=== PATIENT | female | born 1985 | race Caucasian/White ===

== ENCOUNTER 2019-10-15 15:45 | Emergency (ER) | payer OTHER, SELFPAY ==
[2019-10-15 15:47] VITALS: BP 141/97; PULSE 107; RESP 18; TEMP 36.8; O2SAT 94; BMI 29.7
--- NOTE | 2019-10-15 16:34 | ED.VIS.GEN ---
History of Present Illness Chief Complaint: Lower Extremity Injury Detail of Chief Complaint: Anterior left thigh pain, numbness dorsum left foot and anterior left arm Informant: Patient Onset: Yesterday - Thigh pain started at 2100. Arm pain started at 2200 last evening Context: Sudden Onset Timing: Continuous - The thigh discomfort has been continuous, Waxes and wanes Quality: Pain and numbness Location: Pain anterior left thigh and anterior volar left arm numbness dorsum left f Current Severity: Mild Maximum Severity: Severe Worsened by: Nothing specific Relieved by: Nothing Associated Symptoms: None Narrative: Patient 34-year-old called squad last evening because of anterior left thigh pain. She was concerned she had a blood clot. She has no prior history of blood clot. She denies swelling or discoloration of her left lower extremity. She declined transport because she became emotional i.e. UT for tearful with chest pain and shortness of breath. Her symptoms improved and she declined transport. She denies fever, chills night sweats. She denies ocular, visual auditory symptoms. She denies neck pain or neck stiffness. She had mild chest discomfort. She presently has no chest discomfort. She states her left thigh presently feels better. The left arm pain is not in a radicular dermatome. There is no other symptoms. During the history portion of the examination patient became tearful emotional and began to hyperventilate. Patient states her biggest concern is that she has a blood clot. Prior similar symptoms: No Recent Illness/Hospitalization: No - Past Medical History (1) History of depression and anxiety Status: Acute Past Medical History - Allergies and Home Meds Allergies/Adverse Reactions: Allergies No Known Allergies Allergy (Verified 10/15/19 15:47) Primary Care Physician: Sam Gomze [Primary Care Provider] - Prior records reviewed: Yes Surgical History: no surgical history Lives: Alone Smoking Status: Never smoker Alcohol: Rare Drugs: None Review of Systems General: Denies: Chills, Fever, Malaise, Subjective, Sweats, Weight loss Eyes: Denies: Visual changes - bilaterally, Blurred Vision - bilaterally ENT: Denies: Bilateral ear pain, Rhinorrhea, Sore throat Cardiovascular: Denies: Chest pain, Palpitations Respiratory: Denies: Dyspnea, Cough, Sputum, Dyspnea on exertion Gastrointestinal: Denies: Abdominal pain, Nausea, Vomiting Musculoskeletal: Reports: Extremity Pain. Denies: Myalgias, Arthralgias, Neck pain, Back pain, Swelling Skin: Denies: Rash, Wounds Neurological: Reports: Numbness. Denies: Headache, Weakness Psych: Reports: Depression, Anxiety Endocrine: Denies: Polyuria, Polydipsia Hematologic: Denies: Easy bruising, Easy bleeding Physical Exam Vital Signs/Narrative: Vital Signs Temp Pulse Resp BP Pulse Ox 10/15/19 15:47 98.2 F 107 H 18 141/97 H 94 Inital Vital Signs reviewed: Yes General: Well nourished, Well developed, No Acute Distress Head: Normocephalic, Atraumatic Eyes: Perrl, EOMI. Negative for: Pale conjunctiva, Scleral icterus ENT: Moist mucous membranes, No rhinorrhea Neck: Supple, Nontender, No lymphadenopathy, No JVD Cardiovascular: Regular rate, Regular rhythm, No murmurs, Normal S1, Normal S2 Respiratory: No distress, CTA bilaterally, Chest nontender Abdomen: Soft, Nontender, Nondistended, Normal bowel sounds, No masses Back: Nontender, Normal Inspection. Negative for: CVA tenderness, Spinal tenderness Extremities: Nontender, No edema, - - There is no asymmetry, swelling, discoloration, leg vein distention, palpable cords or tenderness along the distribution of the deep venous system. DP and PT pulse are 2+ and symmetric. Skin: Normal color, No rash, No Trauma. Negative for: Cyanosis, Diaphoresis, Jaundice Neurological: Alert, Oriented x3, Cranial nerves II-XII grossly intact, Normal Strength, Normal Sensation, Normal DTR, Normal Gait Psychological: Tearful Diagnostic/Tx/Re-eval Laboratory Results 10/15/19 10/15/19 16:20 16:20 WBC 10.3 RBC 4.24 Hgb 12.9 Hct 37.9 MCV 89.4 MCH 30.4 MCHC 34.0 RDW Std Deviation 36.8 RDW Coeff of Isabell 11.5 L Plt Count 358 MPV 11.5 Immature Gran % (Auto) 0.200 Neut % (Auto) 69.3 Lymph % (Auto) 22.3 [place] % (Auto) 5.6 Eos % (Auto) 2.3 Baso % (Auto) 0.3 Absolute Neuts (auto) 7.1 Absolute Lymphs (auto) 2.30 Nucleated RBC % 0 Sodium 138 Potassium 3.7 Chloride 105 Carbon Dioxide 27.0 Anion Gap 6 BUN 13 Creatinine 0.79 Estim Creat Clear Calc 97.58 Est GFR (MDRD) Af Amer 106 Est GFR (MDRD) Non-Af 88 BUN/Creatinine Ratio 16.4 Glucose 100 Calcium 9.1 Laboratory studies are all normal. Patient was informed of her results. She was informed the cause of her pain is unknown. - Medical Decision Making Dental diagnosis includes pain of unknown etiology, anxiety, possible electrolyte abnormality. ED Disposition - Plan for ED Patient: Disposition: Home or Assisted Living Diagnosis: Acute pain of left thigh, Left arm pain, Numbness of left foot Instructions: ED Acute Pain [facility] Referrals: Sam Gomez [Primary Care Provider] - 3-5 Days if not improving
[2019-10-15 16:57] LABS: Absolute Neutrophil Count 7.1 X10^3/uL (2.0-7.7); Basophil# 0.03 X10^3/uL; Basophil% 0.3 % (0-1); Eosinophil# 0.24 X10^3/uL; Eosinophils% 2.3 % (0-5); Hematocrit 37.9 % (37-47); Hemoglobin 12.9 g/dL (12.0-15.0); Lymphocyte % 22.3 % (19-41); Mean Corpuscular Hgb 30.4 pg (27.0-32.0); Mean Corpuscular Volume 89.4 fL (81-99); Mean Platelet Vol. 11.5 fl (6.2-12.0); Monocyte# 0.58 X10^3/uL; Monocyte% 5.6 % (0-10); NRBC Flagged by Analyzer 0 % (0-5); Neutrophil # 7.13 X10^3/uL (2.7-7.7); Neutrophil % 69.3 % (47-70); Platelet Count 358 K/mm3 (150-450); RBC Distribution Width CV 11.5 % (11.6-14.6); RBC Distribution Width SD 36.8 fl (35.1-43.9); Red Blood Count 4.24 M/mm3 (4.2-5.4); White Blood Count 10.3 K/mm3 (4.4-11.0)
[2019-10-15 17:08] LABS: Anion Gap 6 (5-15); BUN 13 mg/dL (7-18); BUN/Creat Ratio 16.4 RATIO (10-20); Calcium,Total 9.1 mg/dL (8.5-10.1); Chloride 105 mmol/L (98-107); Creatinine, Serum 0.79 mg/dL (0.55-1.02); EST Glomerular Filtration Rate 88 mL/min (>60); Est Glom Filt Rate - Afr Amer 106 mL/min (>60); Estimated Creatinine Clearance 97.58 ml/min; Glucose 100 mg/dL (74-106); Potassium 3.7 mmol/L (3.5-5.1); Sodium Level 138 mmol/L (136-145)
[2019-10-15 17:40] VITALS: BP 113/85; PULSE 80; RESP 18; O2SAT 98
== END 2019-10-15 17:41 | disposition home or self-care (01) ==
PROVIDERS: Emergency Provider Emergency Medicine; PCP Student in an Organized Health Care Education/Training Program
DX: M79.652 Pain in left thigh (principal); M79.602 Pain in left arm; R20.0 Anesthesia of skin; F32.9 Major depressive disorder, single episode, unspecified; F41.9 Anxiety disorder, unspecified
CPT/HCPCS: 80048; 85025; 99283

== ENCOUNTER 2020-08-26 12:43 | Observation (INO) | payer OTHER, SELFPAY ==
[2020-08-26 12:44] VITALS: BP 126/94; PULSE 100; RESP 20; TEMP 37.6; O2SAT 98; BMI 29.7
--- NOTE | 2020-08-26 13:36 | US_ITS ---
STUDY: ABDOMINAL ULTRASOUND - RIGHT UPPER QUADRANT REASON FOR VISIT: Female, 35 years old fever, transaminitis TECHNIQUE: Ultrasound evaluation of the right upper quadrant was performed with real-time and static castillo-scale imaging. TECHNICAL QUALITY: Adequate. COMPARISON: None. FINDINGS: Liver: The liver measures 15.3 cm. There is normal echogenicity of the liver. The bile ducts are within normal limits. There is hepatic color flow. The direction of portal flow is hepatopetal. There is no demonstrated mass lesion. Gallbladder: Normal distended gallbladder. The gallbladder wall measures 3 mm. There is a negative sonographic Goldstein''s sign. There is no pericholecystic fluid. There are no gallstones. Common Bile Duct (C.B.D.): The common bile duct measures 5 mm. Pancreas: Normal size of the head, body and tail of the pancreas. There is normal echogenicity of the pancreas. There is no demonstrated pancreatic mass or cyst. Right Kidney: Normal size of the right kidney. The right kidney measures 13.5 cm. Normal renal cortex. The right cortex measures cm. There is no demonstrated renal mass or cyst. There is no right hydronephrosis. US/Gallbladder IMPRESSION: Normal right upper quadrant ultrasound examination. Electronically Signed: Jeronimo Seay MD at 16:08 EDT Tel , Service support ,
--- NOTE | 2020-08-26 13:36 | EKG12_ITS ---
Test Reason : FEVER Blood Pressure : / mmHG Vent. Rate : 087 BPM Atrial Rate : 087 BPM P-R Int : 172 ms QRS Dur : 084 ms QT Int : 350 ms P-R-T Axes : 026 015 039 degrees QTc Int : 421 ms Sinus rhythm with Premature supraventricular complexes Otherwise normal ECG Confirmed by NEEMA ALVA, SATISH ([id number]), editor greeting card HERBERT AMOR ([id number]) on 08/29/2020 11:33:50 A M Referred By: ASHLEY Confirmed By:CODY BETHEA MD
[2020-08-26] MEDS: 0.9% Normal Saline 1,000 ML 1000 ML IV (14:00)
[2020-08-26] MEDS: Ondansetron 4 MG/2 ML Vial IV (14:00)
--- NOTE | 2020-08-26 14:20 | RAD_ITS ---
STUDY: X-RAY CHEST REASON FOR EXAM: Female, 35 years old. Weakness, fever TECHNIQUE: Single AP portable view of the chest. COMPARISON: None. FINDINGS: The lungs are clear and expanded. There is no demonstrated pleural abnormality. Normal size heart. Normal mediastinum and kade. Normal visualized pulmonary arteries. Normal visualized aortic arch and descending thoracic aorta. Normal visualized thoracic spine. Normal visualized ribs, clavicles, and shoulders. There is no demonstrated abnormality of the visualized soft tissue structures of the upper abdomen. RAD/Chest 1 View (Portable) IMPRESSION: Normal x-ray examination of the chest. Electronically Signed: Matthew Anderson MD at 14:40 EDT , Service support ,
[2020-08-26 14:22] LABS: Absolute Lymphocyte Count 1.14 X10^3/uL (0.83-4.51); Absolute Neutrophil Count 2.5 X10^3/uL (2.0-7.7); Basophil# 0.03 X10^3/uL; Basophil% 0.8 % (0-1); Eosinophil# 0.01 X10^3/uL; Eosinophils% 0.3 % (0-5); Hematocrit 34.8 % (37-47); Hemoglobin 12.3 g/dL (12.0-15.0); Lymphocyte # 1.14 X10^3/ul (0.83-4.51); Lymphocyte % 29.3 % (19-41); Mean Corp Hgb Conc 35.3 g/dL (32-36); Mean Corpuscular Hgb 29.9 pg (27.0-32.0); Mean Corpuscular Volume 84.5 fL (81-99); Mean Platelet Vol. 11.5 fl (6.2-12.0); Monocyte# 0.19 X10^3/uL; Monocyte% 4.9 % (0-10); NRBC Flagged by Analyzer 0 % (0-5); Neutrophil % 64.2 % (47-70); Platelet Count 231 K/mm3 (150-450); RBC Distribution Width CV 11.4 % (11.6-14.6); RBC Distribution Width SD 34.8 fl (35.1-43.9); Red Blood Count 4.12 M/mm3 (4.2-5.4); White Blood Count 3.9 K/mm3 (4.4-11.0)
[2020-08-26 14:45] LABS: AST(SGOT) 996 U/L (15-37); Alanine Aminotransfer ALT/SGPT 732 U/L (13-56); Albumin, Serum 3.6 g/dL (3.2-5.0); Alkaline Phosphatase 188 U/L (45-117); Anion Gap 7 (5-15); BUN 8 mg/dL (7-18); Bilirubin, Direct 0.84 mg/dL (0.00-0.30); Chloride 96 mmol/L (98-107); EST Glomerular Filtration Rate 87 mL/min (>60); Est Glom Filt Rate - Afr Amer 105 mL/min (>60); Estimated Creatinine Clearance 95.45 ml/min; Globulin 3.9 g/dL (2.2-4.2); Glucose 97 mg/dL (74-106); Lipase 219 U/L (73-393); Protein, Total 7.5 g/dL (6.4-8.2); Sodium Level 133 mmol/L (136-145)
[2020-08-26 14:56] LABS: Lactic Acid 1.3 mmol/L (0.4-1.9)
[2020-08-26 15:43] LABS: Red Blood Cells-Urine 0 SEEN /hpf (0-5)
[2020-08-26 16:05] LABS: Internal QC Validated? YES +Cl - CLEAR BKGD; Pregnancy, Urine Negative Negative
[2020-08-26 16:09] VITALS: RESP 18
[2020-08-26 16:15] VITALS: BP 118/82; PULSE 86; RESP 16; TEMP 37.5; O2SAT 99
[2020-08-26 16:21] LABS: Internal QC Validated? YES +Cl - CLEAR BKGD; Monotest Negative (Negative)
--- NOTE | 2020-08-26 16:41 | EX.ED.DYSGE1 ---
HPI History of Present Illness Chief Complaint: General Illness Informant: patient Narrative Narrative: Patient is a 35-year-old female 8 days of fevers with a T-max of 102.7. She states she has had flulike symptoms. She has had cough and body aches. She said decreased appetite. She went to [facility] yesterday where she had blood work a chest x-ray and UA. She was found to have abnormalities with her liver and was scheduled to have repeat blood work today as well as a liver ultrasound. Patient states she became very nervous when they told her she had to be n.p.o. for 6 hours before her ultrasound and she has been having a hard time keeping herself hydrated. She decided to come to the emergency room to be evaluated further. She notes she has had a mild headache but denies any neck stiffness. She denies any diarrhea or change in her bowel habits. She has only had mild nausea. She denies any IV drug use. She denies any abdominal pain. She denies any sick contacts. No other complaints at this time [facility] Medical History Depression Home Medications bupropion HCl 300 mg PO DAILY 10/15/19 [History Last Taken Unknown] ondansetron HCl [Zofran] 4 mg PO Q8H PRN #14 tab 08/26/20 [Rx Last Taken Unknown] Allergy/AdvReac Type Severity Reaction Status Date / Time No Known Allergies Allergy Verified 08/26/20 12:47 Social History Smoking Status: Never smoker [facility] ED Constitutional Constitutional ED: Reports chills, fever(s) and other Details: anorexia ; Denies malaise Eyes Eyes: Denies blurry vision or loss of vision ENT ENT ED: Denies rhinorrhea or sore throat Cardiovascular Cardiovascular: Denies chest pain or dizziness Respiratory/Chest Respiratory/Chest: Denies cough or dyspnea Gastrointestinal Gastrointestinal: Reports nausea; Denies abdominal pain or vomiting Genitourinary Genitourinary ED: Denies dysuria or hematuria Musculoskeletal Musculoskeletal: Denies arthralgias or myalgias Integumentary Denies rash or wounds Neurologic Neurologic: Denies focal weakness, headache(s) or weakness Psychiatric Psychiatric: Denies anxiety or behavioral changes EXAM Physical Exam Const Vital Signs: 08/26/20 12:44 08/26/20 16:09 08/26/20 16:15 Temperature 99.7 F H 99.5 F H Temperature Source Temporal Oral Pulse Rate 100 86 Respiratory Rate 20 H 18 16 Blood Pressure 126/94 H 118/82 H Blood Pressure Mean 104 94 Pulse Ox 98 99 Oxygen Delivery Method Room Air Room Air Positive well nourished, well developed and no apparent distress General Appearance ED: well developed HEENT Reports normocephalic, TM's clear and moist mucous membranes atraumatic Nose: no nasal discharge General Ear: hearing grossly impaired External Ear: external ears normal Tympanic Membrane ED: Yes TM's clear Mouth ED: Yes moist mucous membranes abnormal Mouth: moist mucous membranes abnormal Eyes PERRL and EOMs intact bilaterally Neck full ROM, no lymphadenopathy, supple and no meningeal signs Chest Wall inspection of chest normal Resp normal respiratory effort, normal air movement and clear to auscultation bilaterally Cardio regular rate and regular rhythm GI normal to inspection, nondistended, normoactive bowel sounds and no masses Inspection: Negative for abdominal distention Back/Spine no CVA tenderness Extremity normal to inspection and full ROM Neuro oriented x3 and no focal motor deficits Sensorium / Orientation: alert Psych mental status grossly normal and thought process normal Mood & Affect: anxious Skin no rashes or lesions noted and no wounds MDM MDM MDM Narrative Medical decision making narrative: Patient evaluated for 8 days of fever. She had abnormal lab work outpatient but was supposed to have further testing today but did not feel well enough to get it. Vital signs are significant for a low-grade temp of 99.7 ?F. She is hemodynamically stable emergency room. She is given IV fluids and Zofran. On reevaluation she is feeling better. Work-up is remarkable for transaminitis and a mildly elevated bilirubin. She has a normal lipase and a relatively normal CBC. She does have a very mild leukopenia with a white blood cell count of 3.9. Her BMP is mostly normal. She is normal kidney function. [place] test is negative. Right upper quadrant ultrasound obtained does not show any acute process. Work-up is discussed with her PCP, Dr. Gomez who is comfortable with outpatient evaluation. I believe patient is hemodynamically stable. Patient is agreeable to this plan of care. Did discuss with patient observation admission for continued monitoring and IV fluids but patient states she discomfortable going home. I feel like this is reasonable. Blood cultures are pending however I do suspect this is viral in nature. Patient has an outpatient hepatic panel ordered and is instructed to have repeat blood work in 2 days which is ordered by her PCP. Lab Data Attestation: I reviewed the patient's lab results. Labs: Laboratory Results - last 24 hr 08/26/20 08/26/20 08/26/20 13:55 13:55 13:55 WBC 3.9 L RBC 4.12 L Hgb 12.3 Hct 34.8 L MCV 84.5 MCH 29.9 MCHC 35.3 RDW Std Deviation 34.8 L RDW Coeff of Isabell 11.4 L Plt Count 231 MPV 11.5 Immature Gran % (Auto) 0.500 Neut % (Auto) 64.2 Lymph % (Auto) 29.3 [place] % (Auto) 4.9 Eos % (Auto) 0.3 Baso % (Auto) 0.8 Absolute Neuts (auto) 2.5 Absolute Lymphs (auto) 1.14 Nucleated RBC % 0 Sodium 133 L Potassium 3.0 L Chloride 96 L Carbon Dioxide 30.0 Anion Gap 7 BUN 8 Creatinine 0.80 Estim Creat Clear Calc 95.45 Est GFR (MDRD) Af Amer 105 Est GFR (MDRD) Non-Af 87 BUN/Creatinine Ratio 10.0 Glucose 97 Lactic Acid 1.3 Calcium 9.0 Total Bilirubin 1.70 H Direct Bilirubin 0.84 H AST 996 H ALT 732 H Alkaline Phosphatase 188 H Troponin I < 0.015 Total Protein 7.5 Albumin 3.6 Globulin 3.9 Lipase 219 Urine Color Urine Clarity Urine pH Ur Specific [place] Urine Protein Urine Glucose (UA) Urine Ketones Urine Occult Blood Urine Nitrite Urine Bilirubin Urine Urobilinogen Ur Leukocyte Esterase Urine RBC Urine WBC Ur Squamous Epith Cells Urine Bacteria Hyaline Casts Urine Mucus Urine Test Monoscreen 08/26/20 08/26/20 08/26/20 15:37 15:37 15:37 WBC RBC Hgb Hct MCV MCH MCHC RDW Std Deviation RDW Coeff of Isabell Plt Count MPV Immature Gran % (Auto) Neut % (Auto) Lymph % (Auto) [place] % (Auto) Eos % (Auto) Baso % (Auto) Absolute Neuts (auto) Absolute Lymphs (auto) Nucleated RBC % Sodium Potassium Chloride Carbon Dioxide Anion Gap BUN Creatinine Estim Creat Clear Calc Est GFR (MDRD) Af Amer Est GFR (MDRD) Non-Af BUN/Creatinine Ratio Glucose Lactic Acid Calcium Total Bilirubin Direct Bilirubin AST ALT Alkaline Phosphatase Troponin I Total Protein Albumin Globulin Lipase Urine Color [place] Urine Clarity Clear Urine pH 6.0 Ur Specific [place] 1.015 Urine Protein 30 H Urine Glucose (UA) Normal Urine Ketones 150 A* Urine Occult Blood 10 H Urine Nitrite Negative Urine Bilirubin 1 H Urine Urobilinogen 4 H Ur Leukocyte Esterase 25 H Urine RBC 0 SEEN Urine WBC 0-5 SEEN Ur Squamous Epith Cells 0-5 SEEN Urine Bacteria 1+ Hyaline Casts 5-10 SEEN Urine Mucus 3+ Urine Test Negative Monoscreen Negative Radiography Chest X-Ray - ED: 1 View, Read by ED Physician, Read by Radiologist and Normal Diagnostic Testing: Radiology Impression Gallbladder Ultrasound 08/26/20 13:36 IMPRESSION: Normal right upper quadrant ultrasound examination. Electronically Signed: Jeronimo Seay MD at 16:08 EDT Tel , Service support , Chest X-Ray 08/26/20 14:20 IMPRESSION: Normal x-ray examination of the chest. Electronically Signed: Matthew Anderson MD at 14:40 EDT , Service support , Rhythm Strip Rhythm Strip: Sinus Rhythm Rate: 87 Ectopy: None EKG Initial EKG: Attestation: I personally reviewed and interpreted this EKG as follows: Interpretation: Sinus Rhythm Comments: Normal sinus rhythm at a rate of 87 Normal axis Normal intervals Normal ST segments Treatment and Re-Evaluation Comments:: IV fluids and Zofran Improvement of symptoms on reevaluation Discharge Plan Triage Chief Complaint: General Illness ED Provider: Dinaa Andrews Dx/Rx/DC Orders Clinical Impression: Hepatitis, Fever Instructions: ED Hepatitis Cause Unknown Test ... Prescriptions: New ondansetron HCl [Zofran] 4 mg tablet 4 mg PO Q8H PRN (Reason: nausea and vomiting) Qty: 14 RF: 0 No Action bupropion HCl 150 MG tablet extended release 24 hr 300 mg PO DAILY RF: 0 Primary Care Provider: Sam Gomez Referrals: Sam Gomez [Primary Care Provider] - Activity Restrictions/Additional Instructions: Please go to the lab in 2 days for repeat blood work/have the blood work that was already ordered drawn. Follow-up with your doctor on Tuesday or early next week. Try to drink plenty fluids. Return the emergency room if you have worsening symptoms or concern for further dehydration. Disposition Disposition: Home, self care
[2020-08-26 16:55] LABS: Color, Urine Amber (Yellow); Glucose, Dipstick Normal (Normal); Leukocyte Esterase-Dipstick 25 /ul (Negative); Nitrite-Dipstick Negative (Negative); Occult Blood-Urine 10 /ul (Negative); Protein-Dipstick 30 mg/dl (Negative); Specific Gravity, Urine 1.015 (1.002-1.030); Urine Bilirubin Dipstick 1 mg/dL (Negative); Urine Clarity Clear (Clear); Urine Urobilinogen 4 mg/dl (Normal)
[2020-08-26 16:58] LABS: Ketone-Dipstick 150 mg/dl (Negative)
[2020-08-26 17:06] LABS: Bacteria 1+ /hpf (None Seen); Mucous, Urine 3+ /hpf (<or=2+); Squamous Epithelial Cells - UA 0-5 SEEN /hpf (5-10); White Blood Cells 0-5 SEEN /hpf (0-5)
[2020-08-26 17:07] LABS: Hyaline Cast 5-10 SEEN /lpf (0-5)
--- NOTE | 2020-08-26 17:40 | HP.PCM.HOS_ITS ---
HPI - General General Date of Admission: 08/26/20 HPI Narrative TRACI DISLA, is a 35 F who presents with a complaint of fever for 8 days with associated cough and body aches and decreased appetite. His nose have not been improving so she was seen by her PCP yesterday and she had blood work. She was told of all the blood work today also that she had elevated liver enzymes. A liver ultrasound was also ordered but she said she had to keep n.p.o. overnight and this worsened her nausea so she decided to come into the ED. She denies any chills and denies any abdominal pain. She denies ever having any liver pathology and denies IV drug use or alcohol use. She is celibate. She is unsure if she is had a hepatitis B vaccination. Patient also has taken the Covid vaccination shots. In the ED, vitals showed blood pressure of 124/84 with pulse rate of 84, respiratory rate of 16 and temp of 99.5 Fahrenheit. CBC showed WBC of 3.9 with hemoglobin of 12.3 and platelets of 231. Chemistry shows sodium of 133 with potassium of 3, and creatinine of 0.8. Total bilirubin was 1.7 with AST of 996 and ALT of 732 as well as ALP of 188. UA showed urine ketones of 150 and leukocyte esterase of 25 and 1+ bacteria. Gallbladder ultrasound done showed normal distended gallbladder with gallbladder wall of 3 mm and a negative sonographic Goldstein sign with normal pancreas and normal liver. She has been admitted to be managed for acute hepatitis, probably viral. Of note, patient tells me that she has been taking Tylenol more than usual ever since her symptoms started necessitating she took about 1000 mg of Tylenol every day with the last dose being at 5 PM yesterday. [facility] Medical History (Updated 08/26/20 @ 18:03 by Radha Orona) Depression Hepatitis Home Medications bupropion HCl 300 mg PO DAILY 10/15/19 [History Last Taken 08/25/20] loratadine [Claritin] 10 mg PO DAILY PRN 08/26/20 [History Last Taken Unknown] ondansetron HCl [Zofran] 4 mg PO Q8H PRN #14 tab 08/26/20 [Rx Last Taken Unknown] Allergy/AdvReac Type Severity Reaction Status Date / Time No Known Allergies Allergy Verified 08/26/20 12:47 Surgical History (Updated 08/26/20 @ 18:02 by Radha Orona) [place] teeth extracted Social History Smoking Status: Never smoker ROS Constitutional Constitutional: Reports anorexia, fatigue, fever(s) and malaise; Denies change in weight or chills Eyes Eyes: Denies change in vision ENT HEENT: Denies abnormal hearing, dysphagia or headache(s) Cardiovascular Cardiovascular: Denies chest pain, dyspnea on exertion, edema, lightheadedness, orthopnea, palpitations, paroxysmal nocturnal dyspnea or rapid heart rate Respiratory/Chest Respiratory/Chest: Denies cough, dyspnea, shortness of breath at rest or shortness of breath with exertion Gastrointestinal Gastrointestinal: Denies abdominal pain, coffee ground emesis, constipation or diarrhea Genitourinary Genitourinary: Denies burning urination Musculoskeletal Musculoskeletal: Denies arthralgias Neurologic Neurologic: Denies abnormal gait, confusion, disequilibrium, dizziness or focal weakness Psychiatric Psychiatric: Denies anxiety or depression Endocrine Endocrinology: Denies change in body appearance Hematologic/Lymphatic Hematologic/Lymphatic: Denies anemia Vital Signs Vital Signs Vital Signs: 08/26/20 12:44 08/26/20 16:09 08/26/20 16:15 Temperature 99.7 F H 99.5 F H Temperature Source Temporal Oral Pulse Rate 100 86 Respiratory Rate 20 H 18 16 Blood Pressure 126/94 H 118/82 H Blood Pressure Mean 104 94 Pulse Ox 98 99 Oxygen Delivery Method Room Air Room Air Physical Exam Const alert, oriented x3 and no apparent distress General Appearance: cooperative HEENT normocephalic, head/scalp atraumatic, hearing grossly normal bilaterally and moist oral mucous membranes Eyes PERRL, EOMs intact bilaterally and conjunctivae normal Neck no lymphadenopathy, supple and no JVD Resp normal respiratory effort, no use of accessory muscles and clear to auscultation bilaterally Cardio regular rate, regular rhythm, S1 normal heart sound, S2 normal heart sound and no murmurs GI normal to inspection, nondistended, normoactive bowel sounds, soft to palpation, non-tender and non-distended GI Narrative: negative Goldstein's sign. Extremity normal to inspection, full ROM and no clubbing, cyanosis or edema Peripheral Pulses: Yes pulses 2+ throughout Skin no rashes or lesions noted, no wounds, skin turgor normal and no jaundice Neuro oriented x3 Sensorium / Orientation: awake and alert Psych Mood & Affect: anxious Lab / Micro Data Result Diagrams: 08/26/20 13:55 08/26/20 13:55 Labs: Laboratory Results - last 24 hr 08/26/20 08/26/20 08/26/20 13:55 13:55 13:55 WBC 3.9 L RBC 4.12 L Hgb 12.3 Hct 34.8 L MCV 84.5 MCH 29.9 MCHC 35.3 RDW Std Deviation 34.8 L RDW Coeff of Isabell 11.4 L Plt Count 231 MPV 11.5 Immature Gran % (Auto) 0.500 Neut % (Auto) 64.2 Lymph % (Auto) 29.3 [place] % (Auto) 4.9 Eos % (Auto) 0.3 Baso % (Auto) 0.8 Absolute Neuts (auto) 2.5 Absolute Lymphs (auto) 1.14 Nucleated RBC % 0 Sodium 133 L Potassium 3.0 L Chloride 96 L Carbon Dioxide 30.0 Anion Gap 7 BUN 8 Creatinine 0.80 Estim Creat Clear Calc 95.45 Est GFR (MDRD) Af Amer 105 Est GFR (MDRD) Non-Af 87 BUN/Creatinine Ratio 10.0 Glucose 97 Lactic Acid 1.3 Calcium 9.0 Total Bilirubin 1.70 H Direct Bilirubin 0.84 H AST 996 H ALT 732 H Alkaline Phosphatase 188 H Troponin I < 0.015 Total Protein 7.5 Albumin 3.6 Globulin 3.9 Lipase 219 Urine Color Urine Clarity Urine pH Ur Specific [place] Urine Protein Urine Glucose (UA) Urine Ketones Urine Occult Blood Urine Nitrite Urine Bilirubin Urine Urobilinogen Ur Leukocyte Esterase Urine RBC Urine WBC Ur Squamous Epith Cells Urine Bacteria Hyaline Casts Urine Mucus Urine Test Monoscreen 08/26/20 08/26/20 08/26/20 15:37 15:37 15:37 WBC RBC Hgb Hct MCV MCH MCHC RDW Std Deviation RDW Coeff of Isabell Plt Count MPV Immature Gran % (Auto) Neut % (Auto) Lymph % (Auto) [place] % (Auto) Eos % (Auto) Baso % (Auto) Absolute Neuts (auto) Absolute Lymphs (auto) Nucleated RBC % Sodium Potassium Chloride Carbon Dioxide Anion Gap BUN Creatinine Estim Creat Clear Calc Est GFR (MDRD) Af Amer Est GFR (MDRD) Non-Af BUN/Creatinine Ratio Glucose Lactic Acid Calcium Total Bilirubin Direct Bilirubin AST ALT Alkaline Phosphatase Troponin I Total Protein Albumin Globulin Lipase Urine Color Cristin Urine Clarity Clear Urine pH 6.0 Ur Specific [place] 1.015 Urine Protein 30 H Urine Glucose (UA) Normal Urine Ketones 150 A* Urine Occult Blood 10 H Urine Nitrite Negative Urine Bilirubin 1 H Urine Urobilinogen 4 H Ur Leukocyte Esterase 25 H Urine RBC 0 SEEN Urine WBC 0-5 SEEN Ur Squamous Epith Cells 0-5 SEEN Urine Bacteria 1+ Hyaline Casts 5-10 SEEN Urine Mucus 3+ Urine Test Negative Monoscreen Negative Micro: Microbiology 08/26/20 Unknown SARS-CoV-2 Antigen (Rapid) - Final Interface Orders Rhythm Strip Rhythm Strip: Sinus Rhythm Rate: 87 Ectopy: None Radiology Impression Gallbladder Ultrasound 08/26/20 13:36 IMPRESSION: Normal right upper quadrant ultrasound examination. Electronically Signed: Jeronimo Seay MD at 16:08 EDT Tel , Service support , Chest X-Ray 08/26/20 14:20 IMPRESSION: Normal x-ray examination of the chest. Electronically Signed: Matthew Anderson MD at 14:40 EDT , Service support , Assessment & Plan Assessment/Plan (1) Hepatitis: PLAN: #Acute hepatitis and acute liver injury * Cause is unclear. It appears to be viral as she did have what seems like a viral prodromal illness prior to symptom onset with fever, cough and generalized malaise. However she has also been taking Tylenol but says she took only about 1 g daily. * Total bilirubin is 1.7 with AST of 996 and ALT of 732 with ALP of 188. Direct bilirubin is also elevated at 0.84. There are no previous records to compare with in the EMR. * Admit to MedSurg * Hydrate with IV fluids. * Order hepatitis panel * Hold off on treatment for Tylenol toxicity now as patient is asymptomatic, and there is no clear evidence of tylenol injury * trend liver enzymes * Of note, infectious mononucleosis screen was negative. * Check INR * #Hypokalemia: K is 3. Will replace and monitor #Hyponatremia: Sodium is 133. This is likely due to dehydration. Will hydrate and trend. #Asymptomatic bacteriuria * Urine shows 1+ bacteria with 25 leukocyte esterase. She has no urinary symptoms though. Will check urine culture and monitor further. * DVT prophylaxis: SCDs Visit Charges Inpatient E&M: 56011 Init Hosp L3
[2020-08-26 17:59] VITALS: BP 124/84; PULSE 84; RESP 16; TEMP 37.5; O2SAT 99
[2020-08-26 19:39] VITALS: BMI 29.9
[2020-08-26 19:41] VITALS: BP 123/79; PULSE 87; RESP 16; TEMP 37.5; O2SAT 99
[2020-08-26] MEDS: Potassium Chloride Oral Tablet 20 MEQ 60 MEQ PO (20:47)
[2020-08-26] MEDS: 0.9% Normal Saline 1,000 ML 150 ML IV (20:47)
[2020-08-26] MEDS: 0.9% Saline Lock 10 ML Syringe IV (20:47)
[2020-08-26 21:22] LABS: International Normalized Ratio 1.1; Prothrombin Time (Protime)PT. 13.6 SECONDS (11.7-14.9)
[2020-08-26 21:32] LABS: Acetaminophen (Tylenol) Level < 2.0 ug/mL (10.0-30.0)
[2020-08-27 02:05] VITALS: BP 117/78; PULSE 73; RESP 18; TEMP 36.6; O2SAT 100
[2020-08-27] MEDS: Ibuprofen 400 MG Tablet PO (05:18)
[2020-08-27] MEDS: 0.9% Normal Saline 1,000 ML 150 ML IV (05:20)
[2020-08-27 05:23] LABS: Absolute Lymphocyte Count 1.25 X10^3/uL (0.83-4.51); Absolute Neutrophil Count 1.7 X10^3/uL (2.0-7.7); Basophil# 0.01 X10^3/uL; Basophil% 0.3 % (0-1); Eosinophil# 0.04 X10^3/uL; Eosinophils% 1.2 % (0-5); Hematocrit 25.8 % (37-47); Hemoglobin 9.2 g/dL (12.0-15.0); Lymphocyte # 1.25 X10^3/ul (0.83-4.51); Lymphocyte % 38.5 % (19-41); Mean Corp Hgb Conc 35.7 g/dL (32-36); Mean Corpuscular Hgb 30.6 pg (27.0-32.0); Mean Corpuscular Volume 85.7 fL (81-99); Mean Platelet Vol. 10.9 fl (6.2-12.0); Monocyte# 0.29 X10^3/uL; Monocyte% 8.9 % (0-10); NRBC Flagged by Analyzer 0 % (0-5); Neutrophil # 1.65 X10^3/uL (2.7-7.7); Neutrophil % 50.8 % (47-70); Platelet Count 204 K/mm3 (150-450); RBC Distribution Width CV 11.7 % (11.6-14.6); RBC Distribution Width SD 36.6 fl (35.1-43.9); Red Blood Count 3.01 M/mm3 (4.2-5.4); White Blood Count 3.3 K/mm3 (4.4-11.0)
[2020-08-27 05:55] LABS: AST(SGOT) 1151 U/L (15-37); Alanine Aminotransfer ALT/SGPT 842 U/L (13-56); Albumin, Serum 2.7 g/dL (3.2-5.0); Alkaline Phosphatase 145 U/L (45-117); Anion Gap 2 (5-15); BUN 6 mg/dL (7-18); BUN/Creat Ratio 10.8 RATIO (10-20); Calcium,Total 7.8 mg/dL (8.5-10.1); Chloride 103 mmol/L (98-107); Creatinine, Serum 0.56 mg/dL (0.55-1.02); EST Glomerular Filtration Rate 131 mL/min (>60); Est Glom Filt Rate - Afr Amer 159 mL/min (>60); Estimated Creatinine Clearance 136.35 ml/min; Globulin 2.8 g/dL (2.2-4.2); Glucose 94 mg/dL (74-106); Potassium 3.5 mmol/L (3.5-5.1); Protein, Total 5.5 g/dL (6.4-8.2); Sodium Level 137 mmol/L (136-145)
[2020-08-27 08:05] VITALS: BP 112/75; PULSE 77; RESP 16; TEMP 36.9; O2SAT 96
[2020-08-27] MEDS: buPROPion (XL) 300 MG TABLET.XL PO (08:08)
--- NOTE | 2020-08-27 08:52 | PCM.DC ---
Discharge Instructions Follow Up Care Test Results: Test results from this visit will be discussed in further detail at your follow-up appointment, if applicable. Discharge Plan Admission Admit Date/Time: 08/26/20 19:38 Primary Reason for Your Visit: hepatitis Attending Provider: Mega Palma Primary Care Provider: Sam Gomez Instructions Patient Instructions: ED Hepatitis Cause Unknown Test ... Additional Instructions / Restrictions: Please go to the lab in 2 days for repeat blood work/have the blood work that was already ordered drawn. Follow-up with your doctor on Tuesday or early next week. Try to drink plenty fluids. Return the emergency room if you have worsening symptoms or concern for further dehydration. Discharge Orders/Prescriptions Prescriptions: New ondansetron HCl [Zofran] 4 mg tablet 4 mg PO Q8H PRN (Reason: nausea and vomiting) Qty: 14 RF: 0 Continued bupropion HCl 150 MG tablet extended release 24 hr 300 mg PO DAILY RF: 0 loratadine [Claritin] 10 mg Tablet 10 mg PO DAILY PRN (Reason: allergies) RF: 0 Referrals / Follow Up: Sam Gomez [Primary Care Provider] - Disposition Disposition (needs filled in before D/C Order can be placed): Home, self care
--- NOTE | 2020-08-27 08:55 | CASEMGMT ---
LAINEY DE SOUZA Assessment: Face to Face with pt for initial transition planning/care coordination assessment. LAINEY DE SOUZA introduced self and role at [facility], pt voices understanding and consents to assessment. Pt is A/O x4 and answers all questions appropriately at this time. Pt sitting up in bed in no distress. Care providers, pharmacy, and demographics verified/updated. Admitting Dx: acute hepatitis PCP: Jason Specialists: Pt denies having any specialists. Preferred Pharmacy: [facility] Insurance: [facility] Prescription Benefit: yes LW/HPOA: Pt denies having a LW/DPOA. LNOK: Deyvi Card, father Living Arrangements: Pt lives alone in a two story house with 2 steps to enter. Pt reports she is I in ADL's and denies concerns at home. Transportation: Pt drives self and denies concerns with transportation. DME/HHC/SNF: Pt denies any DME at home, prior HHC or SNF stays. Pt states no concerns with going home at time of dc. Pt states no further concerns/needs. CM to follow. Advised pt to ask CM if any further question/concerns/needs arise, voices understanding. Pt Goal: Home Plan: Home
--- NOTE | 2020-08-27 09:21 | PHA.DC.MR ---
Pharmacy Service has performed discharge medication reconciliation for this patient. The patient's discharge medication list was reviewed for discrepancies and discrepancies were resolved. Home Medications bupropion HCl 300 mg PO DAILY 10/15/19 loratadine [Claritin] 10 mg PO DAILY PRN 08/26/20 ondansetron HCl [Zofran] 4 mg PO Q8H PRN #14 tab 08/26/20
--- NOTE | 2020-08-27 10:00 | PCM.NTREPORT ---
Nutrition Therapy Report - History Nutrition Services has been consulted to:: Manage nutrient details of diet order Current diet / nutrition support order:: Seen in conjuction w/ Jadon Portillo, electrical engineering intern. Pt states that she hasn't eaten anything in the past week. Reports that she had a poor appetite because she felt sick. Reports that she was able to drink water and PowerAid while she was sick. States that she vomited some saliva during the week of being sick and felt nausea from not having any food on her stomach. UBW is 195# and CBW is 191# representing 2% weight loss in one week-not significant for malnutrition. Reports that she has significant increase in appetite today. Reports that she ate >50% at breakfast today. - Anthropometric Measurements Height:: 5 ft 7 in Weight:: 86.6 kg Body Mass Index (BMI):: 29.9 - Relevant Labs Relevant Labs:: WBC 3.3 K/mm3 (4.4-11.0) L 08/27/20 04:54 RBC 3.01 M/mm3 (4.2-5.4) L 08/27/20 04:54 Hgb 9.2 g/dL (12.0-15.0) L 08/27/20 04:54 Hct 25.8 % (37-47) L 08/27/20 04:54 RDW Std Deviation 34.8 fl (35.1-43.9) L 08/26/20 13:55 RDW Coeff of Isabell 11.4 % (11.6-14.6) L 08/26/20 13:55 Absolute Neuts (auto) 1.7 X10^3/uL (2.0-7.7) L 08/27/20 04:54 Sodium 133 mmol/L (136-145) L 08/26/20 13:55 Potassium 3.0 mmol/L (3.5-5.1) L 08/26/20 13:55 Chloride 96 mmol/L (98-107) L 08/26/20 13:55 Anion Gap 2 (5-15) L 08/27/20 04:54 BUN 6 mg/dL (7-18) L 08/27/20 04:54 Calcium 7.8 mg/dL (8.5-10.1) L 08/27/20 04:54 Total Bilirubin 1.70 mg/dL (0.20-1.00) H 08/26/20 13:55 Direct Bilirubin 0.84 mg/dL (0.00-0.30) H 08/26/20 13:55 AST 1151 U/L (15-37) H 08/27/20 04:54 ALT 842 U/L (13-56) H 08/27/20 04:54 Alkaline Phosphatase 145 U/L (45-117) H 08/27/20 04:54 Total Protein 5.5 g/dL (6.4-8.2) L 08/27/20 04:54 Albumin 2.7 g/dL (3.2-5.0) L 08/27/20 04:54 - Assessment Food / Nutrition-Related History:: Pt states that she hasn't eaten anything in the past week. Reports that she had a poor appetite because she felt sick. Reports that she was able to drink water and PowerAid while she was sick. States that she vomited some saliva during the week of being sick and felt nausea from not having any food on her stomach. UBW is 195# and CBW is 191# representing 2% weight loss in one week-not significant for malnutrition. Reports that she has significant increase in appetite today. Reports that she ate >50% at breakfast today. - Nutrition Diagnosis Problem / Etiology / Signs & Symptoms (PES):: moderate, acute malnutrition r/t inadequate energy intake during acute illness as evidenced by pt report of not consuming any food for one week and 2% weight loss in one week. Evidence of Malnutrition Exists:: Yes Moderate Protein Calorie Malnutrition:: Acute Illness - Nutrition Intervention Nutrition Prescription:: 1,900-2,000kcal/day (RMR x 1.3). Protein 85-105g/day (1.0-1.25g/kg). Fluid 2,100-2,200mL/day (25mL/kg) - Food / Nutrient Delivery Interventions Summary of nutrition intervention:: Talked to the pt about how the ONS can help replenish vitamin/minerals and protein for strength. Agreeable to ONS as ordered. Nutrition support ordered as / adjusted to:: continue regular diet, ensure enlive w/ medpass Nutrition education provided?: Yes - MNT Monitoring Further MNT monitoring and evaluation required?: Yes MNT Follow-up in:: 3-5 days
[2020-08-27 10:24] LABS: Hepatitis B Surface Antigen Non-Reactive (Nonreactive)
[2020-08-27 10:47] LABS: Hepatitis B Surface Antibody Non-Reactive; Hepatitis C Antibody Non-Reactive (Nonreactive)
[2020-08-27 15:07] VITALS: BMI 29.9
--- NOTE | 2020-08-27 16:10 | PCM.DC.SUM ---
Providers Date of Admission: 08/26/20 Date of Discharge: 08/27/20 Primary Care Physician: Sam Gomez Reason For Visit: ACUTE HEPATITIS Diagnosis Discharge Diagnosis (1) Hepatitis: Status: Acute Code(s): K75.9 - Inflammatory liver disease, unspecified Plan: 1. Acute hepatitis-type unknown #2 chronic depression Medications at Discharge Home Medications bupropion HCl 300 mg PO DAILY 10/15/19 loratadine [Claritin] 10 mg PO DAILY PRN 08/26/20 ondansetron HCl [Zofran] 4 mg PO Q8H PRN #14 tab 08/26/20 Hospital Course Operations None Procedures None Summary of Care Provided Minutes Spent on Discharge: 30 Hospital Course: This 35-year-old white female was seen in the emergency room with complaints of fevers x8 days and flulike symptoms. She also complained of decreased appetite, she had outpatient lab work done which showed abnormal liver chemistry values, she was scheduled to have repeat blood work done and a liver ultrasound but she came to the ER for further evaluation because she was nervous. Labs obtained in the emergency room included a CBC which showed a slightly low white count at 3.9, CMP was abnormal for a bilirubin of 1.7, AST of 996, ALT of 732, alkaline phosphatase of 188. An ultrasound of the gallbladder was performed which was normal. Patient was uncomfortable with going home and requested overnight admission for IV hydration. On 08/27/2020, patient was seen and examined: On examination she appeared in good health and spirits, she does not appear to be in any distress. Vital signs as documented. Skin warm and dry and without overt rashes. Neck without JVD, thyroid appears normal, trachea is midline, neck is supple. Lungs clear, normal air movement was noted. Heart exam notable for regular rhythm, normal sounds and absence of murmurs, rubs or gallops. Abdomen unremarkable and without evidence of organomegaly, masses, or abdominal aortic enlargement, bowel sounds are present in all 4 quadrants, no abdominal tenderness was noted. Extremities nonedematous, no cyanosis was noted, no clubbing was noted. Neuro: Cranial nerves II through XII are grossly intact, no focal motor deficits were noted, sensation to light touch and pinprick is intact, motor exam 5/5 throughout. Psych: Patient is alert and oriented x3, she does not appear anxious or depressed, she does not appear agitated. Patient appears stable for discharge home on 08/27/2020. ABG / Lab / Microbiology Data Result Diagrams: 08/27/20 04:54 08/27/20 04:54 Laboratory: Laboratory Results - last 24 hr 08/26/20 08/26/20 08/26/20 15:37 15:37 21:00 WBC RBC Hgb Hct MCV MCH MCHC RDW Std Deviation RDW Coeff of Isabell Plt Count MPV Immature Gran % (Auto) Neut % (Auto) Lymph % (Auto) [place] % (Auto) Eos % (Auto) Baso % (Auto) Absolute Neuts (auto) Absolute Lymphs (auto) Nucleated RBC % PT 13.6 INR 1.1 Sodium Potassium Chloride Carbon Dioxide Anion Gap BUN Creatinine Estim Creat Clear Calc Est GFR (MDRD) Af Amer Est GFR (MDRD) Non-Af BUN/Creatinine Ratio Glucose Calcium Total Bilirubin AST ALT Alkaline Phosphatase Total Protein Albumin Globulin Albumin/Globulin Ratio Urine Color Cristin Urine Clarity Clear Urine pH 6.0 Ur Specific [place] 1.015 Urine Protein 30 H Urine Glucose (UA) Normal Urine Ketones 150 A* Urine Occult Blood 10 H Urine Nitrite Negative Urine Bilirubin 1 H Urine Urobilinogen 4 H Ur Leukocyte Esterase 25 H Urine RBC 0 SEEN Urine WBC 0-5 SEEN Ur Squamous Epith Cells 0-5 SEEN Urine Bacteria 1+ Hyaline Casts 5-10 SEEN Urine Mucus 3+ Acetaminophen Hep Bs Antigen Hep Bs Antibody Hepatitis C Antibody Monoscreen Negative 08/26/20 08/26/20 08/26/20 21:00 21:00 21:00 WBC RBC Hgb Hct MCV MCH MCHC RDW Std Deviation RDW Coeff of Isabell Plt Count MPV Immature Gran % (Auto) Neut % (Auto) Lymph % (Auto) [place] % (Auto) Eos % (Auto) Baso % (Auto) Absolute Neuts (auto) Absolute Lymphs (auto) Nucleated RBC % PT INR Sodium Potassium Chloride Carbon Dioxide Anion Gap BUN Creatinine Estim Creat Clear Calc Est GFR (MDRD) Af Amer Est GFR (MDRD) Non-Af BUN/Creatinine Ratio Glucose Calcium Total Bilirubin AST ALT Alkaline Phosphatase Total Protein Albumin Globulin Albumin/Globulin Ratio Urine Color Urine Clarity Urine pH Ur Specific [place] Urine Protein Urine Glucose (UA) Urine Ketones Urine Occult Blood Urine Nitrite Urine Bilirubin Urine Urobilinogen Ur Leukocyte Esterase Urine RBC Urine WBC Ur Squamous Epith Cells Urine Bacteria Hyaline Casts Urine Mucus Acetaminophen < 2.0 L Hep Bs Antigen Non-Reactive Hep Bs Antibody Non-Reactive Hepatitis C Antibody Non-Reactive Monoscreen 08/27/20 08/27/20 04:54 04:54 WBC 3.3 L RBC 3.01 L Hgb 9.2 L Hct 25.8 L MCV 85.7 MCH 30.6 MCHC 35.7 RDW Std Deviation 36.6 RDW Coeff of Isabell 11.7 Plt Count 204 MPV 10.9 Immature Gran % (Auto) 0.300 Neut % (Auto) 50.8 Lymph % (Auto) 38.5 [place] % (Auto) 8.9 Eos % (Auto) 1.2 Baso % (Auto) 0.3 Absolute Neuts (auto) 1.7 L Absolute Lymphs (auto) 1.25 Nucleated RBC % 0 PT INR Sodium 137 Potassium 3.5 Chloride 103 Carbon Dioxide 32.0 Anion Gap 2 L BUN 6 L Creatinine 0.56 Estim Creat Clear Calc 136.35 Est GFR (MDRD) Af Amer 159 Est GFR (MDRD) Non-Af 131 BUN/Creatinine Ratio 10.8 Glucose 94 Calcium 7.8 L Total Bilirubin 1.00 AST 1151 H ALT 842 H Alkaline Phosphatase 145 H Total Protein 5.5 L Albumin 2.7 L Globulin 2.8 Albumin/Globulin Ratio 1.0 Urine Color Urine Clarity Urine pH Ur Specific [place] Urine Protein Urine Glucose (UA) Urine Ketones Urine Occult Blood Urine Nitrite Urine Bilirubin Urine Urobilinogen Ur Leukocyte Esterase Urine RBC Urine WBC Ur Squamous Epith Cells Urine Bacteria Hyaline Casts Urine Mucus Acetaminophen Hep Bs Antigen Hep Bs Antibody Hepatitis C Antibody Monoscreen Microbiology: Microbiology 08/26/20 Unknown SARS-CoV-2 Antigen (Rapid) - Final Interface Orders Microbiology 08/26/20 Unknown Interface Orders SARS-CoV-2 Antigen (Rapid) - Final Meaningful Use Info Meaningful Use Diagnoses (Choose all that apply): None applicable Discharge Plan Admission Admit Date/Time: 08/26/20 19:38 Primary Reason for Your Visit: hepatitis Attending Provider: Mega Palma Primary Care Provider: Sam Gomez Instructions Patient Instructions: ED Hepatitis Cause Unknown Test ... Additional Instructions / Restrictions: Please go to the lab in 2 days for repeat blood work/have the blood work that was already ordered drawn. Follow-up with your doctor on Tuesday or early next week. Try to drink plenty fluids. Return the emergency room if you have worsening symptoms or concern for further dehydration. Discharge Orders/Prescriptions Prescriptions: New ondansetron HCl [Zofran] 4 mg tablet 4 mg PO Q8H PRN (Reason: nausea and vomiting) Qty: 14 RF: 0 Continued bupropion HCl 150 MG tablet extended release 24 hr 300 mg PO DAILY RF: 0 loratadine [Claritin] 10 mg Tablet 10 mg PO DAILY PRN (Reason: allergies) RF: 0 Referrals / Follow Up: Sam Gomez [Primary Care Provider] - Disposition Disposition (needs filled in before D/C Order can be placed): Home, self care Visit Charges OBSV E&M: 04917 Observation care discharge
[2020-08-28 08:08] LABS: Hepatitis A IgM Antibody Negative (Negative)
[2020-08-28 11:13] LABS: Hepatitis A AB, Total Negative (Negative)
== END 2020-08-27 11:10 | disposition home or self-care (01) ==
LOC: ED 17:35 → PCU 19:56
PROVIDERS: Admitting Provider Student in an Organized Health Care Education/Training Program; Emergency Provider Emergency Medicine; PCP Student in an Organized Health Care Education/Training Program; Visit Provider Internal Medicine
DX: B17.9 Acute viral hepatitis, unspecified (principal); F32.9 Major depressive disorder, single episode, unspecified; E87.1 Hypo-osmolality and hyponatremia; E87.6 Hypokalemia; R82.71 Bacteriuria; Z79.899 Other long term (current) drug therapy
CPT/HCPCS: 36415; 71045; 76705; 80048; 80053; 80076; 80329; 81001; 81025; 83605; 83690; 84484; 85025; 85610; 86308; 86706; 86708; 86709; 86803; 87040; 87340; 87426; 93005; 96361; 96374; 97802; 99218; 99285; J7030; A4216; G0378; G0480; J2405

== ENCOUNTER → 2021-02-18 08:35 | Outpatient (CLI) | payer OTHER, SELFPAY | PROVIDERS: PCP Student in an Organized Health Care Education/Training Program; Visit Provider Family Medicine | DX: Z23 Encounter for immunization (principal) | CPT/HCPCS: 0004A; 91300 ==

== ENCOUNTER 2024-12-10 18:21 | Emergency (ER) | payer OTHER, SELFPAY ==
[2024-12-10 18:22] VITALS: BP 128/94; PULSE 89; RESP 18; TEMP 36.1; O2SAT 96; BMI 33.2
--- NOTE | 2024-12-10 18:30 | EX.ED.UPPERE ---
HPI History of Present Illness HPI Narrative: 39-year-old female was walking down her steps tripped and when she slid down a couple steps she injured her left hand pinky primarily. Did not hit her head no LOC has occurred within the last hour. She has never broken her hand or had any surgery to it. She denies any other complaints. Patient's symptoms are Chief Complaint: Upper Extremity Injury Informant: patient Occured/Mechanism Mechanism/Context: Yes injury and Yes blunt trauma Onset/Context/Timing Onset: Today and Hours Context: Sudden Onset Timing: Continuous Current Severity: Moderate Maximum Severity: Moderate Narrative Narrative: 39-year-old female slipped and fell down several steps injuring her left hand primarily left pinky. No other significant complaints. Did not hit her head no LOC. Prior similar symptoms: No Recent Illness/Hospitalization: No PFSH PFSH Medical History Hepatitis Depression History of depression and anxiety Home Medications ?Medication ?Instructions ?Recorded ?Last Taken ?Type bupropion HCl 150 mg 24 hr tablet, 300 mg PO DAILY mental health 10/15/19 08/25/20 History extended release loratadine 10 mg tablet (Claritin) 10 mg PO DAILY PRN allergies 08/26/20 Unknown History ondansetron HCl 4 mg tablet 4 mg PO Q8H PRN nausea and 08/26/20 Unknown Rx (Zofran) vomiting #14 tabs Allergy/AdvReac Type Severity Reaction Status Date / Time No Known Allergies Allergy Verified 12/10/24 18:22 Surgical History [facility] teeth extracted Social History Smoking Status: Never smoker ROS ROS ED ROS Narrative Denies recent illness. Constitutional Constitutional ED: Denies chills or fever(s) Eyes Eyes: Denies blurry vision ENT ENT ED: Denies ear pain Cardiovascular Cardiovascular: Denies chest pain Respiratory/Chest Respiratory/Chest: Denies cough Gastrointestinal Gastrointestinal: Denies abdominal pain Genitourinary Genitourinary ED: Denies dysuria or hematuria Musculoskeletal Musculoskeletal: Denies back pain Integumentary Denies abscess Neurologic Neurologic: Denies headache(s) Psychiatric Psychiatric: Denies anxiety or depression Endocrine Endocrinology: Denies cold intolerance Hematologic/Lymphatic Hematologic/Lymphatic: Denies easy bleeding, easy bruising or lymphadenopathy Allergic/Immunologic Allergic/Immunologic ED: Denies mouth swelling, tongue swelling or urticaria EXAM Physical Exam Narrative Exam Narrative: 39 female sitting upright in chair no acute distress vital signs stable afebrile. H EENT exam pupils round reactive light no signs of trauma to her face or scalp nontender no hematoma. C-spine neck nontender. Back and spine nontender no bruising. Lungs clear to auscultation. Heart regular rhythm rate about 90. Chest wall and ribs nontender. Abdomen soft nontender. Pelvic girdle intact. Moving all 4 extremities. Specifically left shoulder left elbow and left wrist are nontender she has a mild contusion at the elbow but has full flexion extension of the elbow supination pronation intact. Her left hand the pinky or small finger at the MCP and proximal phalanx is tender with mild swelling. She has full flexion extension all digits the left hand. Skins intact. Normal touch sensation. Wrist is nontender. Normal radial pulse. Otherwise exam is unremarkable. She is awake alert. Answering questions following commands. Const Vital Signs: 12/10/24 18:22 Temperature 96.9 F L Temperature Source Temporal Pulse Rate 89 Respiratory Rate 18 Blood Pressure 128/94 H Blood Pressure Mean 105 Pulse Ox 96 Oxygen Delivery Method Room Air Positive well nourished and well developed; Negative for cachectic, contractures or unkempt General Appearance ED: well developed and NAD; Negative for unkempt, cachectic, contractures, cyanotic or diaphoretic Nutritional Appearance: Negative for cachectic HEENT Reports moist mucous membranes normocephalic and atraumatic Eyes PERRL and EOMs intact bilaterally Neck full ROM and supple Chest Wall inspection of chest normal and palpation of chest normal Resp normal respiratory effort and clear to auscultation bilaterally Cardio regular rate, regular rhythm, S1 normal heart sound, S2 normal heart sound and no murmurs GI non-tender, non-distended and no masses Palpation: soft; Negative for tender, guarding or rebound tenderness present Back/Spine no CVA tenderness General Back: Negative for CVA tenderness Cervical Spine: Negative for cervical spine tenderness Thoracic Spine / Upper Back: Negative for thoracic spinal tenderness Lumbar Spine / Lower Back: Negative for lumbar spinal tenderness Extremity normal to inspection and full ROM Extremity Narrative: Except left hand pinky or fifth digit facial or small finger MCP and proximal phalanx she has mild tenderness swelling. Full flexion extension. Wrist nontender. Small contusion at the elbow but full flexion extension no bony tenderness. Full supination and pronation. Neuro oriented x3, CN's II-XII intact bilaterally, moves all extremities, no focal motor deficits and no sensory deficits noted Sensorium / Orientation: alert, oriented to person, oriented to place and oriented to time Motor Exam: strength 5/5 throughout Psych mental status grossly normal Appearance: Negative for unkempt Skin Lesions: no lesions Rashes: no rashes MDM MDM MDM Narrative Medical decision making narrative: 39-year-old fell injuring her left hand primarily the fifth digit her pinky or small finger. X-ray being obtained of the hand. She was offered did not want thing for pain at this time. Repeat exam unchanged at 7:40 PM. I went over the x-ray with her. Nurses will place her in aluminum finger splint. She was instructed follow-up with either Dr. Harp of orthopedics or Dr. Holley for plastic surgery. History & Record Review Discussion w/independent historian: Patient Additional record(s) reviewed:: Prior inpatient record, Prior outpatient record, Prior ED visit and Prior labs Radiography Diagnostic Testing: Left hand 3 views, interpreted by myself and the radiologist shows a fracture of the proximal end of the proximal phalanx of the left small finger. I did go over the x-rays with the patient. Discharge Plan Triage Chief Complaint: Upper Extremity Injury ED Provider: Noé Albarado Dx/Rx/DC Orders Clinical Impression: Finger fracture, left Instructions: ED Fracture, Finger, Closed Prescriptions: No Action bupropion HCl 150 MG tablet extended release 24 hr 300 mg PO DAILY ondansetron HCl [Zofran] 4 mg tablet 4 mg PO Q8H PRN (Reason: nausea and vomiting) Qty: 14 0RF loratadine [Claritin] 10 mg Tablet 10 mg PO DAILY PRN (Reason: allergies) Primary Care Provider: Sam Gomez Referrals: Thomas Harp DO [Med Staff - Active Staff] - As soon as possible Varun Holley MD [Med Staff - Active Staff] - As soon as possible Sam Gomez O[facility] [[facility]] - Activity Restrictions/Additional Instructions: Leave the splint on. You can take it off to dry it or while you are in the shower but then reapply it. Keep the area dry and clean. Motrin and Tylenol for pain and swelling. Call and follow-up with either the orthopedic surgeon Dr. Harp or the plastic surgeon Dr. Holley for further evaluation and treatment to make sure this does not need surgery. Print Language: [place] Disposition Disposition: Home, Self Care
--- NOTE | 2024-12-10 18:37 | RAD_ITS ---
PROCEDURE: LEFT HAND MIN 3 VIEWS 12/10/2024 REASON FOR EXAM: FALL AND ATTENTION L-PINKY TECHNIQUE: Procedure Code: [id number] Modality: DX Procedure: HAND MIN 3 VIEWS Laterality: Left COMPARISON: None. FINDINGS: Acute minimally displaced fracture at the base of the 5th proximal phalanx at the radial aspect, with intra-articular extension. No additional acute fracture or dislocation. Preserved joint spaces. Anatomic alignment. Normal bone mineralization. Grossly unremarkable soft tissues. RAD/Hand Min 3 Views IMPRESSION: Acute minimally displaced intra-articular fracture radial aspect of 5th proxima l phalanx base. Reading Location: [id number]
--- OUTSIDE RECORDS SUMMARY | 2024-12-10 19:03 | XMS RPT_ITS | CCD ---
Author Organization [facility] Inform ion Partnership [facility] Care Team Providers Care Medical Psychotherapist Name Role Phone Sam Gomez DO Primary Care Provider Sam Gomez DO Primary Care Provider Luo JACQUARD TWINE POLISHER OPERATOR.Ban SIMON Unavailable Roseline JACQUARD TWINE POLISHER OPERATOR.Kacey SIMON Unavailable Bry JACQUARD TWINE POLISHER OPERATOR.Lanette SIMON Unavailable MALIHA WHELAN Attending Unavailable SAM GOMEZ Primary Care Unavailable ANNIKA LAROSE Referring Unavailable SAM GOMEZ Primary Care Unavailable SAM GOMEZ Primary Care Unavailable ANNIKA LAROSE Attending Unavailable SAM GOMEZ Primary Care Unavailable ANNIKA LAROSE Referring Unavailable ANNIKA LAROSE Attending Unavailable SAM GOMEZ Primary Care Unavailable MALIHA WHELAN Attending Unavailable MAGO CHOPRA Attending Unavailable SAM GOMEZ Primary Care Unavailable ANNIKA LAROSE Attending Unavailable SAM GOMEZ Primary Care Unavailable Allergies Allergy Classification Reported Allergen(s) Allergy Type Date of Onset Reaction(s) Facility (1 source) Seasonal allergy; Translations: [SEASONAL ALLERGIES] Propensity to adverse reactions (disorder) [facility] Medications Current Medications Medication Drug Class(es) Dates Sig (Normalized) Sig (Original) 24 hr buPROPion hydrochloride 300 mg extended release oral tablet (20 sources) Aminoketone Start: 04-26-2023 End: 10-23-2024 take 1 tablet by mouth once daily buPROPion XL (WELLBUTRIN XL) 300 mg 24 hr tablet Take 1 tablet by mouth once daily. 90 tablet 1 10/23/2024 Active Start: 08-18-2020 End: 08-18-2022 take 1 tablet by mouth once daily buPROPion XL (WELLBUTRIN XL) 300 mg 24 hr tablet Take 1 tablet by mouth once daily. 90 tablet 1 08/18/2022 Active Comment on above: Take 1 tablet by phillip once daily. cholecalciferol 0.125 mg oral capsule (20 sources) Vitamin D Start: End: take 1 capsule by mouth once daily Cholecalciferol, Vitamin D3, 125 mcg (5,000 unit) cap Indications: Vitamin D deficiency Take 1 capsule by mouth once daily. 90 capsule 3 02/07/2024 Active Start: 04-08-2022 End: 10-11-2023 take 1 capsule by mouth once daily Cholecalciferol, Vitamin D3, 50 mcg (2,000 unit) cap Indications: Vitamin D deficiency Take 1 capsule by mouth once daily. 90 capsule 3 04/08/2022 10/11/2023 Discontinued Comment on above: Take 1 capsule by mo [facility] once daily. Ethinyl Estradiol / norgestimate (3 sources) Progestin, Estrogen Start: norgestimate-ethiny l estradiol (SPRINTEC) 0.25-0.035 mg tablet Take 1 tablet by mouth once daily. 84 tablet 2 10/22/2024 Active FLUoxetine 40 mg oral capsule (20 sources) Serotonin Reuptake Inhibitor Start: End: take 2 capsules by mouth once daily FLUoxetine (PROZAC) 40 mg capsule Indications: BHUPINDER (generalized anxiety disorder) Take 2 capsules by mouth once daily. 180 capsule 1 10/23/2024 Active Start: 05-19-2022 End: 11-16-2022 take 2 capsules by mouth once daily FLUoxetine (PROZAC) 40 mg capsule Indications: BHUPINDER (generalized anxiety disorder) Take 2 capsules by mouth once daily. 180 capsule 1 08/18/2022 Active Start: 03-15-2022 End: 06-29-2022 take 3 capsules by mouth once daily FLUoxetine (PROZAC) 20 mg capsule TAKE 3 CAPSULES BY MOUTH EVERY DAY 270 capsule 0 05/13/2022 05/19/2022 Discontinued Start: 01-27-2022 End: 02-26-2022 take 3 capsules by mouth once daily FLUoxetine (PROZAC) 20 mg capsule Take 3 capsules by mouth once daily. 90 capsule 1 01/27/2022 02/26/2022 Active Start: 11-25-2021 End: 01-27-2022 take 1 capsule by mouth once daily FLUoxetine (PROZAC) 40 mg capsule Take 1 capsule by mouth once daily. 30 capsule 1 12/23/2021 01/27/2022 Discontinued Start: 11-09-2021 End: 12-16-2021 take 1 capsule by mouth once daily, then take 2 capsules by mouth once daily FLUoxetine (PROZAC) 10 mg capsule Take 1 capsule by mouth once daily for 7 days, THEN 2 capsules once daily. 67 capsule 0 11/09/2021 12/16/2021 Active Comment on above: Take 1 capsule by mo uth once daily for 7 days, THEN 2 capsules once daily. Take 1 capsule by mo uth once daily. Take 3 capsules by m outh once daily. Take 2 capsules by m outh once daily. TAKE 3 CAPSULES BY M OUTH EVERY DAY fluticasone propionate 0.05 mg/actuat metered dose nasal spray (20 sources) Corticosteroid Start: take 2 spray(s) by mouth once daily fluticasone (FLONASE) 50 mcg/actuation nasal spray Use 2 Sprays in each nostril once daily. Rinse mouth after use. 16 mL 1 05/24/2022 Active Start: 09-02-2021 End: 02-10-2022 take 2 spray(s) by mouth once daily fluticasone (FLONASE) 50 mcg/actuation nasal spray USE 2 SPRAYS IN EACH NOSTRIL ONCE DAILY. RINSE MOUTH AFTER USE. 16 mL 1 02/10/2022 Active Comment on above: Use 2 Sprays in each nostril once daily. Rinse mouth after use. loratadine 10 mg oral tablet (20 sources) Start: 12-07-19 End: 04-11-19 24 take 1 tablet by mouth once daily loratadine (CLARITIN) 10 mg tablet Indications: Environmental and seasonal allergies Take 1 tablet by mouth once daily. 30 tablet 11 04/12/2023 Active Comment on above: Take 1 tablet by [facility] once daily. melatonin 3 mg oral capsule (20 sources) Start: 05-12-19 melatonin 3 mg capsules as needed. 05/12/2021 Active Comment on above: as needed. methylphenidate hydrochloride 10 mg oral tablet (20 sources) Central Nervous System Stimulant Start: 11-28-19 End: 02-26-20 take 1 tablet by mouth three times daily methylphenidate (RITALIN) 10 mg tablet Indications: Attention deficit hyperactivity disorder (ADHD), combined type Take 1 tablet by mouth three times a day for 30 days. Patient should start on January 26, 2025. 90 tablet 01/26/2025 02/25/2025 Active Start: 09-19-2023 End: 11-22-2024 take 1 tablet by mouth three times daily methylphenidate (RITALIN) 10 mg tablet Indications: Attention deficit hyperactivity disorder (ADHD), combined type Take 1 tablet by mouth three times a day for 30 days. 90 tablet 10/23/2024 11/22/2024 Active Start: 04-26-2023 End: 09-14-2023 take 1 tablet by mouth three times daily methylphenidate (RITALIN) 10 mg tablet Indications: Attention deficit hyperactivity disorder (ADHD), combined type Take 1 tablet by mouth three times a day for 30 days. 90 tablet 0 08/15/2023 09/14/2023 Active Start: 03-02-2023 End: 04-01-2023 take 1 tablet by mouth three times daily methylphenidate (RITALIN) 10 mg tablet Indications: Attention deficit hyperactivity disorder (ADHD), combined type Take 1 tablet by mouth three times a day for 30 days. 90 tablet 0 03/02/2023 04/01/2023 Active Start: 02-08-2023 End: 03-10-2023 take 1 tablet by mouth twice daily methylphenidate (RITALIN) 10 mg tablet Indications: Attention deficit hyperactivity disorder (ADHD), combined type Take 1 tablet by mouth two times a day for 30 days. 60 tablet 0 02/08/2023 03/02/2023 Discontinued Start: 05-24-2022 End: 06-23-2022 take 2 tablets by mouth once daily methylphenidate ER 36 mg tablet Indications: Attention deficit hyperactivity disorder (ADHD), combined type Take 2 tablets by mouth once daily for 30 days. 60 tablet 0 05/24/2022 06/16/2022 Discontinued (Side Effects) Start: 03-15-2022 End: 04-30-2022 take 2 tablets by mouth once daily methylphenidate ER 36 mg tablet Indications: Attention deficit hyperactivity disorder (ADHD), combined type Take 2 tablets by mouth once daily for 30 days. 60 tablet 0 03/31/2022 Active Start: 02-04-2022 End: 03-06-2022 take 2 tablets by mouth once daily methylphenidate ER 36 mg tablet Indications: Attention deficit hyperactivity disorder (ADHD), combined type Take 2 tablets by mouth once daily for 30 days. 60 tablet 0 02/04/2022 03/06/2022 Active Start: 01-27-2022 End: 02-26-2022 take 1 tablet by mouth once daily in the morning methylphenidate ER 72 mg tr24 Indications: Attention deficit hyperactivity disorder (ADHD), combined type Take 72 mg by mouth every morning for 30 days. 30 tablet 0 01/27/2022 02/04/2022 Discontinued Start: 12-23-2021 End: 01-27-2022 take 1 tablet by mouth once daily in the morning methylphenidate ER 54 mg tablet Indications: Attention deficit hyperactivity disorder (ADHD), combined type Take 1 tablet by mouth every morning for 30 days. 30 tablet 0 12/23/2021 01/27/2022 Discontinued Start: 11-25-2021 End: 12-23-2021 take 1 tablet by mouth once daily methylphenidate ER 36 mg tablet Indications: Attention deficit hyperactivity disorder (ADHD), combined type Take 1 tablet by mouth once daily for 30 days. 30 tablet 0 11/25/2021 12/23/2021 Discontinued Start: 09-24-2021 End: 11-21-2021 take 1 tablet by mouth once daily methylphenidate ER 27 mg tablet Indications: Attention deficit hyperactivity disorder (ADHD), combined type Take 1 tablet by mouth once daily for 30 days. 30 tablet 0 10/22/2021 11/21/2021 Active Comment on above: Take 1 tablet by phillip th once daily for 30 days. Take 1 tablet by phillip th every morning for 30 days. Take 72 mg by mouth every morning for 30 days. Take 2 tablets by mo ut once daily for 30 days. Take 1 tablet by phillip th two times a day for 30 days. Take 1 tablet by phillip th three times a day for 30 days. naproxen 500 mg oral tablet (3 sources) Nonsteroidal Anti-inflammatory Drug Start: 03-31-20 End: 04-14-19 take 1 tablet by mouth twice daily at mealtime as needed for pain naproxen (NAPROSYN) 500 mg tablet Indications: Acute pain of left shoulder , Cervical radiculopathy Take 1 tablet by mouth twice daily as needed (for pain/inflammation) for up to 14 days. Take with food. 28 tablet 0 03/31/2022 04/14/2022 Active Comment on above: Take 1 tablet by phillip th twice daily as needed (for pain/inflammation) for up to 14 days. Take with food. sertraline 100 mg oral tablet (12 sources) Serotonin Reuptake Inhibitor Start: 08-14-19 End: 10-25-19 take 1 tablet by mouth once daily sertraline (ZOLOFT) 100 mg tablet Take 1 tablet by mouth once daily. 30 tablet 0 09/24/2021 10/24/2021 Active Start: 07-15-2021 End: 08-21-2021 take 0.5 tablet by mouth once daily, then take 1 tablet by mouth once daily sertraline (ZOLOFT) 50 mg tablet Take 0.5 tablets by mouth once daily for 7 days, THEN 1 tablet once daily. 34 tablet 0 07/15/2021 08/13/2021 Discontinued (Course of therapy completed) Comment on above: Take 0.5 tablets by mouth once daily for 7 days, THEN 1 tablet once daily. Take 1 tablet by phillip th once daily. Completed/Discontinued Medications Medication Drug Class(es) Dates Sig (Normalized) Sig (Original) Desogestrel / Ethinyl Estradiol (7 sources) Progestin, Estrogen Start: 09-07-2024 End: 10-22-2024 take 1 tablet by mouth once daily, then take 0.15 tablet by mouth once Desogestrel-Ethinyl Estradiol (APRI) 0.15-0.03 mg per tablet Indications: Encounter for surveillance of contraceptive pills Take 1 tablet by mouth once daily. 28 tablet 2 09/07/2024 10/22/2024 Discontinued Start: 09-07-2024 End: 08-09-2025 take 1 tablet by mouth once daily, then take 0.15 tablet by mouth once Desogestrel-Ethinyl Estradiol (APRI) 0.15-0.03 mg per tablet Indications: Encounter for surveillance of contraceptive pills Take 1 tablet by mouth once daily. 28 tablet 2 09/07/2024 08/09/2025 Active Start: 06-15-2024 End: 09-07-2024 take 1 tablet by mouth once daily, then take 0.15 tablet by mouth once Desogestrel-Ethinyl Estradiol (APRI) 0.15-0.03 mg per tablet Take 1 tablet by mouth once daily. 28 tablet 3 06/15/2024 09/07/2024 Discontinued Start: 06-15-2024 take 1 tablet by phillip once daily, then take 0.15 tablet by mouth once Desogestrel-Ethinyl Estradiol (APRI) 0.15-0.03 mg per tablet Take 1 tablet by mouth once daily. 28 tablet 3 06/15/2024 Active lisdexamfetamine dimesylate 60 mg oral capsule (7 sources) Central Nervous System Stimulant Start: 08-10-2021 End: 09-24-2021 take 1 capsule by mouth once daily lisdexamfetamine (VYVANSE) 60 mg capsule Indications: Attention deficit disorder (ADD) in adult Take 1 capsule by mouth once daily for 30 days. 30 capsule 0 08/10/2021 09/24/2021 Discontinued (Lack of Efficacy) Start: 07-01-2021 End: 07-31-2021 take 1 capsule by mouth once daily lisdexamfetamine (VYVANSE) 60 mg capsule Indications: Attention deficit disorder (ADD) in adult Take 1 capsule by mouth once daily for 30 days. 30 capsule 0 07/01/2021 07/31/2021 Active Comment on above: Take 1 capsule by mo [facility] once daily for 30 days. Problems Active Problems Problem Classification Problem Date Documented Date Episodic/Chronic Anxiety disorders (20 sources) Generalized anxiety disorder; Translations: [Generalized anxiety disorder] Onset: 04-01-2022 Chronic Attention-deficit, conduct, and disruptive behavior disorders (20 sources) Attention deficit hyperactivity disorder, combined type; Translations: [Attention-deficit hyperactivity disorder, combined type] Onset: 02-08-2023 Chronic Attention-deficit, conduct, and disruptive behavior disorders (20 sources) Attention deficit hyperactivity disorder, predominantly inattentive type; Translations: [Attention-deficit hyperactivity disorder, predominantly inattentive type] Onset: 04-01-2022 04-01-2022 Chronic Attention-deficit, conduct, and disruptive behavior disorders (1 source) Attention-deficit hyperactivity disorder, combined type; Translations: [Attention deficit hyperactivity disorder (ADHD), combined type] Onset: 02-08-2023 Chronic Contraceptive and procreative management (2 sources) Oral contraception; Translations: [Encounter for surveillance of contraceptive pills] Onset: 09-07-2024 09-07-2024 Episodic Disorders usually diagnosed in infancy, childhood, or adolescence (2 sources) Adult attention deficit hyperactivity disorder ; Translations: [Other specified behavioral and emotional disorders with onset usually occurring in childhood and adolescence] Chronic E Codes: Adverse effects of medical drugs (1 source) Adverse reaction to drug; Translations: [Adverse effect of unspecified drugs, medicaments and biological substances, initial encounter] 08-16-2024 Episodic Menstrual disorders (2 sources) Secondary amenorrhea; Translations: [Secondary amenorrhea] Chronic Mood disorders (20 sources) Recurrent major depressive episodes, moderate ; Translations: [Major depressive disorder, recurrent, moderate] Onset: 03-02-2013 Chronic Nutritional deficiencies (7 sources) Vitamin D deficiency; Translations: [Vitamin D deficiency, unspecified] Onset: 06-15-2024 Chronic Other aftercare (3 sources) Long-term current use of drug therapy; Translations: [Other custodial (current) drug therapy] 04-24-2024 Episodic Other lower respiratory disease (2 sources) Cough; Translations: [Cough] Episodic Other non-traumatic joint disorders (1 source) Shoulder pain; Translations: [Pain in left shoulder] Episodic Other non-traumatic joint disorders (1 source) Pain in left shoulder; Translations: [Pain in joint, shoulder region] 03-31-2022 Episodic Other screening for suspected conditions (not mental disorders or infectious disease) (6 sources) Patient encounter status; Translations: [Encounter for screening for lipoid disorders] Episodic Other skin disorders (3 sources) Hirsutism; Translations: [Hirsutism] Episodic Other upper respiratory infections (1 source) Sore throat symptom; Translations: [Acute pharyngitis, unspecified] Episodic Spondylosis; intervertebral disc disorders; other back problems (2 sources) Cervical radiculopathy; Translations: [Radiculopathy, cervical region] Episodic Past or Other Problems Problem Classification Problem Date Documented Da te Episodic/Chronic Other aftercare (1 source) Other terminal carman (current) drug therapy; Translations: [Encounter for long-term (current) use of medications] Onset: 06-15-2024 Episodic Other skin disorders (1 source) Hirsutism; Translations: [Hirsutism] Onset: 12-07-2023 Episodic Results Test Name Value Interpretation Reference Range Facil itrl Rosado 11-15-2024 CNPN Telephone (DERMBD) NADINE DISLA ([id number]) 1985 F Date Time Provider Department 11/15/24 MAGO CHOPRA During your visit today, we recorded the following information about you: WillamRenateAlanna 11/15/2024 8:32 AM Signed Attempt to call- no vm set up Per Dr. Chopra, she doesn't need to have todays appt to resubmit for insurance. She will submit the auth and the office will call when there is a decision made Allergies As of Date: 11/15/2024 Noted Allergy Reaction Environmental (SEASONAL ALLERGIES)01/12/2021 16 - Unknown Comments: Cold symptoms Date Reviewed: 10/23/2024 Reviewed by: Anneliese Quach LPN - Fully Assessed Prescriptions as of 11/15/2024 - FLUoxetine (PROZAC) 40 mg capsule Take 2 capsules by mouth once daily. - buPROPion XL (WELLBUTRIN XL) 300 mg 24 hr tablet Take 1 tablet by mouth once daily. - methylphenidate (RITALIN) 10 mg tablet Take 1 tablet by mouth three times a day for 30 days. - norgestimate-ethinyl estradiol (SPRINTEC) 0.25-0.035 mg tablet Take 1 tablet by mouth once daily. - Cholecalciferol, Vitamin D3, 125 mcg (5,000 unit) cap Take 1 capsule by mouth once daily. - loratadine (CLARITIN) 10 mg tablet Take 1 tablet by mouth once daily. - fluticasone (FLONASE) 50 mcg/actuation nasal spray Use 2 Sprays in each nostril once daily. Rinse mouth after use. - melatonin 3 mg capsules as needed. Problem List As Of Date 11/15/2024 Noted Resolved Depression [F32.A] 03/02/2013 ADHD (attention deficit hyperactivity disorder)*04/01/2022 Anxiety [F41.9] 04/01/2022 Attention deficit hyperactivity disorder (ADHD)*02/08/2023 BHUPINDER (generalized anxiety disorder) [F41.1] 02/08/2023 Major depressive disorder, recurrent episode, m*02/08/2023 Encounter Status:Closed by ALANNA CARDONA on 11/15/24 [facility] CNOVon 10-23-2024 CNOV Office Visit (PSWSTR ) NADINE DISLA ([id number]) 1985 F Date Time Provider Department 10/23/24 8:30 AM ANNIKA LAROSE PSWSTR During your visit today, we recorded the following information about you: Pulse Weight 96/minute 95.3 kg Annika Larose, JACQUARD TWINE POLISHER OPERATOR.INSURANCE BILLER 10/23/2024 9:17 AM Signed FOLLOW UP - PSYCHIATRIC PROGRESS NOTE Visit Type:In person Recording using [employer] software for draft documentation of the visit was discussed with the patient/authorized outside sales representative insurance; all questions welcomed and answered. Patient/authorized outside sales representative insurance agreed to proceed CC: Outpatient follow-up and safety monitoring of previously prescribed psychiatric medication, psychotherapy or other treatment HPI: Patient is a 39-year-old female with a history of depression, anxiety, and ADHD, presenting for follow-up. Patient reports feeling unwell over the past week, with symptoms including a sore throat and loss of taste. She suspects it may be the flu but has not tested for COVID-19. She notes that being sick has affected her appetite and hydration, stating, I just haven't been eating or consuming anything. She finds it challenging to take care of herself while living alone, particularly when feeling unwell. She is currently in a relationship and describes her partner as making her very happy. However, she acknowledges that they are at different stages in their lives, with her partner focusing on personal and career growth. She is trying to give him space to do so, stating, I have to keep reminding myself that my desires and expectations are definitely far above what he can provide right now. Despite these challenges, she reports that the relationship is going well. During the summer, she has been focusing on social growth and spending time with friends. She enjoys jiNeul puzzles as a mindful activity and uses video games as a way to literally turn off my brain and check out. She recently volunteered at a [employer] fair in [place], which she found extremely fulfilling. She has been taking Apri but reports experiencing hormonal fluctuations that have affected her mood, stating, I did start recognizing the pattern of when I was hitting the depression the most, which was pretty consistent. It was very hormonal. She has not yet started the new control medication, but plans to do so soon. She is currently taking Wellbutrin 300 mg in the morning, Prozac 80 mg (two 40 mg capsules), and Ritalin 10 mg, usually one or two in the morning. She sometimes forgets to take the Ritalin later in the day. She denies excessive sweating with Prozac and reports that her depression is well-managed with her current medications. She is also taking a vitamin recommended by her clinician. Recent lab work showed a vitamin D level of 25.5 ng/mL, which has improved from a year ago. She admits to not being consistent with taking her vitamin D supplement but has been more diligent recently. Her hemoglobin A1c was slightly elevated at 5.7%, and her lipid panel showed improvement compared to a year ago. Risks and benefits of the medication, including any black box warnings, were discussed with the patient. Interval Progress: Slightly improved PATIENT DATA: Generalized Anxiety Disorder Scale (BHUPINDER-7) 10/18/2023 04/24/2024 08/16/2024 BHUPINDER - 7 SCORES Score 4 5 8 (0-4) minimal anxiety, (5-9) mild anxiety, (10-14) moderate anxiety, (15-21) severe anxiety Patient Health Questionnaire (PHQ-9) 10/18/2023 04/24/2024 08/16/2024 PHQ-9 Score 4 7 8 (0-4) minimal depression, (5-9) mild depression, (10-14) moderate depression, (15-19) moderately severe depression, (20-27) severe depression PROMIS Global Health 10/10/2023 04/24/2024 08/16/2024 PROMIS Global Health - (T-Scores - the mean of general population = 50. Five points is a clinically meaningful difference.) Physical T-Score 47.7 47.7 44.9 Mental T-Score 45.8 45.8 48.3 PAST MEDICAL HISTORY Diagnosis Date Depression PAST SURGICAL HISTORY Procedure Laterality Date wisdom teeth extraction 2003 general, okay with anesthesia Current Outpatient Medications Medication Sig Dispense Refill norgestimate-ethinyl estradiol (SPRINTEC) 0.25-0.035 mg tablet Take 1 tablet by mouth once daily. 84 tablet 2 Cholecalciferol, Vitamin D3, 125 mcg (5,000 unit) cap Take 1 capsule by mouth once daily. 90 capsule 3 loratadine (CLARITIN) 10 mg tablet Take 1 tablet by mouth once daily. 30 tablet 11 fluticasone (FLONASE) 50 mcg/actuation nasal spray Use 2 Sprays in each nostril once daily. Rinse mouth after use. 16 mL 1 melatonin 3 mg capsules as needed. FLUoxetine (PROZAC) 40 mg capsule Take 2 capsules by mouth once daily. 180 capsule 1 buPROPion XL (WELLBUTRIN XL) 300 mg 24 hr tablet Take 1 tablet by mouth once daily. 90 tablet 1 methylphenidate (RITALIN) 10 mg (more content not included)... [facility] CNOVon 09-07-2024 CNOV Office Visit (OBGYWM ) NADINE DISLA ([id number]) 1985 F Date Time Provider Department 09/07/24 8:00 AM MALIHA WHELAN OBGYWHarshad During your visit today, we recorded the following information about you: Blood pressure Last Period 118/78 08/22/24 Maliha Whelan APRN.CNP 09/07/2024 9:02 AM Signed This 39 year old female was started on BCPs and is here for follow-up. States she is compliant. Menses are normal and regular on BCPs. Denies abdominal pain, chest pain or headache. No pain or swelling in the legs. No other neurologic or pulmonary symptoms. 1st month more depression, 2nd month better, 3rd month some depression with this month, but able to do social activity. Light flow, mild cramping, flow lasting 3-4 days Patient's last menstrual period was 05/12/2024. Menstruation / History: No intermenstrual bleeding, spotting or discharge. Interval HX: no change. Last 1 Encounter BP Readings: Date: BP: 06/15/2024 114/72 EXAMINATION: Not Done ASSESSMENT/PLAN: Doing well on current BCP ORDERS: Office Visit on 09/07/24 Desogestrel-Ethinyl Estradiol (APRI) 0.15-0.03 mg per tablet DIAGNOSIS: (Z30.41) Encounter for surveillance of contraceptive pills (primary encounter diagnosis) RTC: when due for annual exam or sooner if needed Maliha Whelan APRN.CNP Medical Decision Making: Problems: Low: Acute, uncomplicated illness or injury Risk: Moderate: Drug management Medical Decision Making Level: 3 - Low Allergies As of Date: 09/07/2024 Noted Allergy Reaction Environmental (SEASONAL ALLERGIES)01/12/2021 16 - Unknown Comments: Cold symptoms Date Reviewed: 06/15/2024 Reviewed by: Maliha Whelan APRN.CNP - Fully Assessed Reason for Visit: Contraception [26] Primary Visit Diagnosis:Encounter for surveillance of contraceptive pills [Z30.41] Order(s):Desogestrel-E thinyl Estradiol (APRI) 0.15-0.03 mg per tabletTake 1 tablet by mouth once daily.Disp: 28 tabletRfl: 2 Prescriptions as of 09/07/2024 - Desogestrel-Ethinyl Estradiol (APRI) 0.15-0.03 mg per tablet Take 1 tablet by mouth once daily. - methylphenidate (RITALIN) 10 mg tablet Take 1 tablet by mouth three times a day for 30 days. - FLUoxetine (PROZAC) 40 mg capsule Take 2 capsules by mouth once daily. - buPROPion XL (WELLBUTRIN XL) 300 mg 24 hr tablet Take 1 tablet by mouth once daily. - Cholecalciferol, Vitamin D3, 125 mcg (5,000 unit) cap Take 1 capsule by mouth once daily. - loratadine (CLARITIN) 10 mg tablet Take 1 tablet by mouth once daily. - fluticasone (FLONASE) 50 mcg/actuation nasal spray Use 2 Sprays in each nostril once daily. Rinse mouth after use. - melatonin 3 mg capsules as needed. Problem List As Of Date 09/07/2024 Noted Resolved Depression [F32.A] 03/02/2013 ADHD (attention deficit hyperactivity disorder)*04/01/2022 Anxiety [F41.9] 04/01/2022 Attention deficit hyperactivity disorder (ADHD)*02/08/2023 BHUPINDER (generalized anxiety disorder) [F41.1] 02/08/2023 Major depressive disorder, recurrent episode, m*02/08/2023 Prescriptions ordered this encounter Disp Refills Start End APRI 0.15 MG-0.03 MG TABLET 28 t* 2 09/07/2024 08/09/2025 Route: PO Sig: Take 1 tablet by mouth once daily. Medications Discontinued During This Encounter Prescriptions - Desogestrel-Ethinyl Estradiol (APRI) 0.15-0.03 mg per tablet (Discontinued) Take 1 tablet by mouth once daily. Encounter Status:Closed by MALIHA WHELAN on 09/07/24 [facility] 25(OH)D3 Nohemy-Sunshine 2024 25-hydroxyvitamin D3 [Mass/Vol] 25.5 ng/mL Low 31.0-80.0 [facility] Comment on above: Order Comment: Speci men Type: BLOOD SPECIMENOrdering Facility: [facility] Address: [address] [place] [address] Result Comment: Clas sification of 25 [place] Vitamin D status: Deficiency/Insufficiency: < or = 30 ng/ml. Sufficiency/Optimal Levels: 31-80 ng/mL Toxicity: > 100 ng/mL. Test performed by chemiluminescent immunoassay. 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 Pt has recently became sexually active and is interested in starting control Menses: cycles every 25-30 days and 4-6 days of flow. Contraception: condoms HPV vaccine: No Last Pap: 2021 normal HPV: 2021 negative History of abnormal pap: No Last mammogram: never Sexually active: Yes Patient concerns for STD exposure: No. 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 History Comments: Sexual Activity: Never; No partner data on record; never SA Contraception: No contraception data on record Menstrual Tracking History Flowsheet Row Office Visit from 06/15/2024 in OB/Gynecology Period Cycle (Days) 28 Period Duration (Days) 5 Menstrual Flow Moderate PAST MEDICAL HISTORY Diagnosis Date Depression PAST SURGICAL HISTORY Procedure Laterality Date wisdom teeth extraction 2004 general, okay with anesthesia FAMILY HISTORY Problem Relation Age of Onset Cancer Mother 58 breast/age 53?/postmenopausal/Bra in/Brain/ age 60 (2012)//brain other (brain tumor) Mother None Father Psychiatry Sister anxiety None Maternal Grandmother Heart Maternal Grandfather bypass surgeries None Paternal Grandmother 90 other (CVA) Paternal Grandfather 89 multiple other (lung disease) Paternal Grandfather SOCIAL HISTORY Social History Tobacco Use Smoking status: Never Smokeless tobacco: Never Vaping Use Vaping status: Never Used Substance Use Topics Alcohol use: Yes Comment: rare Drug use: No REVIEW OF SYSTEMS Abdomen: No abdominal pain, nausea, vomiting, diarrhea, or constipation. No bloating, early satiety, indigestion, or increased flatulence. Bladder: No dysuria, gross hematuria, urinary frequency, urinary urgency, or incontinence. Breast: No breast lumps, nipple d/c, overlying skin changes, redness or skin retraction. Allergies and current medication updated:Yes SENSITIVE EXAM: The sensitive examination was discussed with the Patient or Patient's Authorized Tiller Worker. As applicable, any other physician, advance practice provider, medical student, or other health professional student that will be observing or involved in the sensitive examination for educational or training purposes was discussed with the Patient or Authorized Tiller Worker. The Patient or Authorized Tiller Worker has agreed to proceed with the sensitive examination. (Sensitive examination includes inspection and/or palpation of the breasts, pelvis, prostate and anorectal regions). EXAM: BP 114/72 Ht 5' 7 (1.70m) Wt 224 lb (101.6kg) LMP 05/12/2024 BMI 35.08 kg/(m2). GENERAL: pleasant, female in no apparent distress HEENT: Normocephalic, atraumatic, mucus membranes moist, and no lesions DERMATOLOGY: Normal, without lesions, non-icteric, and non-hirsute BREAST: soft, non-tender, symmetric, no dominant mass, normal nipple-areolar complex, no lymphadenopathy, and no nipple discharge CHEST: Normal inspiratory effort ABDOMEN: soft, non-tender, and no masses PELVIC: external genitalia normal, normal Bartholin's glands, urethra, Nemacolin's glands, no vulvar lesions, no cervical lesions, good vaginal support, physiologic discharge present, normal appearing perineal body and perianal region BIMANUAL: uterus normal size, shape and consistency, no adnexal masses, and non-tender RECTOVAGINAL: deferred. NEURO: alert and oriented x3,exam grossly non-focal EXTREMITIES: normal ASSESSMENT/PLAN: 1) Health maintenance: Pap/HPV up to date. Mammogram starting age 40. Nutrition, exercise and routine health maintenance exams reviewed. Calcium/Vitamin D supplementation information provided. Colon cancer screening: start at age 45 2) Contraception: combined hormonal contraceptives. Contraceptive options reviewed and information provided. 3) STD screening: Declined STD check. 4) Follow up one year or sooner as needed Follow up in 3-4 months for OCP check Maliha Whelan APRN.Maliha Arias APRN.CNP 06/15/2024 7:29 AM Signed Oral Contraceptives: The Combined (Estrogen + Progestin) Pill Beginning the Combined Pill In most packs, the first 21 pills have active ingredients and the last 7 are non-medicine containing pills (placebo) or they may (more content not included)... Normal [facility] Comprehensive metabolic 2000 panelon 06-15-2024 Albumin [Mass/Vol] 4.2 g/dL Normal 3.9-4.[address] [facility] Comment on above: Order Comment: Speci men Type: BLOOD SPECIMENOrdering Facility: [facility] Address: [address] [place] [address] Performed By: #### 2 4331-1 ####[facility] GENERAL LABORATORYCLIA [id number] [address] STATES OF [facility] [id number] [place] [address] [place]#### 93407-4 ####[facility] [id number] [place] [address] [place] ALP [Catalytic activity/Vol] 95 U/L Normal 34-123 [facility] Comment on above: Order Comment: Speci men Type: BLOOD SPECIMENOrdering Facility: [facility] Address: [address] [place] [address] Performed By: #### 2 4331-1 ####[facility]STRA[facility] GENERAL LABORATORYCLIA [id number] [place] [address] [place] AMERICAHCA FLOR[place] RAULERSON HOSPITALWNCLIA [id number] [place] [address] [place]#### 14029-5 ####[facility] MILLTOWNCLIA [id number] [place] [address] [place] ALT [Catalytic activity/Vol] 18 U/L Normal 7-38 [facility] Comment on above: Order Comment: Speci men Type: BLOOD SPECIMENOrdering Facility: [facility] Address: [address] [place] [address] Performed By: #### 2 4331-1 ####[facility] LABORATORYCLIA [id number] [place], [place] [address] [place] [address] STATES OF [facility]ENTERA [id number] [place] [address] [place]#### 35439-9 ####[facility] CENTERLIA [id number] [place] [address] [place] Anion gap [Moles/Vol] 11 mmol/L Normal 8-15 [facility] Comment on above: Order Comment: Speci men Type: BLOOD SPECIMENOrdering Facility: [facility] Address: [address] [place] [address] Performed By: #### 2 4331-1 ####[facility] LABORATORYCLIA [id number] [place] [address] [place] AMERICAHCA FLOR[facility] RAULERSON HOSPITALWHILIA [id number] [place] [address] [place]#### 14465-5 ####[facility] MILLTOWNCLIA [id number] [place] [address] [place] AST [Catalytic activity/Vol] 23 U/L Normal 13-35 [facility] Comment on above: Order Comment: Speci men Type: BLOOD SPECIMENOrdering Facility: [facility] Address: [address] [place] [address] Performed By: #### 2 4331-1 ####[facility] LABORATORYCLIA [id number] [place], [place] [address] [place] [address] STATES OF [facility] ERWNCLIA [id number] [place] [address] [place]#### 65081-3 ####[facility] MILLTOWNCLIA [id number] [place] [address] [place] Bilirubin [Mass/Vol] 0.2 mg/dL Normal 0.2-1.3 [facility] Comment on above: Order Comment: Speci men Type: BLOOD SPECIMENOrdering Facility: [facility] Address: [address] [place] [address] Performed By: #### 2 4331-1 ####[facility] LABORATORYCLIA [id number] [place] [address] [place] [facility] HOSPITALTOWNCLIA [id number] [place] [address] [place]#### 08530-4 ####[facility] CENTERTOWNCLIA [id number] [place] [address] [place] Calcium [Mass/Vol] 9.3 mg/dL Normal 8.5-10.[address] [facility] Comment on above: Order Comment: Speci men Type: BLOOD SPECIMENOrdering Facility: [facility] Address: [address] [place] [address] Performed By: #### 2 4331-1 ####[facility] LABORATORYCLIA [id number] [address] STATES OF [facility] NAZIA MILLTOWNCLIA [id number] [place] [address] [place]#### 95305-5 ####[facility] MILLTOWNCLIA [id number] [place] [address] [place] Chloride [Moles/Vol] 98 mmol/L Normal 98-107 [facility] Comment on above: Order Comment: Speci men Type: BLOOD SPECIMENOrdering Facility: [facility] Address: [address] [place] [address] Performed By: #### 2 4331-1 ####[facility] LABORATORYCLIA [id number] [place] [address] [place] AMERICAHCA FL[facility] RAULERSON HOSPITALWHILIA [id number] [place] [address] [place]#### 53442-6 ####[facility] MILLWNCLIA [id number] [place] [address] [place] CO2 [Moles/Vol] 28 mmol/L Normal 22-30 [facility] Comment on above: Order Comment: Speci men Type: BLOOD SPECIMENOrdering Facility: [facility] Address: [address] [place] [address] Performed By: #### 2 4331-1 ####[facility] GENERAL LABORATORYCLIA [id number] [address] STATES OF AMERICAUC MEDICAL CENTERLIA [id number] [place] [address] [place]#### 89700-1 ####[facility] HOSPITALWNCLIA [id number] [place] [address] [place] Creatinine [Mass/Vol] 0.73 mg/dL Normal 0.58-0.96 [facility] Comment on above: Order Comment: Speci men Type: BLOOD SPECIMENOrdering Facility: [facility] Address: [address] [place], [place] [address] Performed By: #### 2 4331-1 ####[facility] LABORATORYCLIA [id number] [facility] [address] [id number] [place] [address] [place]#### 37763-0 ####[facility] [id number] [place] [address] [facility] Creatinine and Glomerular filtration rate.predicted panel (S/P/Bld) 107 mL/min/1.73m??? Normal >=60 [facility] Comment on above: Order Comment: Speci men Type: BLOOD SPECIMENOrdering Facility: [facility] Address: [address] [place] [address] Result Comment: Helen mated Glomerular Filtration Rate (eGFR) is calculated using the 2020 CKD-EPI creatinine equation. This equation utilizes serum creatinine, sex, and age as parameters. The creatinine assay has traceable calibration to isotope dilution-mass spectrometry. Refer to KDIGO guidelines for clinical interpretation. In patients with unstable renal function, e.g. those with acute kidney injury, the eGFR may not accurately reflect actual GFR. Performed By: #### 2 4331-1 ####[facility] LABORATORYCLIA [id number] [address] [id number] [address] OF [place]U#### 30645-9 ####[facility] [id number] [place] [address] [place] Glucose [Mass/Vol] 97 mg/dL Normal 74-[address] [facility] Comment on above: Order Comment: Speci men Type: BLOOD SPECIMENOrdering Facility: [facility] Address: [address] [place] [address] Result Comment: The [place] Diabetes Association (ADA) provides guidance for cutoff values for fasting glucose and random glucose. The ADA defines fasting as no caloric intake for at least 8 hours. Fasting plasma glucose results between 100 to 125 mg/dL indicate increased risk for diabetes (prediabetes). Fasting plasma glucose results greater than or equal to 126 mg/dL meet the criteria for diagnosis of diabetes. In the absence of unequivocal hyperglycemia, results should be confirmed by repeat testing. In a patient with classic symptoms of hyperglycemia or hyperglycemic crisis, random plasma glucose results greater than or equal to 200 mg/dL meet the criteria for diagnosis of diabetes. Reference: Standards of Medical Care in Diabetes 2016, [place] Diabetes Association. Diabetes Care. 2016.39(Suppl 1). Performed By: #### 2 4331-1 ####[facility] LABORATORYCLIA [id number] [address] [id number] [place] [address] [place]#### 96619-4 ####[facility] CENTERLIA [id number] [place] [address] [place] Potassium [Moles/Vol] 4.1 mmol/L Normal 3.7-5.1 [facility] Comment on above: Order Comment: Speci men Type: BLOOD SPECIMENOrdering Facility: [facility] Address: [address] [place] [address] Performed By: #### 2 4331-1 ####[facility] LABORATORYCLIA [id number] [address] [id number] [place] [address] [place]#### 99545-5 ####[facility] CENTERLIA [id number] [place] [address] [place] Protein [Mass/Vol] 7.1 g/dL Normal 6.3-8.[address] [facility] Comment on above: Order Comment: Speci men Type: BLOOD SPECIMENOrdering Facility: [facility] Address: [address] [place] [address] Performed By: #### 2 4331-1 ####[facility] LABORATORYCLIA [id number] [place] [address] [place] [facility] [id number] [place] [address] [place]#### 91675-4 ####[facility] HOSPITALWNCLIA [id number] [place] [address] [place] Sodium [Moles/Vol] 137 mmol/L Normal 136-[address] [facility] Comment on above: Order Comment: Speci men Type: BLOOD SPECIMENOrdering Facility: [facility] Address: [address] [place] [address] Performed By: #### 2 4331-1 ####[facility] LABORATORYCLIA [id number] [address] STATES OF [facility] [id number] [place] [address] [place]#### 10782-0 ####[facility] CENTERLIA [id number] [place] [address] [place] Urea nitrogen [Mass/Vol] 16 mg/dL Normal 7-21 [facility] Comment on above: Order Comment: Speci men Type: BLOOD SPECIMENOrdering Facility: [facility] Address: [facility] [place] [address] Performed By: #### 2 4331-1 ####[facility] LABORATORYCLIA [id number] [place] [address] [place] [facility] [id number] [place] [address] [place]#### 93187-0 ####[facility] CENTERA [id number] [place] [address] [place] HbA1c (Bld)on 06-15-2024 Average glucose Estimated from glycated hemoglobin (Bld) [Mass/Vol] 117 mg/dL Normal [facility] Comment on above: Order Comment: Macy lovelace Type: BLOOD SPECIMENOrdering Facility: [facility] Address: [address] [place] [address] Result Comment: eAG: (Estimated average glucose) is a calculated value from HgbA1c and is outside sales representative insurance of the average blood glucose level in the last 2-3 month period. Performed By: #### 5 5454-3 ####[facility] LABCLIA [id number] [place] [address] [place] HbA1c (Bld) [Mass fraction] 5.7 % High 4.3-5.6 [facility] Comment on above: Order Comment: Macy lovelace Type: BLOOD SPECIMENOrdering Facility: [facility] Address: [address] [place] [address] Result Comment: [place] Diabetes Association guidelines indicate that patients with HgbA1c in the range 5.7-6.4% are at increased risk for development of diabetes, and intervention by lifestyle modification may be beneficial. HgbA1c greater or equal to 6.5% is considered diagnostic of diabetes. Performed By: #### 5 5454-3 ####[facility] LABCLIA [id number] [place] [address] [place] Lipid 1996 panelon 5 Cholesterol [Mass/Vol] 196 mg/dL Normal <200 [facility] Comment on above: Order Comment: Macy lovelace Type: BLOOD SPECIMENOrdering Facility: [facility] Address: [address] [place] [address] Result Comment: <200 mg/dL, Desirable 200-239 mg/dL, Borderline high >239 mg/dL, High Performed By: #### 2 4331-1 ####[facility] LABORATORYCLIA [id number] [place] [address] [place] [facility] [id number] [address] STATES OF [place]#### 41784-7 ####[facility] [id number] [place] [address] [place] Cholesterol in HDL [Mass/Vol] 59 mg/dL Normal >39 [facility] Comment on above: Order Comment: Speci men Type: BLOOD SPECIMENOrdering Facility: [facility] Address: [address] [place] [address] Result Comment: 40-5 9 mg/dL, Acceptable >59 mg/dL, High: Negative risk factor for coronary heart disease <40 mg/dL, Low: Positive risk factor for coronary heart disease Performed By: #### 2 4331-1 ####[facility] LABORATORYCLIA [id number] [place], [place] [address] [place] [address] [id number] STATES OF [place]U#### 75046-7 ####[facility] [id number] [address] STATES [place] Cholesterol in LDL [Mass/Vol] 125 mg/dL High <100 [facility] Comment on above: Order Comment: Speci men Type: BLOOD SPECIMENOrdering Facility: [facility] Address: [address] [place] [address] Result Comment: <100 mg/dL, Optimal 100-129 mg/dL, Near optimal/above optimal 130-159 mg/dL, Borderline high 160-189 mg/dL, High >189 mg/dL, Very high Secondary prevention optimal LDL Cholesterol levels are recommended to be < 70 mg/dL Performed By: #### 2 4331-1 ####[facility] LABORATORYCLIA [id number] [place], [place] [address] [place] [address] [id number] STATES OF [place]#### 39197-0 ####[facility] CENTERLIA [id number] [place] [address] [place] Cholesterol in LDL/Cholesterol in HDL [Mass ratio] 2.12 {ratio} Normal <2.54 [facility] Comment on above: Order Comment: Speci men Type: BLOOD SPECIMENOrdering Facility: [facility] Address: [address] [place] [address] Result Comment: Siobhan laurent: 1. National Cholesterol Education Program ATP III Guideline At-A-Glance Quick Desk Reference: National Heart, Lung, and Blood [place]. National Institutes of Health. 2001: NIH Publication No. 01-3305. 2. An International Atherosclerosis Society position paper: global recommendations for the management of dyslipidemia: executive summary, Atherosclerosis. 2014: 232(2):410-413. Performed By: #### 2 4331-1 ####[facility] LABORATORYCLIA [id number] [address] NAZIAPORTER MEDICAL CENTERWMADELIA COMMUNITY HOSPITALA [id number] [place] [address] [place]#### 22279-7 ####[facility] MILLTOWNCLIA [id number] [place] [address] [place] Cholesterol in VLDL [Mass/Vol] 12 mg/dL Normal <30 [facility] Comment on above: Order Comment: Speci men Type: BLOOD SPECIMENOrdering Facility: [facility] Address: [address] [place] [address] Performed By: #### 2 4331-1 ####[facility] LABORATORYCLIA [id number] [address] NAZIA MILLTOWMADELIA COMMUNITY HOSPITALA [id number] [place] [address] [place]#### 91072-1 ####[facility] MILLTOWNCLIA [id number] [place] [address] [place] Cholesterol non HDL [Mass/Vol] 137 mg/dL High <130 [facility] Comment on above: Order Comment: Speci men Type: BLOOD SPECIMENOrdering Facility: [facility] Address: [address] [place] [address] Result Comment: <130 mg/dL, Optimal 130-159 mg/dL, Near optimal/above optimal 160-189 mg/dL, Borderline high 190-219 mg/dL, High >219 mg/dL, Very high Secondary prevention optimal non HDL Cholesterol levels are recommended to be <100 mg/dL Performed By: #### 2 4331-1 ####[facility] LABORATORYCLIA [id number] [address] [id number] [place] [address] OF XU#### 44878-8 ####[facility]ENTERA [id number] [place] [address] [place] Cholesterol.total/C holesterol in HDL [Mass ratio] 3.32 {ratio} Normal <5.10 [facility] Comment on above: Order Comment: Speci men Type: BLOOD SPECIMENOrdering Facility: [facility] Address: [address] [place] [address] Performed By: #### 2 4331-1 ####[facility] LABORATORYCLIA [id number] [address] [id number] [place] [address] OF XU#### 52018-6 ####[facility] CENTERLIA [id number] [address] FASTING TIME 11 hrs Normal [facility] Comment on above: Order Comment: Speci men Type: BLOOD SPECIMENOrdering Facility: [facility] Address: [address] [place] [address] Performed By: #### 2 4331-1 ####[facility] LABORATORYCLIA [id number] [address] [id number] [place] [address] [place]#### 85197-0 ####[facility] [id number] [place] [address] [place] Triglyceride [Mass/Vol] 59 mg/dL Normal <150 [facility] Comment on above: Order Comment: Speci men Type: BLOOD SPECIMENOrdering Facility: [facility] Address: [address] [place] [address] Result Comment: <150 mg/dL, Normal 150-199 mg/dL, Borderline high 200-499 mg/dL, High >499 mg/dL, Very high Performed By: #### 2 4331-1 ####[facility] SystemsSI[facility] LABORATORYCLIA [id number] [place] [address] [place] [facility] [id number] [place] [address] [place]#### 63353-5 ####[facility] [id number] [place] [address] [place] TOXICOLOGY SCREEN, ROUTINE U RINEon 06-15-2024 Amphetamines Confirm (U) [Mass/Vol] Negative Normal Negative [facility] Comment on above: Order Comment: Speci men Type: URINE SPECIMENOrdering Facility: [facility] Address: [address] [place] [address] Result Comment: Cuto ff threshold at 1000 ng/mL. Performed By: #### U TOX2 ####HELM Boots [facility] LABORATORYCLIA [id number] [place] [address] [place] BARBITURATES, URINE Negative Normal Negative [facility] Comment on above: Order Comment: Speci men Type: URINE SPECIMENOrdering Facility: [facility] Address: [address] [place] [address] Result Comment: Cuto ff threshold at 200 ng/mL. Performed By: #### U TOX2 ####[facility]ORATORYCLIA [id number] [place] [address] [place] BENZODIAZEPINES, UR Negative Normal Negative [facility] Comment on above: Order Comment: Speci men Type: URINE SPECIMENOrdering Facility: [facility] Address: [address] [place] [address] Result Comment: Cuto ff threshold at 200 ng/mL. Performed By: #### U TOX2 ####[facility] LABORATORYCLIA [id number] [place] [address] [place] Cannabinoids Screen Ql (U) Negative Normal Negative [facility] Comment on above: Order Comment: Speci men Type: URINE SPECIMENOrdering Facility: [facility] Address: [address] [place] [address] Result Comment: Cuto ff threshold at 50 ng/mL. Performed By: #### U TOX2 ####[facility] LABORATORYCLIA [id number] [place] [address] [place] Cocaine Ql (U) Negative Normal Negative [facility] Comment on above: Order Comment: Speci men Type: URINE SPECIMENOrdering Facility: [facility] Address: [address] [place] [address] Result Comment: Cuto ff threshold at 300 ng/mL. Performed By: #### U TOX2 ####[facility] LABORATORYCLIA [id number] [place] [address] [place] Ethanol (U) [Mass/Vol] <11 Normal <11 [facility] Comment on above: Order Comment: Speci men Type: URINE SPECIMENOrdering Facility: [facility] Address: [address] [place] [address] Performed By: #### U TOX2 ####[facility] LABORATORYCLIA [id number] [place] [address] [place] Opiates Screen Ql (U) Negative Normal Negative [facility] Comment on above: Order Comment: Speci men Type: URINE SPECIMENOrdering Facility: [facility] Address: [address] [place] [address] Result Comment: Cuto ff threshold at 300 ng/mL. Performed By: #### U TOX2 ####[facility] LABORATORYCLIA [id number] oxyCODONE cutoff Screen (U) [Mass/Vol] Negative Normal Negative [facility] Comment on above: Order Comment: Speci men Type: URINE SPECIMENOrdering Facility: [facility] Address: [address] [place] [address] Result Comment: Cuto ff threshold at 100 ng/mL. Performed By: #### U TOX2 ####[facility] LABORATORYCLIA [id number] [address] Phencyclidine Ql (U) Negative Normal Negative [facility] Comment on above: Order Comment: Speci men Type: URINE SPECIMENOrdering Facility: [facility] Address: [address] [place] [address] Result Comment: Cuto ff threshold at 25 ng/mL. Performed By: #### U TOX2 ####[facility] LABORATORYCLIA [id number] [address] CNOVon 04-24-2024 CNOV Office Visit (PSWSTR ) NADINE DISLA ([id number]) 1985 F Date Time Provider Department 04/24/24 8:00 AM ANNIKA LAROSE PSWSTR During your visit today, we recorded the following information about you: Pulse Respiration Blood pressure Weight 72/minute 16/minute 134/88 101.1 kg Annika Larose, JACQUARD TWINE POLISHER OPERATOR.INSURANCE BILLER 05/03/2024 4:12 PM Signed FOLLOW UP - PSYCHIATRIC PROGRESS NOTE PATIENT: Nadine Disla DATE: April 24, 2024 Visit Type:In person All information is from Patient report except when noted. This evaluation is NOT intended for forensic, disability or child custody purposes. CC: Presenting today for follow up regarding psychiatric medication management. HPI: Treatment Plan from Last Visit on 10/18/2023: TREATMENT PLAN: Continue Ritalin, Wellbutrin and Prozac at the same dose. Continue to engage in individual psychotherapy. Consider transfer of care back to primary care team if patient continues to exhibit remission on the current combination of her psychiatric medications. Today Nadine shares that I am doing really well. During the break, she was not taking her medications as regularly. Trying to get back on schedule with the start of the semester. Menstrual cycle have been regular and flow has been regular. The combination of the medications are helping her well currently. She shares that this past semester was the best semester that she has had in a while. Denies any side effects from her current medications. She is concerned about her weight gain and not being as active. Sometimes when I work out, I get itchy and not feel well. Committing to working out is really hard. Discussed different ways of incorporating movement and how it can be enjoyable and doesn't have to be considered exercise. She has to reach out to schedule an appointment with her therapist. Her therapist is working at a different location now but she is hoping to continue working with them. Interval Progress: Slightly improved PATIENT DATA: Generalized Anxiety Disorder Scale (BHUPINDER-7) 06/28/2023 10/18/2023 04/24/2024 BHUPINDER - 7 SCORES Score 5 4 5 (0-4) minimal anxiety, (5-9) mild anxiety, (10-14) moderate anxiety, (15-21) severe anxiety Patient Health Questionnaire (PHQ-9) 10/10/2023 10/18/2023 04/24/2024 PHQ-9 Score 6 4 7 (0-4) minimal depression, (5-9) mild depression, (10-14) moderate depression, (15-19) moderately severe depression, (20-27) severe depression PAST MEDICAL HISTORY Diagnosis Date Depression PAST SURGICAL HISTORY Procedure Laterality Date wisdom teeth extraction 2003 general, okay with anesthesia ALLERGIES Allergen Reactions Environmental [Seas* Unknown Cold symptoms Current Outpatient Medications on File Prior to Visit Medication Sig methylphenidate (RITALIN) 10 mg tablet Take 1 tablet by mouth three times a day for 30 days. Cholecalciferol, Vitamin D3, 125 mcg (5,000 unit) cap Take 1 capsule by mouth once daily. FLUoxetine (PROZAC) 40 mg capsule take 2 capsules by mouth every day buPROPion XL (WELLBUTRIN XL) 300 mg 24 hr tablet Take 1 tablet by mouth once daily. loratadine (CLARITIN) 10 mg tablet Take 1 tablet by mouth once daily. fluticasone (FLONASE) 50 mcg/actuation nasal spray Use 2 Sprays in each nostril once daily. Rinse mouth after use. melatonin 3 mg capsules as needed. No current facility-administered medications on file prior to visit. ROS: See HPI PFSH: See HPI VITAL SIGNS: 04/24/24 0805 BP: 134/88 Pulse: 72 Resp: 16 Weight: 101.1 kg (222 lb 12.8 oz) Last 3 Encounter BP Readings: Date: BP: 04/24/2024 134/88 10/18/2023 124/80 10/11/2023 122/86 MENTAL STATUS EXAMINATION: Appearance: Casually dressed, well groomed Behavior: Behaves appropriately during the encounter Social relatedness: Euthymic Speech/Language: The patient demonstrates appropriate tone, prosody, garfield, phonetics, and syntax Mood: euthymic Affect: Full and appropriate to topic Orientation: Person, Place, Time and Situation Associations: Intact and linear Hallucinations: None Delusions: None Suicidal Ideation: No suicidal ideation, intent or plan. Homicidal Ideation: No homicidal ideation, intent or plan. Insight: Appropriate Judgment: Appropriate DATA REVIEWED: Psychiatric scales, Electronic medical record, and The PDMP report was reviewed and found to be appropriate without any signs of misuse or diversion. DIAGNOSIS: Attention deficit hyperactivity disorder (adhd), combined type (primary encounter diagnosis) Encounter for long-term (current) use of medications Bhupinder (generalized anxiety disorder) Vitamin d deficiency Recurrent major depression in partial remission ([facility]) GAF: -80-71 If symptoms are present, they are transient and expectable reactions to psychosocial stressors TREATMENT PLAN: Complete monitoring (more content not included)... Normal [facility] CNOVon 12-07-2023 CNOV Office Visit (DERBMN ) NIGHATKALPESHNADINE M ([id number]) 1985 F Date Time Provider Department 12/07/23 8:00 AM MAGO CHOPRA During your visit today, we recorded the following information about you: Nadine Hardin RN 12/07/2023 8:27 AM Addendum Direct line to schedule [phone] or email [email or web address] HAIR LASER INSTRUCTION SHEET The treated area is delicate and should be treated gently. It is common to experience some redness for 1-2 days. Please read and follow these instructions. Avoid unprotected sun exposure to the sun during your laser treatment sessions. An SPF 30 or higher should be used. You will not be treated if you have a flood. One day prior to appointment please shave all areas to be treated. The hair can be removed using Del Angel if shaving is not feasible. Avoid any trauma such as scratching, picking, or rubbing the treated area. Avoid retinol/tretinoin/glyc olic acid products for 24 hours prior to treatment Do not pluck or wax the area to be treated for a minimum of 6 weeks prior to your treatment Post laser Instructions: Wash the treated area with a mild soap (Dove, Cetaphil) daily. Apply soothing cream twice a day for 2 days if redness persists If crusts, scabs, or blisters develop, which is very unlikely, call the office and keep moist by applying Vaseline or Aquaphor healing ointment. Allow them to fall off on their own Any discomfort or burning at the treatment site may be relieved by taking Tylenol, applying a calming cream, or applying ice to the area Do not pluck, wax, or tweeze the hairs. Shaving or trimming the hairs between treatments is fine. Laser appointments should be scheduled a minimum of 6-8 weeks apart Monitor redness, length of time it takes for hair to regrow, amount of growth, and texture of hair. This information will help us determine your next laser treatment settings. If you have any questions or concerns regarding your laser treatment or post-operative care please call the office Mago Chopra MD 12/07/2023 9:03 AM Signed New Patient Nadineporfirio Disla female presents seeking treatment for and further management of laser hair removal to chin/neck. Occasionally gets ingrown hairs/bumps Current treatment for hair removal: tweezing PAST DERM HISTORY: H/O skin disease: Yes, eczema H/O hyertrophic scars or keloids: No H/O cold sores: No H/O Accutane use: No PE: The patient is alert and oriented x 3; is well appearing and in NAD. [place] skin type: II Examination of the face, neck, revealed: Brown terminal hairs on chin A/P: #Hirsutism -Discussed treatment with 755 nm laser -Cost quoted per dept sheet, patient provided with copy. Quoted $275 per treatment if not covered by insurance -Pre/post written instructions given to patient -Advised not to be tanned during treatments and careful sun exposure post -Laser reviewed at length including treatment expectations, need for multiple treatments (~6-8) and risks including pain, swelling, redness, blistering, hyper/hypopigmentation , texture change, scarring. -Will submit to insurance authorization for coverage Request for insurance coverage: ICD 10 Primary Diagnosis: Inflam hair foll L73.9 and Hirsutism L68.0 ICD 10 Secondary Diagnosis: Painful skin lesion R52, Inflammation of Skin L08.9, Pruritus L29.0-9, and Changes in skin texture (desquamation, induration, scaling) R23.4 CPT code: Laser: 21809 Laser hair removal Return to clinic LHR pending insurance auth Charge code: Bill to insurance The documentation for this note was completed by Nadine Hardin RN acting as scribe for Mago Chopra MD. December 07, 2023 8:22 AM. I, Mago Chopra MD, personally performed the services described in this documentation. All medical record entries made by the scribe were at my direction and in my presence. I have reviewed the chart and discharge instructions (if applicable) and agree that the record reflects my personal performance and is accurate and complete. Electronically Signed: Mago Chopra MD December 07, 2023 9:02 AM. Mago Chopra MD December 07, 2023 Allergies As of Date: 12/07/2023 Noted Allergy Reaction Environmental (SEASONAL ALLERGIES)01/12/2021 16 - Unknown Comments: Cold symptoms Date Reviewed: 12/07/2023 Reviewed by: Nadine Hardin LAINEY - Fully Assessed Reason for Visit: Consult [173] Primary Visit Diagnosis:Hirsutism [L68.0] Prescriptions as of 12/07/2023 - buPROPion XL (WELLBUTRIN XL) 300 mg 24 hr tablet Take 1 tablet by mouth once daily. - methylphenidate (RITALIN) 10 mg tablet Take 1 tablet by mouth three times a day for 30 days. - Cholecalciferol, Vitamin D3, 125 mcg (5,000 unit) cap Take 1 capsule by mouth once daily. - FLUoxetine (PROZAC) 40 mg capsule Take 2 capsules by mouth once daily. - loratadine (CLARITIN) 10 mg tablet Take 1 (more content not included)... Normal [facility] metabolic 2000 panelon 04-01-2022 Albumin [Mass/Vol] 4.4 g/dL 3.9 - 4.9 g/dL [facility] ALP [Catalytic activity/Vol] 81 U/L 34 - 123 U/L [facility] ALT [Catalytic activity/Vol] 17 U/L 7 - 38 U/L [facility] Anion gap [Moles/Vol] 11 mmol/L 9 - 18 mmol/L [facility] AST [Catalytic activity/Vol] 26 U/L 13 - 35 U/L [facility] Bilirubin [Mass/Vol] Low 0.2 - 1.3 mg/dL [facility] Calcium [Mass/Vol] 9.5 mg/dL 8.5 - 10.2 mg/dL [facility] Chloride [Moles/Vol] 102 mmol/L 97 - 105 mmol/L [facility] CO2 [Moles/Vol] 27 mmol/L 22 - 30 mmol/L [facility] Creatinine [Mass/Vol] 0.82 mg/dL 0.58 - 0.96 mg/dL [facility] Estimated Glomerular Filtration Rate 95 mL/min/1.73m >=60 mL/min/1.73m [facility] Glucose [Mass/Vol] 99 mg/dL 74 - 99 mg/dL [facility] Potassium [Moles/Vol] 4.1 mmol/L 3.7 - 5.1 mmol/L [facility] Protein [Mass/Vol] 7.3 g/dL 6.3 - 8.0 g/dL [facility] Sodium [Moles/Vol] 140 mmol/L 136 - 144 mmol/L [facility] Urea nitrogen [Mass/Vol] 15 mg/dL 7 - 21 mg/dL [facility] DHEA-S BLDon 04-01-2022 DHEA-S [Mass/Vol] 276.8 ug/dL 60.9 - 337 .0 ug/dL [facility] LIPID PANEL, NONFASTINGon Cholesterol [Mass/Vol] 208 mg/dL High <200 mg/dL [facility] HDL Cholesterol, Nonfasting 59 mg/dL >39 mg/dL [facility] LDL Cholesterol, Nonfasting 117 mg/dL High <100 mg/dL [facility] LDL/HDL Ratio, Nonfasting 1.98 mg/dL <2.54 mg/dL [facility] Non HDL Cholesterol, Nonfasting 149 mg/dL High <130 mg/dL [facility] Total Chol/HDL Ratio, Nonfasting 3.53 mg/dL <5.10 mg/dL [facility] Triglycerides, Nonfasting 160 mg/dL High <150 mg/dL [facility] VLDL Cholesterol, Nonfasting 32 mg/dL High <30 mg/dL [facility] PROGESTERONE [facility] 2 Progesterone [Mass/Vol] 2.2 ng/mL See comment ng/mL [facility] T3 [facility] 04-01-2022 T3 [Mass/Vol] 115 ng/dL 79 - 165 ng/dL [facility] T4 FREE/FREE THYROXon 2021 Free T4 [Mass/Vol] 0.9 ng/dL 0.9 - 1.7 ng/dL C [facility] TSH [facility] 04-01-2022 TSH Qn 2.730 m[IU]/L 0.270 - 4.200 mIU/L [facility] XR Cervical spine AP and Lat eral and obliqueon 04-01-2022 IMPRESSION: Cervical spine mild degenerative changes as described above. Hotel Valet Attendant: PSCB Transcribe Date/Time: Apr 01 2022 1:50P Dictated by : TIM CAMARGO MD This examination was interpreted and the report reviewed and electronically signed by: TIM CAMARGO MD on Apr 01 2022 1:52PM [facility] DIVISION OF RADIOLOGY * * *Final Report* * * DATE OF EXAM: Mar 31 2022 3:04PM WOX [id number] - XR CERVICAL 4V AP/LAT/OBL / PROCEDURE REASON: multiple diagnoses * * * * Physician Interpretation * * * * EXAM TITLE: XR CERVICAL 4V AP/LAT/OBL EXAM DATE/TIME: 03/31/2022 3:04 PM COMPARISON: None. CLINICAL INDICATION/HISTORY: Left arm pain and tingling. TECHNIQUE: AP, lateral, and oblique views of the cervical spine are presented. FINDINGS: No acute fractures or subluxations are noted. C5-6 mild disc space narrowing is demonstrated. There is mild osteophyte formation. There appears be left-sided C5-6 mild neural foraminal narrowing. The prevertebral soft tissues are normal. DIVISION OF RADIOLOGY Provider, [facility] - 04/01/2022 * * *Final Report* * * DATE OF EXAM: Mar 31 2022 3:04PM WOX [id number] - XR CERVICAL 4V AP/LAT/OBL / PROCEDURE REASON: multiple diagnoses * * * * Physician Interpretation * * * * EXAM TITLE: XR CERVICAL 4V AP/LAT/OBL EXAM DATE/TIME: 03/31/2022 3:04 PM COMPARISON: None. CLINICAL INDICATION/HISTORY: Left arm pain and tingling. TECHNIQUE: AP, lateral, and oblique views of the cervical spine are presented. FINDINGS: No acute fractures or subluxations are noted. C5-6 mild disc space narrowing is demonstrated. There is mild osteophyte formation. There appears be left-sided C5-6 mild neural foraminal narrowing. The prevertebral soft tissues are normal. IMPRESSION IMPRESSION: Cervical spine mild degenerative changes as described above. Hotel Valet Attendant: PSCB Transcribe Date/Time: Apr 01 2022 1:50P Dictated by : TIM CAMARGO MD This examination was interpreted and the report reviewed and electronically signed by: TIM CAMARGO MD on Apr 01 2022 1:52PM [facility] XR Cervical spine AP and Lat eral and obliqueOrdered By: Ccf Provider on 04-01-2022 [facility] CBC panel Auto (Bld)on 03-31 Erythrocyte distribution width (RBC) [Ratio] 11.3 % Low 11.5 - 15.0 % [facility] Hematocrit (Bld) [Volume fraction] 38.1 % 36.0 - 46.0 % [facility] Hemoglobin (Bld) [Mass/Vol] 12.5 g/dL 11.5 - 15.5 g/dL [facility] MCH (RBC) [Entitic mass] 30.9 pg 26.0 - 34.0 pg [facility] MCHC (RBC) [Mass/Vol] 32.8 g/dL 30.5 - 36.0 g/dL [facility] MCV (RBC) [Entitic vol] 94.1 fL 80.0 - 100.0 fL [facility] Nucleated RBC (Bld) [#/Vol] <0.01 k/uL [facility] Platelet mean volume (Bld) [Entitic vol] 11.6 fL 9.0 - 12.7 fL [facility] Platelets (Bld) [#/Vol] 400 10*3/uL 150 - 400 k/uL [facility] RBC (Bld) [#/Vol] 4.05 10*6/uL 3.90 - 5.20 m/uL [facility] WBC (Bld) [#/Vol] 10.42 10*3/uL 3.70 - 11 .00 k/uL [facility] HbA1c (Bld)on 03-31-2022 Average glucose Estimated from glycated hemoglobin (Bld) [Mass/Vol] 103 mg/dL [facility] HbA1c (Bld) [Mass fraction] 5.2 % 4.3 - 5.6 % [facility] VITAMIN D 25 HYDROXYon 03-31 25-hydroxyvitamin D3 [Mass/Vol] 24.1 ng/mL Low 31.0 - 80.0 ng/mL [facility] XR CERV OTHER 4V AP/LAT/OBLo n 03-31-2022 [facility] XR Cervical spine AP and Lat eral and obliqueon 03-31-2022 Radiology Study observation (narrative) [facility] STREP A MOLECULAR (POC)on Procedural Control Valid [facility] Strep A (POCT) Negative Negative [facility] Culture, Blood (WB)on 2020 CUB ED NEVER WALDO. CHUY VAZQUEZ ON PT TO GET TO U. @1900 RSNURE No growth in 5 days. Normal [facility] Comment on above: Performed By: #### M 200.1000 #### [facility] Laboratory [facility] [place], [address] Culture, Blood (WB)on 2020 CUB No growth in 5 days. Normal [facility] Comment on above: Performed By: #### M 200.1000 #### [facility] Laboratory [address] [place], [address] Hepatitis A Profile Von 08-10 HEPATITIS A,TOT Negative Normal Negative [facility] Comment on above: Result Comment: Perf ormed at: - [facility] [address] [id number] [employer] Sales Representative: Irvin Roberts PhD, Phone: [phone] Performed By: #### M 200.1000 #### [facility] [address] [place], [address] HEPATITIS A-IgM Negative Normal Negative [facility] Comment on above: Performed By: #### M 200.1000 #### [facility] [address] [place], [address] CBC W/Diff, Automatedon 08-09 Absolute Lymph 1.25 X10 3/uL Normal 0.83-4.51 [facility] Comment on above: Performed By: #### L 100.0100, L500.4050 #### [facility] Laboratory [address] [place], [address] Absolute Neut 1.7 X10 3/uL Low 2.0-7.7 [facility] Comment on above: Performed By: #### L 100.0100, L500.4050 #### [facility] [address] [place], [address] Basophils/100 WBC (Bld) 0.3 % Normal 0-1 [facility] Comment on above: Performed By: #### L 100.0100, L500.4050 #### [facility] [address] [place], [address] Eosinophils/100 WBC (Bld) 1.2 % Normal 0-5 [facility] Comment on above: Performed By: #### L 100.0100, L500.4050 #### [facility] [address] [place], [address] Erythrocyte distribution width (RBC) [Ratio] 11.7 % Normal 11.6-14.6 [facility] Comment on above: Performed By: #### L 100.0100, L500.4050 #### [facility] [address] [place], [address] Hematocrit (Bld) [Volume fraction] 25.8 % Low 37-47 [facility] Comment on above: Performed By: #### L 100.0100, L500.4050 #### [facility] [address] [place], [address] Hemoglobin (Bld) [Mass/Vol] 9.2 g/dL Low 12.0-15.0 [facility] Comment on above: Performed By: #### L 100.0100, L500.4050 #### [facility] [address] [place], [address] IG% 0.300 Normal 0.0-0.9 [facility] Comment on above: Result Comment: IG% - Immature Granulocytes (promyelocytes, myelocytes and metamyelocytes) > 1% indicates that a LEFT SHIFT is Present. Performed By: #### L 100.0100, L500.4050 #### [facility] [address] [place], [address] Lymphocytes/100 WBC (Bld) 38.5 % Normal 19-41 [facility] Comment on above: Performed By: #### L 100.0100, [id number] #### [facility] [address] [place], [address] MCH (RBC) [Entitic mass] 30.6 pg Normal 27.0-32.0 [facility] Comment on above: Performed By: #### L 100.0100, [id number] #### [facility] [address] [place], [address] MCHC (RBC) [Mass/Vol] 35.7 g/dL Normal 32-36 [facility] Comment on above: Performed By: #### L 100.0100, L500.4050 #### [facility] [address] [place], [address] MCV (RBC) [Entitic vol] 85.7 fL Normal 81-99 [facility] Comment on above: Performed By: #### L 100.0100, L500.4050 #### [facility] [address] [place], [address] Monocytes/100 WBC (Bld) 8.9 % Normal 0-10 [facility] Comment on above: Performed By: #### L 100.0100, L500.4050 #### [facility] [address] [place], [address] Neutrophils/100 WBC (Bld) 50.8 % Normal 47-70 [facility] Comment on above: Performed By: #### L 100.0100, L500.4050 #### [facility] [address] [place], [address] Nucleated RBC (Bld) [#/Vol] 0 10*3/uL Normal 0-5 [facility] Comment on above: Performed By: #### L 100.0100, L500.4050 #### [facility] [address] [place], [address] Platelet mean volume (Bld) [Entitic vol] 10.9 fL Normal 6.2-12.0 [facility] Comment on above: Performed By: #### L 100.0100, L500.4050 #### [facility] [address] [place], [address] Platelets (Bld) [#/Vol] 204 10*3/uL Normal 150-450 [facility] Comment on above: Performed By: #### L 100.0100, L500.4050 #### [facility] [address] [place], [address] RBC (Bld) [#/Vol] 3.01 10*6/uL Low 4.2-5.4 [facility] Comment on above: Performed By: #### L 100.0100, L500.4050 #### [facility] [address] [place], [address] RDW SD 36.6 fl Normal 35.1-43.9 [facility] Comment on above: Performed By: #### L 100.0100, L500.4050 #### [facility] [address] [place], [address] WBC (Bld) [#/Vol] 3.3 10*3/uL Low 4.4-11.0 [facility] Comment on above: Performed By: #### L 100.0100, L500.4050 #### [facility] [address] [place], [address] Comprehensive Metabolic Prof [facility] 08-27-2020 Albumin [Mass/Vol] 2.7 g/dL Low 3.2-5.0 [facility] Comment on above: Performed By: #### L 100.0100, L500.4050 #### [facility] [address] [place], [address] Albumin/Globulin [Mass ratio] 1.0 {ratio} Normal 0.9-2.4 [facility] Comment on above: Performed By: #### L 100.0100, L500.4050 #### [facility] [address] [place], [address] ALK P 145 U/L High 45-117 [facility] Comment on above: Performed By: #### L 100.0100, L500.4050 #### [facility] [address] [place], [address] ALT [Catalytic activity/Vol] 842 U/L High 13-56 [facility] Comment on above: Performed By: #### L 100.0100, L500.4050 #### [facility] [address] [place], [address] AST [Catalytic activity/Vol] 1151 U/L High 15-37 [facility] Comment on above: Performed By: #### L 100.0100, L500.4050 #### [facility] [address] [place], [address] Bilirubin [Mass/Vol] 1.00 mg/dL Normal 0.20-1.00 [facility] Comment on above: Result Comment: For patients on eltrombopag therapy, use of Dimension Snyder TBIL is not recommended. Performed By: #### L 100.0100, L500.4050 #### [facility] [address] [place], [address] BUN/CRE 10.8 RATIO Normal 10-20 [facility] Comment on above: Performed By: #### L 100.0100, L500.4050 #### [facility] [address] [place], [address] CA,Total 7.8 mg/dL Low 8.5-10.1 [facility] Comment on above: Performed By: #### L 100.0100, L500.4050 #### [facility] [address] [place], [address] Chloride [Moles/Vol] 103 mmol/L Normal 98-107 [facility] Comment on above: Performed By: #### L 100.0100, L500.4050 #### [facility] [address] [place], [address] CO2 [Moles/Vol] 32.0 mmol/L Normal 21.0-32.0 [facility] Comment on above: Performed By: #### L 100.0100, L500.4050 #### [facility] [address] [place], [address] Creatinine [Mass/Vol] 0.56 mg/dL Normal 0.55-1.02 [facility] Comment on above: Result Comment: The validity of the calculated GFR GFRAA in patients over 70 years has not been determined. Clinical correlation is essential. Performed By: #### L 100.0100, L500.4050 #### [facility] [address] [place], [address] ECRCL 136.35 ml/min Normal [facility] Comment on above: Performed By: #### L 100.0100, L500.4050 #### [facility] [address] [place], [address] EST GFR - AA 159 mL/min Normal >60 [facility] Comment on above: Result Comment: Afri can [place] GFR Calc Performed By: #### L 100.0100, L500.4050 #### [facility] [address] [place], [address] GAP 2 Low 5-15 [facility] Comment on above: Performed By: #### L 100.0100, L500.4050 #### [facility] [address] [place], [address] GFR/1.73 sq M.predicted among non-blacks MDRD (S/P/Bld) [Vol rate/Area] 131 mL/min/{1.73_m2} Normal >60 [facility] Comment on above: Result Comment: Non- GFR Calc Performed By: #### L 100.0100, L500.4050 #### [facility] [address] [place], [address] Globulin (S) [Mass/Vol] 2.8 g/dL Normal 2.2-4.2 [facility] Comment on above: Performed By: #### L 100.0100, L500.4050 #### [facility] [address] [place], [address] Glucose [Mass/Vol] 94 mg/dL Normal 74-106 [facility] Comment on above: Result Comment: Sander juarez note revised GLUCOSE reference range effective 2017. Performed By: #### L 100.0100, L500.4050 #### [facility] [address] [place], [address] Potassium [Moles/Vol] 3.5 mmol/L Normal 3.5-5.1 [facility] Comment on above: Performed By: #### L 100.0100, L500.4050 #### [facility] [address] [place], [address] Sodium [Moles/Vol] 137 mmol/L Normal 136-145 [facility] Comment on above: Performed By: #### L 100.0100, L500.4050 #### [facility] [address] [place], [address] T PROT 5.5 g/dL Low 6.4-8.2 [facility] Comment on above: Performed By: #### L 100.0100, L500.4050 #### [facility] [address] [place], [address] Urea nitrogen [Mass/Vol] 6 mg/dL Low 7-18 [facility] Comment on above: Performed By: #### L 100.0100, L500.4050 #### [facility] [address] [place], [address] Discharge Instructionon 05 Discharge Instruction [facility] Medical Records Department [address] [place] [address] Instructions for Home/Discharge Instructions 08/27/20 0852 MR#: [id number] Acct: [id number] Name: NADINE DISLA Rep #: [id number] : 1985 35 From: Mega Palma DO PCP: Sam Gomez Status:DIS MARY Discharge Instructions Follow Up Care Test Results: Test results from this visit will be discussed in further detail at your follow-up appointment, if applicable. Discharge Plan Admission Admit Date/Time: 08/26/20 19:38 Primary Reason for Your Visit: hepatitis Attending Provider: Mega Palma Primary Care Provider: Sam Gomez Instructions Patient Instructions: ED Hepatitis Cause Unknown Test ... Additional Instructions / Restrictions: Please go to the lab in 2 days for repeat blood work/have the blood work that was already ordered drawn. Follow-up with your doctor on Tuesday or early next week. Try to drink plenty fluids. Return the emergency room if you have worsening symptoms or concern for further dehydration. Discharge Orders/Prescriptions Prescriptions: New ondansetron HCl [Zofran] 4 mg tablet 4 mg PO Q8H PRN (Reason: nausea and vomiting) Qty: 14 RF: 0 Continued bupropion HCl 150 MG tablet extended release 24 hr 300 mg PO DAILY RF: 0 loratadine [Claritin] 10 mg Tablet 10 mg PO DAILY PRN (Reason: allergies) RF: 0 Referrals / Follow Up: Sam Gomez [Primary Care Provider] - Disposition Disposition (needs filled in before D/C Order can be placed): Home, self care 08/27/20 0854 Mega Palma DO CC: Sam Gomez Signed ADDENDUM by Dr. Mega Palma DO on 08/27/20 at [address] Gomez as directed this week, do no share utensils or have intimate contact until you see Dr. Gomez for further instructions 08/27/20 0900 Mega Palma DO cc: Sam Gomez * Signed ADDENDUM by Dr. Mega Palma DO on 08/27/20 at 1556 Discharge date 08/27/2020 08/27/20 1556 Mega Palma DO cc: Sam Gomez * Signed Normal [facility] Hepatitis B Surface Antibody on 08-27-2020 HEP B Surf Ab Non-Reactive Normal [facility] Comment on above: Order Comment: Reaso n for Exam: Hepatitis Screen Result Comment: Non Reactive: Inconsistent with immunity less than <10 mIU/mL Reactive: Consistent with immunity greater than or equal to 10 mIU/mL Performed By: #### M 200.1000 #### [facility] [address] [facility] [id number] Hepatitis B Surface Antigeno n 08-27-2020 HEP B Surf Ag Non-Reactive Normal Nonreactive [facility] Comment on above: Performed By: #### M 200.1000 #### [facility] [address] [facility] [id number] Hepatitis C Antibodyon 08-27 Hepatitis C Ab Non-Reactive Normal Nonreactive [facility] Comment on above: Order Comment: Reaso n for Exam: Hepatitis Screen Result Comment: Non Reactive: < 0.8 Equivocal: >/= 0.8 to < 1.0 Reactive: >/= 1.0 The CDC recommends that a reactive/equivocal HCV antibody result be followed up by the HCV Nucleic Acid Amplification test (905373) Performed By: #### M 200.1000 #### [facility] [address] [facility] [id number] Medical Nutrition Therapyon 08-27-2020 Medical Nutrition Therapy [facility] Medical Records Department [facility] [place] [address] Medical Nutrition Therapy 08/27/20 1000 MR#: [id number] Acct: [id number] Name: NADINE DISLA Rep #: [id number] : 1985 35 From: Yuli Ortega PCP: Sam Gomez Status:DIS MARY Y Location: [place] [address] Nutrition Therapy Report - History Nutrition Services has been consulted to:: Manage nutrient details of diet order Current diet / nutrition support order:: Seen in conjuction w/ Jadon Portillo, validation intern. Pt states that she hasn't eaten anything in the past week. Reports that she had a poor appetite because she felt sick. Reports that she was able to drink water and PowerAid while she was sick. States that she vomited some saliva during the week of being sick and felt nausea from not having any food on her stomach. UBW is 195# and CBW is 191# representing 2% weight loss in one week-not significant for malnutrition. Reports that she has significant increase in appetite today. Reports that she ate >50% at breakfast today. - Anthropometric Measurements Height:: 5 ft 7 in Weight:: 86.6 kg Body Mass Index (BMI):: 29.9 - Relevant Labs Relevant Labs:: WBC 3.3 K/mm3 (4.4-11.0) L 08/27/20 04:54 RBC 3.01 M/mm3 (4.2-5.4) L 08/27/20 04:54 Hgb 9.2 g/dL (12.0-15.0) L 08/27/20 04:54 Hct 25.8 % (37-47) L 08/27/20 04:54 RDW Std Deviation 34.8 fl (35.1-43.9) L 08/26/20 13:55 RDW Coeff of Isabell 11.4 % (11.6-14.6) L 08/26/20 13:55 Absolute Neuts (auto) 1.7 X10 3/uL (2.0-7.7) L 08/27/20 04:54 Sodium 133 mmol/L (136-145) L 08/26/20 13:55 Potassium 3.0 mmol/L (3.5-5.1) L 08/26/20 13:55 Chloride 96 mmol/L (98-107) L 08/26/20 13:55 Anion Gap 2 (5-15) L 08/27/20 04:54 BUN 6 mg/dL (7-18) L 08/27/20 04:54 Calcium 7.8 mg/dL (8.5-10.1) L 08/27/20 04:54 Total Bilirubin 1.70 mg/dL (0.20-1.00) H 08/26/20 13:55 Direct Bilirubin 0.84 mg/dL (0.00-0.30) H 08/26/20 13:55 AST 1151 U/L (15-37) H 08/27/20 04:54 ALT 842 U/L (13-56) H 08/27/20 04:54 Alkaline Phosphatase 145 U/L (45-117) H 08/27/20 04:54 Total Protein 5.5 g/dL (6.4-8.2) L 08/27/20 04:54 Albumin 2.7 g/dL (3.2-5.0) L 08/27/20 04:54 - Assessment Food / Nutrition-Related History:: Pt states that she hasn't eaten anything in the past week. Reports that she had a poor appetite because she felt sick. Reports that she was able to drink water and PowerAid while she was sick. States that she vomited some saliva during the week of being sick and felt nausea from not having any food on her stomach. UBW is 195# and CBW is 191# representing 2% weight loss in one week-not significant for malnutrition. Reports that she has significant increase in appetite today. Reports that she ate >50% at breakfast today. - Nutrition Diagnosis Problem / Etiology / Signs Symptoms (PES):: moderate, acute malnutrition r/t inadequate energy intake during acute illness as evidenced by pt report of not consuming any food for one week and 2% weight loss in one week. Evidence of Malnutrition Exists:: Yes Moderate Protein Calorie Malnutrition:: Acute Illness - Nutrition Intervention Nutrition Prescription:: 1,900-2,000kcal/day (RMR x 1.3). Protein 85-105g/day (1.0-1.25g/kg). Fluid 2,100-2,200mL/day (25mL/kg) - Food / Nutrient Delivery Interventions Summary of nutrition intervention:: Talked to the pt about how the ONS can help replenish vitamin/minerals and protein for strength. Agreeable to ONS as ordered. Nutrition support ordered as / adjusted to:: continue regular diet, ensure enlive w/ medpass Nutrition education provided?: Yes - MNT Monitoring Further MNT monitoring and evaluation required?: Yes MNT Follow-up in:: 3-5 days 08/27/20 8718 Date Yuli Hernandez Signature (if applicable): Date CC: Signed Normal [facility] 12 Lead EKGon 08-26-2020 12 Lead EKG [facility] Cardiovascular Services [address] [place] [place] [address] 12 Lead EKG 08/26/20 1357 MR#: [id number] Acct: [id number] Name: NADINE DISLA Rep #: [id number] : 1985 35 From: Gabe Baxter MD Attending Dr: Dr. Mega Palma DO Status: D IS MARY Ordering Dr: Diana Andrews DO Date: 08/26/20 Location: [facility] Sex: F C Admitted: 08/26/20 Test Reason : FEVER Blood Pressure : / mmHG Vent. Rate : 087 BPM Atrial Rate : 087 BPM P-R Int : 172 ms QRS Dur : 084 ms QT Int : 350 ms P-R-T Axes : 026 015 039 degrees QTc Int : 421 ms Sinus rhythm with Premature supraventricular complexes Otherwise normal ECG Confirmed by NEEMA ALVA, SATISH ([id number]), content editor HERBERT AMOR ([id number]) on 08/29/2020 11:33:50 AM Referred By: ASHLEY Confirmed By:CODY BAXTER MD 08/29/20 1133 Date Gabe Baxter MD CC: Sam Gomez; Dr. Diana Andrews DO; Dr. Mega Palma DO Signed Normal [facility] Acetaminophen (Tylenol) Leve tay 08-26-2020 Acetaminophen [Mass/Vol] ug/mL Low 10.0-30.0 [facility] Comment on above: Performed By: #### M 200.1000 #### [facility] [address] [place], [address] Basic Metabolic Profile (BMP )on 08-26-2020 BUN/CRE 10.0 RATIO Normal 10-20 [facility] Comment on above: Performed By: #### L 503.6005, L500.3400, L501.4010, L500.2500, L100.0100, L501.2450 #### [facility] [address] [place], [address] CA,Total 9.0 mg/dL Normal 8.5-10.1 [facility] Comment on above: Performed By: #### L 503.6005, L500.3400, L501.4010, L500.2500, L100.0100, L501.2450 #### [facility] [address] [place], [address] Chloride [Moles/Vol] 96 mmol/L Low 98-107 [facility] Comment on above: Performed By: #### L 503.6005, L500.3400, L501.4010, L500.2500, L100.0100, L501.2450 #### [facility] [address] [place], [address] CO2 [Moles/Vol] 30.0 mmol/L Normal 21.0-32.0 [facility] Comment on above: Performed By: #### L 503.6005, L500.3400, L501.4010, L500.2500, L100.0100, L501.2450 #### [facility] [address] [place], [address] Creatinine [Mass/Vol] 0.80 mg/dL Normal 0.55-1.02 [facility] Comment on above: Result Comment: The validity of the calculated GFR GFRAA in patients over 70 years has not been determined. Clinical correlation is essential. Performed By: #### L 503.6005, L500.3400, L501.4010, L500.2500, L100.0100, L501.2450 #### [facility] [address] [place], [address] ECRCL 95.45 ml/min Normal [facility] Comment on above: Performed By: #### L 503.6005, L500.3400, L501.4010, L500.2500, L100.0100, L501.2450 #### [facility] [address] [place], [address] EST GFR - AA 105 mL/min Normal >60 [facility] Comment on above: Result Comment: Afri can [place] GFR Calc Performed By: #### L 503.6005, L500.3400, L501.4010, L500.2500, L100.0100, L501.2450 #### [facility] [address] [place], [address] GAP 7 Normal 5-15 [facility] Comment on above: Performed By: #### L 503.6005, L500.3400, L501.4010, L500.2500, L100.0100, L501.2450 #### [facility] [address] [place], [address] GFR/1.73 sq M.predicted among non-blacks MDRD (S/P/Bld) [Vol rate/Area] 87 mL/min/{1.73_m2} Normal >60 [facility] Comment on above: Result Comment: Non- GFR Calc Performed By: #### L 503.6005, L500.3400, L501.4010, L500.2500, L100.0100, L501.2450 #### [facility] [address] [place], [address] Glucose [Mass/Vol] 97 mg/dL Normal 74-106 [facility] Comment on above: Result Comment: Sander juarez note revised GLUCOSE reference range effective 2017. Performed By: #### L 503.6005, L500.3400, L501.4010, L500.2500, L100.0100, L501.2450 #### [facility] [address] [place], [address] Potassium [Moles/Vol] 3.0 mmol/L Low 3.5-5.1 [facility] Comment on above: Performed By: #### L 503.6005, L500.3400, L501.4010, L500.2500, L100.0100, L501.2450 #### [facility] [address] [place], [address] Sodium [Moles/Vol] 133 mmol/L Low 136-145 [facility] Comment on above: Performed By: #### L 503.6005, L500.3400, L501.4010, L500.2500, L100.0100, L501.2450 #### [facility] [address] [place], [address] Urea nitrogen [Mass/Vol] 8 mg/dL Normal 7-18 [facility] Comment on above: Performed By: #### L 503.6005, L500.3400, L501.4010, L500.2500, L100.0100, L501.2450 #### [facility] [address] [place], [address] CBC W/Diff, Automatedon 05- Absolute Lymph 1.14 X10 3/uL Normal 0.83-4.51 [facility] Comment on above: Performed By: #### L 503.6005, L500.3400, L501.4010, L500.2500, L100.0100, L501.2450 #### [facility] [address] [place], [address] Absolute Neut 2.5 X10 3/uL Normal 2.0-7.7 [facility] Comment on above: Performed By: #### L 503.6005, L500.3400, L501.4010, L500.2500, L100.0100, L501.2450 #### [facility] [address] [place], [address] Basophils/100 WBC (Bld) 0.8 % Normal 0-1 [facility] Comment on above: Performed By: #### L 503.6005, L500.3400, L501.4010, L500.2500, L100.0100, L501.2450 #### [facility] [address] [place], [address] Eosinophils/100 WBC (Bld) 0.3 % Normal 0-5 [facility] Comment on above: Performed By: #### L 503.6005, L500.3400, L501.4010, L500.2500, L100.0100, L501.2450 #### [facility] [address] [place], [address] Erythrocyte distribution width (RBC) [Ratio] 11.4 % Low 11.6-14.6 [facility] Comment on above: Performed By: #### L 503.6005, L500.3400, L501.4010, L500.2500, L100.0100, L501.2450 #### [facility] [address] [place], [address] Hematocrit (Bld) [Volume fraction] 34.8 % Low 37-47 [facility] Comment on above: Performed By: #### L 503.6005, L500.3400, L501.4010, L500.2500, L100.0100, L501.2450 #### [facility] [address] [place], [address] Hemoglobin (Bld) [Mass/Vol] 12.3 g/dL Normal 12.0-15.0 [facility] Comment on above: Performed By: #### L 503.6005, L500.3400, L501.4010, L500.2500, L100.0100, L501.2450 #### [facility] [address] [place], [address] IG% 0.500 Normal 0.0-0.9 [facility] Comment on above: Result Comment: IG% - Immature Granulocytes (promyelocytes, myelocytes and metamyelocytes) > 1% indicates that a LEFT SHIFT is Present. Performed By: #### L 503.6005, L500.3400, L501.4010, L500.2500, L100.0100, L501.2450 #### [facility] [address] [place], [address] Lymphocytes/100 WBC (Bld) 29.3 % Normal 19-41 [facility] Comment on above: Performed By: #### L 503.6005, L500.3400, L501.4010, L500.2500, L100.0100, L501.2450 #### [facility] [address] [place], [address] MCH (RBC) [Entitic mass] 29.9 pg Normal 27.0-32.0 [facility] Comment on above: Performed By: #### L 503.6005, L500.3400, L501.4010, L500.2500, L100.0100, L501.2450 #### [facility] [address] [place], [address] MCHC (RBC) [Mass/Vol] 35.3 g/dL Normal 32-36 [facility] Comment on above: Performed By: #### L 503.6005, L500.3400, L501.4010, L500.2500, L100.0100, L501.2450 #### [facility] [address] [place], [address] MCV (RBC) [Entitic vol] 84.5 fL Normal 81-99 [facility] Comment on above: Performed By: #### L 503.6005, L500.3400, L501.4010, L500.2500, L100.0100, L501.2450 #### [facility] [address] [place], [address] Monocytes/100 WBC (Bld) 4.9 % Normal 0-10 [facility] Comment on above: Performed By: #### L 503.6005, L500.3400, L501.4010, L500.2500, L100.0100, L501.2450 #### [facility] [address] [place], [address] Neutrophils/100 WBC (Bld) 64.2 % Normal 47-70 [facility] Comment on above: Performed By: #### L 503.6005, L500.3400, L501.4010, L500.2500, L100.0100, L501.2450 #### [facility] [address] [place], [address] Nucleated RBC (Bld) [#/Vol] 0 10*3/uL Normal 0-5 [facility] Comment on above: Performed By: #### L 503.6005, L500.3400, L501.4010, L500.2500, L100.0100, L501.2450 #### [facility] [address] [place], [address] Platelet mean volume (Bld) [Entitic vol] 11.5 fL Normal 6.2-12.0 [facility] Comment on above: Performed By: #### L 503.6005, L500.3400, L501.4010, L500.2500, L100.0100, L501.2450 #### [facility] [address] [place], [address] Platelets (Bld) [#/Vol] 231 10*3/uL Normal 150-450 [facility] Comment on above: Performed By: #### L 503.6005, L500.3400, L501.4010, L500.2500, L100.0100, L501.2450 #### [facility] [address] [place], [address] RBC (Bld) [#/Vol] 4.12 10*6/uL Low 4.2-5.4 [facility] Comment on above: Performed By: #### L 503.6005, L500.3400, L501.4010, L500.2500, L100.0100, L501.2450 #### [facility] [address] [place], [address] RDW SD 34.8 fl Low 35.1-43.9 [facility] Comment on above: Performed By: #### L 503.6005, L500.3400, L501.4010, L500.2500, L100.0100, L501.2450 #### [facility] [address] [place], [address] WBC (Bld) [#/Vol] 3.9 10*3/uL Low 4.4-11.0 [facility] Comment on above: Performed By: #### L 503.6005, L500.3400, L501.4010, L500.2500, L100.0100, L501.2450 #### [facility] [address] [place], [address] COVID 19 AG RAPID (RN COLLE T)on 08-26-2020 SARS-CoV-2 (COVID-19) RNA BAYLEE+probe Ql (Unsp spec) Comments: Order Always:Unless pt has Inhouse Cov19 Criteria+ *Negative results from patients with symptom onset beyond five days should be treated as presumptive and confirmed by a molecular assay if clinically necessary. Negative results should not be used as the sole basis for treatment or for patient management. COVID 19 AG RAPID (RN COLLECT) *Positive results do not differentiate between SARS-CoV and SARS-CoV-2. If differentation of the specific SARS virus is desired an additional sample and an additional order is required. COVID 19 AG RAPID (RN COLLECT) * This test has not been FDA cleared or approved; the test has been authorized by FDA under an Emergency Use Authorization (EAU) for use by laboratories certified under CLIA that meet the requirements to perform moderate, high, or waived complexity tests. COVID 19 AG RAPID (RN COLLECT) Normal Reference Range: Negative Testing performed on [employer] analyzer JONATAN (lateral flow immunofluorescent assay) SARS-CoV-2 (COVID 19) Negative Normal [facility] Comment on above: Performed By: #### M 200.1000 #### [facility] [address] [facility] [place], [place], [address] Chest 1 View (Portable)on Chest 1 View (Portable) [facility] Imaging Services [address] [place] [address] Chest 1 View (Portable) MR#: [id number] Acct: [id number] Name: NADINE DISLA Rep #: [id number] : 1985 F 35 From: Jayce Anderson MD PCP: Sam Gomez Status: REG ER Study: Chest 1 View (Portable) Date of Exam: 08/26/20 Exam# [id number] Ordering Dr: Diana Andrews DO STUDY: X-RAY CHEST REASON FOR EXAM: Female, 35 years old. Weakness, fever TECHNIQUE: Single AP portable view of the chest. COMPARISON: None. FINDINGS: The lungs are clear and expanded. There is no demonstrated pleural abnormality. Normal size heart. Normal mediastinum and kade. Normal visualized pulmonary arteries. Normal visualized aortic arch and descending thoracic aorta. Normal visualized thoracic spine. Normal visualized ribs, clavicles, and shoulders. There is no demonstrated abnormality of the visualized soft tissue structures of the upper abdomen. RAD/Chest 1 View (Portable) IMPRESSION: Normal x-ray examination of the chest. Electronically Signed: Matthew Anderson MD at 14:40 EDT , Service support , CC: Sam Gomez; Dr. Diana Andrews DO Hotel Valet Attendant: Signed Normal [facility] Emergency Department Summary on 08-26-2020 Emergency Department Summary [facility] Medical Records Department [address] [place] [address] Emergency Department Summary 08/26/20 MR#: [id number] Acct: [id number] Name: NADINE DISLA Rep #: [id number] : 1985 35 From: Diana Andrews DO PCP: Sam Gomez Status:REG ER Location: ED ADDENDUM by Dr. Diana Andrews DO on 08/26/20 at 1742 Patient was up to be discharged home. On time of discharge she now feels uncomfortable going home. She like to be admitted for IV hydration and further monitoring. This is not unreasonable given her ketonuria and likely acute viral hepatitis. Patient is admitted to the medicine service. 08/26/20 1742 Cosigner Signature (if applicable): cc: Sam Gomez * Signed HPI History of Present Illness Chief Complaint: General Illness Informant: patient Narrative Narrative: Patient is a 35-year-old female 8 days of fevers with a T-max of 102.7. She states she has had flulike symptoms. She has had cough and body aches. She said decreased appetite. She went to [facility] yesterday where she had blood work a chest x-ray and UA. She was found to have abnormalities with her liver and was scheduled to have repeat blood work today as well as a liver ultrasound. Patient states she became very nervous when they told her she had to be n.p.o. for 6 hours before her ultrasound and she has been having a hard time keeping herself hydrated. She decided to come to the emergency room to be evaluated further. She notes she has had a mild headache but denies any neck stiffness. She denies any diarrhea or change in her bowel habits. She has only had mild nausea. She denies any IV drug use. She denies any abdominal pain. She denies any sick contacts. No other complaints at this time [facility] Medical History Depression Home Medications bupropion HCl 300 mg PO DAILY 10/15/19 [History Last Taken Unknown] ondansetron HCl [Zofran] 4 mg PO Q8H PRN #14 tab 08/26/20 [Rx Last Taken Unknown] Allergy/AdvReac Type Severity Reaction Status Date / Time No Known Allergies Allergy Verified 08/26/20 12:47 Social History Smoking Status: Never smoker ROS ROS ED Constitutional Constitutional ED: Reports chills, fever(s) and other Details: anorexia ; Denies malaise Eyes Eyes: Denies blurry vision or loss of vision ENT ENT ED: Denies rhinorrhea or sore throat Cardiovascular Cardiovascular: Denies chest pain or dizziness Respiratory/Chest Respiratory/Chest: Denies cough or dyspnea Gastrointestinal Gastrointestinal: Reports nausea; Denies abdominal pain or vomiting Genitourinary Genitourinary ED: Denies dysuria or hematuria Musculoskeletal Musculoskeletal: Denies arthralgias or myalgias Integumentary Denies rash or wounds Neurologic Neurologic: Denies focal weakness, headache(s) or weakness Psychiatric Psychiatric: Denies anxiety or behavioral changes EXAM Physical Exam Const Vital Signs: 08/26/20 12:44 08/26/20 16:09 08/26/20 16:15 Temperature 99.7 F H 99.5 F H Temperature Source Temporal Oral Pulse Rate 100 86 Respiratory Rate 20 H 18 16 Blood Pressure 126/94 H 118/82 H Blood Pressure Mean 104 94 Pulse Ox 98 99 Oxygen Delivery Method Room Air Room Air Positive well nourished, well developed and no apparent distress General Appearance ED: well developed HEENT Reports normocephalic, TM's clear and moist mucous membranes atraumatic Nose: no nasal discharge General Ear: hearing grossly impaired External Ear: external ears normal Tympanic Membrane ED: Yes TM's clear Mouth ED: Yes moist mucous membranes abnormal Mouth: moist mucous membranes abnormal Eyes PERRL and EOMs intact bilaterally Neck full ROM, no lymphadenopathy, supple and no meningeal signs Chest Wall inspection of chest normal Resp normal respiratory effort, normal air movement and clear to auscultation bilaterally Cardio regular rate and regular rhythm GI normal to inspection, nondistended, normoactive bowel sounds and no masses Inspection: Negative for abdominal distention Back/Spine no CVA tenderness Extremity normal to inspection and full ROM Neuro oriented x3 and no focal motor deficits Sensorium / Orientation: alert Psych mental status grossly normal and thought process normal Mood Affect: anxious Skin no rashes or lesions noted and no wounds MDM MDM MDM Narrative Medical decision making narrative: Patient evaluated for 8 days of fever. She had abnormal lab work outpatient but was supposed to have further testing today but did not feel well enough to get it. Vital signs are significant for a low-grade temp of 99.7 ???F. She is hemodynamically stable emergency room. Sh (more content not included)... Normal [facility] Gallbladderon 08-26-2020 Gallbladder [facility] Imaging Services [address] [place] [address] [place] [address] Gallbladder MR#: [id number] Acct: [id number] Name: NADINE DISLA Rep #: [id number] : 1985 F 35 From: Jeronimo Seay MD PCP: Sam Gomez Status: REG ER Study: Gallbladder Date of Exam: 08/26/20 Exam# [id number] Ordering Dr: Diana Andrews DO STUDY: ABDOMINAL ULTRASOUND - RIGHT UPPER QUADRANT REASON FOR VISIT: Female, 35 years old fever, transaminitis TECHNIQUE: Ultrasound evaluation of the right upper quadrant was performed with real-time and static castillo-scale imaging. TECHNICAL QUALITY: Adequate. COMPARISON: None. FINDINGS: Liver: The liver measures 15.3 cm. There is normal echogenicity of the liver. The bile ducts are within normal limits. There is hepatic color flow. The direction of portal flow is hepatopetal. There is no demonstrated mass lesion. Gallbladder: Normal distended gallbladder. The gallbladder wall measures 3 mm. There is a negative sonographic Goldstein''s sign. There is no pericholecystic fluid. There are no gallstones. Common Bile Duct (C.B.D.): The common bile duct measures 5 mm. Pancreas: Normal size of the head, body and tail of the pancreas. There is normal echogenicity of the pancreas. There is no demonstrated pancreatic mass or cyst. Right Kidney: Normal size of the right kidney. The right kidney measures 13.5 cm. Normal renal cortex. The right cortex measures cm. There is no demonstrated renal mass or cyst. There is no right hydronephrosis. US/Gallbladder IMPRESSION: Normal right upper quadrant ultrasound examination. Electronically Signed: Jeronimo Seay MD at 16:08 EDT Tel , Service support , CC: Sam Gomez; Dr. Diana Andrews DO Hotel Valet Attendant: Signed Normal [facility] H AND P Exam - Hospitaliston 08-26-2020 H&P Exam - Hospitalist [facility] Medical Records Department [address] [place] [address] H P Exam - Hospitalist 08/26/20 1740 MR#: [id number] Acct: [id number] Name: NADINE DISLA Rep #: [id number] : 1985 35 From: Ofelia Donovan MD PCP: Sam Gomez Status:DIS MARY Location: [place] [address] HPI - General General Date of Admission: 08/26/20 HPI Narrative NADINE DISLA, is a 35 F who presents with a complaint of fever for 8 days with associated cough and body aches and decreased appetite. His nose have not been improving so she was seen by her PCP yesterday and she had blood work. She was told of all the blood work today also that she had elevated liver enzymes. A liver ultrasound was also ordered but she said she had to keep n.p.o. overnight and this worsened her nausea so she decided to come into the ED. She denies any chills and denies any abdominal pain. She denies ever having any liver pathology and denies IV drug use or alcohol use. She is celibate. She is unsure if she is had a hepatitis B vaccination. Patient also has taken the Covid vaccination shots. In the ED, vitals showed blood pressure of 124/84 with pulse rate of 84, respiratory rate of 16 and temp of 99.5 Fahrenheit. CBC showed WBC of 3.9 with hemoglobin of 12.3 and platelets of 231. Chemistry shows sodium of 133 with potassium of 3, and creatinine of 0.8. Total bilirubin was 1.7 with AST of 996 and ALT of 732 as well as ALP of 188. UA showed urine ketones of 150 and leukocyte esterase of 25 and 1+ bacteria. Gallbladder ultrasound done showed normal distended gallbladder with gallbladder wall of 3 mm and a negative sonographic Goldstein sign with normal pancreas and normal liver. She has been admitted to be managed for acute hepatitis, probably viral. Of note, patient tells me that she has been taking Tylenol more than usual ever since her symptoms started necessitating she took about 1000 mg of Tylenol every day with the last dose being at 5 PM yesterday. [facility] Medical History (Updated 08/26/20 @ 18:03 by Radha Orona) Depression Hepatitis Home Medications bupropion HCl 300 mg PO DAILY 10/15/19 [History Last Taken 08/25/20] loratadine [Claritin] 10 mg PO DAILY PRN 08/26/20 [History Last Taken Unknown] ondansetron HCl [Zofran] 4 mg PO Q8H PRN #14 tab 08/26/20 [Rx Last Taken Unknown] Allergy/AdvReac Type Severity Reaction Status Date / Time No Known Allergies Allergy Verified 08/26/20 12:47 Surgical History (Updated 08/26/20 @ 18:02 by Radha Orona) [place] teeth extracted Social History Smoking Status: Never smoker ROS Constitutional Constitutional: Reports anorexia, fatigue, fever(s) and malaise; Denies change in weight or chills Eyes Eyes: Denies change in vision ENT HEENT: Denies abnormal hearing, dysphagia or headache(s) Cardiovascular Cardiovascular: Denies chest pain, dyspnea on exertion, edema, lightheadedness, orthopnea, palpitations, paroxysmal nocturnal dyspnea or rapid heart rate Respiratory/Chest Respiratory/Chest: Denies cough, dyspnea, shortness of breath at rest or shortness of breath with exertion Gastrointestinal Gastrointestinal: Denies abdominal pain, coffee ground emesis, constipation or diarrhea Genitourinary Genitourinary: Denies burning urination Musculoskeletal Musculoskeletal: Denies arthralgias Neurologic Neurologic: Denies abnormal gait, confusion, disequilibrium, dizziness or focal weakness Psychiatric Psychiatric: Denies anxiety or depression Endocrine Endocrinology: Denies change in body appearance Hematologic/Lymphatic Hematologic/Lymphatic: Denies anemia Vital Signs Vital Signs Vital Signs: 08/26/20 12:44 08/26/20 16:09 08/26/20 16:15 Temperature 99.7 F H 99.5 F H Temperature Source Temporal Oral Pulse Rate 100 86 Respiratory Rate 20 H 18 16 Blood Pressure 126/94 H 118/82 H Blood Pressure Mean 104 94 Pulse Ox 98 99 Oxygen Delivery Method Room Air Room Air Physical Exam Const alert, oriented x3 and no apparent distress General Appearance: cooperative HEENT normocephalic, head/scalp atraumatic, hearing grossly normal bilaterally and moist oral mucous membranes Eyes PERRL, EOMs intact bilaterally and conjunctivae normal Neck no lymphadenopathy, supple and no JVD Resp normal respiratory effort, no use of accessory muscles and clear to auscultation bilaterally Cardio regular rate, regular rhythm, S1 normal heart sound, S2 normal heart sound and no murmurs GI normal to inspection, nondistended, normoactive bowel sounds, soft to palpation, non-tender and non- distended GI Narrative: negative Goldstein's sign. Extremity normal to inspection, full ROM and no clubbing, cyanosis or edema Peripheral Pulses: Yes pulses 2+ throughout Skin no (more content not included)... Normal [facility] Lactic Acidon 08-26-2020 Lactate [Moles/Vol] 1.3 mmol/L Normal 0.4-1.9 [facility] Comment on above: Order Comment: Y Performed By: #### M 200.1000 #### [facility] [address] [place], [place], [id number] Lipaseon 08-26-2020 Lipase [Catalytic activity/Vol] 219 U/L Normal 73-393 [facility] Comment on above: Performed By: #### M 200.1000 #### [facility] [address] [place], [address] Liver Profileon 08-26-2020 Albumin [Mass/Vol] 3.6 g/dL Normal 3.2-5.0 [facility] Comment on above: Performed By: #### M 200.1000 #### [facility] [address] [place], [address] ALK P 188 U/L High 45-117 [facility] Comment on above: Performed By: #### M 200.1000 #### [facility] [address] [place], [address] ALT [Catalytic activity/Vol] 732 U/L High 13-56 [facility] Comment on above: Performed By: #### M 200.1000 #### [facility] [address] [place], [address] AST [Catalytic activity/Vol] 996 U/L High 15-37 [facility] Comment on above: Performed By: #### M 200.1000 #### [facility] [address] [place], [address] Bilirubin [Mass/Vol] 1.70 mg/dL High 0.20-1.00 [facility] Comment on above: Result Comment: For patients on eltrombopag therapy, use of Dimension Snyder TBIL is not recommended. Performed By: #### M 200.1000 #### [facility] [address] [place], [address] Bilirubin.direct [Mass/Vol] 0.84 mg/dL High 0.00-0.30 [facility] Comment on above: Performed By: #### M 200.1000 #### [facility] [address] [place], [address] Globulin (S) [Mass/Vol] 3.9 g/dL Normal 2.2-4.2 [facility] Comment on above: Performed By: #### M 200.1000 #### [facility] [address] [place], [address] T PROT 7.5 g/dL Normal 6.4-8.2 [facility] Comment on above: Performed By: #### M 200.1000 #### [facility] [address] [place], [address] Monoteston 08-26-2020 Monocytes (Bld) [#/Vol] Negative Normal Negative [facility] Comment on above: Performed By: #### L 700.5500 #### [facility] [address] [place], [address] ,Urineon 08-26-2020 Beta HCG ( test) Ql (U) Negative Normal [facility] Comment on above: Result Comment: Very dilute urine specimens, as indicated by a low specific gravity, may not contain outside sales representative insurance levels of hCG. If is still suspected, a first morning urine specimen should be collected 48 hours later and tested. Performed By: #### L 400.7600 #### [facility] [address] [place], [address] Prothrombin Time w/INRon INR Coag (PPP) [Relative time] 1.1 {INR} Normal [facility] Comment on above: Performed By: #### M 200.1000 #### [facility] [address] [place], [address] PT Coag (PPP) [Time] 13.6 s Normal 11.7-14.9 [facility] Comment on above: Performed By: #### M 200.1000 #### [facility] [address] [place], [address] Troponin-Ion 08-26-2020 Troponin I.cardiac [Mass/Vol] ng/mL Normal <0.045 [facility] Comment on above: Result Comment: TROP ONIN-I EXPECTED VALUES <0.045 Negative 0.045 - 0.590 Consistent with Cardiac Damage > OR = 0.600 Critical Value Not every elevated troponin is indicative of SD. These values should be used with clinical judgement in examining the patient's clinical picture for diagnosis. To establish a diagnosis of SD versus myocardial injury, there must be a demonstrated rise and/or fall in the troponin values, in addition to ischemic symptoms, EKG changes, new regional wall motion abnormality, and/or angiographical evidence. PLEASE NOTE: REFERENCE RANGES EDITED 17 Performed By: #### M 200.1000 #### [facility] [address] [place], [address] Urinalysis, Completeon 08-26 CAST,HYALINE 5-10 SEEN Normal 0-5 [facility] Comment on above: Order Comment: COLOR OF URINE MAY AFFECT DIPSTICK RESULTS. CLEAN CATCH Performed By: #### L 400.0001 #### [facility] [address] [place], [address] BACTERIA 1+ /hpf Normal None Seen [facility] Comment on above: Order Comment: COLOR OF URINE MAY AFFECT DIPSTICK RESULTS. CLEAN CATCH Performed By: #### L 400.0001 #### [facility] [address] [place], [address] EPI,SQUAMOUS 0-5 SEEN Normal 5-10 [facility] Comment on above: Order Comment: COLOR OF URINE MAY AFFECT DIPSTICK RESULTS. CLEAN CATCH Performed By: #### L 400.0001 #### [facility] [address] [place], [address] Mucus Ql (Urine sed) 3+ /hpf Normal [facility] Comment on above: Order Comment: COLOR OF URINE MAY AFFECT DIPSTICK RESULTS. CLEAN CATCH Performed By: #### L 400.0001 #### [facility] [address] [place], [address] WBC 0-5 SEEN Normal 0-5 [facility] Comment on above: Order Comment: COLOR OF URINE MAY AFFECT DIPSTICK RESULTS. CLEAN CATCH Performed By: #### L 400.0001 #### [facility] [address] [place], [address] RBC 0 SEEN Normal 0-5 [facility] Comment on above: Order Comment: COLOR OF URINE MAY AFFECT DIPSTICK RESULTS. CLEAN CATCH Performed By: #### L 400.0001 #### [facility] [address] [place], [address] XR Chest PA and Lateralon IMPRESSION: No radiographic evidence of acute cardiopulmonary process. Hotel Valet Attendant: PSCB Transcribe Date/Time: Aug 25 2020 3:15P Dictated by : RAJ DUNAWAY MD This examination was interpreted and the report reviewed and electronically signed by: RAJ DUNAWAY MD on Aug 25 2020 3:16PM [facility] DIVISION OF RADIOLOGY * * *Final Report* * * DATE OF EXAM: Aug 25 2020 3:13PM WOX [id number] - XR CHEST 2V FRONTAL/LAT / PROCEDURE REASON: Cough * * * * Physician Interpretation * * * * EXAMINATION: CHEST RADIOGRAPH (2 VIEW FRONTAL & LATERAL) CLINICAL HISTORY: Cough MQ: XC2_6 EXAM DATE/TIME: 08/25/2020 3:13 PM COMPARISON: No relevant prior studies available. RESULT: Lines, tubes, and devices: None. Lungs and pleura: No consolidation. No lung mass. No pleural effusion. No pneumothorax. Cardiomediastinal silhouette: Normal cardiomediastinal silhouette. Bones and soft tissues: Unremarkable. DIVISION OF RADIOLOGY Provider, [facility] - 08/25/2020 * * *Final Report* * * DATE OF EXAM: Aug 25 2020 3:13PM WOX [id number] - XR CHEST 2V FRONTAL/LAT / PROCEDURE REASON: Cough * * * * Physician Interpretation * * * * EXAMINATION: CHEST RADIOGRAPH (2 VIEW FRONTAL & LATERAL) CLINICAL HISTORY: Cough MQ: XC2_6 EXAM DATE/TIME: 08/25/2020 3:13 PM COMPARISON: No relevant prior studies available. RESULT: Lines, tubes, and devices: None. Lungs and pleura: No consolidation. No lung mass. No pleural effusion. No pneumothorax. Cardiomediastinal silhouette: Normal cardiomediastinal silhouette. Bones and soft tissues: Unremarkable. IMPRESSION IMPRESSION: No radiographic evidence of acute cardiopulmonary process. Hotel Valet Attendant: PSCB Transcribe Date/Time: Aug 25 2020 3:15P Dictated by : RAJ DUNAWAY MD This examination was interpreted and the report reviewed and electronically signed by: RAJ DUNAWAY MD on Aug 25 2020 3:16PM EST [facility] Radiology Study observation (narrative) [facility] XR Chest PA and LateralOrder ed By: [facility] Provider on 08-25-2020 [facility] Vital Signs Date Time Vital Sign Value Performing Clinician Faci jason 10-23-2024 08:31-0400 Body mass index (BMI) [Ratio] 32.89 kg/m2 Annika Larose JACQUARD TWINE POLISHER OPERATOR.INSURANCE BILLER Work Phone: [facility] 10-23-2024 08:31-0400 Body weight 95.25 kg Annika Larose JACQUARD TWINE POLISHER OPERATOR.INSURANCE BILLER Work Phone: [facility] 10-23-2024 08:31-0400 Heart rate 96 /min Annika Larose JACQUARD TWINE POLISHER OPERATOR.INSURANCE BILLER Work Phone: [facility] 10-23-2024 08:31-0400 SaO2% (BldA) [Mass fraction] 97 % Annika Larose JACQUARD TWINE POLISHER OPERATOR.INSURANCE BILLER Work Phone: [facility] 09-07-2024 08:15-0400 Diastolic blood pressure 78 mm[Hg] Maliha Bucyrus JACQUARD TWINE POLISHER OPERATOR.INSURANCE BILLER Work Phone: [facility] 09-07-2024 08:15-0400 Systolic blood pressure 118 mm[Hg] Maliha Bucyrus JACQUARD TWINE POLISHER OPERATOR.INSURANCE BILLER Work Phone: [facility] 06-15-2024 07:03-0500 Body height 170.2 cm Maliha Bucyrus JACQUARD TWINE POLISHER OPERATOR.INSURANCE BILLER Work Phone: [facility] 06-15-2024 07:03-0500 Body mass index (BMI) [Ratio] 35.08 kg/m2 Maliha Bucyrus JACQUARD TWINE POLISHER OPERATOR.INSURANCE BILLER Work Phone: [facility] 06-15-2024 07:03-0500 Body weight 101.61 kg Maliha Lana JACQUARD TWINE POLISHER OPERATOR.INSURANCE BILLER Work Phone: [facility] 06-15-2024 07:03-0500 Diastolic blood pressure 72 mm[Hg] Maliha Lana JACQUARD TWINE POLISHER OPERATOR.INSURANCE BILLER Work Phone: [facility] 06-15-2024 07:03-0500 Systolic blood pressure 114 mm[Hg] Maliha Lana JACQUARD TWINE POLISHER OPERATOR.INSURANCE BILLER Work Phone: [facility] 04-24-2024 08:05-0500 Body mass index (BMI) [Ratio] 34.56 kg/m2 Annika Rajguru JACQUARD TWINE POLISHER OPERATOR.INSURANCE BILLER Work Phone: [facility] 04-24-2024 08:05-0500 Body weight 101.06 kg Annika Rajguru JACQUARD TWINE POLISHER OPERATOR.INSURANCE BILLER Work Phone: [facility] 04-24-2024 08:05-0500 Diastolic blood pressure 88 mm[Hg] Annika Rajguru JACQUARD TWINE POLISHER OPERATOR.INSURANCE BILLER Work Phone: [facility] 04-24-2024 08:05-0500 Heart rate 72 /min Annika Rajguru JACQUARD TWINE POLISHER OPERATOR.INSURANCE BILLER Work Phone: [facility] 04-24-2024 08:05-0500 Respiratory rate 16 /min Annika Rajguru JACQUARD TWINE POLISHER OPERATOR.INSURANCE BILLER Work Phone: [facility] 04-24-2024 08:05-0500 Systolic blood pressure 134 mm[Hg] Annika Rajguru JACQUARD TWINE POLISHER OPERATOR.INSURANCE BILLER Work Phone: [facility] 10-18-2023 08:10-0400 Body height 171 cm Annika Rajguru JACQUARD TWINE POLISHER OPERATOR.INSURANCE BILLER Work Phone: [facility] 10-18-2023 08:10-0400 Body mass index (BMI) [Ratio] 33.35 kg/m2 Annika Rajguru JACQUARD TWINE POLISHER OPERATOR.INSURANCE BILLER Work Phone: [facility] 10-18-2023 08:10-0400 Body weight 97.52 kg Annika Rajguru JACQUARD TWINE POLISHER OPERATOR.INSURANCE BILLER Work Phone: [facility] 10-18-2023 08:10-0400 Diastolic blood pressure 80 mm[Hg] Annika Rodriguezguru JACQUARD TWINE POLISHER OPERATOR.INSURANCE BILLER Work Phone: [facility] 10-18-2023 08:10-0400 Heart rate 74 /min Annika Michaelguru JACQUARD TWINE POLISHER OPERATOR.INSURANCE BILLER Work Phone: [facility] 10-18-2023 08:10-0400 Respiratory rate 14 /min Annika Garciaru JACQUARD TWINE POLISHER OPERATOR.INSURANCE BILLER Work Phone: [facility] 10-18-2023 08:10-0400 Systolic blood pressure 124 mm[Hg] Annika Rodriguezguru JACQUARD TWINE POLISHER OPERATOR.INSURANCE BILLER Work Phone: [facility] 10-11-2023 09:01-0400 Body height 170.8 cm Kacey Dukes JACQUARD TWINE POLISHER OPERATOR.INSURANCE BILLER Work Phone: [facility] 10-11-2023 09:01-0400 Body mass index (BMI) [Ratio] 33.55 kg/m2 Kacey Velezman JACQUARD TWINE POLISHER OPERATOR.INSURANCE BILLER Work Phone: [facility] 10-11-2023 09:01-0400 Body weight 97.89 kg Kacey Velezman JACQUARD TWINE POLISHER OPERATOR.INSURANCE BILLER Work Phone: [facility] 10-11-2023 09:01-0400 Diastolic blood pressure 86 mm[Hg] Kacey Smithutzman JACQUARD TWINE POLISHER OPERATOR.INSURANCE BILLER Work Phone: [facility] 10-11-2023 09:01-0400 Heart rate 85 /min Kacey Smithutzman JACQUARD TWINE POLISHER OPERATOR.INSURANCE BILLER Work Phone: [facility] 10-11-2023 09:01-0400 Respiratory rate 16 /min Kacey Smithutzman JACQUARD TWINE POLISHER OPERATOR.INSURANCE BILLER Work Phone: [facility] 10-11-2023 09:01-0400 SaO2% (BldA) [Mass fraction] 94 % Kacey Velezman JACQUARD TWINE POLISHER OPERATOR.INSURANCE BILLER Work Phone: [facility] 10-11-2023 09:01-0400 Systolic blood pressure 122 mm[Hg] Kacey Dukes JACQUARD TWINE POLISHER OPERATOR.INSURANCE BILLER Work Phone: [facility] 06-28-2023 08:04-0400 Body weight 97.98 kg Annika Rajguru JACQUARD TWINE POLISHER OPERATOR.INSURANCE BILLER Work Phone: [facility] 06-28-2023 08:04-0400 Diastolic blood pressure 70 mm[Hg] Annika Rajguru JACQUARD TWINE POLISHER OPERATOR.INSURANCE BILLER Work Phone: [facility] 06-28-2023 08:04-0400 Heart rate 88 /min Annika Rajguru JACQUARD TWINE POLISHER OPERATOR.INSURANCE BILLER Work Phone: [facility] 06-28-2023 08:04-0400 Systolic blood pressure 124 mm[Hg] Annika Rajguru JACQUARD TWINE POLISHER OPERATOR.INSURANCE BILLER Work Phone: [facility] 02-08-2023 13:48-0400 Body weight 100.7 kg Annika Rajguru JACQUARD TWINE POLISHER OPERATOR.INSURANCE BILLER Work Phone: [facility] 02-08-2023 13:48-0400 Diastolic blood pressure 60 mm[Hg] Annika Rajguru JACQUARD TWINE POLISHER OPERATOR.INSURANCE BILLER Work Phone: [facility] 02-08-2023 13:48-0400 Heart rate 74 /min Annika Rajguru JACQUARD TWINE POLISHER OPERATOR.INSURANCE BILLER Work Phone: [facility] 02-08-2023 13:48-0400 Systolic blood pressure 122 mm[Hg] Annika Rajguru JACQUARD TWINE POLISHER OPERATOR.INSURANCE BILLER Work Phone: [facility] 08-18-2022 08:03-0400 Body weight 93.44 kg Annika Rajguru JACQUARD TWINE POLISHER OPERATOR.INSURANCE BILLER Work Phone: [facility] 08-18-2022 08:03-0400 Diastolic blood pressure 70 mm[Hg] Annika Rajguru JACQUARD TWINE POLISHER OPERATOR.INSURANCE BILLER Work Phone: [facility] 08-18-2022 08:03-0400 Heart rate 74 /min Annika Rajguru JACQUARD TWINE POLISHER OPERATOR.INSURANCE BILLER Work Phone: [facility] 08-18-2022 08:03-0400 Systolic blood pressure 120 mm[Hg] Annika Rajguru JACQUARD TWINE POLISHER OPERATOR.INSURANCE BILLER Work Phone: [facility] 06-16-2022 09:25-0500 Body weight 90.72 kg Annika Rajguru JACQUARD TWINE POLISHER OPERATOR.INSURANCE BILLER Work Phone: [facility] 06-16-2022 09:25-0500 Diastolic blood pressure 80 mm[Hg] Annika Rajguru JACQUARD TWINE POLISHER OPERATOR.INSURANCE BILLER Work Phone: [facility] 06-16-2022 09:25-0500 Heart rate 80 /min Annika Rajguru JACQUARD TWINE POLISHER OPERATOR.INSURANCE BILLER Work Phone: [facility] 06-16-2022 09:25-0500 Systolic blood pressure 124 mm[Hg] Annika Rajguru JACQUARD TWINE POLISHER OPERATOR.INSURANCE BILLER Work Phone: [facility] 05-19-2022 08:44-0500 Body weight 85.55 kg Kacey Roseline JACQUARD TWINE POLISHER OPERATOR.INSURANCE BILLER Work Phone: [facility] 05-19-2022 08:44-0500 Diastolic blood pressure 84 mm[Hg] Kacey Roseline JACQUARD TWINE POLISHER OPERATOR.INSURANCE BILLER Work Phone: [facility] 05-19-2022 08:44-0500 Heart rate 81 /min Kacey Roseline JACQUARD TWINE POLISHER OPERATOR.INSURANCE BILLER Work Phone: [facility] 05-19-2022 08:44-0500 Respiratory rate 16 /min Kacey Roseline JACQUARD TWINE POLISHER OPERATOR.INSURANCE BILLER Work Phone: [facility] 05-19-2022 08:44-0500 SaO2% (BldA) [Mass fraction] 97 % Kacey Roseline JACQUARD TWINE POLISHER OPERATOR.INSURANCE BILLER Work Phone: [facility] 05-19-2022 08:44-0500 Systolic blood pressure 120 mm[Hg] Kacey Roseline JACQUARD TWINE POLISHER OPERATOR.INSURANCE BILLER Work Phone: [facility] 04-01-2022 10:09-0500 Body height 171.5 cm Maliha Cornellcalf JACQUARD TWINE POLISHER OPERATOR.INSURANCE BILLER Work Phone: [facility] 04-01-2022 10:09-0500 Body weight 84.82 kg Maliha Bucyrus JACQUARD TWINE POLISHER OPERATOR.INSURANCE BILLER Work Phone: [facility] 04-01-2022 10:09-0500 Diastolic blood pressure 68 mm[Hg] Maliha Bucyrus JACQUARD TWINE POLISHER OPERATOR.INSURANCE BILLER Work Phone: [facility] 04-01-2022 10:09-0500 Systolic blood pressure 104 mm[Hg] Maliha Bucyrus JACQUARD TWINE POLISHER OPERATOR.INSURANCE BILLER Work Phone: [facility] 03-31-2022 14:05-0500 Body height 171 cm Kacey Roseline JACQUARD TWINE POLISHER OPERATOR.INSURANCE BILLER Work Phone: [facility] 03-31-2022 14:05-0500 Body weight 84.91 kg Kacey Roseline JACQUARD TWINE POLISHER OPERATOR.INSURANCE BILLER Work Phone: [facility] 03-31-2022 14:05-0500 Diastolic blood pressure 78 mm[Hg] Kacey Roseline JACQUARD TWINE POLISHER OPERATOR.INSURANCE BILLER Work Phone: [facility] 03-31-2022 14:05-0500 Heart rate 102 /min Kacey Roseline JACQUARD TWINE POLISHER OPERATOR.INSURANCE BILLER Work Phone: [facility] 03-31-2022 14:05-0500 Respiratory rate 16 /min Kacey Roseline JACQUARD TWINE POLISHER OPERATOR.INSURANCE BILLER Work Phone: [facility] 03-31-2022 14:05-0500 SaO2% (BldA) [Mass fraction] 97 % Kacey Roseline JACQUARD TWINE POLISHER OPERATOR.INSURANCE BILLER Work Phone: [facility] 03-31-2022 14:05-0500 Systolic blood pressure 116 mm[Hg] Kacey Roseline JACQUARD TWINE POLISHER OPERATOR.INSURANCE BILLER Work Phone: [facility] 03-31-2022 10:03-0500 Body weight 85.28 kg Annika Joseru JACQUARD TWINE POLISHER OPERATOR.INSURANCE BILLER Work Phone: [facility] 03-31-2022 10:03-0500 Diastolic blood pressure 78 mm[Hg] Annika Rajguru JACQUARD TWINE POLISHER OPERATOR.INSURANCE BILLER Work Phone: [facility] 03-31-2022 10:03-0500 Heart rate 100 /min Annika Rajguru JACQUARD TWINE POLISHER OPERATOR.INSURANCE BILLER Work Phone: [facility] 03-31-2022 10:03-0500 Systolic blood pressure 126 mm[Hg] Annika Rajguru JACQUARD TWINE POLISHER OPERATOR.INSURANCE BILLER Work Phone: [facility] 01-27-2022 14:57-0400 Body weight 85.28 kg Annika Rajguru JACQUARD TWINE POLISHER OPERATOR.INSURANCE BILLER Work Phone: [facility] 01-27-2022 14:57-0400 Diastolic blood pressure 68 mm[Hg] Annika Rajguru JACQUARD TWINE POLISHER OPERATOR.INSURANCE BILLER Work Phone: [facility] 01-27-2022 14:57-0400 Heart rate 80 /min Annika Rajguru JACQUARD TWINE POLISHER OPERATOR.INSURANCE BILLER Work Phone: [facility] 01-27-2022 14:57-0400 Systolic blood pressure 128 mm[Hg] Annika Rajguru JACQUARD TWINE POLISHER OPERATOR.INSURANCE BILLER Work Phone: [facility] 12-23-2021 14:55-0400 Diastolic blood pressure 66 mm[Hg] Annika Rajguru JACQUARD TWINE POLISHER OPERATOR.INSURANCE BILLER Work Phone: [facility] 12-23-2021 14:55-0400 Heart rate 78 /min Annika Rajguru JACQUARD TWINE POLISHER OPERATOR.INSURANCE BILLER Work Phone: [facility] 12-23-2021 14:55-0400 Systolic blood pressure 132 mm[Hg] Annika Rajguru JACQUARD TWINE POLISHER OPERATOR.INSURANCE BILLER Work Phone: [facility] 09-24-2021 11:00-0400 Body weight 83.46 kg Annika Rajguru JACQUARD TWINE POLISHER OPERATOR.INSURANCE BILLER Work Phone: [facility] 09-24-2021 11:00-0400 Diastolic blood pressure 60 mm[Hg] Annika Rajguru JACQUARD TWINE POLISHER OPERATOR.INSURANCE BILLER Work Phone: [facility] 09-24-2021 11:00-0400 Heart rate 72 /min Annika Rajguru JACQUARD TWINE POLISHER OPERATOR.INSURANCE BILLER Work Phone: [facility] 09-24-2021 11:00-0400 Systolic blood pressure 102 mm[Hg] Annika Larose JACQUARD TWINE POLISHER OPERATOR.INSURANCE BILLER Work Phone: [facility] 09-02-2021 10:52-0400 Body temperature 98.6 [degF] Tia Cr APRN.INSURANCE BILLER Work Phone: [facility] 09-02-2021 10:52-0400 Body weight 82.37 kg Tia Cr APRN.INSURANCE BILLER Work Phone: [facility] 09-02-2021 10:52-0400 Diastolic blood pressure 82 mm[Hg] Tia Cr APRN.INSURANCE BILLER Work Phone: [facility] 09-02-2021 10:52-0400 Heart rate 98 /min Tia Cr APRN.INSURANCE BILLER Work Phone: [facility] 09-02-2021 10:52-0400 Respiratory rate 16 /min Tia Cr APRN.INSURANCE BILLER Work Phone: [facility] 09-02-2021 10:52-0400 SaO2% (BldA) [Mass fraction] 98 % Tia Cr APRN.INSURANCE BILLER Work Phone: [facility] 09-02-2021 10:52-0400 Systolic blood pressure 120 mm[Hg] Tia Cr APRN.INSURANCE BILLER Work Phone: [facility] 08-13-2021 09:25-0400 Body weight 82.1 kg Annika Larose JACQUARD TWINE POLISHER OPERATOR.INSURANCE BILLER Work Phone: [facility] 08-13-2021 09:25-0400 Diastolic blood pressure 58 mm[Hg] Annika Garciaru JACQUARD TWINE POLISHER OPERATOR.INSURANCE BILLER Work Phone: [facility] 08-13-2021 09:25-0400 Heart rate 60 /min Annika Larose JACQUARD TWINE POLISHER OPERATOR.INSURANCE BILLER Work Phone: [facility] 08-13-2021 09:25-0400 Systolic blood pressure 118 mm[Hg] Annika Larose JACQUARD TWINE POLISHER OPERATOR.INSURANCE BILLER Work Phone: [facility] 07-15-2021 08:28-0400 Body weight 85.28 kg Annika Larose APRN.INSURANCE BILLER Work Phone: [facility] 07-15-2021 08:28-0400 Diastolic blood pressure 80 mm[Hg] Annika Larose APRN.INSURANCE BILLER Work Phone: [facility] 07-15-2021 08:28-0400 Heart rate 78 /min Annika Larose JACQUARD TWINE POLISHER OPERATOR.INSURANCE BILLER Work Phone: [facility] 07-15-2021 08:28-0400 Respiratory rate 14 /min Annika Larose APRN.INSURANCE BILLER Work Phone: [facility] 07-15-2021 08:28-0400 Systolic blood pressure 122 mm[Hg] Annika Larose APRN.INSURANCE BILLER Work Phone: [facility] Encounters Encounter Date Encounter Type Care Provider Facility Start: 11-26-2024 End: 11-27-2024 Refill Annika Larose APRN.INSURANCE BILLER Work Phone: Psychiatry Comment on above: Refill Request Start: 10-23-2024 End: 10-23-2024 ambulatory SAM GOMEZ Facility:[facility] Start: 10-23-2024 End: 10-23-2024 Office outpatient visit 25 minutes Annika Larose APRN.INSURANCE BILLER Work Phone: Psychiatry Comment on above: Recurrent major depr ession in partial remission (Primary Dx); BHUPINDER (generalized anxiety disorder); Attention deficit hyperactivity disorder (ADHD), combined type; Vitamin D deficiency; Encounter for long-term (current) use of medications Start: 10-10-2024 End: 10-22-2024 ambulatory Maliha Whelan JACQUARD TWINE POLISHER OPERATOR.INSURANCE BILLER Work Phone: OB/Gynecology Comment on above: Request to Switch me dication Start: 09-07-2024 End: 09-07-2024 Patient encounter procedure Maliha Whelan APRN.INSURANCE BILLER Work Phone: OB/Gynecology Comment on above: Encounter for survei llance of contraceptive pills (Primary Dx) Start: 09-07-2024 End: 09-07-2024 ambulatory SAM Justa JENNINGSGOMEZ Facility:[facility] Start: 08-16-2024 End: 08-16-2024 [facility] Annika Larose APRN.CNP Work Phone: Psychiatry Comment on above: Recurrent major depr ession in partial remission (Primary Dx); Medication side effect, initial encounter; Attention deficit hyperactivity disorder (ADHD), combined type; BHUPINDER (generalized anxiety disorder); Encounter for long-term (current) use of medications Start: 08-16-2024 End: 08-16-2024 ambulatory SAM GOMEZ Facility:[facility] Start: 07-23-2024 End: 07-27-2024 ambulatory Annika Larose APRN.INSURANCE BILLER Work Phone: Psychiatry Start: 07-23-2024 End: 07-27-2024 Patient encounter procedure Annika Larose APRN.INSURANCE BILLER Work Phone: Psychiatry Comment on above: Appointment Request Start: 07-12-2024 End: 07-12-2024 Refill Annika Larose APRN.INSURANCE BILLER Work Phone: Psychiatry Comment on above: Refill Request Start: 06-15-2024 End: 06-15-2024 ambulatory ANNIKA LAROSE Facility:[facility] Start: 06-15-2024 End: 06-15-2024 Patient encounter procedure Maliha Whelan APRN.INSURANCE BILLER Work Phone: OB/Gynecology Comment on above: Encounter for gyneco logical examination (general) (routine) without abnormal findings (Primary Dx); Encounter for initial prescription of contraceptive pills Start: 06-15-2024 End: 06-15-2024 Patient encounter status Maliha Whelan APRN.INSURANCE BILLER Work Phone: [facility] Start: 06-05-2024 End: 06-05-2024 Refill Annika Larose APRN.INSURANCE BILLER Work Phone: Psychiatry Comment on above: Refill Request Start: 04-24-2024 End: 04-24-2024 Office outpatient visit 25 minutes Annika Larose APRN.INSURANCE BILLER Work Phone: Psychiatry Comment on above: Attention deficit hy peractivity disorder (ADHD), combined type (Primary Dx); Encounter for long-term (current) use of medications; BHUPINDER (generalized anxiety disorder); Vitamin D deficiency; Recurrent major depression in partial remission (HCC) Start: 04-24-2024 End: 04-24-2024 ambulatory ANNIKA LAROSE Facility:[facility] Start: 03-21-2024 End: 03-21-2024 Refill Annika Larose APRN.INSURANCE BILLER Work Phone: Psychiatry Comment on above: Refill Request Start: 02-07-2024 End: 02-07-2024 Refill Kacey Dukes APRN.INSURANCE BILLER Work Phone: [facility] Comment on above: Refill Request Start: 01-04-2024 End: 01-04-2024 Refill Annika Larose APRN.INSURANCE BILLER Work Phone: Psychiatry Comment on above: Refill Request Start: 12-07-2023 End: 12-07-2023 ambulatory MAGO CHOPRA Facility:[facility] Start: 12-07-2023 End: 12-07-2023 Patient encounter procedure Mago Chopra MD Work Phone: Dermatology Comment on above: Hirsutism (Primary D x) Start: 10-18-2023 End: 10-18-2023 Patient encounter procedure Annika Larose APRN.INSURANCE BILLER Work Phone: Psychiatry Comment on above: BHUPINDER (generalized anx iety disorder) (Primary Dx); Attention deficit hyperactivity disorder (ADHD), combined type; Recurrent major depressive disorder, in full remission (HCC) Start: 10-11-2023 End: 10-11-2023 Patient encounter procedure Kacey Dukes APRN.INSURANCE BILLER Work Phone: [facility] Comment on above: Well adult exam ([facility] Dx); Hirsutism; Vitamin D deficiency; Encounter for immunization Start: 10-11-2023 End: 10-11-2023 Patient encounter status Kacey Dukes APRN.INSURANCE BILLER Work Phone: [facility] Work Phone: Start: 09-16-2023 Refill Annika mac JACQUARD TWINE POLISHER OPERATOR.INSURANCE BILLER Work Phone: Psychiatry Comment on above: Refill Request Start: 08-15-2023 Refill Annika mac JACQUARD TWINE POLISHER OPERATOR.INSURANCE BILLER Work Phone: Psychiatry Comment on above: Refill Request Start: 06-28-2023 End: 06-28-2023 Patient encounter procedure Annika Larose JACQUARD TWINE POLISHER OPERATOR.INSURANCE BILLER Work Phone: Psychiatry Comment on above: Attention deficit hy peractivity disorder (ADHD), combined type (Primary Dx); BHUPINDER (generalized anxiety disorder); Vitamin D deficiency; Recurrent major depressive disorder, in partial remission (HCC) Start: 03-02-2023 End: 03-02-2023 [facility] Annika Larose JACQUARD TWINE POLISHER OPERATOR.[facility] Work Phone: Psychiatry Comment on above: BHUPINDER (generalized anx iety disorder) (Primary Dx); Attention deficit hyperactivity disorder (ADHD), combined type; Recurrent major depressive disorder, in full remission (HCC) Start: 02-08-2023 End: 02-08-2023 Patient encounter procedure Annika Larose JACQUARD TWINE POLISHER OPERATOR.[facility] Work Phone: Psychiatry Comment on above: Attention deficit hy peractivity disorder (ADHD), combined type (Primary Dx); BHUPINDER (generalized anxiety disorder); Major depressive disorder, recurrent episode, moderate (HCC) Start: 08-18-2022 End: 08-18-2022 Patient encounter procedure Annika Larose JACQUARD TWINE POLISHER OPERATOR.INSURANCE BILLER Work Phone: Psychiatry Comment on above: BHUPINDER (generalized anx iety disorder) (Primary Dx); Recurrent major depressive disorder, in partial remission (HCC); Attention deficit hyperactivity disorder (ADHD), combined type; Recurrent major depression in partial remission (HCC) Start: 06-16-2022 End: 06-16-2022 Patient encounter procedure Annika Larose APRN.INSURANCE BILLER Work Phone: Psychiatry Comment on above: BHUPINDER (generalized anx iety disorder) (Primary Dx); Recurrent major depressive disorder, in partial remission (HCC); Attention deficit hyperactivity disorder (ADHD), combined type; Recurrent major depression in partial remission (HCC) Start: 05-22-2022 Refill Annika mac APRN.CNP Work Phone: Psychiatry Comment on above: Refill Request Start: 05-19-2022 End: 05-19-2022 Patient encounter procedure aKcey Dukes APRN.CNP Work Phone: [facility] [place] Comment on above: BHUPINDER (generalized anx iety disorder) (Primary Dx); Attention deficit hyperactivity disorder (ADHD), combined type Start: 04-08-2022 Telephone encounter Kacey Valenzuela APRN.CNP Work Phone: [facility] [place] Comment on above: Results Start: 04-01-2022 End: 04-01-2022 Patient encounter procedure Maliha Whelan APRN.CNP Work Phone: OB/Gynecology Comment on above: Encounter for gyneco logical examination (general) (routine) without abnormal findings (Primary Dx); Screening for cervical cancer; Encounter for screening for human papillomavirus (HPV) Start: 04-01-2022 End: 04-01-2022 Patient encounter status Maliha Whelan APRN.CNP Work Phone: OB/Gynecology Start: 03-31-2022 End: 03-31-2022 Subsequent hospital visit by physician [facility] Work Phone: Radiology Comment on above: Acute pain of left s houlder [M25.512] Start: 03-31-2022 End: 03-31-2022 Patient encounter status Kacey Dukes APRN.CNP Work Phone: [facility] [place] Start: 03-31-2022 End: 04-06-2022 Patient encounter procedure Kacey Dukes APRN.INSURANCE BILLER Work Phone: Family Medicine [place] Comment on above: Well adult exam ([facility] Dx); BHUPINDER (generalized anxiety disorder); Hirsutism; Irregular menstrual cycle; Screening for lipid disorders; Acute pain of left shoulder; Cervical radiculopathy; Screening for diabetes mellitus BHUPINDER (generalized anx iety disorder) (Primary Dx); Recurrent major depression in partial remission (HCC); Attention deficit hyperactivity disorder (ADHD), combined type Start: 03-14-2022 Refill Annika Garciar u JACQUARD TWINE POLISHER OPERATOR.[employer] Work Phone: Psychiatry Comment on above: Refill Request Start: 02-24-2022 Refill Ban [place] k JACQUARD TWINE POLISHER OPERATOR.INSURANCE BILLER Work Phone: [facility] Comment on above: Med Change Request Start: 02-09-2022 Refill Ban [place] k JACQUARD TWINE POLISHER OPERATOR.INSURANCE BILLER Work Phone: [facility] Comment on above: Refill Request Start: 02-01-2022 ambulatory Annika Rodriguezgur u JACQUARD TWINE POLISHER OPERATOR.[employer]URANCE BILLER Work Phone: Psychiatry Comment on above: Unfilled Rx Start: 01-28-2022 Refill Annika Garciar u JACQUARD TWINE POLISHER OPERATOR.[employer]URANCE BILLER Work Phone: Psychiatry Comment on above: Refill Request Start: 01-27-2022 End: 01-27-2022 Patient encounter procedure Annika Larose JACQUARD TWINE POLISHER OPERATOR.INSURANCE BILLER Work Phone: Psychiatry Comment on above: BHUPINDER (generalized anx iety disorder) (Primary Dx); Attention deficit hyperactivity disorder (ADHD), combined type; Major depressive disorder, recurrent episode, moderate (HCC) Start: 12-23-2021 End: 12-23-2021 Patient encounter procedure Annika Larose JACQUARD TWINE POLISHER OPERATOR.INSURANCE BILLER Work Phone: Psychiatry Comment on above: BHUPINDER (generalized anx iety disorder) (Primary Dx); Attention deficit hyperactivity disorder (ADHD), combined type; Recurrent major depressive disorder, in partial remission (HCC) Start: 12-23-2021 Refill Annika Rodriguezgur u JACQUARD TWINE POLISHER OPERATOR.INSURANCE BILLER Work Phone: Psychiatry Comment on above: Refill Request Start: 11-17-2021 Refill Ban Zurawic k JACQUARD TWINE POLISHER OPERATOR.INSURANCE BILLER Work Phone: [facility] Comment on above: Refill Request Start: 11-07-2021 ambulatory Annika Jayme Rodriguezgur u JACQUARD TWINE POLISHER OPERATOR.INSURANCE BILLER Work Phone: Psychiatry Comment on above: Menstrual Cycle Star jonathan Start: 10-17-2021 Refill Ban hernandez JACQUARD TWINE POLISHER OPERATOR.INSURANCE BILLER Work Phone: [facility] Comment on above: Refill Request Start: 09-24-2021 ambulatory Annika mac JACQUARD TWINE POLISHER OPERATOR.INSURANCE BILLER Work Phone: Psychiatry Comment on above: After Visit Summary Start: 09-24-2021 E-mail encounter fro m caregiver Annika Larose JACQUARD TWINE POLISHER OPERATOR.INSURANCE BILLER Work Phone: [facility] Start: 09-24-2021 Refill Tia gonzalez JACQUARD TWINE POLISHER OPERATOR.INSURANCE BILLER Work Phone: [facility] Comment on above: Refill Request Start: 09-24-2021 End: 09-24-2021 Patient encounter procedure Annika Larose JACQUARD TWINE POLISHER OPERATOR.INSURANCE BILLER Work Phone: Psychiatry Comment on above: Attention deficit hy peractivity disorder (ADHD), combined type (Primary Dx); BHUPINDER (generalized anxiety disorder); Major depressive disorder, recurrent episode, moderate (HCC) Start: 09-09-2021 Refill Annika mac JACQUARD TWINE POLISHER OPERATOR.INSURANCE BILLER Work Phone: Psychiatry Comment on above: Refill Request Start: 09-08-2021 Refill Kacey desiree thompson JACQUARD TWINE POLISHER OPERATOR.INSURANCE BILLER Work Phone: [facility] Comment on above: Refill Request Start: 09-02-2021 End: 09-02-2021 Patient encounter procedure Tia Cr JACQUARD TWINE POLISHER OPERATOR.INSURANCE BILLER Work Phone: [facility] Comment on above: Sore throat (Primary Dx); Cough Start: 08-13-2021 End: 08-13-2021 Patient encounter procedure Annika Larose JACQUARD TWINE POLISHER OPERATOR.INSURANCE BILLER Work Phone: Psychiatry Comment on above: BHUPINDER (generalized anx iety disorder) (Primary Dx); Major depressive disorder, recurrent episode, moderate (HCC); Attention deficit hyperactivity disorder (ADHD), combined type Start: 08-09-2021 Refill Ban Thompsonc mary JACQUARD TWINE POLISHER OPERATOR.INSURANCE BILLER [facility] Phone: [facility] Comment on above: Refill Request Start: 07-15-2021 End: 07-15-2021 Patient encounter procedure Annika Larose APRN.[facility] Work Phone: Psychiatry Comment on above: BHUPINDER (generalized anx iety disorder) (Primary Dx); Attention deficit disorder (ADD) in adult; Major depressive disorder, recurrent episode, moderate (HCC) Start: 08-25-2020 End: 08-25-2020 Subsequent hospital visit by physician [facility] Work Phone: Radiology Comment on above: Cough [R05] Procedures Date Procedure Procedure Detail Performing Clinician Start: 03-31-2022 Radex spine cervical 4 or 5 views Kacey Dukes APRN.[facility] Work Phone: Start: 09-02-2021 STREP A MOLECULAR (POC) Tia Cr APRN.[facility] Work Phone: Start: 08-25-2020 Radiologic exam ches t 2 views Anoop Harrison APRN.INSURANCE BILLER Work Phone: Plan of Treatment Date Care Activity Detail Author Start: 10-10-2033 Urine microalbumin profile DTaP,Tdap,Td Vaccine (9 - Td or Tdap) [facility] Start: 04-01-2027 HPV TESTING HPV TESTING [facility] Start: 04-01-2027 PAP TESTING PAP TESTING [facility] Start: 04-01-2027 Screening for malign ant neoplasm of cervix [facility] Start: 06-18-2025 End: 06-18-2025 Patient encounter procedure 06/18/2025 11:30 AM EDT Office Visit OB/Gynecology [address] [place] [id number] Maliha Whelan APRN.[facility] [address] [place] [id number] Annual OB/Gynecology Comment on above: Annual Start: 04-09-2025 End: 04-09-2025 Patient encounter procedure 04/09/2025 1:00 PM EST Office Visit Psychiatry [address] [place] [address] Annika Larose, JACQUARD TWINE POLISHER OPERATOR.INSURANCE BILLER [address] [place] [address] Psychiatry Start: 12-10-2024 Influenza vaccination [facility] Start: 10-23-2024 End: 10-23-2024 Patient encounter procedure 10/23/2024 8:30 AM EDT Office Visit Psychiatry [address] [place] [phone] Annika Larose, JACQUARD TWINE POLISHER OPERATOR.INSURANCE BILLER [address] [place] [phone] FOLLOW UP Psychiatry Comment on above: FOLLOW UP Start: 10-10-2024 Hepatitis B Vaccine (1 of 3 - 19+ 3-dose series) Hepatitis B Vaccine (1 of 3 - 19+ 3-dose series) [facility] Comment on above: Postponed from 05/20 (Declined at this time) Start: 09-07-2024 End: 09-07-2024 Patient encounter procedure 09/07/2024 8:00 AM EDT Office Visit OB/Gynecology [address] [place] [phone] Maliha Whelan APRN.INSURANCE BILLER [address] [place] [address] OCP F/up OB/Gynecology Comment on above: OCP F/up Start: 08-16-2024 End: 08-16-2024 Patient encounter procedure 08/16/2024 11:00 AM EDT [facility] Psychiatry [address] [place] [phone] Annika Larose, JACQUARD TWINE POLISHER OPERATOR.INSURANCE BILLER [address] [facility] [place] [place] [phone] Patient request sooner appointment Psychiatry Comment on above: Patient request soon er appointment Start: 06-15-2024 End: 06-15-2024 Patient encounter procedure 06/15/2024 7:00 AM EST Office Visit OB/Gynecology [address] [place] [address] Maliha Whelan APRN.INSURANCE BILLER [address] [place] [address] annual OB/Gynecology Comment on above: annual Start: 04-24-2024 End: 07-24-2024 25-hydroxyvitamin D3 [Mass/volume] in Serum or Plasma VITAMIN D 25 HYDROXY Lab Routine Vitamin D deficiency Expected: 04/24/2024, Expires: 07/24/2024 [facility] Comment on above: Expected: 04/24/2024 , Expires: 07/24/2024 Start: 04-24-2024 End: 07-24-2024 Comprehensive metabolic 2000 panel - Serum or Plasma COMPREHENSIVE METABOLIC PANEL Lab Routine Encounter for long-term (current) use of medications Expected: 04/24/2024, Expires: 07/24/2024 [facility] Comment on above: Expected: 04/24/2024 , Expires: 07/24/2024 Start: 04-24-2024 End: 07-24-2024 Hemoglobin A1c in Blood HEMOGLOBIN A1C Lab Routine Encounter for long-term (current) use of medications Expected: 04/24/2024, Expires: 07/24/2024 [facility] Comment on above: Expected: 04/24/2024 , Expires: 07/24/2024 Start: 04-24-2024 End: 07-24-2024 Lipid 1996 panel - Serum or Plasma LIPID PANEL BASIC Lab Routine Encounter for long-term (current) use of medications Expected: 04/24/2024, Expires: 07/24/2024 [facility] Comment on above: Expected: 04/24/2024 , Expires: 07/24/2024 Start: 04-24-2024 End: 07-24-2024 TOXICOLOGY SCREEN, ROUTINE URINE TOXICOLOGY SCREEN, ROUTINE URINE Lab Routine Encounter for long-term (current) use of medications Expected: 04/24/2024, Expires: 07/24/2024 [facility] Work Phone: Comment on above: Expected: 04/24/2024 , Expires: 07/24/2024 Start: 04-24-2024 End: 04-24-2024 Patient encounter procedure Psychiatry Comment on above: FOLLOW UP Start: 12-11-2023 Covid-19 Vaccine () Covid-19 Vaccine () [facility] Start: 12-11-2023 Influenza vaccination Influenza Vacc ine (#1) [facility] Start: 12-07-2023 End: 12-07-2023 Patient encounter procedure 12/07/2023 8:00 AM EDT Office Visit Dermatology [address] [address] Mago Chopra MD [address] [place], [place] [phone] Consult Dermatology Comment on above: Consult Start: 10-18-2023 End: 10-18-2023 Patient encounter procedure 10/18/2023 8:00 AM EDT Office Visit Psychiatry [address] [place] [address] Annika Larose, JACQUARD TWINE POLISHER OPERATOR.INSURANCE BILLER [address] [place] [phone] FOLLOW UP Psychiatry Comment on above: FOLLOW UP Start: 03-31-2023 HEPATITIS B (1 of 3 - 3-dose series) HEPATITIS B (1 of 3 - 3-dose series) [facility] Comment on above: Postponed from 05/20 (Declined at this time) Start: 03-31-2023 Hepatitis B Vaccine (1 of 3 - 3-dose series) Hepatitis B Vaccine (1 of 3 - 3-dose series) [facility] Comment on above: Postponed from 05/20 (Declined at this time) Start: 03-31-2023 HEPATITIS C SCREENING HEPATITIS C [facility] Comment on above: Postponed from 05/20 (Declined at this time) Start: 03-31-2023 HIV SCREENING HIV SCREENING [facility] Comment on above: Postponed from 05/20 (Declined at this time) Start: 12-10-2022 Covid-19 Vaccine () Covid-19 Vaccine () [facility] Start: 12-10-2022 Influenza vaccination Influenza Vacc ine (#1) [facility] Start: 11-28-2022 Urine microalbumin profile [facility] Start: 03-31-2022 End: 05-31-2022 ESTROGEN FRACTION BL [facility] Work Phone: Comment on above: Expected: 03/31/2022 , Expires: 05/31/2022 Start: 03-31-2022 End: 05-31-2022 TESTOSTERONE, FREE AND TOTAL [facility] Work Phone: Comment on above: Expected: 03/31/2022 , Expires: 05/31/2022 Start: 12-10-2021 Influenza vaccination INFLUENZA (#1) [facility] Start: 10-13-2021 End: 12-13-2021 Prolactin [Mass/volume] in Serum or Plasma PROLACTIN BLD Lab Routine Amenorrhea, secondary Expected: 10/13/2021, Expires: 12/13/2021 [facility] Work Phone: Comment on above: Expected: 10/13/2021 , Expires: 12/13/2021 Start: 09-02-2021 End: 09-16-2021 Influenza virus A and B RNA and SARS-CoV-2 (COVID-19) N gene panel - Respiratory specimen by BAYLEE with probe detection [facility] Work Phone: Comment on above: Expected: 09/02/2021 , Expires: 09/16/2021 Start: 04-15-2021 COVID-19 VACCINE (4 - Booster for Moderna series) COVID-19 VACCINE (4 - Booster for Moderna series) [facility] Start: 10-05-2017 PAP TESTING PAP TESTING [facility] Start: 2015 HPV TESTING HPV TESTING [facility] Start: 2012 HPV Vaccine (1 - 3-d ose SCDM series) HPV Vaccine (1 - 3-dose SCDM series) [facility] Start: 2004 Hepatitis B Vaccine (1 of 3 - 19+ 3-dose series) Hepatitis B Vaccine (1 of 3 - 19+ 3-dose series) [facility] Start: 2003 HEPATITIS C SCREENING HEPATITIS C [facility] Start: 2003 Hepatitis C screening Hepatitis C [facility] Start: 2003 HIV SCREENING HIV SCREENING [facility] Start: 2003 HIV screening HIV Screening [facility] Start: 1985 HEPATITIS B (1 of 3 - 3-dose series) HEPATITIS B (1 of 3 - 3-dose series) [facility] PAP FLUID CERVICAL SCREENING PAP FLUID CERVICAL SCREENING Lab Routine Encounter for gynecological examination (general) (routine) without abnormal findings Screening for cervical cancer Encounter for screening for human papillomavirus (HPV) 04/01/2022 10:53 AM EST [facility] Work Phone: [facility] Immunizations Immunization Date Immunization Notes Care Provider Rachel anders 10-11-2023 tetanus toxoid, redu ángel diphtheria toxoid, and acellular pertussis vaccine, adsorbed Kacey Roseline JACQUARD TWINE POLISHER OPERATOR.INSURANCE BILLER Work Phone: [facility] 04-13-2023 influenza, injectabl e, quadrivalent, preservative free Kacey Roseline JACQUARD TWINE POLISHER OPERATOR.INSURANCE BILLER Work Phone: [facility] 04-13-2023 influenza virus vaccine, unspecified formulation Kacey Roseline JACQUARD TWINE POLISHER OPERATOR.INSURANCE BILLER Work Phone: [facility] 01-18-2022 Influenza, injectabl e, Madin [place] Canine Kidney, preservative free, quadrivalent Kacey Roseline JACQUARD TWINE POLISHER OPERATOR.INSURANCE BILLER Work Phone: [facility] 01-18-2022 influenza virus vaccine, unspecified formulation Annika Rajguru JACQUARD TWINE POLISHER OPERATOR.INSURANCE BILLER Work Phone: [facility] 01-12-2021 influenza, injectabl e, quadrivalent, contains preservative Annika Rajguru JACQUARD TWINE POLISHER OPERATOR.INSURANCE BILLER Work Phone: [facility] 05-01-2020 influenza, injectabl e, quadrivalent, preservative free Kacey Roseline JACQUARD TWINE POLISHER OPERATOR.[facility] Work Phone: [facility] 11-28-2012 tetanus toxoid, redu ángel diphtheria toxoid, and acellular pertussis vaccine, adsorbed Annika Rajguru JACQUARD TWINE POLISHER OPERATOR.[facility] Work Phone: [facility] Work Phone: 11-13-2007 tuberculin skin test ; purified protein derivative solution, intradermal Mago Chopra MD Work Phone: [facility] 10-19-1999 diphtheria and tetan us toxoids, adsorbed for pediatric use Annika Rajguru JACQUARD TWINE POLISHER OPERATOR.[facility] Work Phone: [facility] Work Phone: 05-21-1997 measles, mumps and rubella virus vaccine Annika Rajguru JACQUARD TWINE POLISHER OPERATOR.[facility] Work Phone: [facility] Work Phone: 05-31-1990 diphtheria and tetan us toxoids, adsorbed for pediatric use Annika Rajguru JACQUARD TWINE POLISHER OPERATOR.[facility] Work Phone: [facility] Work Phone: 05-31-1990 trivalent poliovirus vaccine, live, oral Annika Rajguru JACQUARD TWINE POLISHER OPERATOR.[facility] Work Phone: [facility] Work Phone: 02-17-1987 diphtheria, tetanus toxoids and pertussis vaccine Annika Rajguru JACQUARD TWINE POLISHER OPERATOR.[facility] Work Phone: [facility] Work Phone: 02-17-1987 trivalent poliovirus vaccine, live, oral Annika Rajguru JACQUARD TWINE POLISHER OPERATOR.[facility] Work Phone: [facility] Work Phone: 10-15-1986 measles, mumps and rubella virus vaccine Annika Rajguru JACQUARD TWINE POLISHER OPERATOR.[facility] Work Phone: [facility] Work Phone: 02-12-1986 diphtheria, tetanus toxoids and pertussis vaccine Annika Rajguru JACQUARD TWINE POLISHER OPERATOR.[facility] Work Phone: [facility] Work Phone: 1985 diphtheria, tetanus toxoids and pertussis vaccine Annika Rajguru JACQUARD TWINE POLISHER OPERATOR.[facility] Work Phone: [facility] Work Phone: 1985 trivalent poliovirus vaccine, live, oral Annika Rajguru JACQUARD TWINE POLISHER OPERATOR.[facility] Work Phone: [facility] Work Phone: 1985 diphtheria, tetanus toxoids and pertussis vaccine Annika Rajguru JACQUARD TWINE POLISHER OPERATOR.[facility] Work Phone: [facility] Work Phone: 1985 trivalent poliovirus vaccine, live, oral Annika Rajguru JACQUARD TWINE POLISHER OPERATOR.[facility] Work Phone: [facility] Work Phone: 1985 trivalent poliovirus vaccine, live, oral Annika Rajguru JACQUARD TWINE POLISHER OPERATOR.[facility] Work Phone: [facility] Work Phone: Payers Date Payer Category Payer Private Health Insurance [facility] CHOICE PLAN GENERIC [id number] 2022 Unknown [id number] 2019 Unknown [facility] PPO CONNECT GENERIC [id number] 2019-Present [phone] [address] [facility] [place] [address] PPO [id number] 2019 Unknown [id number] Social History Date Type Detail Facility Start: 10-05-2012 Tobacco smoking stat us AZIS Never smoked tobacco [facility] Start: 07-15-2021 End: 10-23-2024 Alcohol intake Current drinker of alcohol (finding) [facility] Start: 02-27-2020 End: 03-31-2022 History SDOH Alcohol Frequency 2 [facility] Start: 02-27-2020 End: 03-31-2022 History SDOH Alcohol Std Drinks 1 [facility] Start: 11-13-2007 History SDOH Alcohol Comment rare [facility] Start: 12-05-2019 End: 03-31-2022 History SDOH Social Connections Phone 3 [facility] Start: 12-05-2019 End: 03-31-2022 History SDOH Social Connections Meetings 98 [facility] Start: 12-05-2019 End: 03-31-2022 History SDOH Social Connections Living 7 [facility] Start: 12-05-2019 End: 03-31-2022 History SDOH Physical Activity DPW 0 [facility] Start: 12-05-2019 History SDOH Financial 5 [facility] Start: 12-05-2019 Education 17 [facility] Start: 1985 Sex Assigned At Female C [facility] Start: 07-26-2020 End: 01-27-2022 Exposure to SARS-CoV-2 (event) Not sure [facility] Start: 10-05-2012 Tobacco use and exposure Smoke less tobacco non-user [facility] Start: 03-31-2022 History SDOH Financial 4 [facility] Start: 03-31-2022 End: 02-08-2023 History of Social function [facility] Start: 03-31-2022 End: 02-08-2023 Social connection and isolation panel [facility] Do you belong to any clubs or organizations such as pentecostal groups, unions, fraternal or athletic groups, or school groups? No [facility] Start: 03-12-2012 How often do you att end meetings of the clubs or organizations you belong to? Patient refused [facility] Are you now , , , , never or living with a partner? Never [facility] How often to you hav e a drink containing alcohol? Never [facility] How hard is it for y ou to pay for the very basics like food, housing, medical care, and heating Not very hard [facility] Do you feel stress - tense, restless, nervous, or anxious, or unable to sleep at night because your mind is troubled all the time - these days [OSQ] To some extent [facility] (I/We) worried wheth er (my/our) food would run out before (I/we) got money to buy more. Never true [facility] Start: 12-05-2019 Gender identity Identifies as female gender (finding) [facility] Has the [employer] or water [employer] threatened to shut off services in your home in past 12Mo Yes [facility] Do you feel stress - tense, restless, nervous, or anxious, or unable to sleep at night because your mind is troubled all the time - these days [OSQ] Only a little [facility] How often to you hav e a drink containing alcohol? Monthly or less [facility] Work Phone: How many standard dr inks containing alcohol do you have on a typical day? 1 or 2 [facility] Functional Status Date Assessment Result Facility 08-16-2014 Are you deaf, or do you have serious difficulty hearing No 08/16/2014 1:04 PM Perlita Hernandez LPN No [facility] 08-16-2014 Are you blind, or do you have serious difficulty seeing, even when wearing glasses No 08/16/2014 1:04 PM Perlita Hernandez LPN No [facility] 08-16-2014 Do you have serious difficulty walking or climbing stairs No 08/16/2014 1:04 PM Perlita Hernandez LPN No [facility] 08-16-2014 Do you have difficul ty dressing or bathing No 08/16/2014 1:04 PM Perlita Hernandez LPN No [facility] 08-16-2014 Because of a physica l, mental, or emotional condition, do you have difficulty doing errands alone such as visiting a physician's office or shopping No 08/16/2014 1:04 PM Perlita Hernandez LPN No [facility] Mental Status Date Assessment Result Facility 08-16-2014 Because of a physica l, mental, or emotional condition, do you have serious difficulty concentrating, remembering, or making decisions No 08/16/2014 1:04 PM EDT Perlita Matos LPN No [facility] Clinical Notes 08-25-2020 to 11-27-2024 Telephone Encounter - Annika Larose APRN.CNP - 11/27/2024 5:03 PM EDTTelephone Encounter - Annika Larose APRN.CNP - 11/27/2024 5:03 PM EDTPatient InstructionsPatient Instructions Note Date & Type Note Facility 11-27-2024 Telephone encounter Note The PDMP report was reviewed and found to be appropriate without any signs of misuse or diversion. 3 month supply of Ritalin sent to pharmacy. Patient has a follow up appointment scheduled in March with this provider. [facility] 11-27-2024 Miscellaneous Notes The PDMP report was reviewed and found to be appropriate without any signs of misuse or diversion. 3 month supply of Ritalin sent to pharmacy. Patient has a follow up appointment scheduled in March with this provider. Last: 10/23/24 ASSESSMENT & PLAN: 1. 1. Recurrent major depression in partial remission (F33.41) BHUPINDER (generalized anxiety disorder) (F41.1) Attention deficit hyperactivity disorder (ADHD), combined type (F90.2) Depression and anxiety are well-managed with current medication regimen. ADHD symptoms are being addressed with Ritalin. Patient reports occasional missed doses of Ritalin due to forgetfulness. - Continue Wellbutrin 300 mg daily in the morning. - Continue Prozac 80 mg daily (two 40 mg capsules). - Continue Ritalin 10 mg, 1-2 tablets in the morning; advised to set an alarm and keep additional tablets in accessible locations to ensure midday dosing. - Educated on the importance of hydration and electrolyte supplementation due to potential sun sensitivity and dehydration risks from medications. - Scheduled follow-up in six months on April 09 at 1300. 2. Vitamin D deficiency (E55.9) Previous lab work showed vitamin D level at 25.5 ng/mL four months ago, indicating improvement but still below optimal levels. - Restart Vitamin D 5000 units daily for three months. - Recheck vitamin D levels before winter. 3. Encounter for long-term (current) use of medications (Z79.899) Patient is on long-term medications including Wellbutrin, Prozac, and Ritalin. Recently switched from Apri to Sprintec for control due to hormonal fluctuations affecting mood. - Transmitted 90-day prescriptions for Prozac and Wellbutrin to [facility] pharmacy. - Transmitted 90 tablets of Ritalin 10 mg to [facility] pharmacy; patient to notify when refills are needed. - Monitor for any side effects or changes in mood with new control. Next: 04/09/25 documented in this encounter [facility] 11-27-2024 Telephone encounter Note Last: 10/23/24 ASSESSMENT & PLAN: 1. 1. Recurrent major depression in partial remission (F33.41) BHUPINDER (generalized anxiety disorder) (F41.1) Attention deficit hyperactivity disorder (ADHD), combined type (F90.2) Depression and anxiety are well-managed with current medication regimen. ADHD symptoms are being addressed with Ritalin. Patient reports occasional missed doses of Ritalin due to forgetfulness. - Continue Wellbutrin 300 mg daily in the morning. - Continue Prozac 80 mg daily (two 40 mg capsules). - Continue Ritalin 10 mg, 1-2 tablets in the morning; advised to set an alarm and keep additional tablets in accessible locations to ensure midday dosing. - Educated on the importance of hydration and electrolyte supplementation due to potential sun sensitivity and dehydration risks from medications. - Scheduled follow-up in six months on April 09 at 1300. 2. Vitamin D deficiency (E55.9) Previous lab work showed vitamin D level at 25.5 ng/mL four months ago, indicating improvement but still below optimal levels. - Restart Vitamin D 5000 units daily for three months. - Recheck vitamin D levels before winter. 3. Encounter for long-term (current) use of medications (Z79.899) Patient is on long-term medications including Wellbutrin, Prozac, and Ritalin. Recently switched from Apri to Sprintec for control due to hormonal fluctuations affecting mood. - Transmitted 90-day prescriptions for Prozac and Wellbutrin to [facility] pharmacy. - Transmitted 90 tablets of Ritalin 10 mg to [facility] pharmacy; patient to notify when refills are needed. - Monitor for any side effects or changes in mood with new control. Next: 04/09/25 [facility] 10-23-2024 Instructions Annika Larose APRN.INSURANCE BILLER - 10/23/2024 9:17 AM EDT We discussed your mental health and medications: - Continue taking Wellbutrin 300 mg once daily in the morning and Prozac 80 mg (two 40 mg capsules) once daily. Refills for both have been sent to your preferred [facility] pharmacy. - Continue taking Ritalin as needed for ADHD symptoms. You may take 1-2 tablets in the morning and an additional dose later in the day if needed. Consider setting an alarm or keeping a bottle of 10 mg tablets in a convenient location to help you remember the afternoon dose. - Be mindful of sun sensitivity caused by Prozac, Wellbutrin, and Ritalin. Stay hydrated, use sunscreen, and wear protective clothing when outdoors. Incorporate electrolytes into your water (e.g., electrolyte drops without sugar) to improve hydration. We discussed your vitamin D deficiency: - Restart taking vitamin D 5,000 IU daily. Continue this for 3 months, then message me to recheck your levels before winter. Your previous level was 25.5. - You may continue taking your multivitamin, as the additional vitamin D in it is not a concern. We discussed your lab results: - Your hemoglobin A1c was slightly elevated at 5.7, which is in the prediabetic range. This is not a significant concern at this time, but be mindful of your diet and sugar intake. - Your cholesterol levels have improved compared to last year. No further action is needed at this time. We discussed your overall well-being: - Continue engaging in mindful activities, such as jigsaw puzzles, to help you relax and recharge. Balance these with occasional mindless activities, like video games, when needed. - Stay socially active and maintain connections with friends and groups, as this has been a positive aspect of your summer. Follow-up plan: - Your next in-person appointment is scheduled for April 09 at 1:00 PM. If this date becomes inconvenient due to holiday plans, please contact the office to reschedule. - Message me after 3 months of consistent vitamin D supplementation to recheck your levels. - Let me know when you need a refill of Ritalin. All prescriptions have been sent to your preferred [facility] pharmacy. Please reach out if you have any questions or concerns before your next visit. For those experiencing a suicidal crisis: --call the National Suicide Prevention Lifeline at 980 (394-647-6410) --text the Crisis Text Line (text HOME to 309578) --call 911 and let them know you are having a mental health crisis or go to your nearest Emergency Room for stabilization. --You can also call Mobile Crisis at [phone]. -- You may call the department appointment line at [phone] to schedule your appointment. -- Please call my nurse at [phone] or send me a message in [employer] inTouch with any questions or concerns between appointments. documented in this encounter [facility] 10-23-2024 Note HNO ID: [id number] Author: ANNIKA LAROSE APRN.[facility] Service: ? Author Type: Nurse Practitioner Type: Progress Notes Filed: 10/23/2024 09:17 Note Text: FOLLOW UP - PSYCHIATRIC PROGRESS NOTE Visit Type:In person Recording using [employer] software for draft documentation of the visit was discussed with the patient/authorized outside sales representative insurance; all questions welcomed and answered. Patient/authorized outside sales representative insurance agreed to proceed CC: Outpatient follow-up and safety monitoring of previously prescribed psychiatric medication, psychotherapy or other treatment HPI: Patient is a 39-year-old female with a history of depression, anxiety, and ADHD, presenting for follow-up. Patient reports feeling unwell over the past week, with symptoms including a sore throat and loss of taste. She suspects it may be the flu but has not tested for COVID-19. She notes that being sick has affected her appetite and hydration, stating, I just haven't been eating or consuming anything. She finds it challenging to take care of herself while living alone, particularly when feeling unwell. She is currently in a relationship and describes her partner as making her very happy. However, she acknowledges that they are at different stages in their lives, with her partner focusing on personal and career growth. She is trying to give him space to do so, stating, I have to keep reminding myself that my desires and expectations are definitely far above what he can provide right now. Despite these challenges, she reports that the relationship is going well. During the summer, she has been focusing on social growth and spending time with friends. She enjoys jiNeul puzzles as a mindful activity and uses video games as a way to literally turn off my brain and check out. She recently volunteered at a [employer] fair in [place], which she found extremely fulfilling. She has been taking Apri but reports experiencing hormonal fluctuations that have affected her mood, stating, I did start recognizing the pattern of when I was hitting the depression the most, which was pretty consistent. It was very hormonal. She has not yet started the new control medication, but plans to do so soon. She is currently taking Wellbutrin 300 mg in the morning, Prozac 80 mg (two 40 mg capsules), and Ritalin 10 mg, usually one or two in the morning. She sometimes forgets to take the Ritalin later in the day. She denies excessive sweating with Prozac and reports that her depression is well-managed with her current medications. She is also taking a vitamin recommended by her clinician. Recent lab work showed a vitamin D level of 25.5 ng/mL, which has improved from a year ago. She admits to not being consistent with taking her vitamin D supplement but has been more diligent recently. Her hemoglobin A1c was slightly elevated at 5.7%, and her lipid panel showed improvement compared to a year ago. Risks and benefits of the medication, including any black box warnings, were discussed with the patient. Interval Progress: Slightly improved PATIENT DATA: Generalized Anxiety Disorder Scale (BHUPINDER-7) 10/18/2023 04/24/2024 08/16/2024 BHUPINDER - 7 SCORES Score 4 5 8 (0-4) minimal anxiety, (5-9) mild anxiety, (10-14) moderate anxiety, (15-21) severe anxiety Patient Health Questionnaire (PHQ-9) 10/18/2023 04/24/2024 08/16/2024 PHQ-9 Score 4 7 8 (0-4) minimal depression, (5-9) mild depression, (10-14) moderate depression, (15-19) moderately severe depression, (20-27) severe depression PROMIS Global Health 10/10/2023 04/24/2024 08/16/2024 PROMIS Global Health - (T-Scores - the mean of general population = 50. Five points is a clinically meaningful difference.) Physical T-Score 47.7 47.7 44.9 Mental T-Score 45.8 45.8 48.3 PAST MEDICAL HISTORY Diagnosis Date Depression PAST SURGICAL HISTORY Procedure Laterality Date wisdom teeth extraction 2003 general, okay with anesthesia Current Outpatient Medications Medication Sig Dispense Refill norgestimate-ethinyl estradiol (SPRINTEC) 0.25-0.035 mg tablet Take 1 tablet by mouth once daily. 84 tablet 2 Cholecalciferol, Vitamin D3, 125 mcg (5,000 unit) cap Take 1 capsule by mouth once daily. 90 capsule 3 loratadine (CLARITIN) 10 mg tablet Take 1 tablet by mouth once daily. 30 tablet 11 fluticasone (FLONASE) 50 mcg/actuation nasal spray Use 2 Sprays in each nostril once daily. Rinse mouth after use. 16 mL 1 melatonin 3 mg capsules as needed. FLUoxetine (PROZAC) 40 mg capsule Take 2 capsules by mouth once daily. 180 capsule 1 buPROPion XL (WELLBUTRIN XL) 300 mg 24 hr tablet Take 1 tablet by mouth once daily. 90 tablet 1 methylphenidate (RITALIN) 10 mg tablet Take 1 tablet by mouth three times a day for 30 days. 90 tablet 0 No current facility-administered medications for this visit. ROS: See HPI PFSH: See HPI VITAL SIGNS: 10/23/24 0831 Pulse: 96 SpO2: 97% (more content not included)... [facility] 10-23-2024 History of Presen t illness Narrative Images from the original note were not included. FOLLOW UP - PSYCHIATRIC PROGRESS NOTE Visit Type:In person Recording using ambient [employer] software for draft documentation of the visit was discussed with the patient/authorized outside sales representative insurance; all questions welcomed and answered. Patient/authorized outside sales representative insurance agreed to proceed CC: Outpatient follow-up and safety monitoring of previously prescribed psychiatric medication, psychotherapy or other treatment HPI: Patient is a 39-year-old female with a history of depression, anxiety, and ADHD, presenting for follow-up. Patient reports feeling unwell over the past week, with symptoms including a sore throat and loss of taste. She suspects it may be the flu but has not tested for COVID-19. She notes that being sick has affected her appetite and hydration, stating, I just haven't been eating or consuming anything. She finds it challenging to take care of herself while living alone, particularly when feeling unwell. She is currently in a relationship and describes her partner as making her very happy. However, she acknowledges that they are at different stages in their lives, with her partner focusing on personal and career growth. She is trying to give him space to do so, stating, I have to keep reminding myself that my desires and expectations are definitely far above what he can provide right now. Despite these challenges, she reports that the relationship is going well. During the summer, she has been focusing on social growth and spending time with friends. She enjoys jigsaw puzzles as a mindful activity and uses video games as a way to literally turn off my brain and check out. 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 She has been taking Apri but reports experiencing hormonal fluctuations that have affected her mood, stating, I did start recognizing the pattern of when I was hitting the depression the most, which was pretty consistent. It was very hormonal. She has not yet started the new control medication, but plans to do so soon. She is currently taking Wellbutrin 300 mg in the morning, Prozac 80 mg (two 40 mg capsules), and Ritalin 10 mg, usually one or two in the morning. She sometimes forgets to take the Ritalin later in the day. She denies excessive sweating with Prozac and reports that her depression is well-managed with her current medications. She is also taking a vitamin recommended by her clinician. Recent lab work showed a vitamin D level of 25.5 ng/mL, which has improved from a year ago. She admits to not being consistent with taking her vitamin D supplement but has been more diligent recently. Her hemoglobin A1c was slightly elevated at 5.7%, and her lipid panel showed improvement compared to a year ago. Risks and benefits of the medication, including any black box warnings, were discussed with the patient. Interval Progress: Slightly improved PATIENT DATA: Generalized Anxiety Disorder Scale (BHUPINDER-7) 10/18/2023 04/24/2024 08/16/2024 BHUPINDER - 7 SCORES Score 4 5 8 (0-4) minimal anxiety, (5-9) mild anxiety, (10-14) moderate anxiety, (15-21) severe anxiety Patient Health Questionnaire (PHQ-9) 10/18/2023 04/24/2024 08/16/2024 PHQ-9 Score 4 7 8 (0-4) minimal depression, (5-9) mild depression, (10-14) moderate depression, (15-19) moderately severe depression, (20-27) severe depression PROMIS Global Health 10/10/2023 04/24/2024 08/16/2024 PROMIS Global Health - (T-Scores - the mean of general population = 50. Five points is a clinically meaningful difference.) Physical T-Score 47.7 47.7 44.9 Mental T-Score 45.8 45.8 48.3 PAST MEDICAL HISTORY Diagnosis Date Depression PAST SURGICAL HISTORY Procedure Laterality Date wisdom teeth extraction 2003 general, okay with anesthesia Current Outpatient Medications Medication Sig Dispense Refill norgestimate-ethinyl estradiol (SPRINTEC) 0.25-0.035 mg tablet Take 1 tablet by mouth once daily. 84 tablet 2 Cholecalciferol, Vitamin D3, 125 mcg (5,000 unit) cap Take 1 capsule by mouth once daily. 90 capsule 3 loratadine (CLARITIN) 10 mg tablet Take 1 tablet by mouth once daily. 30 tablet 11 fluticasone (FLONASE) 50 mcg/actuation nasal spray Use 2 Sprays in each nostril once daily. Rinse mouth after use. 16 mL 1 melatonin 3 mg capsules as needed. FLUoxetine (PROZAC) 40 mg capsule Take 2 capsules by mouth once daily. 180 capsule 1 buPROPion XL (WELLBUTRIN XL) 300 mg 24 hr tablet Take 1 tablet by mouth once daily. 90 tablet 1 methylphenidate (RITALIN) 10 mg tablet Take 1 tablet by mouth three times a day for 30 days. 90 tablet 0 No current facility-administered medications for this visit. ROS: See HPI PFSH: See HPI VITAL SIGNS: 10/23/24 0831 Pulse: 96 SpO2: 97% Weight: 95.3 kg (210 lb) MENTAL STATUS EXAM: Mental Status Exam General/Sensorium: Alert Orientation: AAOx3 Appearance: Casually dressed and appears stated age Eye contact: Appropriate Demeanor: Appropriately interactive Motor activity: Normal Speech: Articulate with appropriate rhythm and volume Mood: Euthymic Affect: Congruent with mood Thought process: Linear, logical, and goal-directed Associations: Normal Thought content: Focused on history, symptoms, and management and future goals or plans Suicidal ideation: none Homicidal ideation: none Abnormal/psychotic thoughts: Absent Perceptions: She does not appear internally stimulated. Attention: Intact- improved with Ritalin Memory: Short-term: Intact Long-term: Intact Language: Intact Fund of knowledge: Appropriate Insight: Good Judgment: Good DATA REVIEWED: Labs: - Vitamin D: 25.5 (deficient) - Hemoglobin A1c: 5.7 (slightly elevated) - Lipid panel: Improved from prior testing PDMP website checked and validated. All prescriptions have been APPROPRIATELY filled. No suspicious activity was identified. 10/23/2024 by Annika Larose APRN.INSURANCE BILLER Psychiatric scales, Labs, and Electronic medical record ASSESSMENT & PLAN: 1. 1. Recurrent major depression in partial remission (F33.41) BHUPINDER (generalized anxiety disorder) (F41.1) Attention deficit hyperactivity disorder (ADHD), combined type (F90.2) Depression and anxiety are well-managed with current medication regimen. ADHD symptoms are being addressed with Ritalin. Patient reports occasional missed doses of Ritalin due to forgetfulness. - Continue Wellbutrin 300 mg daily in the morning. - Continue Prozac 80 mg daily (two 40 mg capsules). - Continue Ritalin 10 mg, 1-2 tablets in the morning; advised to set an alarm and keep additional tablets in accessible locations to ensure midday dosing. - Educated on the importance of hydration and electrolyte supplementation due to potential sun sensitivity and dehydration risks from medications. - Scheduled follow-up in six months on April 09 at 1300. 2. Vitamin D deficiency (E55.9) Previous lab work showed vitamin D level at 25.5 ng/mL four months ago, indicating improvement but still below optimal levels. - Restart Vitamin D 5000 units daily for three months. - Recheck vitamin D levels before winter. 3. Encounter for long-term (current) use of medications (Z79.899) Patient is on long-term medications including Wellbutrin, Prozac, and Ritalin. Recently switched from Apri to Sprintec for control due to hormonal fluctuations affecting mood. - Transmitted 90-day prescriptions for Prozac and Wellbutrin to [facility] pharmacy. - Transmitted 90 tablets of Ritalin 10 mg to [facility] pharmacy; patient to notify when refills are needed. - Monitor for any side effects or changes in mood with new control. Current medication regimen unchanged. Prescriptions given Patient denies any history of experiencing seizures. Aware that Wellbutrin can lower seizure threshold and is contraindicated in someone who has a seizure disorder. Medical Decision Making: Problems: Moderate: 2+ stable chronic illnesses Data: Unique test result(s) reviewed: 3+ Risk: Moderate: Moderate risk from testing/treatment and Drug management Medical Decision Making Level: 4 - Moderate ADD ON PSYCHOTHERAPY CODE : No SIGNATURE: Annika Larose APRN.CNP PATIENT NAME: Nadine Disla DATE: October 23, 2024 TIME: 8:44 AM documented in this encounter [facility] 09-07-2024 Note HNO ID: [id number] Author: MALIHA WHELAN APRN.CNP Service: ? Author Type: Nurse Practitioner Type: Progress Notes Filed: 09/07/2024 09:02 Note Text: This 39 year old female was started on BCPs and is here for follow-up. States she is compliant. Menses are normal and regular on BCPs. Denies abdominal pain, chest pain or headache. No pain or swelling in the legs. No other neurologic or pulmonary symptoms. 1st month more depression, 2nd month better, 3rd month some depression with this month, but able to do social activity. Light flow, mild cramping, flow lasting 3-4 days Patient's last menstrual period was 05/12/2024. Menstruation / History: No intermenstrual bleeding, spotting or discharge. Interval HX: no change. Last 1 Encounter BP Readings: Date: BP: 06/15/2024 114/72 EXAMINATION: Not Done ASSESSMENT/PLAN: Doing well on current BCP ORDERS: Office Visit on 09/07/24 Desogestrel-Ethinyl Estradiol (APRI) 0.15-0.03 mg per tablet DIAGNOSIS: (Z30.41) Encounter for surveillance of contraceptive pills (primary encounter diagnosis) RTC: when due for annual exam or sooner if needed Maliha Whelan APRN.CNP Medical Decision Making: Problems: Low: Acute, uncomplicated illness or injury Risk: Moderate: Drug management Medical Decision Making Level: 3 - Low [facility] 09-07-2024 History of Presen t illness Narrative This 39 year old female was started on BCPs and is here for follow-up. States she is compliant. Menses are normal and regular on BCPs. Denies abdominal pain, chest pain or headache. No pain or swelling in the legs. No other neurologic or pulmonary symptoms. 1st month more depression, 2nd month better, 3rd month some depression with this month, but able to do social activity. Light flow, mild cramping, flow lasting 3-4 days Patient's last menstrual period was 05/12/2024. Menstruation / History: No intermenstrual bleeding, spotting or discharge. Interval HX: no change. Last 1 Encounter BP Readings: Date: BP: 06/15/2024 114/72 EXAMINATION: Not Done ASSESSMENT/PLAN: Doing well on current BCP ORDERS: Office Visit on 09/07/24 Desogestrel-Ethinyl Estradiol (APRI) 0.15-0.03 mg per tablet DIAGNOSIS: (Z30.41) Encounter for surveillance of contraceptive pills (primary encounter diagnosis) RTC: when due for annual exam or sooner if needed Maliha Whelan APRN.CNP Medical Decision Making: Problems: Low: Acute, uncomplicated illness or injury Risk: Moderate: Drug management Medical Decision Making Level: 3 - Low documented in this encounter [facility] 08-16-2024 Instructions Annika Larose, JACQUARD TWINE POLISHER OPERATOR.INSURANCE BILLER - 08/16/2024 2:10 PM EDT We discussed your concerns about mood changes and side effects after starting Apri ( control): - You reported increased depressive symptoms, including intrusive thoughts, during the first few weeks of starting Apri. These symptoms have improved significantly, with a decrease from approximately 50% to 10% of the initial severity. - Continue taking Apri as prescribed. If depressive symptoms or intrusive thoughts return or worsen, stop the medication and contact your supervisor speech immediately. You may also reach out to me for additional support. - Consider switching the timing of Apri to bedtime if fatigue persists. For now, continue taking it in the morning, and we will reassess in October. - Acne symptoms may initially worsen but should improve as your body adjusts to the medication. This adjustment period typically takes about three months. We discussed your current medications and adjustments to improve energy and motivation: - Start taking Wellbutrin in the morning instead of later in the day to help improve energy and sleep quality. - Continue taking Prozac in the evening or at a time that works best for you, as you are tolerating it well. - Be consistent with taking Ritalin. If you feel fatigued or unmotivated during the day, use this as a cue to take your next dose. You may continue taking Ritalin 10 mg up to three times daily as needed. If you prefer, we can adjust the dosing to 15 mg twice daily; let me know if you d like to make this change. We discussed your upcoming gynecology appointment: - Inform your supervisor speech about the mood changes you experienced with Apri and the improvement you ve noticed. Let them know that we discussed the potential for hormonal contraceptives to contribute to depressive symptoms and that you are monitoring for any recurrence of these symptoms. - Your supervisor speech mentioned that Prozac may reduce the effectiveness of Apri. Be mindful of this interaction and discuss any concerns with your supervisor speech. We discussed follow-up and next steps: - Your Ritalin prescription has been sent to your preferred [facility] pharmacy. Please let us know if you experience any issues obtaining it. - Your next appointment with me is scheduled for October. If you experience worsening depressive symptoms, intrusive thoughts, or other concerns before then, please contact me or your supervisor speech promptly. - If you have any additional questions or need further support, feel free to reach out. For those experiencing a suicidal crisis: --call the National Suicide Prevention Lifeline at 989 (596-807-4850) --text the Crisis Text Line (text HOME to 177581) --call 911 and let them know you are having a mental health crisis or go to your nearest Emergency Room for stabilization. --You can also call Mobile Crisis at [phone]. -- You may call the department appointment line at [phone] to schedule your appointment. -- Please call my nurse at [phone] or send me a message in [employer] with any questions or concerns between appointments. documented in this encounter [facility] 08-16-2024 Note HNO ID: [id number] Author: ANNIKA LAROSE APRN.[facility] Service: ? Author Type: Nurse Practitioner Type: Progress Notes Filed: 08/16/2024 14:10 Note Text: FOLLOW UP - PSYCHIATRIC PROGRESS NOTE Visit Type: Virtual Visit utilizing two-way audio and video for at least a portion of the visit. Consent for virtual visit obtained verbally. Confidentiality limitations with virtual visits reviewed with the patient and guardian, if present, who have accepted the risk verbally prior to proceeding with encounter. I have communicated my name and active licensure. The patient's identity and physical location were verified at the time of this visit. Either the patient or their legal outside sales representative insurance has been informed of the risks and benefits of -- and alternatives to -- treatment through a remote evaluation and consents to proceed with the evaluation remotely. Recording using ambient [employer] software for draft documentation of the visit was discussed with the patient/authorized outside sales representative insurance; all questions welcomed and answered. Patient/authorized outside sales representative insurance agreed to proceed CC: Outpatient follow-up and safety monitoring of previously prescribed psychiatric medication, psychotherapy or other treatment HPI: Patient is a 39-year-old female with a history of depression, anxiety, and ADHD, presenting for follow-up on worsening depressive symptoms and fatigue after starting Apri. The patient reports significant life changes since April, including entering a new romantic relationship and becoming sexually active, which led to starting Apri on 07/01. She noticed an increase in anxiety and depressive symptoms, including intrusive thoughts of hopelessness and suicidal ideation, beginning around the second or third week of taking Apri. She describes these thoughts as I don't want to be alive right now and existence is stupid. These symptoms have improved, with a decrease from 50% to 10% of theinitial severity, but she still experiences fatigue and lack of motivation. She is currently taking Apri in the morning, along with Ritalin. She takes Wellbutrin later in the day and Prozac in the evening. She reports oversleeping and napping more during the day, with good sleep quality at night. She has been inconsistent with taking Ritalin three times a day, usually taking it twice a day. She also notes an increase in acne since starting Apri, which has slightly improved over the past week. She has a follow-up appointment with her supervisor speech in a couple of weeks to discuss the control. She expresses happiness in her new relationship, which has motivated her to exercise periodically and improve her home environment. Risks and benefits of the medication, including any black box warnings, were discussed with the patient. Interval Progress: Slightly worse PATIENT DATA: Generalized Anxiety Disorder Scale (BHUPINDER-7) 10/18/2023 04/24/2024 08/16/2024 BHUPINDER - 7 SCORES Score 4 5 8 (0-4) minimal anxiety, (5-9) mild anxiety, (10-14) moderate anxiety, (15-21) severe anxiety Patient Health Questionnaire (PHQ-9) 10/18/2023 04/24/2024 08/16/2024 PHQ-9 Score 4 7 8 (0-4) minimal depression, (5-9) mild depression, (10-14) moderate depression, (15-19) moderately severe depression, (20-27) severe depression PAST MEDICAL HISTORY Diagnosis Date Depression PAST SURGICAL HISTORY Procedure Laterality Date wisdom teeth extraction 2003 general, okay with anesthesia ALLERGIES Allergen Reactions Environmental [Seas* Unknown Cold symptoms Current Outpatient Medications on File Prior to Visit Medication Sig methylphenidate (RITALIN) 10 mg tablet Take 1 tablet by mouth three times a day for 30 days. Desogestrel-Ethinyl Estradiol (APRI) 0.15-0.03 mg per tablet Take 1 tablet by mouth once daily. FLUoxetine (PROZAC) 40 mg capsule Take 2 capsules by mouth once daily. buPROPion XL (WELLBUTRIN XL) 300 mg 24 hr tablet Take 1 tablet by mouth once daily. Cholecalciferol, Vitamin D3, 125 mcg (5,000 unit) cap Take 1 capsule by mouth once daily. loratadine (CLARITIN) 10 mg tablet Take 1 tablet by mouth once daily. fluticasone (FLONASE) 50 mcg/actuation nasal spray Use 2 Sprays in each nostril once daily. Rinse mouth after use. melatonin 3 mg capsules as needed. No current facility-administered medications on file prior to visit. ROS: See HPI PFSH: See HPI VITAL SIGNS: VITAL SIGNS: There were no vitals filed for this visit. Last 3 Encounter BP Readings: Date: BP: 06/15/2024 114/72 04/24/2024 134/88 10/18/2023 124/80 Labwork: CBC and Differential: WBC Date Value Ref Range Status 03/31/2022 10.42 3.70 - 11.00 k/uL Final RBC Date Value Ref Range Status 03/31/2022 4.05 3.90 - 5.20 m/uL Final Hematocrit Date Value Ref Range Status 03/31/2022 38.1 36.0 - 46.0 % Final MCV Date Value Ref Range Status 03/31/2022 94.1 80.0 - 100.0 fL Final MCH Date Value Ref Range Status (more content not included)... [facility] History of Presen t illness Narrative Images from the original note were not included. FOLLOW UP - PSYCHIATRIC PROGRESS NOTE Visit Type: Virtual Visit utilizing two-way audio and video for at least a portion of the visit. Consent for virtual visit obtained verbally. Confidentiality limitations with virtual visits reviewed with the patient and guardian, if present, who have accepted the risk verbally prior to proceeding with encounter. I have communicated my name and active licensure. The patient's identity and physical location were verified at the time of this visit. Either the patient or their legal outside sales representative insurance has been informed of the risks and benefits of -- and alternatives to -- treatment through a remote evaluation and consents to proceed with the evaluation remotely. Recording using [employer] software for draft documentation of the visit was discussed with the patient/authorized outside sales representative insurance; all questions welcomed and answered. Patient/authorized outside sales representative insurance agreed to proceed CC: Outpatient follow-up and safety monitoring of previously prescribed psychiatric medication, psychotherapy or other treatment HPI: Patient is a 39-year-old female with a history of depression, anxiety, and ADHD, presenting for follow-up on worsening depressive symptoms and fatigue after starting Apri. The patient reports significant life changes since April, including entering a new romantic relationship and becoming sexually active, which led to starting Apri on 07/01. She noticed an increase in anxiety and depressive symptoms, including intrusive thoughts of hopelessness and suicidal ideation, beginning around the second or third week of taking Apri. She describes these thoughts as I don't want to be alive right now and existence is stupid. These symptoms have improved, with a decrease from 50% to 10% of the initial severity, but she still experiences fatigue and lack of motivation. She is currently taking Apri in the morning, along with Ritalin. She takes Wellbutrin later in the day and Prozac in the evening. She reports oversleeping and napping more during the day, with good sleep quality at night. She has been inconsistent with taking Ritalin three times a day, usually taking it twice a day. She also notes an increase in acne since starting Apri, which has slightly improved over the past week. She has a follow-up appointment with her supervisor speech in a couple of weeks to discuss the control. She expresses happiness in her new relationship, which has motivated her to exercise periodically and improve her home environment. Risks and benefits of the medication, including any black box warnings, were discussed with the patient. Interval Progress: Slightly worse PATIENT DATA: Generalized Anxiety Disorder Scale (BHUPINDER-7) 10/18/2023 04/24/2024 08/16/2024 BHUPINDER - 7 SCORES Score 4 5 8 (0-4) minimal anxiety, (5-9) mild anxiety, (10-14) moderate anxiety, (15-21) severe anxiety Patient Health Questionnaire (PHQ-9) 10/18/2023 04/24/2024 08/16/2024 PHQ-9 Score 4 7 8 (0-4) minimal depression, (5-9) mild depression, (10-14) moderate depression, (15-19) moderately severe depression, (20-27) severe depression PAST MEDICAL HISTORY Diagnosis Date Depression PAST SURGICAL HISTORY Procedure Laterality Date wisdom teeth extraction 2003 general, okay with anesthesia ALLERGIES Allergen Reactions Environmental [Seas* Unknown Cold symptoms Current Outpatient Medications on File Prior to Visit Medication Sig methylphenidate (RITALIN) 10 mg tablet Take 1 tablet by mouth three times a day for 30 days. Desogestrel-Ethinyl Estradiol (APRI) 0.15-0.03 mg per tablet Take 1 tablet by mouth once daily. FLUoxetine (PROZAC) 40 mg capsule Take 2 capsules by mouth once daily. buPROPion XL (WELLBUTRIN XL) 300 mg 24 hr tablet Take 1 tablet by mouth once daily. Cholecalciferol, Vitamin D3, 125 mcg (5,000 unit) cap Take 1 capsule by mouth once daily. loratadine (CLARITIN) 10 mg tablet Take 1 tablet by mouth once daily. fluticasone (FLONASE) 50 mcg/actuation nasal spray Use 2 Sprays in each nostril once daily. Rinse mouth after use. melatonin 3 mg capsules as needed. No current facility-administered medications on file prior to visit. ROS: See HPI PFSH: See HPI VITAL SIGNS: VITAL SIGNS: There were no vitals filed for this visit. Last 3 Encounter BP Readings: Date: BP: 06/15/2024 114/72 04/24/2024 134/88 10/18/2023 124/80 Labwork: CBC and Differential: WBC Date Value Ref Range Status 03/31/2022 10.42 3.70 - 11.00 k/uL Final RBC Date Value Ref Range Status 03/31/2022 4.05 3.90 - 5.20 m/uL Final Hematocrit Date Value Ref Range Status 03/31/2022 38.1 36.0 - 46.0 % Final MCV Date Value Ref Range Status 03/31/2022 94.1 80.0 - 100.0 fL Final MCH Date Value Ref Range Status 03/31/2022 30.9 26.0 - 34.0 pg Final MCHC Date Value Ref Range Status 03/31/2022 32.8 30.5 - 36.0 g/dL Final Platelet Count Date Value Ref Range Status 03/31/2022 400 150 - 400 k/uL Final MPV Date Value Ref Range Status 03/31/2022 11.6 9.0 - 12.7 fL Final Comprehensive Metabolic Panel: BUN Date Value Ref Range Status 06/15/2024 16 7 - 21 mg/dL Final Creatinine Date Value Ref Range Status 06/15/2024 0.73 0.58 - 0.96 mg/dL Final Sodium Date Value Ref Range Status 06/15/2024 137 136 - 144 mmol/L Final Potassium Date Value Ref Range Status 06/15/2024 4.1 3.7 - 5.1 mmol/L Final CO2 Date Value Ref Range Status 06/15/2024 28 22 - 30 mmol/L Final Albumin Date Value Ref Range Status 06/15/2024 4.2 3.9 - 4.9 g/dL Final ALT Date Value Ref Range Status 06/15/2024 18 7 - 38 U/L Final AST Date Value Ref Range Status 06/15/2024 23 13 - 35 U/L Final Gamma-Glutamyltransferase (GGT), Serum: No results found for: GGT Vitamin B12: No components found for: [id number] Vitamin D, Total: No results found for: VITD Thyroid Stimulating Hormone (TSH): TSH Date Value Ref Range Status 03/31/2022 2.730 0.270 - 4.200 mIU/L Final Comment: If the patient is , TSH reference range varies by gestational period: First Trimester (weeks 9-12): 0.180-2.990 mIU/L Second Trimester: 0.110-3.980 mIU/L Third Trimester: 0.480-4.710 mIU/L Edgard Marr et al. A Practical Approach for the Verifications and Determination of Site- and Trimester-Specific Reference Intervals for Thyroid Function tests in . Thyroid, 2019:29:3:412-420. Damaso Alegria, et al. 2017 Guidelines of the [place] Thy[employer] for the Diagnosis and Management of Thyroid Disease during and the . Thyroid, 2017:27:3:315-389. Hemoglobin A1C: No results found for: HGBA1C Lipid Panel: Cholesterol, Total Date Value Ref Range Status 06/15/2024 196 <200 mg/dL Final Comment: <200 mg/dL, Desirable 200-239 mg/dL, Borderline high >239 mg/dL, High HDL Cholesterol Date Value Ref Range Status 06/15/2024 59 >39 mg/dL Final Comment: 40-59 mg/dL, Acceptable >59 mg/dL, High: Negative risk factor for coronary heart disease <40 mg/dL, Low: Positive risk factor for coronary heart disease LDL Cholesterol, Calculated Date Value Ref Range Status 06/15/2024 125 (H) <100 mg/dL Final Comment: <100 mg/dL, Optimal 100-129 mg/dL, Near optimal/above optimal 130-159 mg/dL, Borderline high 160-189 mg/dL, High >189 mg/dL, Very high Secondary prevention optimal LDL Cholesterol levels are recommended to be < 70 mg/dL MENTAL STATUS EXAM: Appearance: Casually dressed and groomed Behavior: Behaves appropriately during the encounter Social relatedness: Euthymic Speech/Language: The patient demonstrates appropriate tone, prosody, garfield, phonetics, and syntax Mood: concerned Affect: Full and appropriate to topic Orientation: Person, Place, Time and Situation Associations: Intact and linear Hallucinations: None Delusions: None Suicidal Ideation: No suicidal ideation, intent or plan. Homicidal Ideation: No homicidal ideation, intent or plan. Insight: Appropriate Judgment: Appropriate DATA REVIEWED: Psychiatric scales, Electronic medical record, lab results and The PDMP report was reviewed and found to be appropriate without any signs of misuse or diversion. DIAGNOSIS: Recurrent major depression in partial remission (primary encounter diagnosis) Medication side effect, initial encounter Attention deficit hyperactivity disorder (adhd), combined type Bhupinder (generalized anxiety disorder) Encounter for long-term (current) use of medications GAF: -70-61 Some mild symptoms or some difficulty in social, occupational, or school functioning, but generally functioning pretty well. TREATMENT PLAN: 1. 1. Recurrent major depression in partial remission (F33.41) Medication side effect, initial encounter (T50.185A) Initiation of Apri on 07/01 correlated with exacerbation of depressive symptoms, including intrusive thoughts and feelings of hopelessness. Symptoms have improved significantly, from approximately 50% to 10%, potentially due to hormonal adjustment and life changes. - Instructed patient to take Wellbutrin in the morning to improve energy and motivation. - Advised to monitor for any recurrence of severe depressive symptoms or suicidal thoughts; if these occur, patient should discontinue Apri and consult supervisor speech for alternative contraception. - Scheduled follow-up in October to reassess symptoms. 2. Attention deficit hyperactivity disorder (ADHD), combined type (F90.2) Currently managed with Ritalin 10 mg, taken twice daily. Patient reports difficulty adhering to three times daily dosing schedule. - Reinforced importance of consistent Ritalin dosing to manage ADHD symptoms and counteract fatigue. - Refilled Ritalin prescription. 3. BHUPINDER (generalized anxiety disorder) (F41.1) Symptoms appear to be stable. Patient is taking Prozac, which is generally well-tolerated. - Continue current Prozac regimen. 4. Encounter for long-term (current) use of medications (Z79.899) Patient is on multiple medications, including Apri, Wellbutrin, Ritalin, and Prozac. Recent initiation of Apri has led to some side effects, but overall medication regimen is being managed well. - Discussed potential interactions and side effects of current medications. - Advised patient to consider taking Apri at bedtime if fatigue persists. - Patient to follow up with supervisor speech in a few weeks to discuss control and any potential changes. MEDICATION CHANGES: Prescriptions given See above. Patient denies any history of experiencing seizures. Aware that Wellbutrin can lower seizure threshold and is contraindicated in someone who has a seizure disorder. Risks and benefits of the medication, including any black box warnings, were discussed with the patient. Patient is aware to reach out with any questions, concerns, or worsening of symptoms prior to the next appointment. Patient educated on risks of substance use in combination with medications and advised that any substance use along with medications may alter their effectiveness. Follow Up: As scheduled in October. Medical Decision Making: Problems: Moderate: 1+ chronic illnesses with change and 2+ stable chronic illnesses Data: Unique source(s) for external note(s) reviewed: 3+ Risk: Moderate: Moderate risk from testing/treatment and Drug management Medical Decision Making Level: 4 - Moderate ADD ON PSYCHOTHERAPY CODE : No SIGNATURE: Annika Larose APRN.CNP PATIENT NAME: Nadine Disla DATE: August 16, 2024 TIME: 2:08 PM documented in this encounter [facility] 07-27-2024 Telephone encounter Note Patient was contacted and a sooner follow up appointment has been scheduled with the provider. [facility] 07-27-2024 Miscellaneous Notes Patient was contacted and a sooner follow up appointment has been scheduled with the provider. documented in this encounter [facility] 07-12-2024 Telephone encounter Note Last: 04/24/24 TREATMENT PLAN: Complete monitoring lab work prior to the next appointment. Complete EKG for monitoring at the next appointment. Continue Ritalin, Wellbutrin and Prozac at the same dose. Discussed incorporating physical activity into her routine. Continue individual psychotherapy with her current therapist. Follow up in 6 months or sooner if needed. Next: 10/23/24 [facility] 07-12-2024 Miscellaneous Notes Last: 04/24/24 TREATMENT PLAN: Complete monitoring lab work prior to the next appointment. Complete EKG for monitoring at the next appointment. Continue Ritalin, Wellbutrin and Prozac at the same dose. Discussed incorporating physical activity into her routine. Continue individual psychotherapy with her current therapist. Follow up in 6 months or sooner if needed. Next: 10/23/24 documented in this encounter [facility] 06-15-2024 Maliha Ordoñez APRN.[facility] - 06/15/2024 7:29 AM EST Images from the original note were not included. Oral Contraceptives: The Combined (Estrogen + Progestin) Pill Beginning the Combined Pill In most packs, the first 21 pills have active ingredients and the last 7 are non-medicine containing pills (placebo) or they may contain iron. There will be bleeding during the week you are taking the placebo pills. There are also packs that contain 24 active medication pills and only 4 placebo pills. These are formulated to give you a shorter period. There are 2 ways to start the pill: Quick Start: Take your first pill as soon as you get the pack. Next period: Take your first pill soon after your next period begins. If you take your first pill up to 5 days after the start of your period, you are protected against right away. If you take your first pill more than 5 days after the start of your period, you should use condoms as back-up for the first 7 days. How Combined Hormonal Contraceptives Work Combined oral contraceptive ( control) pills contain hormones like the ones your body makes (estrogen + a progestin). These hormones stop your ovaries from releasing eggs (ovulating). If your ovary does not release an egg, you cannot get . It is important to remember that no method of control is 100% effective. The combined pill is 93% effective with typical use (how real people use it in real life compared to how people used it in medical studies). There are several advantages associated with the pill: it is highly effective with typical use, is easy to start and stop, may improve acne, will make periods more regular and less painful, may help improve anemia, and long-term use is associated with a reduced risk of ovarian and uterine cancer. Possible Side Effects It can take up to three months for your body to become adjusted to the combined pill. The more common side effects experienced now are breakthrough (unexpected) spotting or bleeding; nausea or vomiting; breast tenderness; and mild fluid retention. There is no long-term weight gain with the use of the combined pill. Most side effects resolve once you have been on the combined pill for three months. If these symptoms continue to occur after the first three months you should check with your physician to see if there is any physical cause and change to another control pill. Problems: Missed 1 pill: Take 2 pills the next day. Missed 2 pills: Take 2 pills the next day and 2 pills the following day. Also use another form of control (condoms) along with the pill for the rest of the month. Taking other medications: The control pill is less effective when you take the antibiotic rifampin, epilepsy (seizure) drugs such as phenytoin, carbamazepine, phenobarbital, topiramate, and some medications for HIV. Let your doctor know if you start taking any of these medications while on the pill. Symptoms to Notify Your Doctor with Immediately: The pill is considered safe for most people. Serious problems are rare. The symptoms below may indicate a serious problem: Pain in your chest or legs Continuous blurred vision Severe headaches Slurred speech Tingling or weakness on one side of your body Shortness of breath Swelling of one leg Refills of Control Pills You should see a health care provider every year for a refill of your prescription. If your prescription should before your next scheduled appointment, you can request a prescription extension if you call or message during regular business hours about at least 1-2 weeks before you need to start the new package of pills. Some information adapted from [facility] [employer] Access Project For more information see [email or web address] combination control pills documented in this encounter [facility] 06-15-2024 Note HNO ID: [id number] Author: MALIHA WHELAN APRN.CNP Service: ? 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 Sears is a 39 year old who presents for an annual gynecologic exam without complaints. Pt has recently became sexually active and is interested in starting control Menses: cycles every 25-30 days and 4-6 days of flow. Contraception: condoms HPV vaccine: No Last Pap: 2021 normal HPV: 2021 negative History of abnormal pap: No Last mammogram: never Sexually active: Yes Patient concerns for STD exposure: No. 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 History Comments: Sexual Activity: Never; No partner data on record; never SA Contraception: No contraception data on record Menstrual Tracking History Flowsheet Row Office Visit from 06/15/2024 in OB/Gynecology Period Cycle (Days) 28 Period Duration (Days) 5 Menstrual Flow Moderate PAST MEDICAL HISTORY Diagnosis Date Depression PAST SURGICAL HISTORY Procedure Laterality Date wisdom teeth extraction 2003 general, okay with anesthesia FAMILY HISTORY Problem Relation Age of Onset Cancer Mother 58 breast/age 53?/postmenopausal/Brain/Brain/ age 60 (2012)//brain other (brain tumor) Mother None Father Psychiatry Sister anxiety None Maternal Grandmother Heart Maternal Grandfather bypass surgeries None Paternal Grandmother 90 other (CVA) Paternal Grandfather 89 multiple other (lung disease) Paternal Grandfather SOCIAL HISTORY Social History Tobacco Use Smoking status: Never Smokeless tobacco: Never Vaping Use Vaping status: Never Used Substance Use Topics Alcohol use: Yes Comment: rare Drug use: No REVIEW OF SYSTEMS Abdomen: No abdominal pain, nausea, vomiting, diarrhea, or constipation. No bloating, early satiety, indigestion, or increased flatulence. Bladder: No dysuria, gross hematuria, urinary frequency, urinary urgency, or incontinence. Breast: No breast lumps, nipple d/c, overlying skin changes, redness or skin retraction. Allergies and current medication updated:Yes SENSITIVE EXAM: The sensitive examination was discussed with the Patient or Patient's Authorized Tiller Worker. As applicable, any other physician, advance practice provider, medical student, or other health professional student that will be observing or involved in the sensitive examination for educational or training purposes was discussed with the Patient or Authorized Tiller Worker. The Patient or Authorized Tiller Worker has agreed to proceed with the sensitive examination. (Sensitive examination includes inspection and/or palpation of the breasts, pelvis, prostate and anorectal regions). EXAM: BP 114/72 Ht 5' 7 (1.70m) Wt 224 lb (101.6kg) LMP 05/12/2024 BMI 35.08 kg/(m2). GENERAL: pleasant, female in no apparent distress HEENT: Normocephalic, atraumatic, mucus membranes moist, and no lesions DERMATOLOGY: Normal, without lesions, non-icteric, and non-hirsute BREAST: soft, non-tender, symmetric, no dominant mass, normal nipple-areolar complex, no lymphadenopathy, and no nipple discharge CHEST: Normal inspiratory effort ABDOMEN: soft, non-tender, and no masses PELVIC: external genitalia normal, normal Bartholin's glands, urethra, Nemacolin's glands, no vulvar lesions, no cervical lesions, good vaginal support, physiologic discharge present, normal appearing perineal body and perianal region BIMANUAL: uterus normal size, shape and consistency, no adnexal masses, and non-tender RECTOVAGINAL: deferred. NEURO: alert and oriented x3,exam grossly non-focal EXTREMITIES: normal ASSESSMENT/PLAN: 1) Health maintenance: Pap/HPV up to date. Mammogram starting age 40. Nutrition, exercise and routine health maintenance exams reviewed. Calcium/Vitamin D supplementation information provided. Colon cancer screening: start at age 45 2) Contraception: combined hormonal contraceptives. Contraceptive options reviewed and information provided. 3) STD screening: Declined STD check. 4) Follow up one year or sooner as needed Follow up in 3-4 months for OCP check Maliha Whelan APRN.[facility] 06-15-2024 History of Presen t illness Narrative Tool And Die Repairer offered: Patient declines. Renu is a 39 year old who presents for an annual gynecologic exam without complaints. Pt has recently became sexually active and is interested in starting control Menses: cycles every 25-30 days and 4-6 days of flow. Contraception: condoms HPV vaccine: No Last Pap: 2021 normal HPV: 2021 negative History of abnormal pap: No Last mammogram: never Sexually active: Yes Patient concerns for STD exposure: No. 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 History Comments: Sexual Activity: Never; No partner data on record; never SA Contraception: No contraception data on record Menstrual Tracking History Flowsheet Row Office Visit from 06/15/2024 in OB/Gynecology Period Cycle (Days) 28 Period Duration (Days) 5 Menstrual Flow Moderate PAST MEDICAL HISTORY Diagnosis Date Depression PAST SURGICAL HISTORY Procedure Laterality Date wisdom teeth extraction 2003 general, okay with anesthesia FAMILY HISTORY Problem Relation Age of Onset Cancer Mother 58 breast/age 53?/postmenopausal/Brain/Brain/ age 60 (2012)//brain other (brain tumor) Mother None Father Psychiatry Sister anxiety None Maternal Grandmother Heart Maternal Grandfather bypass surgeries None Paternal Grandmother 90 other (CVA) Paternal Grandfather 89 multiple other (lung disease) Paternal Grandfather SOCIAL HISTORY Social History Tobacco Use Smoking status: Never Smokeless tobacco: Never Vaping Use Vaping status: Never Used Substance Use Topics Alcohol use: Yes Comment: rare Drug use: No REVIEW OF SYSTEMS Abdomen: No abdominal pain, nausea, vomiting, diarrhea, or constipation. No bloating, early satiety, indigestion, or increased flatulence. Bladder: No dysuria, gross hematuria, urinary frequency, urinary urgency, or incontinence. Breast: No breast lumps, nipple d/c, overlying skin changes, redness or skin retraction. Allergies and current medication updated:Yes SENSITIVE EXAM: The sensitive examination was discussed with the Patient or Patient's Authorized Tiller Worker. As applicable, any other physician, advance practice provider, medical student, or other health professional student that will be observing or involved in the sensitive examination for educational or training purposes was discussed with the Patient or Authorized Tiller Worker. The Patient or Authorized Tiller Worker has agreed to proceed with the sensitive examination. (Sensitive examination includes inspection and/or palpation of the breasts, pelvis, prostate and anorectal regions). EXAM: BP 114/72 Ht 5' 7 (1.70m) Wt 224 lb (101.6kg) LMP 05/12/2024 BMI 35.08 kg/(m^2). GENERAL: pleasant, female in no apparent distress HEENT: Normocephalic, atraumatic, mucus membranes moist, and no lesions DERMATOLOGY: Normal, without lesions, non-icteric, and non-hirsute BREAST: soft, non-tender, symmetric, no dominant mass, normal nipple-areolar complex, no lymphadenopathy, and no nipple discharge CHEST: Normal inspiratory effort ABDOMEN: soft, non-tender, and no masses PELVIC: external genitalia normal, normal Bartholin's glands, urethra, Nemacolin's glands, no vulvar lesions, no cervical lesions, good vaginal support, physiologic discharge present, normal appearing perineal body and perianal region BIMANUAL: uterus normal size, shape and consistency, no adnexal masses, and non-tender RECTOVAGINAL: deferred. NEURO: alert and oriented x3,exam grossly non-focal EXTREMITIES: normal ASSESSMENT/PLAN: 1) Health maintenance: Pap/HPV up to date. Mammogram starting age 40. Nutrition, exercise and routine health maintenance exams reviewed. Calcium/Vitamin D supplementation information provided. Colon cancer screening: start at age 45 2) Contraception: combined hormonal contraceptives. Contraceptive options reviewed and information provided. 3) STD screening: Declined STD check. 4) Follow up one year or sooner as needed Follow up in 3-4 months for OCP check Maliha Whelan APRN.[facility] documented in this encounter [facility] 06-05-2024 Telephone encounter Note The PDMP report was reviewed and found to be appropriate without any signs of misuse or diversion. [facility] 06-05-2024 Miscellaneous Notes The PDMP report was reviewed and found to be appropriate without any signs of misuse or diversion. Last: 04/24/24 TREATMENT PLAN: Complete monitoring lab work prior to the next appointment. Complete EKG for monitoring at the next appointment. Continue Ritalin, Wellbutrin and Prozac at the same dose. Discussed incorporating physical activity into her routine. Continue individual psychotherapy with her current therapist. Follow up in 6 months or sooner if needed. Next: 10/23/24 documented in this encounter [facility] 06-05-2024 Telephone encounter Note Last: 04/24/24 TREATMENT PLAN: Complete monitoring lab work prior to the next appointment. Complete EKG for monitoring at the next appointment. Continue Ritalin, Wellbutrin and Prozac at the same dose. Discussed incorporating physical activity into her routine. Continue individual psychotherapy with her current therapist. Follow up in 6 months or sooner if needed. Next: 10/23/24 [facility] 05-03-2024 Instructions Annika Larose APRN.CNP - 05/03/2024 4:12 PM EST TREATMENT PLAN: Complete monitoring lab work prior to the next appointment. Complete EKG for monitoring at the next appointment. Continue Ritalin, Wellbutrin and Prozac at the same dose. Discussed incorporating physical activity into her routine. Continue individual psychotherapy with her current therapist. Follow up in 6 months or sooner if needed. For those experiencing a suicidal crisis: --call the National Suicide Prevention Lifeline at 986 (244-859-0544) --text the Crisis Text Line (text HOME to 459322) --call 911 and let them know you are having a mental health crisis or go to your nearest Emergency Room for stabilization. --You can also call Mobile Crisis at [phone]. -- You may call the department appointment line at [phone] to schedule your appointment. -- Please call my nurse at [phone] or send me a message in [employer] in[employer] with any questions or concerns between appointments. documented in this encounter [facility] 04-24-2024 Note HNO ID: [id number] Author: ANNIKA LAROSE APRN.[facility] Service: ? Author Type: Nurse Practitioner Type: Progress Notes Filed: 05/03/2024 16:12 Note Text: FOLLOW UP - PSYCHIATRIC PROGRESS NOTE PATIENT: Nadine Disla DATE: April 24, 2024 Visit Type:In person All information is from Patient report except when noted. This evaluation is NOT intended for forensic, disability or child custody purposes. CC: Presenting today for follow up regarding psychiatric medication management. HPI: Treatment Plan from Last Visit on 10/18/2023: TREATMENT PLAN: Continue Ritalin, Wellbutrin and Prozac at the same dose. Continue to engage in individual psychotherapy. Consider transfer of care back to primary care team if patient continues to exhibit remission on the current combination of her psychiatric medications. Today Nadine shares that I am doing really well. During the break, she was not taking her medications as regularly. Trying to get back on schedule with the start of the semester. Menstrual cycle have been regular and flow has been regular. The combination of the medications are helping her well currently. She shares that this past semester was the best semester that she has had in a while. Denies any side effects from her current medications. She is concerned about her weight gain and not being as active. Sometimes when I work out, I get itchy and not feel well. Committing to working out is really hard. Discussed different ways of incorporating movement and how it can be enjoyable and doesn't have to be considered exercise. She has to reach out to schedule an appointment with her therapist. Her therapist is working at a different location now but she is hoping to continue working with them. Interval Progress: Slightly improved PATIENT DATA: Generalized Anxiety Disorder Scale (BHUPINDER-7) 06/28/2023 10/18/2023 04/24/2024 BHUPINDER - 7 SCORES Score 5 4 5 (0-4) minimal anxiety, (5-9) mild anxiety, (10-14) moderate anxiety, (15-21) severe anxiety Patient Health Questionnaire (PHQ-9) 10/10/2023 10/18/2023 04/24/2024 PHQ-9 Score 6 4 7 (0-4) minimal depression, (5-9) mild depression, (10-14) moderate depression, (15-19) moderately severe depression, (20-27) severe depression PAST MEDICAL HISTORY Diagnosis Date Depression PAST SURGICAL HISTORY Procedure Laterality Date wisdom teeth extraction 2003 general, okay with anesthesia ALLERGIES Allergen Reactions Environmental [Seas* Unknown Cold symptoms Current Outpatient Medications on File Prior to Visit Medication Sig methylphenidate (RITALIN) 10 mg tablet Take 1 tablet by mouth three times a day for 30 days. Cholecalciferol, Vitamin D3, 125 mcg (5,000 unit) cap Take 1 capsule by mouth once daily. FLUoxetine (PROZAC) 40 mg capsule take 2 capsules by mouth every day buPROPion XL (WELLBUTRIN XL) 300 mg 24 hr tablet Take 1 tablet by mouth once daily. loratadine (CLARITIN) 10 mg tablet Take 1 tablet by mouth once daily. fluticasone (FLONASE) 50 mcg/actuation nasal spray Use 2 Sprays in each nostril once daily. Rinse mouth after use. melatonin 3 mg capsules as needed. No current facility-administered medications on file prior to visit. ROS: See HPI PFSH: See HPI VITAL SIGNS: 04/24/24 0805 BP: 134/88 Pulse: 72 Resp: 16 Weight: 101.1 kg (222 lb 12.8 oz) Last 3 Encounter BP Readings: Date: BP: 04/24/2024 134/88 10/18/2023 124/80 10/11/2023 122/86 MENTAL STATUS EXAMINATION: Appearance: Casually dressed, well groomed Behavior: Behaves appropriately during the encounter Social relatedness: Euthymic Speech/Language: The patient demonstrates appropriate tone, prosody, garfield, phonetics, and syntax Mood: euthymic Affect: Full and appropriate to topic Orientation: Person, Place, Time and Situation Associations: Intact and linear Hallucinations: None Delusions: None Suicidal Ideation: No suicidal ideation, intent or plan. Homicidal Ideation: No homicidal ideation, intent or plan. Insight: Appropriate Judgment: Appropriate DATA REVIEWED: Psychiatric scales, Electronic medical record, and The PDMP report was reviewed and found to be appropriate without any signs of misuse or diversion. DIAGNOSIS: Attention deficit hyperactivity disorder (adhd), combined type (primary encounter diagnosis) Encounter for long-term (current) use of medications Bhupinder (generalized anxiety disorder) Vitamin d deficiency Recurrent major depression in partial remission ([facility]) GAF: -80-71 If symptoms are present, they are transient and expectable reactions to psychosocial stressors TREATMENT PLAN: Complete monitoring lab work prior to the next appointment. Complete EKG for monitoring at the next appointment. Continue Ritalin, Wellbutrin and Prozac at the same dose. Discussed incorporating physical activity into her routine. Continue individual psychotherapy with her current (more content not included)... [facility] History of Presen t illness Narrative Images from the original note were not included. FOLLOW UP - PSYCHIATRIC PROGRESS NOTE PATIENT: Nadine Disla DATE: April 24, 2024 Visit Type:In person All information is from Patient report except when noted. This evaluation is NOT intended for forensic, disability or child custody purposes. CC: Presenting today for follow up regarding psychiatric medication management. HPI: Treatment Plan from Last Visit on 10/18/2023: TREATMENT PLAN: Continue Ritalin, Wellbutrin and Prozac at the same dose. Continue to engage in individual psychotherapy. Consider transfer of care back to primary care team if patient continues to exhibit remission on the current combination of her psychiatric medications. Today Nadine shares that I am doing really well. During the break, she was not taking her medications as regularly. Trying to get back on schedule with the start of the semester. Menstrual cycle have been regular and flow has been regular. The combination of the medications are helping her well currently. She shares that this past semester was the best semester that she has had in a while. Denies any side effects from her current medications. She is concerned about her weight gain and not being as active. Sometimes when I work out, I get itchy and not feel well. Committing to working out is really hard. Discussed different ways of incorporating movement and how it can be enjoyable and doesn't have to be considered exercise. She has to reach out to schedule an appointment with her therapist. Her therapist is working at a different location now but she is hoping to continue working with them. Interval Progress: Slightly improved PATIENT DATA: Generalized Anxiety Disorder Scale (BHUPINDER-7) 06/28/2023 10/18/2023 04/24/2024 BHUPINDER - 7 SCORES Score 5 4 5 (0-4) minimal anxiety, (5-9) mild anxiety, (10-14) moderate anxiety, (15-21) severe anxiety Patient Health Questionnaire (PHQ-9) 10/10/2023 10/18/2023 04/24/2024 PHQ-9 Score 6 4 7 (0-4) minimal depression, (5-9) mild depression, (10-14) moderate depression, (15-19) moderately severe depression, (20-27) severe depression PAST MEDICAL HISTORY Diagnosis Date Depression PAST SURGICAL HISTORY Procedure Laterality Date wisdom teeth extraction 2003 general, okay with anesthesia ALLERGIES Allergen Reactions Environmental [Seas* Unknown Cold symptoms Current Outpatient Medications on File Prior to Visit Medication Sig methylphenidate (RITALIN) 10 mg tablet Take 1 tablet by mouth three times a day for 30 days. Cholecalciferol, Vitamin D3, 125 mcg (5,000 unit) cap Take 1 capsule by mouth once daily. FLUoxetine (PROZAC) 40 mg capsule take 2 capsules by mouth every day buPROPion XL (WELLBUTRIN XL) 300 mg 24 hr tablet Take 1 tablet by mouth once daily. loratadine (CLARITIN) 10 mg tablet Take 1 tablet by mouth once daily. fluticasone (FLONASE) 50 mcg/actuation nasal spray Use 2 Sprays in each nostril once daily. Rinse mouth after use. melatonin 3 mg capsules as needed. No current facility-administered medications on file prior to visit. ROS: See HPI PFSH: See HPI VITAL SIGNS: 04/24/24 0805 BP: 134/88 Pulse: 72 Resp: 16 Weight: 101.1 kg (222 lb 12.8 oz) Last 3 Encounter BP Readings: Date: BP: 04/24/2024 134/88 10/18/2023 124/80 10/11/2023 122/86 MENTAL STATUS EXAMINATION: Appearance: Casually dressed, well groomed Behavior: Behaves appropriately during the encounter Social relatedness: Euthymic Speech/Language: The patient demonstrates appropriate tone, prosody, garfield, phonetics, and syntax Mood: euthymic Affect: Full and appropriate to topic Orientation: Person, Place, Time and Situation Associations: Intact and linear Hallucinations: None Delusions: None Suicidal Ideation: No suicidal ideation, intent or plan. Homicidal Ideation: No homicidal ideation, intent or plan. Insight: Appropriate Judgment: Appropriate DATA REVIEWED: Psychiatric scales, Electronic medical record, and The PDMP report was reviewed and found to be appropriate without any signs of misuse or diversion. DIAGNOSIS: Attention deficit hyperactivity disorder (adhd), combined type (primary encounter diagnosis) Encounter for long-term (current) use of medications Bhupinder (generalized anxiety disorder) Vitamin d deficiency Recurrent major depression in partial remission ([facility]) GAF: -80-71 If symptoms are present, they are transient and expectable reactions to psychosocial stressors TREATMENT PLAN: Complete monitoring lab work prior to the next appointment. Complete EKG for monitoring at the next appointment. Continue Ritalin, Wellbutrin and Prozac at the same dose. Discussed incorporating physical activity into her routine. Continue individual psychotherapy with her current therapist. Follow up in 6 months or sooner if needed. MEDICATION CHANGES: Current medication regimen unchanged. Prescriptions given See above Risks and benefits of the medication, including any black box warnings, were discussed with the patient. Patient is aware to reach out with any questions, concerns, or worsening of symptoms prior to the next appointment. Patient educated on risks of substance use in combination with medications and advised that any substance use along with medications may alter their effectiveness. Follow Up: See Treatment Plan Medical Decision Making: Problems: Moderate: 2+ stable chronic illnesses Data: Unique source(s) for external note(s) reviewed: 3+ Unique test result(s) reviewed: 3+ Independent interpretation of test from other physician/QHCP Risk: Moderate: Moderate risk from testing/treatment and Drug management Medical Decision Making Level: 4 - Moderate ADD ON PSYCHOTHERAPY CODE : No SIGNATURE: Annika Larose APRN.INSURANCE BILLER PATIENT NAME: Nadine Disla DATE: April 24, 2024 TIME: 8:17 AM documented in this encounter [facility] 03-21-2024 Telephone encounter Note The PDMP report was reviewed and found to be appropriate without any signs of misuse or diversion. 30 day refill provided. [facility] 03-21-2024 Miscellaneous Notes The PDMP report was reviewed and found to be appropriate without any signs of misuse or diversion. 30 day refill provided. Last: 10/18/23 TREATMENT PLAN: Continue Ritalin, Wellbutrin and Prozac at the same dose. Continue to engage in individual psychotherapy. Consider transfer of care back to primary care team if patient continues to exhibit remission on the current combination of her psychiatric medications. Next: 04/24/24 documented in this encounter [facility] 03-21-2024 Telephone encounter Note Last: 10/18/23 TREATMENT PLAN: Continue Ritalin, Wellbutrin and Prozac at the same dose. Continue to engage in individual psychotherapy. Consider transfer of care back to primary care team if patient continues to exhibit remission on the current combination of her psychiatric medications. Next: 04/24/24 [facility] 02-07-2024 Telephone encounter Note Prescription Refill Information The patient has been identified by name and date of : Yes Caregiver verified no other encounters exist for this prescription request: Yes Caregiver confirmed with patient/requestor that no other refills are due, in the near future, with this provider at this time: Yes The last office visit in the department: 10/11/2023 Does the patient have a future office visit with this provider/department: Yes Requested Prescriptions Pending Prescriptions Disp Refills Cholecalciferol, Vitamin D3, 125 mcg (5,000 unit) cap Sig: Take 1 capsule by mouth once daily. Melida Olivas MA February 07, 2024 8:34 AM [facility] 02-07-2024 Miscellaneous Notes Prescription Refill Information The patient has been identified by name and date of : Yes Caregiver verified no other encounters exist for this prescription request: Yes Caregiver confirmed with patient/requestor that no other refills are due, in the near future, with this provider at this time: Yes The last office visit in the department: 10/11/2023 Does the patient have a future office visit with this provider/department: Yes Requested Prescriptions Pending Prescriptions Disp Refills Cholecalciferol, Vitamin D3, 125 mcg (5,000 unit) cap Sig: Take 1 capsule by mouth once daily. Melida Olivas MA February 07, 2024 8:34 AM documented in this encounter [facility] 01-04-2024 Telephone encounter Note Last: 10/18/23 TREATMENT PLAN: 1.Continue Ritalin, Wellbutrin and Prozac at the same dose. 2.Continue to engage in individual psychotherapy. 3.Consider transfer of care back to primary care team if patient continues to exhibit remission on the current combination of her psychiatric medications. Next: 04/24/24 [facility] 01-04-2024 Miscellaneous Notes Last: 10/18/23 TREATMENT PLAN: 1.Continue Ritalin, Wellbutrin and Prozac at the same dose. 2.Continue to engage in individual psychotherapy. 3.Consider transfer of care back to primary care team if patient continues to exhibit remission on the current combination of her psychiatric medications. Next: 04/24/24 documented in this encounter [facility] 12-07-2023 History of Presen t illness Narrative New Patient Nadine Disla female presents seeking treatment for and further management of laser hair removal to chin/neck. Occasionally gets ingrown hairs/bumps Current treatment for hair removal: tweezing PAST DERM HISTORY: H/O skin disease: Yes, eczema H/O hyertrophic scars or keloids: No H/O cold sores: No H/O Accutane use: No PE: The patient is alert and oriented x 3; is well appearing and in NAD. [place] skin type: II Examination of the face, neck, revealed: Brown terminal hairs on chin A/P: #Hirsutism -Discussed treatment with 755 nm laser -Cost quoted per dept sheet, patient provided with copy. Quoted $275 per treatment if not covered by insurance -Pre/post written instructions given to patient -Advised not to be tanned during treatments and careful sun exposure post -Laser reviewed at length including treatment expectations, need for multiple treatments (~6-8) and risks including pain, swelling, redness, blistering, hyper/hypopigmentation, texture change, scarring. -Will submit to insurance authorization for coverage Request for insurance coverage: ICD 10 Primary Diagnosis: Inflam hair foll L73.9 and Hirsutism L68.0 ICD 10 Secondary Diagnosis: Painful skin lesion R52, Inflammation of Skin L08.9, Pruritus L29.0-9, and Changes in skin texture (desquamation, induration, scaling) R23.4 CPT code: Laser: 94324 Laser hair removal Return to clinic [facility] pending insurance auth Charge code: Bill to insurance The documentation for this note was completed by Nadine Hardin RN acting as scribe for Mago Chopra MD. December 07, 2023 8:22 AM. I, Mago Chopra MD, personally performed the services described in this documentation. All medical record entries made by the scribe were at my direction and in my presence. I have reviewed the chart and discharge instructions (if applicable) and agree that the record reflects my personal performance and is accurate and complete. Electronically Signed: Mago Chopra MD December 07, 2023 9:02 AM. Mago Chopra MD December 07, 2023 documented in this encounter [facility] 12-07-2023 Note HNO ID: [id number] Author: MAGO CHOPRA MD Service: ? Author Type: Physician Type: Progress Notes Filed: 12/07/2023 09:03 Note Text: New Patient Nadine Disla female presents seeking treatment for and further management of laser hair removal to chin/neck. Occasionally gets ingrown hairs/bumps Current treatment for hair removal: tweezing PAST DERM HISTORY: H/O skin disease: Yes, eczema H/O hyertrophic scars or keloids: No H/O cold sores: No H/O Accutane use: No PE: The patient is alert and oriented x 3; is well appearing and in NAD. [place] skin type: II Examination of the face, neck, revealed: Brown terminal hairs on chin A/P: #Hirsutism -Discussed treatment with 755 nm laser -Cost quoted per dept sheet, patient provided with copy. Quoted $275 per treatment if not covered by insurance -Pre/post written instructions given to patient -Advised not to be tanned during treatments and careful sun exposure post -Laser reviewed at length including treatment expectations, need for multiple treatments (~6-8) and risks including pain, swelling, redness, blistering, hyper/hypopigmentation, texture change, scarring. -Will submit to insurance authorization for coverage Request for insurance coverage: ICD 10 Primary Diagnosis: Inflam hair foll L73.9 and Hirsutism L68.0 ICD 10 Secondary Diagnosis: Painful skin lesion R52, Inflammation of Skin L08.9, Pruritus L29.0-9, and Changes in skin texture (desquamation, induration, scaling) R23.4 CPT code: Laser: 81553 Laser hair removal Return to clinic [facility] pending insurance auth Charge code: Bill to insurance The documentation for this note was completed by Nadine Hardin RN acting as scribe for Mago Chopra MD. December 07, 2023 8:22 AM. IMago MD, personally performed the services described in this documentation. All medical record entries made by the scribe were at my direction and in my presence. I have reviewed the chart and discharge instructions (if applicable) and agree that the record reflects my personal performance and is accurate and complete. Electronically Signed: Mago Chopra MD December 07, 2023 9:02 AM. Mago Chopra MD December 07, 2023 [facility] 12-07-2023 Instructions Nadine Hardin RN - 12/07/2023 7:50 AM EDT Direct line to schedule [phone] or email [email or web address] HAIR LASER INSTRUCTION SHEET The treated area is delicate and should be treated gently. It is common to experience some redness for 1-2 days. Please read and follow these instructions. Avoid unprotected sun exposure to the sun during your laser treatment sessions. An SPF 30 or higher should be used. You will not be treated if you have a flood. One day prior to appointment please shave all areas to be treated. The hair can be removed using Del Angel if shaving is not feasible. Avoid any trauma such as scratching, picking, or rubbing the treated area. Avoid retinol/tretinoin/glycolic acid products for 24 hours prior to treatment Do not pluck or wax the area to be treated for a minimum of 6 weeks prior to your treatment Post laser Instructions: Wash the treated area with a mild soap (Dove, Cetaphil) daily. Apply soothing cream twice a day for 2 days if redness persists If crusts, scabs, or blisters develop, which is very unlikely, call the office and keep moist by applying Vaseline or Aquaphor healing ointment. Allow them to fall off on their own Any discomfort or burning at the treatment site may be relieved by taking Tylenol, applying a calming cream, or applying ice to the area Do not pluck, wax, or tweeze the hairs. Shaving or trimming the hairs between treatments is fine. Laser appointments should be scheduled a minimum of 6-8 weeks apart Monitor redness, length of time it takes for hair to regrow, amount of growth, and texture of hair. This information will help us determine your next laser treatment settings. If you have any questions or concerns regarding your laser treatment or post-operative care please call the office documented in this encounter [facility] 10-18-2023 History of Presen t illness Narrative Images from the original note were not included. FOLLOW UP - PSYCHIATRIC PROGRESS NOTE PATIENT: Nadine Disla DATE: October 18, 2023 Visit Type:In person All information is from Patient report except when noted. This evaluation is NOT intended for forensic, disability or child custody purposes. Some elements were copied from the previous note which have been updated where appropriate and reflect current decision making from today October 18, 2023. CC: Presenting today for follow up regarding psychiatric medication management. HPI: Treatment Plan from Last Visit on 06/28/2023: 1. Continue Ritalin, Prozac, and Wellbutrin at the same dose. 2. Take Vitamin D supplement consistently. 3. Discussed incorporating life styles changes that allow her to include movement and healthy eating in her schedule. 4. Continue individual psychotherapy. Today Nadine shares that she went to [place] recently for a [employer] game convention. Gill that she was getting slightly more stressed. She had to manage quiet a few responsibilities. She is focusing on herself and organizing things at home. Focusing on self-care and engaging with others. 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 She does utilize caffeine in addition to help manage her ADHD symptoms. Feels that the current combination of the medications are supporting her symptoms well. Continues to work with her current therapist on big picture things as that is a big challenge for her. Denies any side effects from any medications. Discussed the option of [facility] and their neuro divergence group. Does not feel that she needs that level of support currently. Has looked at various tips to help with ADHD symptoms. Discussed the help that she is getting from being part of a face book group as she feels validated by that community. Ritalin helps with task initiation and she takes medication vacation in the summer and her days off. Denies any concerns with her physical health. Has not really needed melatonin for sleep but will take it as needed. Interval Progress: Improved PATIENT DATA: Generalized Anxiety Disorder Scale (BHUPINDER-7) 04/26/2023 06/28/2023 10/18/2023 BHUPINDER - 7 SCORES Score 4 5 4 (0-4) minimal anxiety, (5-9) mild anxiety, (10-14) moderate anxiety, (15-21) severe anxiety Patient Health Questionnaire (PHQ-9) 06/28/2023 10/10/2023 10/18/2023 PHQ-9 Score 7 6 4 (0-4) minimal depression, (5-9) mild depression, (10-14) moderate depression, (15-19) moderately severe depression, (20-27) severe depression PAST MEDICAL HISTORY Diagnosis Date Depression PAST SURGICAL HISTORY Procedure Laterality Date wisdom teeth extraction 2003 general, okay with anesthesia ALLERGIES Allergen Reactions Environmental [Seas* Unknown Cold symptoms Current Outpatient Medications on File Prior to Visit Medication Sig Cholecalciferol, Vitamin D3, 125 mcg (5,000 unit) cap Take 1 capsule by mouth once daily. methylphenidate (RITALIN) 10 mg tablet Take 1 tablet by mouth three times a day for 30 days. FLUoxetine (PROZAC) 40 mg capsule Take 2 capsules by mouth once daily. buPROPion XL (WELLBUTRIN XL) 300 mg 24 hr tablet Take 1 tablet by mouth once daily. loratadine (CLARITIN) 10 mg tablet Take 1 tablet by mouth once daily. fluticasone (FLONASE) 50 mcg/actuation nasal spray Use 2 Sprays in each nostril once daily. Rinse mouth after use. melatonin 3 mg capsules as needed. No current facility-administered medications on file prior to visit. ROS: See HPI PFSH: See HPI VITAL SIGNS: 10/18/23 0810 BP: 124/80 Pulse: 74 Resp: 14 Weight: 97.5 kg (215 lb) Height: 171 cm (5' 7.32) Last 3 Encounter BP Readings: Date: BP: 10/18/2023 124/80 10/11/2023 122/86 06/28/2023 124/70 MENTAL STATUS EXAMINATION: Mental Status Exam General/Sensorium: Alert Orientation: AAOx3 Appearance: Casually dressed and appears stated age Eye contact: Appropriate Demeanor: Appropriately interactive Motor activity: Normal Speech: Articulate with appropriate rhythm and volume Mood: Euthymic Affect: Congruent with mood Thought process: Linear, logical, and goal-directed Associations: Normal Thought content: Focused on history, symptoms, and management and future goals or plans Suicidal ideation: none Homicidal ideation: none Abnormal/psychotic thoughts: Absent Perceptions: She does not appear internally stimulated. Intelligence: Above average Attention: Intact- improved with Ritalin Memory: Short-term: Intact Long-term: Intact Language: Intact Fund of knowledge: Appropriate Insight: Good Judgment: Good Gait: Steady Station: Sitting DATA REVIEWED: Psychiatric scales, Electronic medical record, and PDMP report and Lab work. PDMP website checked and validated. All prescriptions have been APPROPRIATELY filled. No suspicious activity was identified. 10/18/2023 by Annika Larose APRN.CNP DIAGNOSIS: Attention deficit hyperactivity disorder (adhd), combined type Bhupinder (generalized anxiety disorder) (primary encounter diagnosis) Recurrent major depressive disorder, in full remission ([facility]) GAF: -80-71 If symptoms are present, they are transient and expectable reactions to psychosocial stressors TREATMENT PLAN: Continue Ritalin, Wellbutrin and Prozac at the same dose. Continue to engage in individual psychotherapy. Consider transfer of care back to primary care team if patient continues to exhibit remission on the current combination of her psychiatric medications. MEDICATION CHANGES: Current medication regimen unchanged. Risks and benefits of the medication, including any black box warnings, were discussed with the patient. Patient is aware to reach out with any questions, concerns, or worsening of symptoms prior to the next appointment. Patient educated on risks of substance use in combination with medications and advised that any substance use along with medications may alter their effectiveness. Follow Up: 6 months I spent a total of 26 minutes on the date of the service which included preparing to see the patient, [id number] patient care, completing clinical documentation, and counseling and educating the patient/family/caregiver, ordering medications/labs. ADD ON PSYCHOTHERAPY CODE : No SIGNATURE: Annika Larose APRN.CNP PATIENT NAME: Nadine Disla DATE: October 18, 2023 TIME: 8:14 AM documented in this encounter [facility] 10-11-2023 History of Presen t illness Narrative Chief Complaint Patient presents with: Physical: Hair growth under chin HPI Nadine Disla is a 38 year old female who presents here today for Above Complaints.. Here for her yearly physical. Mood-has been great since seeing Annika with psychiatry. Hair growth-under chin. Has been present for a decade and has been plucking, but interested in hair removal. Denies CP, SOB, h/a, increased thirst or urination. Menstrual cycles-regular, if anything slightly less bleeding. Past medical history, appointments, medications, allergies reviewed. Previous Medical History PAST MEDICAL HISTORY Diagnosis Date Depression Previous Surgical History PAST SURGICAL HISTORY Procedure Laterality Date wisdom teeth extraction 2003 general, okay with anesthesia Family History FAMILY HISTORY Problem Relation Age of Onset Cancer Mother 58 breast/age 53?/postmenopausal/Brain/Brain/ age 60 (2012)//brain other (brain tumor) Mother None Father Psychiatry Sister anxiety None Maternal Grandmother Heart Maternal Grandfather bypass surgeries None Paternal Grandmother 90 other (CVA) Paternal Grandfather 89 multiple other (lung disease) Paternal Grandfather Patient Allergies ALLERGIES Allergen Reactions Environmental [Seas* Unknown Cold symptoms Current Medications Current Outpatient Medications on File Prior to Visit Medication Sig methylphenidate (RITALIN) 10 mg tablet Take 1 tablet by mouth three times a day for 30 days. FLUoxetine (PROZAC) 40 mg capsule Take 2 capsules by mouth once daily. buPROPion XL (WELLBUTRIN XL) 300 mg 24 hr tablet Take 1 tablet by mouth once daily. loratadine (CLARITIN) 10 mg tablet Take 1 tablet by mouth once daily. fluticasone (FLONASE) 50 mcg/actuation nasal spray Use 2 Sprays in each nostril once daily. Rinse mouth after use. Cholecalciferol, Vitamin D3, 50 mcg (2,000 unit) cap Take 1 capsule by mouth once daily. melatonin 3 mg capsules as needed. No current facility-administered medications on file prior to visit. Social History Social History Tobacco Use Smoking status: Never Smokeless tobacco: Never Vaping Use Vaping Use: Never used Substance Use Topics Alcohol use: Yes Comment: rare Drug use: No Review of Symptoms REVIEW OF SYSTEMS See HPI, otherwise negative EXAM: BP 122/86 (BP Site: Left Arm, BP Position: Sitting, BP Cuff Size: Regular Adult) Pulse 85 Resp 16 Ht 170.8 cm (5' 7.24) Wt 97.9 kg (215 lb 12.8 oz) LMP 03/13/2022 (Within Days) SpO2 94% BMI 33.55 kg/m General Appearance: Well appearing, alert, in no acute distress, well-hydrated, well nourished. and Obese. Skin: Skin color, texture, turgor normal, no suspicious rashes or lesions. Head: Normocephalic, no masses, lesions, tenderness or abnormalities. Eyes: Anicteric sclera. Pupils are equally round and reactive to light. Extraocular movements are intact. . Ears: External ears normal, canals clear. Nose/Sinuses: Nares normal, septum midline, mucosa normal, no drainage or sinus tenderness. Oropharynx: Lips, mucosa, and tongue normal, teeth and gums normal, oropharynx normal. Neck: Supple, no adenopathy; thyroid symmetric, normal size, no bruits. Back:no pain to palpation of vertebrae, good flexion and extension, good range of motion, no muscle tenderness, motor and sensory appear to be normal Lungs: Lungs clear to auscultation. No wheezing, rhonchi, rales.. Heart: RRR without murmur, gallop, or rubs. No ectopy. Abdomen: Normal abdominal exam, Abdomen soft, non-tender. Bowel sounds normal. No masses, organomegaly. Extremities: No deformities, edema, skin discoloration, clubbing or cyanosis. Good capillary refill. . Musculoskeletal: No joint swelling, deformity, or tenderness. Peripheral Pulses: Normal. Neurologic: Gait normal. Reflexes normal and symmetric. Sensation grossly intact.. Lymph Nodes: No cervical lymphadenopathy and No supraclavicular lymphadenopathy. Psychiatric: pleasant, cooperative. Health Maintenance List Hepatitis C Screening Never done HIV Screening Never done DTaP,Tdap,Td Vaccine(8 - Td or Tdap) due on 11/28/2022 Hepatitis B Vaccine(1 of 3 - 19+ 3-dose series) due on 10/10/2024 Influenza Vaccine(1) due on 12/11/2023 Cervical Cancer Screening due on 04/01/2027 Covid-19 Vaccine Completed HPV Vaccine Aged Out Data reviewed Previous records, office notes ASSESSMENT/PLAN: 1. Well adult exam - ICD9: V70.0, ICD10: Z00.00 (primary diagnosis) - Counseled on healthy diet and regular exercise - Discussed need and benefit for weight loss. BMI 33.55 kg/(m^2) - Follow up for annual exam in one year 2. Hirsutism - ICD9: 704.1, ICD10: L68.0 - CONSULT TO DERMATOLOGY 3. Vitamin D deficiency - ICD9: 268.9, ICD10: E55.9 - CHOLECALCIFEROL (VITAMIN D3) 125 MCG (5,000 UNIT) CAPSULE 4. Encounter for immunization - ICD9: V03.89, ICD10: Z23 - TDAP VACCINE, AGE 7+ YR (ADACEL, BOOSTRIX) Kacey Dukes APRN.[facility] documented in this encounter [facility] 09-19-2023 Telephone encounter Note Prescription Refill Information The patient has been identified by name and date of : Yes Caregiver verified no other encounters exist for this prescription request: Yes Caregiver confirmed with patient/requestor that no other refills are due, in the near future, with this provider at this time: Yes Does the patient have a future office visit with this provider/department: Yes Requested Prescriptions Pending Prescriptions Disp Refills methylphenidate (RITALIN) 10 mg tablet 90 tablet 0 Sig: Take 1 tablet by mouth three times a day for 30 days. Jessica Noble LPN September 19, 2023 8:11 AM [facility] 09-19-2023 Miscellaneous Notes Prescription Refill Information The patient has been identified by name and date of : Yes Caregiver verified no other encounters exist for this prescription request: Yes Caregiver confirmed with patient/requestor that no other refills are due, in the near future, with this provider at this time: Yes Does the patient have a future office visit with this provider/department: Yes Requested Prescriptions Pending Prescriptions Disp Refills methylphenidate (RITALIN) 10 mg tablet 90 tablet 0 Sig: Take 1 tablet by mouth three times a day for 30 days. Jessica Noble LPN September 19, 2023 8:11 AM documented in this encounter [facility] 08-15-2023 Telephone encounter Note Last: 06/28/23 Noted-follow up in 2 months Next: NA [facility] 08-15-2023 Miscellaneous Notes Last: 06/28/23 Noted-follow up in 2 months Next: NA documented in this encounter [facility] 06-28-2023 History of Presen t illness Narrative FOLLOW UP - PSYCHIATRIC PROGRESS NOTE Visit Type:In person Reason for Visit: Outpatient follow-up and safety monitoring of previously prescribed psychiatric medication, psychotherapy or other treatment CC: Follow up for psychiatric medication management HPI: Treatment Plan from last visit on 04/26/2023: 1. Continue Ritalin, Wellbutrin, and Prozac at the same dose. 2. Discussed incorporating light therapy to help with mood. 3. Complete fasting monitoring lab work. 4. Has history of Vitamin D deficiency. May need prescription strength. Will assess after reviewing lab work. 5. Continue individual psychotherapy. Today we reviewed monitoring lab work with Renu. Discussed elevation in Cholesterol. Attributes that to her diet. Relies on fast food a lot of meals. Shares that she is a very picky eater. Discussed incorporating more whole foods such as vegetables. Discussed incorporating movement in her routine. She takes her Vitamin D supplement about 3 to 4 times a week. Discussed taking it more consistently and rechecking level in 3 months. Takes her Ritalin consistently. Denies any side effects currently. Notices that her ADHD symptoms are well managed on this dose till about 2 pm. Things have improved with her functioning at home. She was able to be productive during her spring break. Did take Ritalin during the break. Able to come home from work and is able to be productive. Tries to complete at least one big task Goes to bed around 8 pm and wakes up at 5 am. She is still trying to figure out what more she wants to do. I know that I am doing better. Struggles to commit to things when she is more motivated. She is afraid of burning out again and that prevents her from committing to things. She is striving for a better work and life balance. Renu continues to engages in psychotherapy. Has an appointment this afternoon. Discusses more work related stressors there. Able to verbalize that it takes her longer to do things due to her ADHD and perfectionism. Denies any concerns or side effects from Prozac and Wellbutrin. Feels that they are managing her mood and anxiety symptoms well currently. Verbalizes that she needs to make more lifestyle changes now as medications are supporting her well. She feels that she is at roadblock. She would like to go for a walk but then finds that she talks herself out of it. Risks and benefits of the medication, including any black box warnings, were discussed with the patient. Interval Progress: Slightly improved PATIENT DATA: Generalized Anxiety Disorder Scale (BHUPINDER-7) 03/02/2023 04/26/2023 06/28/2023 BHUPINDER - 7 SCORES Score 4 4 5 (0-4) minimal anxiety, (5-9) mild anxiety, (10-14) moderate anxiety, (15-21) severe anxiety Patient Health Questionnaire (PHQ-9) 06/28/2023 04/26/2023 03/02/2023 PHQ-9 Score 7 9 5 (0-4) minimal depression, (5-9) mild depression, (10-14) moderate depression, (15-19) moderately severe depression, (20-27) severe depression PROMIS Global Health 06/16/2022 02/08/2023 04/25/2023 PROMIS Global Health - (T-Scores - the mean of general population = 50. Five points is a clinically meaningful difference.) Physical T-Score 47.7 44.9 47.7 Mental T-Score 43.5 41.1 43.5 PAST MEDICAL HISTORY Diagnosis Date Depression PAST SURGICAL HISTORY Procedure Laterality Date wisdom teeth extraction 2003 general, okay with anesthesia Current Outpatient Medications Medication Sig Dispense Refill methylphenidate (RITALIN) 10 mg tablet Take 1 tablet by mouth three times a day for 30 days. 90 tablet 0 FLUoxetine (PROZAC) 40 mg capsule Take 2 capsules by mouth once daily. 180 capsule 1 buPROPion XL (WELLBUTRIN XL) 300 mg 24 hr tablet Take 1 tablet by mouth once daily. 90 tablet 1 loratadine (CLARITIN) 10 mg tablet Take 1 tablet by mouth once daily. 30 tablet 11 fluticasone (FLONASE) 50 mcg/actuation nasal spray Use 2 Sprays in each nostril once daily. Rinse mouth after use. 16 mL 1 Cholecalciferol, Vitamin D3, 50 mcg (2,000 unit) cap Take 1 capsule by mouth once daily. 90 capsule 3 melatonin 3 mg capsules as needed. No current facility-administered medications for this visit. ROS: See HPI PFSH: See HPI VITAL SIGNS: 06/28/23 0804 BP: 124/70 Pulse: 88 Weight: 98 kg (216 lb) MENTAL STATUS EXAM: CONSTITUTIONAL: Casually dressed ORIENTATION: Person, Place, Time and Situation MEMORY: Recent intact, Remote intact, Immediate intact CONCENTRATION: Scattered and Focuses on irrelevancies MOOD: sad at times AFFECT: Tearful at times SPEECH : Clear & distinct LANGUAGE : Normal ASSOCIATIONS: Intact THOUGHT PROCESS : Logical, Coherent, and Rational PROGRESSION : There was no evidence of disturbance in thought perception or progression. FUND OF KNOWLEDGE : Appropriate and Adequate SUICIDE: None HOMICIDE: None DATA REVIEWED: Psychiatric scales, Labs, and Electronic medical record DIAGNOSIS: ADHD, combined type Generalized Anxiety Disorder Vitamin D deficiency MDD, recurrent, in partial remission GAF: -60-51 Moderate symptoms or moderate difficulty in social, occupational or school functioning. TREATMENT PLAN: 1. Continue Ritalin, Prozac, and Wellbutrin at the same dose. 2. Take Vitamin D supplement consistently. 3. Discussed incorporating life styles changes that allow her to include movement and healthy eating in her schedule. 4. Continue individual psychotherapy. MEDICATION CHANGES: Current medication regimen unchanged. PDMP report was reviewed and found to be appropriate without any side of misuse or diversion. Follow Up: 3 months I spent a total of 28 minutes on the date of the service which included preparing to see the patient, [id number] patient care, completing clinical documentation, obtaining and/or reviewing separately obtained history, performing a medically appropriate examination, counseling and educating the patient/family/caregiver, ordering medications, tests, or procedures, communicating with other HCPs (not separately reported), independently interpreting results (not separately reported), and communicating results to the patient/family/caregiver. ADD ON PSYCHOTHERAPY CODE : No SIGNATURE: Annika Larose APRN.[facility] PATIENT NAME: Nadine Disla DATE: June 28, 2023 TIME: 8:08 AM documented in this encounter [facility] 03-02-2023 History of Presen t illness Narrative FOLLOW UP - PSYCHIATRIC PROGRESS NOTE Visit Type:Virtual Visit utilizing two-way audio and video for at least a portion of the visit. Consent for virtual visit obtained verbally. Confidentiality limitations with virtual visits reviewed with the patient and guardian, if present, who have accepted the risk verbally prior to proceeding with encounter. I have communicated my name and active licensure. The patient's identity and physical location were verified at the time of this visit. Either the patient or their legal outside sales representative insurance has been informed of the risks and benefits of -- and alternatives to -- treatment through a remote evaluation and consents to proceed with the evaluation remotely. Reason for Visit: Outpatient follow-up and safety monitoring of previously prescribed psychiatric medication, psychotherapy or other treatment CC: Follow up regarding starting Ritalin to address ADHD HPI: Treatment plan from last visit on 02/08/2023: 1. Start Ritalin to address ADHD symptoms. 2. Continue Prozac and Wellbutrin at the same dose. 3. Continue individual psychotherapy. 4. Discussed creating a space at home which will help her in restarting exercise and lifting that she used to enjoy before. Today Renu shares that Ritalin has been helpful in managing her ADHD symptoms. Reports that the time change has helped. She is consistently waking up at 5:30 am. She is surprised at how helpful the Ritalin is in managing her symptoms. Notices improvement in her focus and concentration and ability. Improvement in motivation and mood as well. Her thinking is more organized. It works better if she takes it 3 times a day. We discussed increasing the dose to 30 mg as she was taking 36 mg ER dose before. Significant improvement in her mood and anxiety with ADHD symptoms better managed. Denies side effects from Wellbutrin and Prozac. Able to manage work related stressors better. Denies any changes in her physical health or appetite. Would like to plan more meals as she has been eating out more. Going over to her sisters for thanksgiving. Risks and benefits of the medication, including any black box warnings, were discussed with the patient. Interval Progress: Improved PATIENT DATA: Generalized Anxiety Disorder Scale (BHUPINDER-7) BHUPINDER - 7 SCORES 08/17/2022 02/08/2023 03/02/2023 BHUPINDER-7 Score 6 9 4 (0-4) minimal anxiety, (5-9) mild anxiety, (10-14) moderate anxiety, (15-21) severe anxiety Patient Health Questionnaire (PHQ-9) PHQ-9 08/17/2022 02/08/2023 03/02/2023 Score 6 12 5 (0-4) minimal depression, (5-9) mild depression, (10-14) moderate depression, (15-19) moderately severe depression, (20-27) severe depression PROMIS Global Health PROMIS Global Health - (T-Scores - the mean of general population = 50. Five points is a clinically meaningful difference.) 03/24/2022 06/16/2022 02/08/2023 Physical T-Score 44.9 47.7 44.9 Mental T-Score 43.5 43.5 41.1 PAST MEDICAL HISTORY Diagnosis Date Depression PAST SURGICAL HISTORY Procedure Laterality Date wisdom teeth extraction 2003 general, okay with anesthesia Current Outpatient Medications Medication Sig Dispense Refill methylphenidate (RITALIN) 10 mg tablet Take 1 tablet by mouth two times a day for 30 days. 60 tablet 0 buPROPion XL (WELLBUTRIN XL) 300 mg 24 hr tablet Take 1 tablet by mouth once daily. 90 tablet 1 FLUoxetine (PROZAC) 40 mg capsule Take 2 capsules by mouth once daily. 180 capsule 1 fluticasone (FLONASE) 50 mcg/actuation nasal spray Use 2 Sprays in each nostril once daily. Rinse mouth after use. 16 mL 1 Cholecalciferol, Vitamin D3, 50 mcg (2,000 unit) cap Take 1 capsule by mouth once daily. 90 capsule 3 melatonin 3 mg capsules as needed. loratadine (CLARITIN) 10 mg tablet Take 1 tablet by mouth once daily. 30 Each 11 No current facility-administered medications for this visit. ROS: GENERAL: Negative for malaise, significant weight loss and fever. HEENT: No changes in hearing or vision, no nose bleeds or other nasal problems. RESPIRATORY: Negative for cough, wheezing and shortness of breath. CARDIOVASCULAR: Negative for chest pain, leg swelling and palpitations. GI: Negative for abdominal discomfort, blood in stools or black stools. : Negative for dysuria, frequency and incontinence. MUSCULOSKELETAL: Negative for joint pain or swelling, back pain, and muscle pain. SKIN: Negative for lesions, rash, and itching. HEMATOLOGY/LYMPHOLOGY Negative for prolonged bleeding, bruising easily, and swollen nodes. ENDOCRINE: Negative for cold or heat intolerance, polyuria, polydipsia and goiter. NEURO: Negative for headaches, syncope, seizures and paralysis. PFSH: See HPI VITAL SIGNS: There were no vitals filed for this visit. MENTAL STATUS EXAM: CONSTITUTIONAL: Casually dressed ORIENTATION: Person, Place, Time and Situation MEMORY: Recent intact, Remote intact, Immediate intact CONCENTRATION: Normal MOOD: happy AFFECT: Full and appropriate to topic SPEECH : Clear & distinct LANGUAGE : Normal ASSOCIATIONS: Intact THOUGHT PROCESS : Logical, Coherent, and Rational PROGRESSION : There was no evidence of disturbance in thought perception or progression. FUND OF KNOWLEDGE : Appropriate and Adequate SUICIDE: None HOMICIDE: None DATA REVIEWED: Psychiatric scales and Electronic medical record DIAGNOSIS: PRIMARY: ADHD, combined type Secondary : Generalized Anxiety Disorder Other : MDD, recurrent, in full remission GAF: -80-71 If symptoms are present, they are transient and expectable reactions to psychosocial stressors TREATMENT PLAN: 1. Increase Ritalin to 10 mg three times daily. 2. Continue Prozac and Wellbutrin at the same dose. 3. Continue individual psychotherapy. MEDICATION CHANGES: Prescriptions given - Ritalin dose increased to 30 mg total. PDMP report was reviewed and found to be appropriate without any signs of misuse or diversion. Follow Up: 2 months I spent a total of 28 minutes on the date of the service which included preparing to see the patient, [id number] patient care, completing clinical documentation, obtaining and/or reviewing separately obtained history, counseling and educating the patient/family/caregiver, ordering medications, tests, or procedures, communicating with other HCPs (not separately reported), independently interpreting results (not separately reported), and communicating results to the patient/family/caregiver. ADD ON PSYCHOTHERAPY CODE : No SIGNATURE: Annika Larose APRN.CNP PATIENT NAME: Nadine Disla DATE: March 02, 2023 TIME: 7:56 AM documented in this encounter [facility] 02-08-2023 Instructions Annika Larose APRN.CNP - 02/08/2023 2:44 PM EDT Pavan Mccoy, It was good to talk with you today. Below is a summary of the plan that we discussed during your appointment for reference. Of course, if you have any questions or concerns do not hesitate to reach out to me via a message or call. Lupillo, Annika Larose APRN.CNP PLAN AND FOLLOW UP: YOU SHOULD SEEK IMMEDIATE MEDICAL ATTENTION AT THE NEAREST EMERGENCY DEPARTMENT OR BY CALLING 911, IF ANY OF THE FOLLOWING OCCURS: - New or worsening thoughts of harming yourself (suicidal thoughts) or others (homicidal thoughts) - Not feeling safe at home or worrying about your ability to remain safe at home If you are having thoughts of harming yourself or others, then you can: - Call the National Suicide Hotline at 442 - Text 4HOPE to 938 Medications: Start: Ritalin (Methylphenidate) 10 mg - take 1 tablet twice daily (morning and afternoon 6 to 8 hours apart). Continue Prozac and Wellbutrin at the same dose. Next appointment: --Schedule in 4 weeks or sooner if needed -- You may call the department appointment line at [phone] to schedule your appointment. -- Please call my nurse Jessica at [phone] or send me a message in [employer] with any questions or concerns between appointments. documented in this encounter [facility] 02-08-2023 History of Presen t illness Narrative FOLLOW UP - PSYCHIATRIC PROGRESS NOTE Visit Type:In person Reason for Visit: Outpatient follow-up and safety monitoring of previously prescribed psychiatric medication, psychotherapy or other treatment CC: Follow up regarding ADHD symptoms. HPI: Treatment plan from last visit on 08/18/2022: Continue Prozac and Wellbutrin at the same dose. Work on being consistent in taking omega-3 fatty acid supplement and CDP choline. Continue individual psychotherapy. Follow-up in January. Today Renu shares that her summer was good but this semester at work has been tough. Continues to struggle with her level of motivation. 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 She has been trying to manage 2 classes instead of 1 at work this semester. This has impacted her mood and anxiety. Feels guilty related to being behind on grading. Had to take a couple days off work to just to catch up. She has been struggling to keep up with things at home,especially with her house and self-care. Uses caffeine as a stimulant and that been helpful. Currently she is not taking any prescribed stimulant. Feels that her ADHD symptoms are not well managed since she has been off these medications. Continues to work with her therapist. Has an appointment after this visit. Risks and benefits of the medication, including any black box warnings, were discussed with the patient. Interval Progress: Slightly worse PATIENT DATA: Generalized Anxiety Disorder Scale (BHUPINDER-7) BHUPINDER - 7 SCORES 06/16/2022 08/17/2022 02/08/2023 BHUPINDER-7 Score 3 6 9 (0-4) minimal anxiety, (5-9) mild anxiety, (10-14) moderate anxiety, (15-21) severe anxiety Patient Health Questionnaire (PHQ-9) PHQ-9 06/16/2022 08/17/2022 02/08/2023 Score 7 6 12 (0-4) minimal depression, (5-9) mild depression, (10-14) moderate depression, (15-19) moderately severe depression, (20-27) severe depression PROMIS Global Health PROMIS Global Health - (T-Scores - the mean of general population = 50. Five points is a clinically meaningful difference.) 03/24/2022 06/16/2022 02/08/2023 Physical T-Score 44.9 47.7 44.9 Mental T-Score 43.5 43.5 41.1 PAST MEDICAL HISTORY Diagnosis Date Depression PAST SURGICAL HISTORY Procedure Laterality Date wisdom teeth extraction 2003 general, okay with anesthesia Current Outpatient Medications Medication Sig Dispense Refill buPROPion XL (WELLBUTRIN XL) 300 mg 24 hr tablet Take 1 tablet by mouth once daily. 90 tablet 1 FLUoxetine (PROZAC) 40 mg capsule Take 2 capsules by mouth once daily. 180 capsule 1 fluticasone (FLONASE) 50 mcg/actuation nasal spray Use 2 Sprays in each nostril once daily. Rinse mouth after use. 16 mL 1 Cholecalciferol, Vitamin D3, 50 mcg (2,000 unit) cap Take 1 capsule by mouth once daily. 90 capsule 3 melatonin 3 mg capsules as needed. loratadine (CLARITIN) 10 mg tablet Take 1 tablet by mouth once daily. 30 Each 11 No current facility-administered medications for this visit. ROS: GENERAL: Negative for malaise, significant weight loss and fever. HEENT: No changes in hearing or vision, no nose bleeds or other nasal problems. RESPIRATORY: Negative for cough, wheezing and shortness of breath. CARDIOVASCULAR: Negative for chest pain, leg swelling and palpitations. GI: Negative for abdominal discomfort, blood in stools or black stools. : Negative for dysuria, frequency and incontinence. MUSCULOSKELETAL: Negative for joint pain or swelling, back pain, and muscle pain. SKIN: Negative for lesions, rash, and itching. HEMATOLOGY/LYMPHOLOGY Negative for prolonged bleeding, bruising easily, and swollen nodes. ENDOCRINE: Negative for cold or heat intolerance, polyuria, polydipsia and goiter. NEURO: Negative for headaches, syncope, seizures and paralysis. PFSH: See HPI VITAL SIGNS: 02/08/23 1348 BP: 122/60 Pulse: 74 Weight: 100.7 kg (222 lb) MENTAL STATUS EXAM: CONSTITUTIONAL: Casually dressed ORIENTATION: Person, Place, Time and Situation MEMORY: Recent intact, Remote intact, Immediate intact CONCENTRATION: Scattered MOOD: sad AFFECT: Full and appropriate to topic SPEECH : Clear & distinct LANGUAGE : Normal ASSOCIATIONS: Intact THOUGHT PROCESS : Logical, Coherent, and Rational PROGRESSION : There was no evidence of disturbance in thought perception or progression. FUND OF KNOWLEDGE : Appropriate and Adequate SUICIDE: None HOMICIDE: None DATA REVIEWED: Psychiatric scales and Electronic medical record DIAGNOSIS: ADHD, combined type Generalized Anxiety Disorder MDD, recurrent, moderate GAF: -60-51 Moderate symptoms or moderate difficulty in social, occupational or school functioning. TREATMENT PLAN: 1. Start Ritalin to address ADHD symptoms. 2. Continue Prozac and Wellbutrin at the same dose. 3. Continue individual psychotherapy. 4. Discussed creating a space at home which will help her in restarting exercise and lifting that she used to enjoy before. MEDICATION CHANGES: Start Ritalin to address ADHD symptoms. Follow Up: 4 weeks I spent a total of 28 minutes on the date of the service which included preparing to see the patient, [id number] patient care, completing clinical documentation, obtaining and/or reviewing separately obtained history, performing a medically appropriate examination, counseling and educating the patient/family/caregiver, ordering medications, tests, or procedures, and independently interpreting results (not separately reported). ADD ON PSYCHOTHERAPY CODE : No SIGNATURE: Annika Larose APRN.CNP PATIENT NAME: Nadine Disla DATE: February 08, 2023 TIME: 2:01 PM documented in this encounter [facility] 08-18-2022 History of Presen t illness Narrative Images from the original note were not included. PSYC FOLLOW UP - PSYCHIATRIC PROGRESS NOTE DIAGNOSIS: Generalized anxiety disorder MDD, recurrent, in partial remission ADHD, combined type GAF: -80-71 If symptoms are present, they are transient and expectable reactions to psychosocial stressors TREATMENT PLAN: Continue Prozac and Wellbutrin at the same dose. Work on being consistent in taking omega-3 fatty acid supplement and CDP choline. Continue individual psychotherapy. Follow-up in January. The effects and side effects of all the medications have been reviewed in detail with the patient. She denies any side effects currently. Patient is in agreement with the treatment plan and aware to reach out with any questions, concerns, or worsening of symptoms prior to the next appointment. CC: Follow up regarding mood, anxiety, and ADHD HPI: Nadine Disla is a 37 year old Female with a history of BHUPINDER, MDD, and ADHD presenting today for follow-up. Date of last visit: 06/16/2022 Plan from last visit: Discontinue Concerta due to side effects. Continue Prozac and Wellbutrin at the same dose. Incorporate Oakes 3 fatty acids and CDP choline supplements in her routine. Continue individual psychotherapy every 2 to 3 weeks. Follow up in 2 months. Today Renu shares that things have been going well without the stimulant. I feel more like myself. Prozac has contributed to helping with the anxiety. She is out of school in 1 week. Look forwards to the summer. She is trying to be more consistent in taking her supplements. Has started Oakes 3 fatty acid supplement and has purchased the CDP choline but has not started it. Motivated to start it. She continue to engage in individual psychotherapy. She is looking forward to the [employer] convention and cleaning and resting during the summer. This semester was stressful but she has been able to advocate for herself and get her schedule adjusted when she is able to be more productive. Interval Progress: Improved Risks and benefits of the medication, including any black box warnings, were discussed with the patient. Social History: See HPI PATIENT DATA: Generalized Anxiety Disorder Scale (BHUPINDER-7) BHUPINDER - 7 SCORES 03/24/2022 06/16/2022 08/17/2022 BHUPINDER-7 Score 7 3 6 (0-4) minimal anxiety, (5-9) mild anxiety, (10-14) moderate anxiety, (15-21) severe anxiety Patient Health Questionnaire (PHQ-9) PHQ-9 05/19/2022 06/16/2022 08/17/2022 Score 13 7 6 (0-4) minimal depression, (5-9) mild depression, (10-14) moderate depression, (15-19) moderately severe depression, (20-27) severe depression ROS: General: Negative for fever, malaise, unintentional weight loss HEENT: Negative for recent changes in vision or hearing, no nasal drainage Respiratory: Negative for cough, wheezing or SOB Cardiovascular: Negative for chest pain GI: Negative for nausea, vomiting, change in bowel habits MUSCULOSKELETAL: Negative for acute back or joint pain SKIN: Negative for rash NEURO: Negative for headaches, seizures, focal neurological deficits All other systems negative. VITAL SIGNS: BP 120/70 (08/18/22 0803) Temp Pulse 74 (08/18/22 0803) Resp SpO2 MENTAL STATUS EXAMINATION: Appearance: Appropriately groomed, appears stated age Behavior: Appropriately engaged Psychomotor: No psychomotor agitation Cognition Level of Consciousness: Awake and alert. No fluctuation in wakefulness. Orientation: Grossly oriented Memory: Intact Attention/Concentration: Good Fund of Knowledge: Able to demonstrate an awareness of current events. Mood: Euthymic Affect: Congruent to mood Speech/Language: Appropriate tone, prosody, garfield, phonetics, and syntax Thought Form: Goal-directed. No loosening of associations. Thought Content: No delusions noted or endorsed. Perceptual Disturbances: Did not appear to respond to auditory stimuli. Safety: Suicidal Ideations: No suicidal ideation, intent or plan. Homicidal Ideations: No homicidal ideation, intent or plan. Insight: Appropriate Judgment: Appropriate I spent a total of 28 minutes on the date of the service which included preparing to see the patient, [id number] patient care, completing clinical documentation, and counseling and educating the patient/family/caregiver, ordering medications/labs. Annika Larose APRN.CNP August 18, 2022 8:10 AM This note was partially generated using MtoV voice recognition system. Note was reviewed for accuracy. There may be minor misspellings or grammar miscues with [employer] voice recognition. documented in this encounter [facility] 06-16-2022 History of Presen t illness Narrative Images from the original note were not included. PSYC FOLLOW UP - PSYCHIATRIC PROGRESS NOTE DIAGNOSIS: Generalized Anxiety Disorder MDD, recurrent, in partial remission ADHD, combined type GAF: -70-61 Some mild symptoms or some difficulty in social, occupational, or school functioning, but generally functioning pretty well. TREATMENT PLAN: Discontinue Concerta due to side effects. Continue Prozac and Wellbutrin at the same dose. Incorporate Oakes 3 fatty acids and CDP choline supplements in her routine. Continue individual psychotherapy every 2 to 3 weeks. Follow up in 2 months. CC: Follow up regarding mood, anxiety, and ADHD HPI: Nadine Disla is a 37 year old Female with a history of BHUPINDER, MDD, and ADHD presenting today for follow-up. Date of last visit: 03/31/2022 Plan from last visit: Continue Concerta, Prozac, and Wellbutrin at the same dose. Continue individual psychotherapy. Consider transfer of care back to PCP if patient is doing well on the current combination of medications at the next appointment. Follow up in 3 months. Today Renu shares that she is doing okay. She saw her PCP as she was struggling with some increase in stress. We had made the decision together to increase her Prozac to 80 mg. She has tolerated the increase without any side effects. 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 At that time, she was dealing with a trauma situation related to another colleague. Feels that she has been better now in dealing with it. She had felt overwhelmed at school. Has been able to drop off a class. This has been better for her. Looks forward to spring break next week. She was out of Concerta for 1 week. Gill better and noticed improvement in her mood and anxiety. She has not been taking the Concerta. Feels that she has been more productive even with the worrying thoughts. We discussed incorporating Oakes 3 fatty acids and CDP choline as she would like to stay off stimulants currently. Interval Progress: Improved Risks and benefits of the medication, including any black box warnings, were discussed with the patient. Social History: See HPI PATIENT DATA: Generalized Anxiety Disorder Scale (BHUPINDER-7) BHUPINDER - 7 SCORES 01/27/2022 03/24/2022 06/16/2022 BHUPINDER-7 Score 7 7 3 (0-4) minimal anxiety, (5-9) mild anxiety, (10-14) moderate anxiety, (15-21) severe anxiety Patient Health Questionnaire (PHQ-9) PHQ-9 03/24/2022 05/19/2022 06/16/2022 Score 8 13 7 (0-4) minimal depression, (5-9) mild depression, (10-14) moderate depression, (15-19) moderately severe depression, (20-27) severe depression ROS: General: Negative for fever, malaise, unintentional weight loss HEENT: Negative for recent changes in vision or hearing, no nasal drainage Respiratory: Negative for cough, wheezing or SOB Cardiovascular: Negative for chest pain GI: Negative for nausea, vomiting, change in bowel habits MUSCULOSKELETAL: Negative for acute back or joint pain SKIN: Negative for rash NEURO: Negative for headaches, seizures, focal neurological deficits All other systems negative. VITAL SIGNS: BP 124/80 (06/16/22 0925) Temp Pulse 80 (06/16/22 0925) Resp SpO2 MENTAL STATUS EXAMINATION: Appearance: Appropriately groomed, appears stated age Behavior: Appropriately engaged Psychomotor: No psychomotor agitation Cognition Level of Consciousness: Awake and alert. No fluctuation in wakefulness. Orientation: Grossly oriented Memory: Intact Attention/Concentration: Good Fund of Knowledge: Able to demonstrate an awareness of current events. Mood: Euthymic Affect: Congruent to mood Speech/Language: Appropriate tone, prosody, garfield, phonetics, and syntax Thought Form: Goal-directed. No loosening of associations. Thought Content: No delusions noted or endorsed. Perceptual Disturbances: Did not appear to respond to auditory stimuli. Safety: Suicidal Ideations: No suicidal ideation, intent or plan. Homicidal Ideations: No homicidal ideation, intent or plan. Insight: Appropriate Judgment: Appropriate I spent a total of 28 minutes on the date of the service which included preparing to see the patient, [id number] patient care, completing clinical documentation, and counseling and educating the patient/family/caregiver, ordering medications/labs. Annika Larose APRN.[facility] June 16, 2022 9:36 AM This note was partially generated using MtoV voice recognition system. Note was reviewed for accuracy. There may be minor misspellings or grammar miscues with MtoV voice recognition. documented in this encounter [facility] 05-24-2022 Miscellaneous Notes Patient has been identified by name and date of : Yes Requested Prescriptions Pending Prescriptions Disp Refills methylphenidate ER 36 mg tablet 60 tablet 0 Sig: Take 2 tablets by mouth once daily for 30 days. RX INSTRUCTIONS: Patient aware RX will be sent to pharmacy. No need to notify patient. Follow up 06/16/2022. Jessica Noble LPN documented in this encounter [facility] 05-19-2022 History of Presen t illness Narrative Chief Complaint Patient presents with: Medication Follow-up HPI Nadine Disla is a 36 year old female who presents here today for Above Complaints.. Today: Has appointment with Annika in psychiatry on 06/16-feels like she needs help before then. 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 Anxiety-last month had a great month. This semester started and her schedule changed-2 new courses that she's not comfortable with. This has made her feel like she cannot accomplish anything. Trouble focusing and can't get work done. Coworker issues as well. Sees Izzy Mancia through [facility]. Unsure if her anxiety is more the problem or ADD and not accomplishing anything is the problem. Sleeping ok. Gets a warm feeling to her body in early afternoon-not sure if this is r/t a side effect of a medication. Past medical history, appointments, medications, allergies reviewed. Previous Medical History PAST MEDICAL HISTORY Diagnosis Date Depression Previous Surgical History PAST SURGICAL HISTORY Procedure Laterality Date wisdom teeth extraction 2003 general, okay with anesthesia Family History FAMILY HISTORY Problem Relation Age of Onset Cancer Mother 58 breast/age 53?/postmenopausal/Brain/Brain/ age 60 (2012)//brain other (brain tumor) Mother None Father Psychiatry Sister anxiety None Maternal Grandmother Heart Maternal Grandfather bypass surgeries None Paternal Grandmother 90 other (CVA) Paternal Grandfather 89 multiple other (lung disease) Paternal Grandfather Patient Allergies ALLERGIES Allergen Reactions Environmental [Seas* Unknown Cold symptoms Current Medications Current Outpatient Medications on File Prior to Visit Medication Sig FLUoxetine (PROZAC) 20 mg capsule TAKE 3 CAPSULES BY MOUTH EVERY DAY Cholecalciferol, Vitamin D3, 50 mcg (2,000 unit) cap Take 1 capsule by mouth once daily. melatonin 3 mg capsules buPROPion XL (WELLBUTRIN XL) 300 mg 24 hr tablet Take 1 tablet by mouth once daily. methylphenidate ER 36 mg tablet Take 2 tablets by mouth once daily for 30 days. fluticasone (FLONASE) 50 mcg/actuation nasal spray USE 2 SPRAYS IN EACH NOSTRIL ONCE DAILY. RINSE MOUTH AFTER USE. loratadine (CLARITIN) 10 mg tablet Take 1 tablet by mouth once daily. No current facility-administered medications on file prior to visit. Social History Social History Tobacco Use Smoking status: Never Smokeless tobacco: Never Vaping Use Vaping Use: Never used Substance Use Topics Alcohol use: Yes Comment: rare Drug use: No Review of Symptoms REVIEW OF SYSTEMS See HPI, otherwise negative EXAM: BP 120/84 (BP Site: Left Arm, BP Position: Sitting, BP Cuff Size: Regular Adult) Pulse 81 Resp 16 Wt 85.5 kg (188 lb 9.6 oz) LMP 03/13/2022 (Within Days) SpO2 97% BMI 29.10 kg/m General Appearance: Well appearing, alert, in no acute distress, well-hydrated, well nourished.. Lungs: Lungs clear to auscultation. No wheezing, rhonchi, rales.. Heart: RRR without murmur, gallop, or rubs. No ectopy. Psychiatric: pleasant, cooperative, tearful at times, no SI/HI. Health Maintenance List HEPATITIS B(1 of 3 - 3-dose series) due on 03/31/2023 HEPATITIS C SCREENING due on 03/31/2023 HIV SCREENING due on 03/31/2023 DTAP,TDAP,TD(8 - Td or Tdap) due on 11/28/2022 PAP TESTING due on 04/01/2027 HPV TESTING due on 04/01/2027 INFLUENZA Completed COVID-19 VACCINE Completed Data reviewed Previous records, office notes ASSESSMENT/PLAN: 1. BHUPINDER (generalized anxiety disorder) - ICD9: 300.02, ICD10: F41.1 (primary diagnosis) Discussed with Annika, patient's psychiatrist, and she recommends increasing patient's Prozac from 60mg to 80mg daily. This has been communicated with patient. She is to keep her upcoming appointment with Annika for next month. - FLUOXETINE 40 MG CAPSULE 2. Attention deficit hyperactivity disorder (ADHD), combined type - ICD9: 314.01, ICD10: F90.2 Continue current Concerta dose. See above r/t Prozac, anxiety. Kacey Dukes APRN.CNP documented in this encounter [facility] 04-08-2022 Miscellaneous Notes Patient was notified Joyce Sanford Ma Please let Renu know I received her lab results. Her vitamin D level is low. I'm sending in a daily Vitamin D3 supplement for her to begin taking. No other concerns. The following approved medication requests have been transmitted electronically. Requested Prescriptions Pending Prescriptions Disp Refills Cholecalciferol, Vitamin D3, 50 mcg (2,000 unit) cap 90 capsule 3 Sig: Take 1 capsule by mouth once daily. Kacey Dukes APRN.CNP documented in this encounter [facility] 04-01-2022 History of Presen t illness Narrative Renu is a 36 year old who presents for an annual gynecologic exam without complaints. Menses: cycles every 25-30 days and 4-6 days of flow. 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 History Comments: Sexual Activity: Never; No partner data on record; never SA Contraception: No contraception data on record PAST MEDICAL HISTORY Diagnosis Date Depression PAST SURGICAL HISTORY Procedure Laterality Date wisdom teeth extraction 2003 general, okay with anesthesia FAMILY HISTORY Problem Relation Age of Onset Cancer Mother 58 breast/age 53?/postmenopausal/Brain/Brain/ age 60 (2012)//brain other (brain tumor) Mother None Father Psychiatry Sister anxiety None Maternal Grandmother Heart Maternal Grandfather bypass surgeries None Paternal Grandmother 90 other (CVA) Paternal Grandfather 89 multiple other (lung disease) Paternal Grandfather SOCIAL HISTORY Social History Tobacco Use Smoking status: Never Smokeless tobacco: Never Vaping Use Vaping Use: Never used Substance Use Topics Alcohol use: Yes Comment: rare Drug use: No REVIEW OF SYSTEMS Abdomen: No abdominal pain, nausea, vomiting, diarrhea, or constipation. No bloating, early satiety, indigestion, or increased flatulence. Bladder: No dysuria, gross hematuria, urinary frequency, urinary urgency, or incontinence. Breast: No breast lumps, nipple d/c, overlying skin changes, redness or skin retraction. Allergies and current medication updated:Yes EXAM: BP 104/68 Ht 5' 7.5 (1.72m) Wt 187 lb (84.8kg) LMP 03/13/2022 BMI 28.84 kg/(m^2). GENERAL: pleasant, female in no apparent distress HEENT: Normocephalic, atraumatic, and no lesions NECK: Supple, full range of motion, no adenopathy, and thyroid normal DERMATOLOGY: Normal, without lesions, non-icteric, and non-hirsute BREAST: soft, non-tender, symmetric, no dominant mass, normal nipple-areolar complex, no lymphadenopathy, and no nipple discharge CHEST: Normal inspiratory effort ABDOMEN: soft, non-tender, and no masses PELVIC: external genitalia normal, normal Bartholin's glands, urethra, Nemacolin's glands, no vulvar lesions, no cervical lesions, good vaginal support, physiologic discharge present, normal appearing perineal body and perianal region, YELLOW SPECULUM BIMANUAL: uterus normal size, shape and consistency, no adnexal masses, and non-tender RECTOVAGINAL: deferred. NEURO: alert and oriented x3,exam grossly non-focal EXTREMITIES: normal ASSESSMENT/PLAN: 1) Health maintenance: Pap done with HPV. Mammogram starting age 40. Nutrition, exercise and routine health maintenance exams reviewed. Calcium/Vitamin D supplementation information provided. 2) Contraception: none. Contraceptive options reviewed and information provided. 3) STD screening: NA 4) Follow up one year or sooner as needed Maliha Whelan APRN.[facility]A documented in this encounter [facility] 03-31-2022 Instructions Kacey Dukes APRN.CNP - 03/31/2022 2:32 PM EST Have your labs completed. Start the naproxen-take twice daily for 2 weeks. Make sure you have a little food in your stomach when you take this. documented in this encounter [facility] 03-31-2022 History of Presen t illness Narrative Chief Complaint Patient presents with: Physical: Left shoulder pain x 1 month HPI Nadine Disla is a 36 year old female who presents here today for Above Complaints.. Today: Anxiety-has been seeing Annika in psychiatry. She is getting her anxiety under control. ADHD-is taking Concerta. Is doing well with this. Had the best semester at school that she has had in a long time. Left shoulder-about a month ago noticed her whole left arm would go numb, especially after sleeping on her side. Still is occasionally numb, particularly in the upper arm/shoulder. Has a little bit of lingering/stiffness. Does carry a very heavy bag on her left shoulder for school/classes. Has worn a brace a bit on her wrist and this does seem to help somewhat. Has had excess chin hair which has been increasing Past medical history, appointments, medications, allergies reviewed. Previous Medical History PAST MEDICAL HISTORY Diagnosis Date Depression Previous Surgical History PAST SURGICAL HISTORY Procedure Laterality Date wisdom teeth extraction 2003 general, okay with anesthesia Family History FAMILY HISTORY Problem Relation Age of Onset Cancer Mother 58 breast/age 53?/postmenopausal/Brain/Brain/ age 60 (2012)//brain other (brain tumor) Mother None Father Psychiatry Sister anxiety None Maternal Grandmother Heart Maternal Grandfather bypass surgeries None Paternal Grandmother 90 other (CVA) Paternal Grandfather 89 multiple other (lung disease) Paternal Grandfather Patient Allergies ALLERGIES Allergen Reactions Environmental [Seas* Unknown Cold symptoms Current Medications Current Outpatient Medications on File Prior to Visit Medication Sig FLUoxetine (PROZAC) 20 mg capsule Take 3 capsules by mouth once daily. buPROPion XL (WELLBUTRIN XL) 300 mg 24 hr tablet Take 1 tablet by mouth once daily. methylphenidate ER 36 mg tablet Take 2 tablets by mouth once daily for 30 days. fluticasone (FLONASE) 50 mcg/actuation nasal spray USE 2 SPRAYS IN EACH NOSTRIL ONCE DAILY. RINSE MOUTH AFTER USE. loratadine (CLARITIN) 10 mg tablet Take 1 tablet by mouth once daily. No current facility-administered medications on file prior to visit. Social History Social History Tobacco Use Smoking status: Never Smokeless tobacco: Never Substance Use Topics Alcohol use: Yes Comment: rare Drug use: No Review of Symptoms REVIEW OF SYSTEMS See HPI, otherwise negative EXAM: BP 116/78 (BP Site: Left Arm, BP Position: Sitting, BP Cuff Size: Regular Adult) Pulse 102 Resp 16 Ht 171 cm (5' 7.32) Wt 84.9 kg (187 lb 3.2 oz) LMP 04/04/2021 SpO2 97% BMI 29.04 kg/m General Appearance: Well appearing, alert, in no acute distress, well-hydrated, well nourished.. Head: Normocephalic, no masses, lesions, tenderness or abnormalities. Eyes: Anicteric sclera. Pupils are equally round and reactive to light. Extraocular movements are intact. . Ears: External ears normal, canals clear. Nose/Sinuses: Nares normal, septum midline, mucosa normal, no drainage or sinus tenderness. Oropharynx: Lips, mucosa, and tongue normal, teeth and gums normal, oropharynx normal. Neck: Supple, no adenopathy; thyroid symmetric, normal size, no bruits. Lungs: Lungs clear to auscultation. No wheezing, rhonchi, rales.. Heart: RRR without murmur, gallop, or rubs. No ectopy. Abdomen: Normal abdominal exam, Abdomen soft, non-tender. Bowel sounds normal. No masses, organomegaly. Extremities: No deformities, edema, skin discoloration, clubbing or cyanosis. Good capillary refill. . Musculoskeletal: No joint swelling, deformity, or tenderness. Peripheral Pulses: Normal. Neurologic: Gait normal. Reflexes normal and symmetric. Sensation grossly intact.. Lymph Nodes: No cervical lymphadenopathy and No supraclavicular lymphadenopathy. Psychiatric: pleasant, cooperative. Health Maintenance List HEPATITIS B(1 of 3 - 3-dose series) Never done HEPATITIS C SCREENING Never done HIV SCREENING Never done HPV TESTING Never done PAP TESTING due on 10/05/2017 DTAP,TDAP,TD(8 - Td or Tdap) due on 11/28/2022 INFLUENZA Completed COVID-19 VACCINE Completed Data reviewed Previous records, office notes ASSESSMENT/PLAN: 1. Well adult exam - ICD9: V70.0, ICD10: Z00.00 (primary diagnosis) - Counseled on healthy diet and regular exercise - Calcium intake with supplements or by diet of 1000 mg/day for under 50, 2969-6723 mg/day for 50+ - Follow up for annual exam in one year - CBC - COMP METABOLIC PANEL - TSH BLD - T3 BLD - T4 FREE/FREE THYROX - VITAMIN D 25 HYDROXY - TESTOSTERONE, FREE AND TOTAL - ESTROGEN FRACTION BL - HGB A1C - PROGESTERONE BLD - DHEA-S BLD 2. BHUPINDER (generalized anxiety disorder) - ICD9: 300.02, ICD10: F41.1 Continue following with FERNANDA Roblero with psychiatry, continue current medications. - TSH BLD - T3 BLD - T4 FREE/FREE THYROX - VITAMIN D 25 HYDROXY 3. Hirsutism - ICD9: 704.1, ICD10: L68.0 With hirsutism and irregular menstrual cycle, concern for PCOS. Does see [employer] tomorrow. - CBC - COMP METABOLIC PANEL - TSH BLD - T3 BLD - T4 FREE/FREE THYROX - VITAMIN D 25 HYDROXY - TESTOSTERONE, FREE AND TOTAL - ESTROGEN FRACTION BL - HGB A1C - PROGESTERONE BLD - DHEA-S BLD 4. Irregular menstrual cycle - ICD9: 626.4, ICD10: N92.6 With hirsutism and irregular menstrual cycle, concern for PCOS. Does see [employer] tomorrow. - CBC - COMP METABOLIC PANEL - TSH BLD - T3 BLD - T4 FREE/FREE THYROX - VITAMIN D 25 HYDROXY - TESTOSTERONE, FREE AND TOTAL - ESTROGEN FRACTION BL - HGB A1C - PROGESTERONE BLD - DHEA-S BLD 5. Screening for lipid disorders - ICD9: V77.91, ICD10: Z13.220 - LIPID PANEL, NONFASTING 6. Acute pain of left shoulder - ICD9: 719.41, ICD10: M25.512 - XR CERV OTHER 4V AP/LAT/OBL - NAPROXEN 500 MG TABLET 7. Cervical radiculopathy - ICD9: 723.4, ICD10: M54.12 - XR CERV OTHER 4V AP/LAT/OBL - NAPROXEN 500 MG TABLET 8. Screening for diabetes mellitus - ICD9: V77.1, ICD10: Z13.1 - CBC - COMP METABOLIC PANEL - HGB A1C Kacey Dukes APRN.INSURANCE BILLER documented in this encounter [facility] 03-31-2022 History of Presen t illness Narrative Images from the original note were not included. PSYC FOLLOW UP - PSYCHIATRIC PROGRESS NOTE DIAGNOSIS: ADHD, combined type Generalized Anxiety Disorder MDD, recurrent, moderate GAF: -80-71 If symptoms are present, they are transient and expectable reactions to psychosocial stressors TREATMENT PLAN: Continue Concerta, Prozac, and Wellbutrin at the same dose. Continue individual psychotherapy. Consider transfer of care back to PCP if patient is doing well on the current combination of medications at the next appointment. Follow up in 3 months. The effects and side effects of all the medications were reviewed in detail with the patient. She is in agreement with the treatment plan. She is aware to reach out with any questions, concerns, or worsening of symptoms prior to the next appointment. Patient denies any involuntary movement related side effects currently. PDMP report was reviewed and found to be appropriate without any signs of misuse or diversion. CC: Follow up regarding anxiety and ADHD HPI: Nadine Disla is a 36 year old Female with a history of BHUPINDER, MDD, and ADHD presenting today for follow-up. Date of last visit: 01/27/2022 Plan from last visit: Increase Methylphenidate to target her ADHD symptoms. Increase Prozac to help with her anxiety. Continue Wellbutrin at the same dose. Continue individual psychotherapy. Follow up in 4 to 6 weeks. Today Renu shares that her last semester went really well. 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 She did well due to setting boundaries and the current psychiatric medications. She has noticed improvement in her symptoms with the increase in Concerta. It has helped for her to take the Prozac in the evening. She still has anxiety but has been working on managing her ruminations. Her periods are getting more regulated. They are occurring every 4 weeks again which is closer to her menstrual cycle prior to starting anti-depressants. 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 Her appetite is low and partially she attributes this to her lack of motivation to cook. She buys a lot of freezer meals. She has been supplementing with ensure to help in getting adequate calories. Interval Progress: Improved Risks and benefits of the medication, including any black box warnings, were discussed with the patient. Social History: See HPI PATIENT DATA: Generalized Anxiety Disorder Scale (BHUPINDER-7) BHUPINDER - 7 SCORES 12/23/2021 01/27/2022 03/24/2022 BHUPINDER-7 Score 5 7 7 (0-4) minimal anxiety, (5-9) mild anxiety, (10-14) moderate anxiety, (15-21) severe anxiety Patient Health Questionnaire (PHQ-9) PHQ-9 12/23/2021 01/20/2022 03/24/2022 Score 4 10 8 (0-4) minimal depression, (5-9) mild depression, (10-14) moderate depression, (15-19) moderately severe depression, (20-27) severe depression ROS: General: Negative for fever, malaise, unintentional weight loss HEENT: Negative for recent changes in vision or hearing, no nasal drainage Respiratory: Negative for cough, wheezing or SOB Cardiovascular: Negative for chest pain GI: Negative for nausea, vomiting, change in bowel habits MUSCULOSKELETAL: Negative for acute back or joint pain SKIN: Negative for rash NEURO: Negative for headaches, seizures, focal neurological deficits All other systems negative. VITAL SIGNS: BP 126/78 (03/31/22 1003) Temp Pulse 100 (03/31/22 1003) Resp SpO2 MENTAL STATUS EXAMINATION: Appearance: Appropriately groomed, appears stated age Behavior: Appropriately engaged Psychomotor: No psychomotor agitation Cognition Level of Consciousness: Awake and alert. No fluctuation in wakefulness. Orientation: Grossly oriented Memory: Intact Attention/Concentration: Good Fund of Knowledge: Able to demonstrate an awareness of current events. Mood: Euthymic Affect: Congruent to mood Speech/Language: Appropriate tone, prosody, garfield, phonetics, and syntax Thought Form: Goal-directed. No loosening of associations. Thought Content: No delusions noted or endorsed. Perceptual Disturbances: Did not appear to respond to auditory stimuli. Safety: Suicidal Ideations: No suicidal ideation, intent or plan. Homicidal Ideations: No homicidal ideation, intent or plan. Insight: Appropriate Judgment: Appropriate I spent a total of 28 minutes on the date of the service which included preparing to see the patient, [id number] patient care, completing clinical documentation, and counseling and educating the patient/family/caregiver, ordering medications/labs. Annika Larose APRN.[facility] March 31, 2022 10:16 AM This note was partially generated using MtoV voice recognition system. Note was reviewed for accuracy. There may be minor misspellings or grammar miscues with [employer] voice recognition. documented in this encounter [facility] 03-15-2022 Miscellaneous Notes Patient has been identified by name and date of : Yes Requested Prescriptions Pending Prescriptions Disp Refills FLUoxetine (PROZAC) 20 mg capsule 90 capsule 1 Sig: Take 3 capsules by mouth once daily. methylphenidate ER 36 mg tablet 60 tablet 0 Sig: Take 2 tablets by mouth once daily for 30 days. RX INSTRUCTIONS: Patient aware RX will be sent to pharmacy. No need to notify patient. Follow up 03/31/2022. Jessica Noble LPN documented in this encounter [facility] 02-09-2022 Miscellaneous Notes Patient has been identified by name and date of : Yes Pharmacy phones for refill(s): Requested Prescriptions Pending Prescriptions Disp Refills fluticasone (FLONASE) 50 mcg/actuation nasal spray [Pharmacy Med Name: FLUTICASONE PROP 50 MCG SPRAY] 16 mL 1 Sig: USE 2 SPRAYS IN EACH NOSTRIL ONCE DAILY. RINSE MOUTH AFTER USE. Date of last office visit in primary care: 06/12/21 Please advise. Thank you. Kat Barraza LPN documented in this encounter [facility] 01-28-2022 Miscellaneous Notes Dosage increase to 60 mg as of 01/27/22 documented in this encounter [facility] 01-27-2022 Instructions Annika Larose APRN.[facility]A - 01/27/2022 9:28 PM EDT Pavan Mccoy, It was good to talk with you today. Below is a summary of the plan that we discussed during your appointment for reference. Of course, if you have any questions or concerns do not hesitate to reach out to me via a message or call. Annika Wesley APRN.[facility] PLAN AND FOLLOW UP: YOU SHOULD SEEK IMMEDIATE MEDICAL ATTENTION AT THE NEAREST EMERGENCY DEPARTMENT OR BY CALLING 911, IF ANY OF THE FOLLOWING OCCURS: - New or worsening thoughts of harming yourself (suicidal thoughts) or others (homicidal thoughts) - Not feeling safe at home or worrying about your ability to remain safe at home If you are having thoughts of harming yourself or others, then you can: - Call the National Suicide Hotline at 6-308-RUXANGJ ( ) or 1-690-082-TALK (4581) - Text 4HOPE to 349276 Medication Update: Methylphenidate ER 72 mg - take 1 capsule once every morning. Prozac 20 mg - take 3 capsules once daily. Continue Wellbutrin at the same dose. Next appointment: --Schedule in 4 to 6 weeks or sooner if needed -- You may call the department appointment line at [phone] to schedule your appointment. -- Please call my nurse Jessica at [phone] or send me a message in [employer] in[employer] with any questions or concerns between appointments. documented in this encounter [facility] 01-27-2022 History of Presen t illness Narrative Images from the original note were not included. PSYC FOLLOW UP - PSYCHIATRIC PROGRESS NOTE DIAGNOSIS: ADHD, combined type Generalized Anxiety Disorder MDD, recurrent, moderate GAF: -70-61 Some mild symptoms or some difficulty in social, occupational, or school functioning, but generally functioning pretty well. TREATMENT PLAN: Increase Methylphenidate to target her ADHD symptoms. Increase Prozac to help with her anxiety. Continue Wellbutrin at the same dose. Continue individual psychotherapy. Follow up in 4 to 6 weeks. Medication Update: Methylphenidate ER 72 mg - take 1 capsule once every morning. Prozac 20 mg - take 3 capsules once daily. Continue Wellbutrin at the same dose. The effects and side effects of all the medications were reviewed in detail with the patient. She is in agreement with the treatment plan. She is aware to reach out with any questions, concerns, or worsening of symptoms prior to the next appointment. Patient denies any involuntary movement related side effects currently. PDMP report was reviewed and found to be appropriate without any signs of misuse or diversion. CC: Follow up regarding anxiety and ADHD HPI: Nadine Disla is a 36 year old Female with a history of BHUPINDER, MDD, and ADHD presenting today for follow-up. Date of last visit: 12/23/2021 Plan from last visit: Start methylphenidate 54 mg to target attention difficulties. Consider decreasing Wellbutrin if excessive sweating continues. Continue with individual psychotherapy Follow up in 6 weeks Renu shares that she has been more stressed related to her work. Not as stressed as she was last school year. She has been setting boundaries around how much work she is doing after work hours. She had a panic attack 2 weeks ago. She was at work and had to leave. Experienced chest pain and felt overwhelmed with emotions. This caused her to cry uncontrollably. She has been having a hard time being productive at times on the weekend. She ended up hyper focusing on video games. She felt that she still tends to procrastinate on her work related activities. She is trying to be better at prioritizing. Her sleep is better on the Concerta. She has been able to utilize caffeine with it. Notices that the current dose of Concerta wears off between 3 pm to 5 pm. Her anxiety has increased in the last 2 weeks due to some work related stress. She has been struggling with rumination. Has tolerated the Prozac without any side effects. Willing to try a higher dose of the Prozac. Interval Progress: Slightly improved Risks and benefits of the medication, including any black box warnings, were discussed with the patient. Social History: See HPI PATIENT DATA: Generalized Anxiety Disorder Scale (BHUPINDER-7) BHUPINDER - 7 SCORES 11/24/2021 12/23/2021 01/27/2022 BHUPINDER-7 Score 8 5 7 (0-4) minimal anxiety, (5-9) mild anxiety, (10-14) moderate anxiety, (15-21) severe anxiety Patient Health Questionnaire (PHQ-9) PHQ-9 11/24/2021 12/23/2021 01/20/2022 Score 9 4 10 (0-4) minimal depression, (5-9) mild depression, (10-14) moderate depression, (15-19) moderately severe depression, (20-27) severe depression ROS: General: Negative for fever, malaise, unintentional weight loss HEENT: Negative for recent changes in vision or hearing, no nasal drainage Respiratory: Negative for cough, wheezing or SOB Cardiovascular: Negative for chest pain GI: Negative for nausea, vomiting, change in bowel habits MUSCULOSKELETAL: Negative for acute back or joint pain SKIN: Negative for rash NEURO: Negative for headaches, seizures, focal neurological deficits All other systems negative. VITAL SIGNS: BP 128/68 (01/27/22 1457) Temp Pulse 80 (01/27/22 1457) Resp SpO2 MENTAL STATUS EXAMINATION: Appearance: Appropriately groomed, appears stated age Behavior: Appropriately engaged Psychomotor: No psychomotor agitation Cognition Level of Consciousness: Awake and alert. No fluctuation in wakefulness. Orientation: Grossly oriented Memory: Intact Attention/Concentration: Good Fund of Knowledge: Able to demonstrate an awareness of current events. Mood: Anxious, sad Affect: congruent to mood Speech/Language: Appropriate tone, prosody, garfield, phonetics, and syntax Thought Form: Goal-directed. No loosening of associations. Thought Content: No delusions noted or endorsed. Perceptual Disturbances: Did not appear to respond to auditory stimuli. Safety: Suicidal Ideations: No suicidal ideation, intent or plan. Homicidal Ideations: No homicidal ideation, intent or plan. Insight: Appropriate Judgment: Appropriate I spent a total of 28 minutes on the date of the service which included preparing to see the patient, [id number] patient care, completing clinical documentation, and counseling and educating the patient/family/caregiver, ordering medications/labs. Annika Larose APRN.CNP January 27, 2022 2:59 PM This note was partially generated using MtoV voice recognition system. Note was reviewed for accuracy. There may be minor misspellings or grammar miscues with MtoV voice recognition. documented in this encounter [facility] 12-24-2021 Instructions Annika Larose APRN.CNP - 12/24/2021 12:10 AM EDT Pavan Mccoy, It was good to talk with you. Below is a summary of the plan that we discussed during your appointment for reference. Of course, if you have any questions or concerns do not hesitate to reach out to me via a message or call. Annika Wesley APRN.CNP PLAN AND FOLLOW UP: YOU SHOULD SEEK IMMEDIATE MEDICAL ATTENTION AT THE NEAREST EMERGENCY DEPARTMENT OR BY CALLING 911, IF ANY OF THE FOLLOWING OCCURS: - New or worsening thoughts of harming yourself (suicidal thoughts) or others (homicidal thoughts) - Not feeling safe at home or worrying about your ability to remain safe at home If you are having thoughts of harming yourself or others, then you can: - Call the National Suicide Hotline at 8-941-LBUFKLS ( ) or 6-610-095-TALK (3854) - Text 1XHYX to 519325 Medication Update: Start methylphenidate 54 mg- Take 1 tablet by mouth once a day 2. Continue Prozac and Wellbutrin at same dose Next appointment: --Schedule in 6 weeks or sooner if needed -- You may call the department appointment line at [phone] to schedule your appointment. -- Please call my nurse Jessica at [phone] or send me a message in [employer] with any questions or concerns between appointments. documented in this encounter [facility] 12-23-2021 History of Presen t illness Narrative Images from the original note were not included. PSYC FOLLOW UP - PSYCHIATRIC PROGRESS NOTE DIAGNOSIS: ADHD, combined type Generalized Anxiety Disorder MDD, recurrent, moderate GAF: -70-61 Some mild symptoms or some difficulty in social, occupational, or school functioning, but generally functioning pretty well. TREATMENT PLAN: Start methylphenidate 54 mg to target attention difficulties. Consider decreasing Wellbutrin if excessive sweating continues. Continue with individual psychotherapy Follow up in 6 weeks Medication Update: Start methylphenidate 54 mg- Take 1 tablet by mouth once a day 2. Continue Prozac and Wellbutrin at same dose The effects and side effects of all the medications were reviewed in detail with the patient. She is in agreement with the treatment plan. She is aware to reach out with any questions, concerns, or worsening of symptoms prior to the next appointment. Patient denies any involuntary movement related side effects currently. PDMP report was reviewed and found to be appropriate without any signs of misuse or diversion. CC: Follow up regarding anxiety and ADHD HPI: Nadine Disla is a 36 year old Female with a history of BHUPINDER, MDD, and ADHD presenting today for follow-up. Date of last visit: 11/25/2021 Plan from last visit: Increase Prozac to 40 mg to address her anxiety symptoms after 1 week when patient completes her menstrual cycle. Increase Methylphenidate to help with her ADHD symptoms. Continue Wellbutrin at the same dose. Encouraged patient to incorporate more exercise into her routine in the form of cardio, strength, and yoga. Continue individual psychotherapy. Follow up in 4 weeks. 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 She is making sure she is taking breaks. This has helped her with her prioritization with her obligations. 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 We discussed discontinuing the Wellbutrin if sweating persists. She reports good sleep and appetite. She still is in therapy and is enjoying working with her current therapist. We discussed increasing the Concerta to help with her ADHD symptoms and she is agreeable to increasing Concerta. Risks and benefits of the medication, including any black box warnings, were discussed with the patient. Social History: See HPI PATIENT DATA: Generalized Anxiety Disorder Scale (BHUPINDER-7) BHUPINDER - 7 SCORES 10/22/2021 11/24/2021 12/23/2021 BHUPINDER-7 Score 4 8 5 (0-4) minimal anxiety, (5-9) mild anxiety, (10-14) moderate anxiety, (15-21) severe anxiety Patient Health Questionnaire (PHQ-9) PHQ-9 10/21/2021 11/24/2021 12/23/2021 Score 7 9 4 (0-4) minimal depression, (5-9) mild depression, (10-14) moderate depression, (15-19) moderately severe depression, (20-27) severe depression ROS: General: Negative for fever, malaise, unintentional weight loss HEENT: Negative for recent changes in vision or hearing, no nasal drainage Respiratory: Negative for cough, wheezing or SOB Cardiovascular: Negative for chest pain GI: Negative for nausea, vomiting, change in bowel habits MUSCULOSKELETAL: Negative for acute back or joint pain SKIN: Negative for rash NEURO: Negative for headaches, seizures, focal neurological deficits All other systems negative. VITAL SIGNS: BP 132/66 (12/23/21 1455) Temp Pulse 78 (12/23/21 1455) Resp SpO2 MENTAL STATUS EXAMINATION: Appearance: Appropriately groomed, appears stated age Behavior: Appropriately engaged Psychomotor: Hyperactive Cognition Level of Consciousness: Awake and alert. No fluctuation in wakefulness. Orientation: Grossly oriented Memory: Intact Attention/Concentration: Good Fund of Knowledge: Able to demonstrate an awareness of current events. Mood: Pleasant, anxious Affect: Full Speech/Language: Appropriate tone, prosody, garfield, phonetics, and syntax Thought Form: Goal-directed. No loosening of associations. Thought Content: No delusions noted or endorsed. Perceptual Disturbances: Did not appear to respond to auditory stimuli. Safety: Suicidal Ideations: No suicidal ideation, intent or plan. Homicidal Ideations: No homicidal ideation, intent or plan. Insight: Appropriate Judgment: Appropriate I spent a total of 28 minutes on the date of the service which included preparing to see the patient, [id number] patient care, completing clinical documentation, and counseling and educating the patient/family/caregiver, ordering medications/labs. Annika Larose APRN.CNP December 23, 2021 2:56 PM This note was partially generated using MtoV voice recognition system. Note was reviewed for accuracy. There may be minor misspellings or grammar miscues with MtoV voice recognition. Associated attestation - Annika Larose APRN.CNP - 12/30/2021 10:26 PM EDT IAnnika APRN.CNP, personally performed the services described in this documentation. All medical record entries made by the [employer] student were at my direction and in my presence. I have reviewed the chart and discharge instructions (if applicable) and agree that the record reflects my personal performance and is accurate and complete. Annika Larose APRN.CNP December 30, 2021 10:26 PM documented in this encounter [facility] 12-23-2021 Miscellaneous Notes 1 month supply sent 11/25/21 with 1 refill ordered documented in this encounter [facility] 10-19-2021 Miscellaneous Notes Patient phones requesting refills as follows: Pending Prescriptions Disp Refills FLUTICASONE PROPIONATE 50 MCG/ACTUATION NASAL SPRAY,SUSPENSION 16 mL 1 Sig: USE 2 SPRAYS IN EACH NOSTRIL ONCE DAILY. RINSE MOUTH AFTER USE. JONNATHAN: Yes JULIEN-06/12/21 Labs-01/12/21 NOV-none Please review and advise. Brenda Mattson LPN documented in this encounter [facility] 09-24-2021 Miscellaneous Notes Patient has been identified by name and date of : Yes Pharmacy phones for refill(s): Pending Prescriptions Disp Refills FLUTICASONE PROPIONATE 50 MCG/ACTUATION NASAL SPRAY,SUSPENSION 16 mL Sig: USE 2 SPRAYS IN EACH NOSTRIL ONCE DAILY. RINSE MOUTH AFTER USE. JONNATHAN: Yes Date of last office visit in primary care: 06/12/21 Last 2 Encounter Wt Readings: Date: Wt: 09/24/2021 83.5 kg (184 lb) 09/02/2021 82.4 kg (181 lb 9.6 oz) Previous labs/tests for medication: Not applicable Please advise. Thank you. Soo Story LPN documented in this encounter [facility] 09-24-2021 Carlita Larose APRN.[facility] - 09/24/2021 11:47 AM EDT Pavan Mccoy, It was good to talk with you today. Below is a summary of the plan that we discussed during your appointment for reference. Of course, if you have any questions or concerns do not hesitate to reach out to me via a message or call. Lupillo, Annika Larose APRN.[facility] PLAN AND FOLLOW UP: YOU SHOULD SEEK IMMEDIATE MEDICAL ATTENTION AT THE NEAREST EMERGENCY DEPARTMENT OR BY CALLING 911, IF ANY OF THE FOLLOWING OCCURS: - New or worsening thoughts of harming yourself (suicidal thoughts) or others (homicidal thoughts) - Not feeling safe at home or worrying about your ability to remain safe at home If you are having thoughts of harming yourself or others, then you can: - Call the National Suicide Hotline at 9-301-DGYIBEO ( ) or 7-989-271-TALK (9746) - Text 1EOPE to 281062 Medication Update: 1. Stop Vyvanse 2. Concerta 27 mg XR - take 1 tablet once every morning. 3. Continue Wellbutrin and Zoloft at the same dose. Other: Please reach out if you have not gotten your period in 2 weeks. Next appointment: --Schedule in 4 weeks or sooner if needed -- You may call the department appointment line at [phone] to schedule your appointment. -- Please call my nurse Jessica at [phone] or send me a message in [employer] with any questions or concerns between appointments. documented in this encounter [facility] 09-24-2021 History of Presen t illness Narrative Images from the original note were not included. PSYC FOLLOW UP - PSYCHIATRIC PROGRESS NOTE DIAGNOSIS: 1. ADHD, combined typed 2. Generalized Anxiety Disorder 3. MDD, recurrent, moderate GAF: -60-51 Moderate symptoms or moderate difficulty in social, occupational or school functioning. TREATMENT PLAN: 1. Discontinue Vyvanse due to lack of efficacy. 2. Start Concerta to help with ADHD symptoms. 3. Continue Zoloft at the same dose. Monitor the impact of this medication on her menstrual cycle. 4. Consider switching Zoloft to Prozac which she has tolerated well in the past. 5. Continue Wellbutrin at the same dose to address her depressive symptoms. 6. Continue individual psychotherapy with her provider. 7. Follow up in 4 to 6 weeks. Medication Update: 1. Stop Vyvanse 2. Concerta 27 mg XR - take 1 tablet once every morning. 3. Continue Wellbutrin and Zoloft at the same dose. The effects and side effects of all the medications were reviewed in detail with the patient. She is in agreement with the treatment plan. She is aware to reach out with any questions, concerns, or worsening of symptoms prior to the next appointment. PDMP report was reviewed and found to be appropriate without any signs of misuse or diversion. CC: Follow up regarding ADHD and anxiety. HPI: Nadine Disla is a 36 year old Female with a history of ADHD, BHUPINDER, and MDD presenting today for follow-up. Date of last visit: 08/13/2021 Plan from last visit: 1. Increase Zoloft to address her feelings of anxiety. 2. Continue with Wellbutrin and Vyvanse at the same dose. 3. Consider lowering the Vyvanse if her focus and concentration improves with improvement in her anxiety due to the decreased appetite side effect related to Vyvanse. 4. Encouraged patient to be more mindful and consistent in eating. 5. Continue individual psychotherapy with her current provider. 6. Follow-up in 4 to 6 weeks. Today Renu shares, Stress levels have been down significantly. School is out and it is now summer. Recently attended [employer] convention. Ruminated over it after on how she did and what she could have done better. She states this was good to help her confirm the anxiety was still present even though it is summer. Feels it went well overall. Periods have been irregular. Not currently taking control. 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 Continue to monitor prior to increasing Zoloft. Discussed switching to Prozac which she has tolerated in the past. Patient unsure of the Prozac dose that she took in the past. Appetite is better Sometimes forgets to take Vyvanse, will not take it later in the day so will eat if she feels hungry that day. Does not think that Vyvanse has been helpful in addressing her ADHD symptoms well. Unable to tolerate Adderall due to depressive symptoms. Discussed trying Concerta instead. Interval Progress: Slightly improved Risks and benefits of the medication, including any black box warnings, were discussed with the patient. Social History: See HPI PATIENT DATA: Generalized Anxiety Disorder Scale (BHUPINDER-7) BHUPINDER - 7 SCORES 07/13/2021 08/12/2021 09/22/2021 BHUPINDER-7 Score 10 5 7 (0-4) minimal anxiety, (5-9) mild anxiety, (10-14) moderate anxiety, (15-21) severe anxiety Patient Health Questionnaire (PHQ-9) PHQ-9 07/13/2021 08/12/2021 09/22/2021 Score 16 10 9 (0-4) minimal depression, (5-9) mild depression, (10-14) moderate depression, (15-19) moderately severe depression, (20-27) severe depression ROS: General: Negative for fever, malaise, unintentional weight loss HEENT: Negative for recent changes in vision or hearing, no nasal drainage Respiratory: Negative for cough, wheezing or SOB Cardiovascular: Negative for chest pain GI: Negative for nausea, vomiting, change in bowel habits MUSCULOSKELETAL: Negative for acute back or joint pain SKIN: Negative for rash NEURO: Negative for headaches, seizures, focal neurological deficits All other systems negative. VITAL SIGNS: BP 102/60 (09/24/21 1100) Temp Pulse 72 (09/24/21 1100) Resp SpO2 MENTAL STATUS EXAMINATION: Appearance: Appropriately groomed, appears stated age Behavior: Appropriately engaged Psychomotor: No psychomotor agitation Cognition Level of Consciousness: Awake and alert. No fluctuation in wakefulness. Orientation: Grossly oriented Memory: Intact Attention/Concentration: Good Fund of Knowledge: Able to demonstrate an awareness of current events. Mood: Anxious Affect: Congruent to mood Speech/Language: Appropriate tone, prosody, garfield, phonetics, and syntax Thought Form: Goal-directed. No loosening of associations. Thought Content: No delusions noted or endorsed. Perceptual Disturbances: Did not appear to respond to auditory stimuli. Safety: Suicidal Ideations: No suicidal ideation, intent or plan. Homicidal Ideations: No homicidal ideation, intent or plan. Insight: Appropriate Judgment: Appropriate I spent a total of 28 minutes on the date of the service which included preparing to see the patient, [id number] patient care, completing clinical documentation, and counseling and educating the patient/family/caregiver, ordering medications/labs. Annika Larose APRN.CNP September 24, 2021 11:06 AM documented in this encounter [facility] 09-09-2021 Miscellaneous Notes Request denied. 1 month supply was sent on 08/13/21 with 1 refill ordered. documented in this encounter [facility] 09-08-2021 Miscellaneous Notes Patient last visit with PCP 06/12/21 Follow up appointment scheduled none Joyce Sanford Ma documented in this encounter [facility] 09-02-2021 Instructions Tia Cr APRN.INSURANCE BILLER - 09/02/2021 11:18 AM EDT Images from the original note were not included. Sore Throat (Pharyngitis) What is a sore throat? When your child complains that his throat is sore, it is usually a symptom of an illness, such as a cold. When you look at the throat with a light, it will be bright red. Children too young to talk may have a sore throat if they refuse to eat or begin to cry during feedings. What is the cause? Most sore throats are caused by viruses and are part of a cold. About 10% of sore throats are caused by strep bacteria. Tonsillitis (temporary swelling and redness of the tonsils) usually occurs with any throat infection, viral or bacterial. Swollen tonsils do not have any special meaning. Children who sleep with their mouths open often wake up in the morning with a dry mouth and sore throat. It feels better within an hour of having something to drink. Use a humidifier to help prevent this problem. Children with a postnasal drip from draining sinuses often have a sore throat from the secretions or from clearing their throat often. How long does it last? Sore throats caused by viral illnesses usually last 4 or 5 days. A sore throat caused by Strep will start feeling better soon after being treated with penicillin or other antibiotics. After a child has been taking medicine for strep for 24 hours, strep is no longer contagious. Your child can then return to day care or school if his fever is gone and he's feeling better. Your child must take all of the antibiotic even if he is feeling better. If your child doesn't take all of the medicine, the sore throat could come back. Why do a throat culture? A throat culture or rapid strep test is the only way to know whether a sore throat is caused by strep bacteria or a virus. Without treatment, a strep throat has a small risk for acute rheumatic fever. Rheumatic fever is a complication of strep infections that can lead to permanent damage to the valves of the heart. The throat culture is not urgent, however, since treating a strep infection within 7 days of when it begins can prevent rheumatic fever. A throat culture is not necessary if your child's sore throat is part of a cold AND the main symptom is croup, hoarseness, or a cough, unless the sore throat lasts more than 5 days. Rapid strep tests are helpful only when their results are positive. If they are negative, a throat culture should be done to brick picker the 10% of strep infections that the rapid tests miss. Avoid rapid strep tests performed in shopping malls or at home because they tend to be inaccurate. How can I take care of my child? Throat pain relief Children over age 1 can sip warm chicken broth or apple juice. Children over age 4 can suck on hard candy (butterscotch seems to be a soothing flavor) or lollipops. Children over 8 years old can also gargle with warm salt water (1/4 teaspoon of salt per glass). Diet A sore throat can make some foods hard to swallow. Provide your child with a diet of soft foods for a few days if he prefers it. Cold drinks and milkshakes are especially good. Do not give your child salty or spicy foods or citrus fruits. Fever and pain relief Give your child acetaminophen (Tylenol) or ibuprofen (Advil) for the sore throat or for a fever over 102 F (39 C). Common mistakes in treating sore throat Avoid expensive throat sprays or throat lozenges. Not only are they no more effective than hard candy, but many also contain an ingredient (benzocaine) that may cause an allergic reaction. Do not use leftover antibiotics from siblings or friends. Leftover antibiotics should be thrown out because they deteriorate faster than other drugs. Also, antibiotics help only strep throats. They have no effect on viruses, and they can cause harm. They also make it difficult to find out what is wrong if your child becomes sicker. Don't allow anyone to smoke around children. When should I call my child's healthcare provider? Call IMMEDIATELY if: Your child is drooling or having great difficulty swallowing. Your child is having trouble breathing. Your child is acting very sick. Call during office hours: To make an appointment for a throat culture for any other child who has had a sore throat for more than 48 hours (especially if the child also has a fever without any symptoms of a cold). Published by [employer]. This content is reviewed periodically and is subject to change as new health information becomes available. The information is intended to inform and educate and is not a replacement for medical evaluation, advice, diagnosis or treatment by a healthcare professional. Written by Khang Browne M.D., author of Your Child's Health, [employer]. Copyright 2007 [employer] and/or one of its subsidiaries. All Rights Reserved. Copyright [employer] 2008 Pediatric Advisor documented in this encounter [facility] 09-02-2021 History of Presen t illness Narrative CC: Patient presents with: Sore Throat: ST and REID x 1 week HPI: Nadine Disla is a 36 year old female who presents to the office with complaint of sore throat for a week. Symptoms are worsening Associated symptoms includes headache just yesterday. Denies body aches, fever, nausea, vomiting and diarrhea. Treatments tried include nothing so far. with no relief of symptoms. Sick contacts: unknown. History of asthma, frequent episodes of bronchitis, chronic bronchitis, bronchiectasis or COPD: No Smoker: No Seasonal/environmental allergies: No The ROS is otherwise negative. The patient's pmh, medications, allergies, and past visits are reviewed. PHYSICAL EXAM: BP 120/82 Pulse 98 Temp 37 C (98.6 F) (Tympanic) Resp 16 Wt 82.4 kg (181 lb 9.6 oz) LMP 04/04/2021 SpO2 98% BMI 28.87 kg/m General appearance: alert, cooperative, pleasant, in no acute distress Head: Normocephalic Eyes: EOM's intact, conjunctiva pink and moist, no icterus, sclera white, non-injected Ears: Right ear: External ear/canal- Normal, TM - clear with good landmarks. Left ear: External ear/canal- Normal, TM - clear with good landmarks Nose: clear. Oropharynx:mild erythema, without exudates present} Heart: Negative. RRR without obvious murmur, gallop, or rubs. No ectopy. Lungs: clear to auscultation, without rales or wheeze, good air exchange PAST MEDICAL HISTORY Diagnosis Date Depression PAST SURGICAL HISTORY Procedure Laterality Date wisdom teeth extraction 2003 general, okay with anesthesia ALLERGIES Environmental [Seasonal Allergies] MEDICATIONS sertraline (ZOLOFT) 100 mg tablet Take 1 tablet by mouth once daily. lisdexamfetamine (VYVANSE) 60 mg capsule Take 1 capsule by mouth once daily for 30 days. buPROPion XL (WELLBUTRIN XL) 300 mg 24 hr tablet Take 1 tablet by mouth once daily. loratadine (CLARITIN) 10 mg tablet Take 1 tablet by mouth once daily. FAMILY HISTORY Problem Relation Age of Onset Cancer Mother 58 breast/age 53?/postmenopausal/Brain/Brain/ age 60 (2012)//brain other (brain tumor) Mother None Father Psychiatry Sister anxiety None Maternal Grandmother Heart Maternal Grandfather bypass surgeries None Paternal Grandmother 90 other (CVA) Paternal Grandfather 89 multiple other (lung disease) Paternal Grandfather Social History Tobacco Use Smoking status: Never Smoker Smokeless tobacco: Never Used Substance Use Topics Alcohol use: Yes Comment: rare Drug use: No ASSESSMENT/PLAN: 1. Sore throat - ICD9: 462, ICD10: J02.9 (primary diagnosis) - STREP A MOLECULAR (POC) - negative 2. Cough - ICD9: 786.2, ICD10: R05.9 - COVID WITH FLUA+B, ROUTINE Prescription instructions reviewed with patient as applicable. Flonase daily. Potential red flag symptoms discussed with the patient. Reviewed appropriate action plan to take if red flag symptoms occur. Patient agreeable to treatment plan. Tia Cr APRN.[facility] documented in this encounter [facility] 08-13-2021 Instructions Annika Larose APRN.CNP - 08/13/2021 10:30 AM EDT Pavan Mccoy, It was good to talk with you today. Below is a summary of the plan that we discussed during your appointment for reference. Of course, if you have any questions or concerns do not hesitate to reach out to me via a message or call. Lupillo, Annika Larose APRN.CNP PLAN AND FOLLOW UP: YOU SHOULD SEEK IMMEDIATE MEDICAL ATTENTION AT THE NEAREST EMERGENCY DEPARTMENT OR BY CALLING 911, IF ANY OF THE FOLLOWING OCCURS: - New or worsening thoughts of harming yourself (suicidal thoughts) or others (homicidal thoughts) - Not feeling safe at home or worrying about your ability to remain safe at home If you are having thoughts of harming yourself or others, then you can: - Call the National Suicide Hotline at 9-950-ULZXLPX ( ) or 7-080-482-TALK (2506) - Text 4HOPE to 020423 Medication Update: 1. Zoloft 100 mg take 1 tablet once daily. 2. Continue Wellbutrin and Vyvanse at the same dose. Next appointment: --Schedule in 4 to 6 weeks or sooner if needed -- You may call the department appointment line at [phone] to schedule your appointment. -- Please call my nurse Jessica at [phone] or send me a message in [employer] with any questions or concerns between appointments. documented in this encounter [facility] 08-13-2021 History of Presen t illness Narrative Images from the original note were not included. PSYC FOLLOW UP - PSYCHIATRIC PROGRESS NOTE DIAGNOSIS: 1. Generalized anxiety disorder 2. Major depressive disorder, recurrent, moderate 3. ADHD, combined type GAF: -60-51 Moderate symptoms or moderate difficulty in social, occupational or school functioning. TREATMENT PLAN: 1. Increase Zoloft to address her feelings of anxiety. 2. Continue with Wellbutrin and Vyvanse at the same dose. 3. Consider lowering the Vyvanse if her focus and concentration improves with improvement in her anxiety due to the decreased appetite side effect related to Vyvanse. 4. Encouraged patient to be more mindful and consistent in eating. 5. Continue individual psychotherapy with her current provider. 6. Follow-up in 4 to 6 weeks. Medication Update: 1. Zoloft 100 mg take 1 tablet once daily. 2. Continue Wellbutrin and Vyvanse at the same dose. The effects and side effects of all the medications were reviewed in detail with the patient. She is in agreement with the treatment plan. Her Vyvanse is managed by her primary care team and it was not refilled at this appointment. Patient is aware to reach out with any questions, concerns, or worsening of symptoms prior to the next appointment CC: Follow-up regarding anxiety and mood HPI: Nadine Disla is a 36 year old Female with a history of BHUPINDER, MDD, and ADHD presenting today for follow-up. Date of last visit: 07/15/2021 Plan from last visit: 1. Start Zoloft to address patient's anxiety symptoms. 2. Continue Vyvanse at the same dose currently. Consider gradual decrease once anxiety improves due to patient's concern of decreased appetite. 3. Continue Wellbutrin at the same dose. 4. The importance of consistent nutrition along with medications was reviewed in detail. Discussed different options that patient can incorporate. 5. Continue individual psychotherapy with her current provider. We will collaborate with her therapist. Today Renu shares that she has been better this past month. Her school semester is wrapping up. Most of her stress is related to work. She has been trying to be more mindful of her anxiety. Has noticed that her depression is related more to ruminating anxiety thoughts. She tends to dwell on things that she has done incorrectly. School work is more manageable. She had to hire head swamper to help with her house stuff. She has some feelings of guilt related to asking for help but has been working on accepting help more. Looks forward to her summer break. 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 It is a 5 day convention. He enjoys playing board games. She is excited to take some time to do the things she enjoys that she is not able to do during the school year. Has been taking Zoloft consistently. She denies any side effects from the medication. She continue to struggle with anxiety and is in agreement to try a higher dose of Zoloft. She has been able to sleep better. Her appetite is still low and she is working on being more mindful to eat consistently and nutritionally dense foods. Interval Progress: Slightly improved Risks and benefits of the medication, including any black box warnings, were discussed with the patient. Social History: See HPI PATIENT DATA: Generalized Anxiety Disorder Scale (BHUPINDER-7) BHUPINDER - 7 SCORES 07/13/2021 08/12/2021 BHUPINDER-7 Score 10 5 (0-4) minimal anxiety, (5-9) mild anxiety, (10-14) moderate anxiety, (15-21) severe anxiety Patient Health Questionnaire (PHQ-9) PHQ-9 06/11/2021 07/13/2021 08/12/2021 Score 14 16 10 (0-4) minimal depression, (5-9) mild depression, (10-14) moderate depression, (15-19) moderately severe depression, (20-27) severe depression ROS: General: Negative for fever, malaise, unintentional weight loss HEENT: Negative for recent changes in vision or hearing, no nasal drainage Respiratory: Negative for cough, wheezing or SOB Cardiovascular: Negative for chest pain GI: Negative for nausea, vomiting, change in bowel habits MUSCULOSKELETAL: Negative for acute back or joint pain SKIN: Negative for rash NEURO: Negative for headaches, seizures, focal neurological deficits All other systems negative. VITAL SIGNS: BP 118/58 (08/13/21 0925) Temp Pulse 60 (08/13/21 09) Resp SpO2 MENTAL STATUS EXAMINATION: Appearance: Appropriately groomed, appears stated age Behavior: Appropriately engaged Psychomotor: No psychomotor agitation Cognition Level of Consciousness: Awake and alert. No fluctuation in wakefulness. Orientation: Grossly oriented Memory: Intact Attention/Concentration: Good Fund of Knowledge: Able to demonstrate an awareness of current events. Mood: Anxious Affect: Congruent to mood Speech/Language: Rapid and Appropriate tone, prosody, garfield, phonetics, and syntax Thought Form: Goal-directed. No loosening of associations. Thought Content: No delusions noted or endorsed. Perceptual Disturbances: Did not appear to respond to auditory stimuli. Safety: Suicidal Ideations: No suicidal ideation, intent or plan. Homicidal Ideations: No homicidal ideation, intent or plan. Insight: Appropriate Judgment: Appropriate I spent a total of 38 minutes on the date of the service which included preparing to see the patient, [id number] patient care, completing clinical documentation, and counseling and educating the patient/family/caregiver, ordering medications/labs. Annika Larose APRN.[facility] August 13, 2021 9:30 AM documented in this encounter [facility] 08-10-2021 Miscellaneous Notes PDMP website checked and validated. All prescriptions have been APPROPRIATELY filled. No suspicious activity was identified. 08/10/2021 by Ban Franco APRN.CNP The following approved medication requests have been transmitted electronically. Signed Prescriptions Disp Refills lisdexamfetamine (VYVANSE) 60 mg capsule 30 capsule 0 Sig: Take 1 capsule by mouth once daily for 30 days. UMM Class: C-II JONNATHAN: No Authorizing Provider: BAN FRANCO APRN.CNP Patient has been identified by name and date of : Yes Patient phones for refill(s): Pending Prescriptions Disp Refills LISDEXAMFETAMINE 60 MG CAPSULE 30 capsule 0 Sig: Take 1 capsule by mouth once daily for 30 days. UMM Class: C-II JONNATHAN: No Date of last office visit in primary care: [facility] 06/12/2021 No appointment scheduled Last 2 Encounter Wt Readings: Date: Wt: 07/15/2021 85.3 kg (188 lb) 06/12/2021 85.3 kg (188 lb) Please advise. Thank you. QUINN Burnette documented in this encounter [facility] 07-15-2021 Instructions Annika Larose APRN.CNP - 07/15/2021 9:58 AM EDT Pavan Mccoy, It was good to meet and talk with you today. Below is a summary of the plan that we discussed during your appointment for reference. Of course, if you have any questions or concerns do not hesitate to reach out to me via a message or call. Best, Annika Larose APRN.CNP PLAN AND FOLLOW UP: YOU SHOULD SEEK IMMEDIATE MEDICAL ATTENTION AT THE NEAREST EMERGENCY DEPARTMENT OR BY CALLING 911, IF ANY OF THE FOLLOWING OCCURS: - New or worsening thoughts of harming yourself (suicidal thoughts) or others (homicidal thoughts) - Not feeling safe at home or worrying about your ability to remain safe at home If you are having thoughts of harming yourself or others, then you can: - Call the National Suicide Hotline at 2-546-MQZPAGF ( ) or 4-521-815-TALK (2775) - Text 4HOPE to 806613 Medication Update: -Zoloft 50 mg take half tablet once daily for 7 days, then take 1 tablet once daily after that. -Continue Wellbutrin and Vyvanse at the same dose. -Utilize melatonin 3 mg around 7 PM to help with difficulty falling asleep. Next appointment: August 13 at 9:30 am in person. Please arrive by 9:15 am. -- You may call the department appointment line at [phone] to schedule your appointment. -- Please call my nurse Jessica at [phone] or send me a message in [employer] in[employer] with any questions or concerns between appointments. documented in this encounter [facility] 07-15-2021 History of Presen t illness Narrative Images from the original note were not included. PSYC NEW - PSYCHIATRIC ASSESSMENT Patient was seen for an initial evaluation. All information is from Patient report except when noted. This evaluation is NOT intended for forensic, disability or child custody purposes. AGE: [age] year old RACE: White MARITAL STATUS: Single (never ). Last custodial relationship in 2014. She was engaged and it ended as he was espinosa. She has done therapy to process it. 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 Work is very stressful. Feels that she cares too much. She tends to put more work than her students. Feels that the failure of student is her own failure. Pandemic was very challenging. Happy to be back in the classroom. She is tearful sharing this. REFERRAL SOURCE: PCP - Mary Ann Dukes CHIEF COMPLAINT: We have been working on medications since last year. I was diagnosed with ADHD last year in January . HPI: Today renu comes to see this provider due to concerns with side effects from her medications and struggling to manage her depression and anxiety symptoms. She shares that Adderall caused depression to worsen. Vyvanse was started in February of 2021. It has not been causing depression but has not been helping as much with ADHD symptoms. Has noticed some increase in motivation. She is now taking Vyvanse 60 mg. Wellbutrin was increased to 300 mg XL in April 2020. She is concerned about decreased appetite on the Vyvanse and has lost 20 pounds since January of 2021. Sleep quality is not an issues but falling asleep has been difficult. At times, she has noticed some increase in irritability. She has taken Prozac 20 mg and Celexa 20 mg in the past. She was able to tolerate prozac without any side effects. Did report Celexa initially helping but then she experienced some side effects. She had noticed worsening of her appetite and sleep. Water tasted metallic. She struggles with neck up anxiety. Her therapist shares that patient tends to ruminate, over thinks or thinks obsessively. She obsessively thinks about her performance as a teacher. She struggles with perfectionistic tendencies and tends to spend too much time doing things.She tends to over analyze. Has an intrusive thought wondering if she is good enough? She worries about being in a relationship or even having kids in the future. She has very mild somatic symptoms when she becomes anxious such a chest tightness. Sleep: difficulty falling asleep. Shares that she does not struggle with interruptions with her sleep. Overall has good sleep quality. Does not oversleep. Interest: Interest Guilt: high. Has guilt related to not being able to be in a relationship currently. She finds herself being overly conscious. Feels guilty that she is not where she would like to be at this point in her life. Energy: fluctuates with mood or stress. She does notice some decrease in energy. Concentration: fair. Some improvement with Vyvanse but not significant improvement. Appetite: decreased Psychomotor Activity: psychomotor activity was WNL. Suicide: Passive wish to be . Has noticed some increase in these thoughts in the past month. Phobias: Fish and mice. Memory: Fair, Immediate, Short term. Good prison. Anxiety: high Obsessions: Relationship, Work, perfectionism Compulsions: obsessing and organizing Scott: Denies any symptoms of scott PTSD: The patient denies being expose to or witnessing traumatic events. Self Mutilation: Denies PAST MEDICAL HISTORY Diagnosis Date Depression PAST SURGICAL HISTORY Procedure Laterality Date wisdom teeth extraction 2003 general, okay with anesthesia Current Outpatient Medications Medication Sig Dispense Refill lisdexamfetamine (VYVANSE) 60 mg capsule Take 1 capsule by mouth once daily for 30 days. 30 capsule 0 buPROPion XL (WELLBUTRIN XL) 300 mg 24 hr tablet Take 1 tablet by mouth once daily. 90 tablet 3 loratadine (CLARITIN) 10 mg tablet Take 1 tablet by mouth once daily. 30 Each 11 No current facility-administered medications for this visit. VITAL SIGNS: 07/15/21 0828 BP: 122/80 Pulse: 78 Resp: 14 Weight: 85.3 kg (188 lb) ROS: All other systems negative. PSYCHIATRIC HISTORY: Prior Diagnosis: ADHD and Anxiety Disorder, Depression Prior Provider: No prior psychiatrist Therapist: Followed at [facility] by Izzy Saucedo. Seeing her every 2 weeks. Started working with her since February of 2021. Current Terra Cotta Setter: No Last Hospitalization: Denies hospitalization. ECT: No Previous Discontinued Psychiatric Med Trials: HPI SUBSTANCE USE HISTORY: Nicotine: None Caffeine: 1 caffeine drink a day as it interferes with sleep. Alcohol: No alcohol in the past year. Used to drink once a month prior to that. Marijuana: No history of use or dependence Cocaine: No history of use or dependence Opiods: No history of use or dependence SPIRITUALITY: Church PFS: Nadine Disla is the middle of 3 siblings. Considers her younger sister her best friend. Since the pandemic has pushed away her older sister due to political issues. Gill that her older sister only reaches out to her family if she needs something. She misses hanging out with her nieces and nephews. Close relationship with father. Mother in 2012 due to brain cancer. The patient was born and raised in [place], [place]. She completed College. She is 8 credits away from her masters. She described her childhood as nurturing, loving and supportive. Gill that mother worried a lot and they grew up pretty sheltered. The patient lives alone. Has 3 cats. Service: None Legal: Pt. denied any past legal history FAMILY PSYCHIATRIC HISTORY: Father - Depression Mother - Anxiety Elder Sister - Anxiety Paternal Grandfather - ADHD? PATIENT DATA: Generalized Anxiety Disorder Scale (BHUPINDER-7) BHUPINDER - 7 SCORES 07/13/2021 BHUPINDER-7 Score 10 (0-4) minimal anxiety, (5-9) mild anxiety, (10-14) moderate anxiety, (15-21) severe anxiety Patient Health Questionnaire (PHQ-9) PHQ-9 05/11/2021 06/11/2021 07/13/2021 Score 9 14 16 (0-4) minimal depression, (5-9) mild depression, (10-14) moderate depression, (15-19) moderately severe depression, (20-27) severe depression PROMIS Global Health PROMIS Global Health - (T-Scores - the mean of general population = 50. Five points is a clinically meaningful difference.) 04/02/2021 06/11/2021 07/13/2021 Physical T-Score 47.7 44.9 50.8 Mental T-Score 43.5 36.3 36.3 MENTAL STATUS EXAMINATION: Appearance: Casually dressed Behavior: Behaves appropriately during the encounter Social relatedness: Euthymic Speech/Language: The patient demonstrates appropriate tone, prosody, garfield, phonetics, and syntax Mood: sad Affect: Tearful Orientation: Person, Place, Time and Situation Associations: Intact and linear Hallucinations: None Delusions: None Suicidal Ideation: Thoughts of , but not suicide. Homicidal Ideation: No homicidal ideation, intent or plan. Insight: Appropriate Judgment: Appropriate IMPRESSION: Renu is a 36 year old female who was referred to this provider for evaluation and treatment of her mood, anxiety and ADHD symptoms. She reports a history of anxiety and depression with worsening symptoms in the past month. Engages in more ruminative and obsessive anxiety. Struggles with intrusive thoughts. Even with Vyvanse, struggles to notice overall improvement in her functioning. Does report struggling with decreased appetite and difficulty falling sleep due to current Vyvanse dose. These two factors could have been responsible in worsening her mood and energy level. She may benefit from Zoloft to help with her mood and anxiety. Gradual reduction in Vyvanse dose may be needed once Zoloft helps her mood and anxiety. Along with medications and therapy, it would be helpful for the patient to eat consistently to get adequate nutrition. DIAGNOSIS: PRIMARY: Anxiety Disorder Generalized Anxiety Disorder SECONDARY: Mood Disorder Major Depressive Disorder, Recurrent, Moderate Other : ADHD GAF: -60-51 Moderate symptoms or moderate difficulty in social, occupational or school functioning. PLAN: 1. Start Zoloft to address patient's anxiety symptoms. 2. Continue Vyvanse at the same dose currently. Consider gradual decrease once anxiety improves due to patient's concern of decreased appetite. 3. Continue Wellbutrin at the same dose. 4. The importance of consistent nutrition along with medications was reviewed in detail. Discussed different options that patient can incorporate. 5. Continue individual psychotherapy with her current provider. We will collaborate with her therapist. Medication Update: -Zoloft 50 mg take half tablet once daily for 7 days, then take 1 tablet once daily after that. -Continue Wellbutrin and Vyvanse at the same dose. -Utilize melatonin 3 mg around 7 PM to help with difficulty falling asleep. The effects and side effects of all the medications were reviewed in detail with the patient. She is in agreement with the treatment plan. PDMP report was reviewed and found to be appropriate without any signs of misuse or diversion. Patient is aware to reach out with any questions, concerns, or worsening of symptoms prior to the next appointment. DISPOSITION: Follow up with this provider in 4 weeks. I spent a total of 90 minutes on the date of the service which included preparing to see the patient, [id number] patient care, completing clinical documentation, obtaining and/or reviewing separately obtained history, performing a medically appropriate examination, counseling and educating the patient/family/caregiver, ordering medications, tests, or procedures, communicating with other HCPs (not separately reported), independently interpreting results (not separately reported) and communicating results to the patient/family/caregiver. ADD ON PSYCHOTHERAPY CODE : No SIGNATURE: Annika Larose APRN.CNP PATIENT NAME: Nadine Disla DATE: July 15, 2021 TIME: 8:39 AM PAGER : documented in this encounter [facility] 08-27-2020 Note [facility] Medical Records Department [address] [place] [id number] Discharge Summary 08/27/20 1610 MR#: [id number] Acct: [id number] Name: NADINE DISLA Rep #: [id number] : 1985 35 From: [place] DO PCP: Sam Gomez Status:DIS MARY Location: [place] [address] Providers Date of Admission: 08/26/20 Date of Discharge: 08/27/20 Primary Care Physician: Sam Gomez Reason For Visit: ACUTE HEPATITIS Diagnosis Discharge Diagnosis (1) Hepatitis: Status: Acute Code(s): K75.9 - Inflammatory liver disease, unspecified Plan: 1. Acute hepatitis-type unknown #2 chronic depression Medications at Discharge Home Medications bupropion HCl 300 mg PO DAILY 10/15/19 loratadine [Claritin] 10 mg PO DAILY PRN 08/26/20 ondansetron HCl [Zofran] 4 mg PO Q8H PRN #14 tab 08/26/20 Hospital Course Operations None Procedures None Summary of Care Provided Minutes Spent on Discharge: 30 Hospital Course: This 35-year-old white female was seen in the emergency room with complaints of fevers x8 days and flulike symptoms. She also complained of decreased appetite, she had outpatient lab work done which showed abnormal liver chemistry values, she was scheduled to have repeat blood work done and a liver ultrasound but she came to the ER for further evaluation because she was nervous. Labs obtained in the emergency room included a CBC which showed a slightly low white count at 3.9, CMP was abnormal for a bilirubin of 1.7, AST of 996, ALT of 732, alkaline phosphatase of 188. An ultrasound of the gallbladder was performed which was normal. Patient was uncomfortable with going home and requested overnight admission for IV hydration. On 08/27/2020, patient was seen and examined: On examination she appeared in good health and spirits, she does not appear to be in any distress. Vital signs as documented. Skin warm and dry and without overt rashes. Neck without JVD, thyroid appears normal, trachea is midline, neck is supple. Lungs clear, normal air movement was noted. Heart exam notable for regular rhythm, normal sounds and absence of murmurs, rubs or gallops. Abdomen unremarkable and without evidence of organomegaly, mas ses, or abdominal aortic enlargement, bowel sounds are present in all 4 quadrants, no abdominal tend erness was noted. Extremities nonedematous, no cyanosis was noted, no clubbing was noted. Neuro: Cr anial nerves II through XII are grossly intact, no focal motor deficits were noted, sensation to lig ht touch and pinprick is intact, motor exam 5/5 throughout. Psych: Patient is alert and oriented x3 , she does not appear anxious or depressed, she does not appear agitated. Patient appears stable for discharge home on 08/27/2020. ABG / Lab / Microbiology Data Result Diagrams: 08/27/20 04:54 08/27/20 04:54 Laboratory: Laboratory Results - last 24 hr 08/26/20 08/26/20 08/26/20 15:37 15:37 21:00 WBC RBC Hgb Hct MCV MCH MCHC RDW Std Deviation RDW Coeff of Isabell Plt Count MPV Immature Gran % (Auto) Neut % (Auto) Lymph % (Auto) [place] % (Auto) Eos % (Auto) Baso % (Auto) Absolute Neuts (auto) Absolute Lymphs (auto) Nucleated RBC % PT 13.6 INR 1.1 Sodium Potassium Chloride Carbon Dioxide Anion Gap BUN Creatinine Estim Creat Clear Calc Est GFR (MDRD) Af Amer Est GFR (MDRD) Non-Af BUN/Creatinine Ratio Glucose Calcium Total Bilirubin AST ALT Alkaline Phosphatase Total Protein Albumin Globulin Albumin/Globulin Ratio Urine Color Cristin Urine Clarity Clear Urine pH 6.0 Ur Specific [place] 1.015 Urine Protein 30 H Urine Glucose (UA) Normal Urine Ketones 150 A* Urine Occult Blood 10 H Urine Nitrite Negative Urine Bilirubin 1 H Urine Urobilinogen 4 H Ur Leukocyte Esterase 25 H Urine RBC 0 SEEN Urine WBC 0-5 SEEN Ur Squamous Epith Cells 0-5 SEEN Urine Bacteria 1+ Hyaline Casts 5-10 SEEN Urine Mucus 3+ Acetaminophen Hep Bs Antigen Hep Bs Antibody Hepatitis C Antibody Monoscreen Negative 08/26/20 08/26/20 08/26/20 21:00 21:00 21:00 WBC RBC Hgb Hct MCV MCH MCHC RDW Std Deviation RDW Coeff of Isabell Plt Count MPV Immature Gran % (Auto) Neut % (Auto) Lymph % (Auto) [place] % (Auto) Eos % (Auto) Baso % (Auto) Absolute Neuts (auto) Absolute Lymphs (auto) Nucleated RBC % PT INR Sodium Potassium Chloride Carbon Dioxide Anion Gap BUN Creatinine Estim Creat Clear Calc Est GFR (MDRD) Af Amer Est GFR (MDRD) Non-Af BUN/Creatinine Ratio Glucose Calcium Total Bilirubin AST ALT Alkaline Phosphatase Total Protein Albumin (more content not included)... [facility] 08-25-2020 History of Presen t illness Narrative Radiology Service Progress Note PATIENT NAME: Nadine Disla DATE OF SERVICE: August 25, 2020 TIME: 3:13 PM PATIENT IDENTITY VERIFICATION COMPLETED USING TWO (2) IDENTIFIERS: Name and Date of confirmed by patient verbally. FALL SCREENING: Has the patient had 2 falls in the last year or 1 fall with injury or currently using an Ambulatory Assistive Device (Walker, Cane, Wheelchair, Crutches, etc.)? No PATIENT GENDER DATA: Female. status: : No status: NO. PATIENT RELEVANT IMPLANT DATA REVIEWED: Not Applicable RADIOLOGY DEPARTMENT: General X-ray: Exam(s) Completed: Chest X-Ray PERIPHERAL IV DATA: Not applicable SIGNED BY: RT Dhaval(R) August 25, 2020 3:13 PM documented in this encounter [facility] Evaluation note Diagnosis BHUPINDER (generalized anxiety disorder)- Primary Generalized anxiety disorder Attention deficit disorder (ADD) in adult Major depressive disorder, recurrent episode, moderate (HCC) Major depressive disorder, recurrent episode, moderate [facility] Attention deficit disorder (ADD) in adult [facility] Diagnosis BHUPINDER (generalized anxiety disorder)- Primary Generalized anxiety disorder Major depressive disorder, recurrent episode, moderate (HCC) Major depressive disorder, recurrent episode, moderate Attention deficit hyperactivity disorder (ADHD), combined type [facility] Diagnosis Sore throat- Primary Acute pharyngitis Cough [facility] Diagnosis Recurrent major depression in partial remission (HCC) Major depressive disorder, recurrent episode, in partial or unspecified remission [facility] Diagnosis Attention deficit hyperactivity disorder (ADHD), combined type- Primary BHUPINDER (generalized anxiety disorder) Generalized anxiety disorder Major depressive disorder, recurrent episode, moderate (HCC) Major depressive disorder, recurrent episode, moderate [facility] Diagnosis Amenorrhea, secondary- Primary Absence of menstruation [facility] Diagnosis BHUPINDER (generalized anxiety disorder)- Primary Generalized anxiety disorder Attention deficit hyperactivity disorder (ADHD), combined type Recurrent major depressive disorder, in partial remission (HCC) [facility] Diagnosis BHUPINDER (generalized anxiety disorder)- Primary Generalized anxiety disorder Attention deficit hyperactivity disorder (ADHD), combined type Major depressive disorder, recurrent episode, moderate (HCC) Major depressive disorder, recurrent episode, moderate [facility] Diagnosis Attention deficit hyperactivity disorder (ADHD), combined type [facility] Attention deficit hyperactivity disorder (ADHD), combined type [facility] Diagnosis Well adult exam- Primary Routine general medical examination at a health care facility BHUPINDER (generalized anxiety disorder) Generalized anxiety disorder Hirsutism Irregular menstrual cycle Screening for lipid disorders Acute pain of left shoulder Cervical radiculopathy Brachial neuritis or radiculitis nos Screening for diabetes mellitus [facility] Diagnosis Encounter for gynecological examination (general) (routine) without abnormal findings- Primary Screening for cervical cancer Screening for malignant neoplasm of the cervix Encounter for screening for human papillomavirus (HPV) Special screening examination for human papillomavirus (HPV) [facility] Diagnosis BHUPINDER (generalized anxiety disorder)- Primary Generalized anxiety disorder Recurrent major depression in partial remission (HCC) Major depressive disorder, recurrent episode, in partial or unspecified remission Attention deficit hyperactivity disorder (ADHD), combined type [facility] Diagnosis Vitamin D deficiency- Primary Unspecified vitamin D deficiency [facility] Diagnosis BHUPINDER (generalized anxiety disorder)- Primary Generalized anxiety disorder Attention deficit hyperactivity disorder (ADHD), combined type [facility] Diagnosis Attention deficit hyperactivity disorder (ADHD), combined type [facility] Diagnosis BHUPINDER (generalized anxiety disorder)- Primary Generalized anxiety disorder Recurrent major depressive disorder, in partial remission (HCC) Attention deficit hyperactivity disorder (ADHD), combined type Recurrent major depression in partial remission (HCC) Major depressive disorder, recurrent episode, in partial or unspecified remission [facility] Diagnosis BHUPINDER (generalized anxiety disorder)- Primary Generalized anxiety disorder Recurrent major depressive disorder, in partial remission (HCC) Attention deficit hyperactivity disorder (ADHD), combined type Recurrent major depression in partial remission (HCC) Major depressive disorder, recurrent episode, in partial or unspecified remission [facility] Diagnosis Attention deficit hyperactivity disorder (ADHD), combined type- Primary BHUPINDER (generalized anxiety disorder) Generalized anxiety disorder Major depressive disorder, recurrent episode, moderate (HCC) Major depressive disorder, recurrent episode, moderate [facility] Diagnosis BHUPINDER (generalized anxiety disorder)- Primary Generalized anxiety disorder Attention deficit hyperactivity disorder (ADHD), combined type Recurrent major depressive disorder, in full remission (HCC) [facility] Diagnosis Attention deficit hyperactivity disorder (ADHD), combined type- Primary BHUPINDER (generalized anxiety disorder) Generalized anxiety disorder Vitamin D deficiency Unspecified vitamin D deficiency Recurrent major depressive disorder, in partial remission (HCC) [facility] Diagnosis Attention deficit hyperactivity disorder (ADHD), combined type [facility] Diagnosis Well adult exam- Primary Routine general medical examination at a health care facility Hirsutism Vitamin D deficiency Unspecified vitamin D deficiency Encounter for immunization Need for other specified prophylactic vaccination against single bacterial disease [facility] Diagnosis BHUPINDER (generalized anxiety disorder)- Primary Generalized anxiety disorder Attention deficit hyperactivity disorder (ADHD), combined type Recurrent major depressive disorder, in full remission (HCC) [facility] Diagnosis Hirsutism- Primary [facility] Diagnosis BHUPINDER (generalized anxiety disorder) Generalized anxiety disorder [facility] Diagnosis Acute pain of left shoulder Cervical radiculopathy Brachial neuritis or radiculitis nos [facility]* Diagnosis Cough [facility]* Diagnosis Attention deficit hyperactivity disorder (ADHD), combined type [facility]* Diagnosis Vitamin D deficiency Unspecified vitamin D deficiency [facility] Diagnosis Attention deficit hyperactivity disorder (ADHD), combined type [facility] Diagnosis Attention deficit hyperactivity disorder (ADHD), combined type- Primary Encounter for long-term (current) use of medications Encounter for long-term (current) use of other medications BHUPINDER (generalized anxiety disorder) Generalized anxiety disorder Vitamin D deficiency Unspecified vitamin D deficiency Recurrent major depression in partial remission (HCC) Major depressive disorder, recurrent episode, in partial or unspecified remission [facility] Diagnosis Attention deficit hyperactivity disorder (ADHD), combined type [facility]* Diagnosis Encounter for gynecological examination (general) (routine) without abnormal findings- Primary Encounter for initial prescription of contraceptive pills General counseling for prescription of oral contraceptives documented in this encounter [facility]* Diagnosis Attention deficit hyperactivity disorder (ADHD), combined type documented in this encounter [facility]* Diagnosis Recurrent major depression in partial remission- Primary Major depressive disorder, recurrent episode, in partial or unspecified remission Medication side effect, initial encounter Attention deficit hyperactivity disorder (ADHD), combined type BHUPINDER (generalized anxiety disorder) Generalized anxiety disorder Encounter for long-term (current) use of medications Encounter for long-term (current) use of other medications [facility] Diagnosis Encounter for surveillance of contraceptive pills- Primary Surveillance of previously prescribed contraceptive pill [facility]* Diagnosis Recurrent major depression in partial remission- Primary Major depressive disorder, recurrent episode, in partial or unspecified remission BHUPINDER (generalized anxiety disorder) Generalized anxiety disorder Attention deficit hyperactivity disorder (ADHD), combined type Vitamin D deficiency Unspecified vitamin D deficiency Encounter for long-term (current) use of medications Encounter for long-term (current) use of other medications documented in this encounter [facility] for referral (narrative)* Diagnostic Procedure Only (Routine) - Closed Specialty Diagnoses / Procedures Referred By Griffin t Referred To Contact XR IMAGING Diagnoses Acute pain of left shoulder Cervical radiculopathy Procedures XR CERV OTHER 4V AP/LAT/OBL RADEX SPINE CERVICAL 4 OR 5 VIEWS Kacey Dukes, TYRONE.[employer] [address] [place] [address] Xr Imaging Referral ID Status Reason Start Date Expiration Date V isits Requested Visits Authorized [id number] Closed Auto-Generate d Referral 03/31/2022 04/10/2022 1 1 [facility] for referral (narrative)* Diagnostic Procedure Only (Routine) - Closed Specialty Diagnoses / Procedures Referred By Contac t Referred To Contact XR IMAGING Diagnoses Acute pain of left shoulder Cervical radiculopathy Procedures XR CERV OTHER 4V AP/LAT/OBL RADEX SPINE CERVICAL 4 OR 5 VIEWS Kacey Dukes APRN.[employer] [address] [place] [address] [place] [id number] Referral ID Status Reason Start Date Expiration Date V isits Requested Visits Authorized [id number] Closed Auto-Generate d Referral 03/31/2022 04/10/2022 1 1 [facility] for visit Narrative* Diagnostic Procedure Only (Routine) - Closed Specialty Diagnoses / Procedures Referred By Contac t Referred To Contact XR IMAGING Diagnoses Acute pain of left shoulder Cervical radiculopathy Procedures XR CERV OTHER 4V AP/LAT/OBL RADEX SPINE CERVICAL 4 OR 5 VIEWS Kacey Dukes APRN.[employer] [address] [place] [address] [place] [id number] Referral ID Status Reason Start Date Expiration Date V isits Requested Visits Authorized [id number] Closed Auto-Generate d Referral 03/31/2022 04/10/2022 1 1 [facility] Summary Purpose Family History No Family History Records FoundNo Family History Records Found Advance Directives No Advanced Directives Records FoundNo Advanced Directives Records Found Health Concerns Infection Onset Date Last Indicated Resolved Time COVID-19 Rule-Out 09/02/2021 09/02/2021 Reason for Referral Specialty Diagnoses / Procedures Referred By Contac t Referred To Contact Dermatology Diagnoses Hirsutism Procedures CONSULT TO DERMATOLOGY Kacey Dukes APRN.[employer] [address] [place] [address] Referral ID Status Reason Start Date Expiration Date Visits Requested Visits Authorized [id number] Ref Not Required PCP Requested Referral 10/11/2023 10/10/2024 1 1 Additional Source Comments INFORMATION SOURCE (unrecogn ized section and content) DATE CREATED AUTHOR [facility] DATE CREATED AUTHOR AUTHOR'S JENN RACHEL [facility]/17/20[facility] Source Comments (unrecognize d section and content) In the event this informatio n is protected by the Federal Confidentiality of Alcohol and Drug Abuse Patient Records regulations: The Federal rules restrict any use of the information to criminally investigate or prosecute any alcohol or drug abuse patient.[facility] the event this information is protected by the Federal Confidentiality of Alcohol and Drug Abuse Patient Records regulations: The Federal rules restrict any use of the information to criminally investigate or prosecute any alcohol or drug abuse patient.[facility]In the event this information is protected by the Federal Confidentiality of Alcohol and Drug Abuse Patient Records regulations: The Federal rules restrict any use of the information to criminally investigate or prosecute any alcohol or drug abuse patient.[facility] HospitalIn the event this information is protected by the Federal Confidentiality of Alcohol and Drug Abuse Patient Records regulations: The Federal rules restrict any use of the information to criminally investigate or prosecute any alcohol or drug abuse patient.[facility]In the event this information is protected by the Federal Confidentiality of Alcohol and Drug Abuse Patient Records regulations: The Federal rules restrict any use of the information to criminally investigate or prosecute any alcohol or drug abuse patient.[facility]In the event this information is protected by the Federal Confidentiality of Alcohol and Drug Abuse Patient Records regulations: The Federal rules restrict any use of the information to criminally investigate or prosecute any alcohol or drug abuse patient.[facility] HospitalIn the event this information is protected by the Federal Confidentiality of Alcohol and Drug Abuse Patient Records regulations: The Federal rules restrict any use of the information to criminally investigate or prosecute any alcohol or drug abuse patient.[facility] HospitalIn the event this information is protected by the Federal Confidentiality of Alcohol and Drug Abuse Patient Records regulations: The Federal rules restrict any use of the information to criminally investigate or prosecute any alcohol or drug abuse patient.[facility] HospitalIn the event this information is protected by the Federal Confidentiality of Alcohol and Drug Abuse Patient Records regulations: The Federal rules restrict any use of the information to criminally investigate or prosecute any alcohol or drug abuse patient.[facility] HospitalIn the event this information is protected by the Federal Confidentiality of Alcohol and Drug Abuse Patient Records regulations: The Federal rules restrict any use of the information to criminally investigate or prosecute any alcohol or drug abuse patient.[facility] HospitalIn the event this information is protected by the Federal Confidentiality of Alcohol and Drug Abuse Patient Records regulations: The Federal rules restrict any use of the information to criminally investigate or prosecute any alcohol or drug abuse patient.[facility] HospitalIn the event this information is protected by the Federal Confidentiality of Alcohol and Drug Abuse Patient Records regulations: The Federal rules restrict any use of the information to criminally investigate or prosecute any alcohol or drug abuse patient.[facility] HospitalIn the event this information is protected by the Federal Confidentiality of Alcohol and Drug Abuse Patient Records regulations: The Federal rules restrict any use of the information to criminally investigate or prosecute any alcohol or drug abuse patient.[facility] HospitalIn the event this information is protected by the Federal Confidentiality of Alcohol and Drug Abuse Patient Records regulations: The Federal rules restrict any use of the information to criminally investigate or prosecute any alcohol or drug abuse patient.[facility] HospitalIn the event this information is protected by the Federal Confidentiality of Alcohol and Drug Abuse Patient Records regulations: The Federal rules restrict any use of the information to criminally investigate or prosecute any alcohol or drug abuse patient.[facility] HospitalIn the event this information is protected by the Federal Confidentiality of Alcohol and Drug Abuse Patient Records regulations: The Federal rules restrict any use of the information to criminally investigate or prosecute any alcohol or drug abuse patient.[facility] HospitalIn the event this information is protected by the Federal Confidentiality of Alcohol and Drug Abuse Patient Records regulations: The Federal rules restrict any use of the information to criminally investigate or prosecute any alcohol or drug abuse patient.[facility]In the event this information is protected by the Federal Confidentiality of Alcohol and Drug Abuse Patient Records regulations: The Federal rules restrict any use of the information to criminally investigate or prosecute any alcohol or drug abuse patient.[facility] HospitalIn the event this information is protected by the Federal Confidentiality of Alcohol and Drug Abuse Patient Records regulations: The Federal rules restrict any use of the information to criminally investigate or prosecute any alcohol or drug abuse patient.[facility] HospitalIn the event this information is protected by the Federal Confidentiality of Alcohol and Drug Abuse Patient Records regulations: The Federal rules restrict any use of the information to criminally investigate or prosecute any alcohol or drug abuse patient.[facility] HospitalIn the event this information is protected by the Federal Confidentiality of Alcohol and Drug Abuse Patient Records regulations: The Federal rules restrict any use of the information to criminally investigate or prosecute any alcohol or drug abuse patient.[facility] HospitalIn the event this information is protected by the Federal Confidentiality of Alcohol and Drug Abuse Patient Records regulations: The Federal rules restrict any use of the information to criminally investigate or prosecute any alcohol or drug abuse patient.[facility] HospitalIn the event this information is protected by the Federal Confidentiality of Alcohol and Drug Abuse Patient Records regulations: The Federal rules restrict any use of the information to criminally investigate or prosecute any alcohol or drug abuse patient.[facility] HospitalIn the event this information is protected by the Federal Confidentiality of Alcohol and Drug Abuse Patient Records regulations: The Federal rules restrict any use of the information to criminally investigate or prosecute any alcohol or drug abuse patient.[facility] HospitalIn the event this information is protected by the Federal Confidentiality of Alcohol and Drug Abuse Patient Records regulations: The Federal rules restrict any use of the information to criminally investigate or prosecute any alcohol or drug abuse patient.[facility] HospitalIn the event this information is protected by the Federal Confidentiality of Alcohol and Drug Abuse Patient Records regulations: The Federal rules restrict any use of the information to criminally investigate or prosecute any alcohol or drug abuse patient.[facility] HospitalIn the event this information is protected by the Federal Confidentiality of Alcohol and Drug Abuse Patient Records regulations: The Federal rules restrict any use of the information to criminally investigate or prosecute any alcohol or drug abuse patient.[facility]In the event this information is protected by the Federal Confidentiality of Alcohol and Drug Abuse Patient Records regulations: The Federal rules restrict any use of the information to criminally investigate or prosecute any alcohol or drug abuse patient.[facility]In the event this information is protected by the Federal Confidentiality of Alcohol and Drug Abuse Patient Records regulations: The Federal rules restrict any use of the information to criminally investigate or prosecute any alcohol or drug abuse patient.[facility] HospitalIn the event this information is protected by the Federal Confidentiality of Alcohol and Drug Abuse Patient Records regulations: The Federal rules restrict any use of the information to criminally investigate or prosecute any alcohol or drug abuse patient.[facility] HospitalIn the event this information is protected by the Federal Confidentiality of Alcohol and Drug Abuse Patient Records regulations: The Federal rules restrict any use of the information to criminally investigate or prosecute any alcohol or drug abuse patient.[facility]In the event this information is protected by the Federal Confidentiality of Alcohol and Drug Abuse Patient Records regulations: The Federal rules restrict any use of the information to criminally investigate or prosecute any alcohol or drug abuse patient.[facility] HospitalIn the event this information is protected by the Federal Confidentiality of Alcohol and Drug Abuse Patient Records regulations: The Federal rules restrict any use of the information to criminally investigate or prosecute any alcohol or drug abuse patient.[facility]In the event this information is protected by the Federal Confidentiality of Alcohol and Drug Abuse Patient Records regulations: The Federal rules restrict any use of the information to criminally investigate or prosecute any alcohol or drug abuse patient.[facility] HospitalIn the event this information is protected by the Federal Confidentiality of Alcohol and Drug Abuse Patient Records regulations: The Federal rules restrict any use of the information to criminally investigate or prosecute any alcohol or drug abuse patient.[facility] HospitalIn the event this information is protected by the Federal Confidentiality of Alcohol and Drug Abuse Patient Records regulations: The Federal rules restrict any use of the information to criminally investigate or prosecute any alcohol or drug abuse patient.[facility]In the event this information is protected by the Federal Confidentiality of Alcohol and Drug Abuse Patient Records regulations: The Federal rules restrict any use of the information to criminally investigate or prosecute any alcohol or drug abuse patient.[facility] HospitalIn the event this information is protected by the Federal Confidentiality of Alcohol and Drug Abuse Patient Records regulations: The Federal rules restrict any use of the information to criminally investigate or prosecute any alcohol or drug abuse patient.[facility]In the event this information is protected by the Federal Confidentiality of Alcohol and Drug Abuse Patient Records regulations: The Federal rules restrict any use of the information to criminally investigate or prosecute any alcohol or drug abuse patient.[facility] HospitalIn the event this information is protected by the Federal Confidentiality of Alcohol and Drug Abuse Patient Records regulations: The Federal rules restrict any use of the information to criminally investigate or prosecute any alcohol or drug abuse patient.[facility]In the event this information is protected by the Federal Confidentiality of Alcohol and Drug Abuse Patient Records regulations: The Federal rules restrict any use of the information to criminally investigate or prosecute any alcohol or drug abuse patient.[facility] HospitalIn the event this information is protected by the Federal Confidentiality of Alcohol and Drug Abuse Patient Records regulations: The Federal rules restrict any use of the information to criminally investigate or prosecute any alcohol or drug abuse patient.[facility] HospitalIn the event this information is protected by the Federal Confidentiality of Alcohol and Drug Abuse Patient Records regulations: The Federal rules restrict any use of the information to criminally investigate or prosecute any alcohol or drug abuse patient.[facility] HospitalIn the event this information is protected by the Federal Confidentiality of Alcohol and Drug Abuse Patient Records regulations: The Federal rules restrict any use of the information to criminally investigate or prosecute any alcohol or drug abuse patient.[facility]In the event this information is protected by the Federal Confidentiality of Alcohol and Drug Abuse Patient Records regulations: The Federal rules restrict any use of the information to criminally investigate or prosecute any alcohol or drug abuse patient.[facility] HospitalIn the event this information is protected by the Federal Confidentiality of Alcohol and Drug Abuse Patient Records regulations: The Federal rules restrict any use of the information to criminally investigate or prosecute any alcohol or drug abuse patient.[facility] HospitalIn the event this information is protected by the Federal Confidentiality of Alcohol and Drug Abuse Patient Records regulations: The Federal rules restrict any use of the information to criminally investigate or prosecute any alcohol or drug abuse patient.[facility] HospitalIn the event this information is protected by the Federal Confidentiality of Alcohol and Drug Abuse Patient Records regulations: The Federal rules restrict any use of the information to criminally investigate or prosecute any alcohol or drug abuse patient.[facility] HospitalIn the event this information is protected by the Federal Confidentiality of Alcohol and Drug Abuse Patient Records regulations: The Federal rules restrict any use of the information to criminally investigate or prosecute any alcohol or drug abuse patient.[facility] HospitalIn the event this information is protected by the Federal Confidentiality of Alcohol and Drug Abuse Patient Records regulations: The Federal rules restrict any use of the information to criminally investigate or prosecute any alcohol or drug abuse patient.[facility] HospitalIn the event this information is protected by the Federal Confidentiality of Alcohol and Drug Abuse Patient Records regulations: The Federal rules restrict any use of the information to criminally investigate or prosecute any alcohol or drug abuse patient.[facility] Reason for Visit (unrecogniz ed section and content) Reason Comments Follow Up Specialty Diagnoses / Procedures Referred By Griffin tate Referred To Contact Psychiatry / ADULT PSYCHIATRY Diagnoses Patient request sooner appointment Procedures VIDEO PSYC/PSYL EST Annika Larose, JACQUARD TWINE POLISHER OPERATOR.INSURANCE BILLER [address] [place] [address] Phone: tel: fax: Annika Larose, JACQUARD TWINE POLISHER OPERATOR.INSURANCE BILLER [address] [place] [address] Phone: tel: fax: Referral ID Status Reason Start Date Expiration Date V isits Requested Visits Authorized [id number] New Request 08/16/2024 11/14/2024 1 1 Specialty Diagnoses / Procedures Referred By Griffin tate Referred To Contact PSYCHIATRY Diagnoses follow up Procedures est patient follow up Sam Gomez DO [address] [place] [address] Behavioral [facility] Intake [address] [place] [address] Referral ID Status Reason Start Date Expiration Date V isits Requested Visits Authorized [id number] Authorized 04/11/2022 04/10/2023 99 99 Specialty Diagnoses / Procedures Referred By Contac t Referred To Contact Psychiatry / ADULT PSYCHIATRY Diagnoses FOLLOW UP Procedures EST PSYC ADULT Sam Gomez, DO [address] [place] [address] Annika Larose, JACQUARD TWINE POLISHER OPERATOR.INSURANCE BILLER [address] [place] [address] Referral ID Status Reason Start Date Expiration Date V isits Requested Visits Authorized [id number] Pending Review 03/03/2022 06/01/2022 1 1 Specialty Diagnoses / Procedures Referred By Contac t Referred To Contact Diagnoses Attention deficit disorder (ADD) in adult Recurrent major depression in partial remission (HCC) Procedures CONSULT TO PSYCHIATRY OFFICE/OUTPATIENT [facility] MDM 60-74 MINUTES Kacey Dukes, JACQUARD TWINE POLISHER OPERATOR.INSURANCE BILLER [address] [place] [address] Referral ID Status Reason Start Date Expiration Date Visits Requested Visits Authorized [id number] Pending Review PCP Requested Referral 06/12/2021 06/12/2022 1 1 Reason Comments Behavioral Problem evaulation for ADHD/ depression Reason Onset Date Comments Refill Request 08/09/2021 Reason Comments Sore Throat ST and REID x 1 week Reason Onset Date Comments Refill Request 09/08/2021 Reason Comments Refill Request Reason Comments Med Change Request Reason Onset Date Comments Refill Request 03/14/2022 Reason Comments Physical Left shoulder pain x 1 month Reason Comments Yearly Exam Specialty Diagnoses / Procedures Referred By Contac t Referred To Contact Gynecology / [place]INTER [place] Diagnoses Wellness examination General checkup Procedures [facility] ANNU[facility] Self Maliha Whelan APRN.INSURANCE BILLER [address] [place] [address] Referral ID Status Reason Start Date Expiration Date Visits Re quested Visits Authorized [id number] Closed 04/01/2022 04/10/2022 1 1 Reason Comments Results Reason Comments Medication Follow-up Reason Onset Date Comments Refill Request 05/22/2022 Reason Onset Date Comments Refill Request 08/15/2023 Reason Comments Physical Hair growth under ch in Reason Comments Consult Specialty Diagnoses / Procedures Referred By Griffin tate Referred To Contact Radiology / [facility] Diagnoses chest Procedures XR CHEST Anoop Harrison, TYRONE.INSURANCE BILLER [address] [place] [address] [facility] [address] [place] [address] Referral ID Status Reason Start Date Expiration Date Visits Re quested Visits Authorized [id number] Closed 08/25/2020 11/23/2020 1 1 Reason Onset Date Comments Refill Request 09/16/2023 Reason Onset Date Comments Refill Request 02/07/2024 Reason Onset Date Comments Refill Request 03/21/2024 Reason Comments Follow Up Anxiety/Depression/A DHD Reason Onset Date Comments Refill Request 06/05/2024 Reason Onset Date Comments Refill Request 07/12/2024 Reason Comments Contraception Reason Comments Follow Up Depression/Anxiety/A DHD Reason Onset Date Comments Refill Request 11/26/2024 Care Teams (unrecognized sec tion and content) Medical Psychotherapist Relationship Specialty Start Date End Date Sam Gomez DO [address] [place] [address] PCP - General Family Practice 08/16/14 Medical Psychotherapist Relationship Specialty Start Date End Date Sam Gomez DO [address] [place] [address] PCP - General Family Practice 08/16/14 Medical Psychotherapist Relationship Specialty Start Date End Date Sam Gomez DO [address] [place] [address] PCP - General Family Practice 08/16/14 Medical Psychotherapist Relationship Specialty Start Date End Date Sam Gomez DO [address] [place] [address] PCP - General Family Practice 08/16/14 Medical Psychotherapist Relationship Specialty Start Date End Date Sam Gomez, DO [address] [place] [address] PCP - General Family Practice 08/16/14 Medical Psychotherapist Relationship Specialty Start Date End Date Sam Gomez, DO [address] [place] [address] PCP - General Family Practice 08/16/14 Medical Psychotherapist Relationship Specialty Start Date End Date Sam Gomez, DO [address] [place] [address] PCP - General Family Practice 08/16/14 Medical Psychotherapist Relationship Specialty Start Date End Date Sam Gomez, DO [address] [place] [address] PCP - General Family Practice 08/16/14 Medical Psychotherapist Relationship Specialty Start Date End Date Sam Gomez, DO [address] [place] [address] PCP - General Family Practice 08/16/14 Medical Psychotherapist Relationship Specialty Start Date End Date Sam Gomez, DO [address] [place] [address] PCP - General Family Medicine 08/16/14 Medical Psychotherapist Relationship Specialty Start Date End Date Sam Gomez, DO [address] [place] [address] PCP - General Family Medicine 08/16/14 Medical Psychotherapist Relationship Specialty Start Date End Date Sam Gomez, DO [address] [place] [address] PCP - General Family Medicine 08/16/14 Medical Psychotherapist Relationship Specialty Start Date End Date Sam Gomez, DO [address] [place] [address] PCP - General Family Medicine 08/16/14 Medical Psychotherapist Relationship Specialty Start Date End Date Sam Gomez, DO [address] [place] [address] PCP - General Family Medicine 08/16/14 Medical Psychotherapist Relationship Specialty Start Date End Date Sam Gomez, DO [address] [place] [address] PCP - General Family Medicine 08/16/14 Medical Psychotherapist Relationship Specialty Start Date End Date Sam Gomez, DO [address] [place] [address] PCP - General Family Medicine 08/16/14 Medical Psychotherapist Relationship Specialty Start Date End Date Sam Gomez, DO [address] [place] [address] PCP - General Family Medicine 08/16/14 Medical Psychotherapist Relationship Specialty Start Date End Date Sam Gomez, DO [address] [place] [address] PCP - General Family Medicine 08/16/14 Medical Psychotherapist Relationship Specialty Start Date End Date Sam Gomez, DO [address] [place] [address] PCP - General Family Medicine 08/16/14 Medical Psychotherapist Relationship Specialty Start Date End Date Sam Gomez DO [address] [place] [address] PCP - General Family Medicine 08/16/14 Medical Psychotherapist Relationship Specialty Start Date End Date Sam Gomez DO [address] [place] [address] PCP - General Family Medicine 08/16/14 Medical Psychotherapist Relationship Specialty Start Date End Date Sam Gomez DO [address] [place] [address] PCP - General Family Medicine 08/16/14 Medical Psychotherapist Relationship Specialty Start Date End Date Sam Gomez, DO [address] [place] [address] PCP - General Family Medicine 08/16/14 Medical Psychotherapist Relationship Specialty Start Date End Date Sam Gomez, DO [address] [place] [address] PCP - General Family Medicine 08/16/14 Medical Psychotherapist Relationship Specialty Start Date End Date Sam Gomez, [address] [place] [address] PCP - General Family Medicine 08/16/14 Medical Psychotherapist Relationship Specialty Start Date End Date Sam Gomez, [address] [place] [address] PCP - General Family Medicine 08/16/14 Medical Psychotherapist Relationship Specialty Start Date End Date Sam Gomez, DO [address] [place] [address] PCP - General Family Medicine 08/16/14 Medical Psychotherapist Relationship Specialty Start Date End Date Sam Gomez, [address] [place] [address] PCP - General Family Medicine 08/16/14 Medical Psychotherapist Relationship Specialty Start Date End Date Sam Gomez, DO [address] [place] [address] PCP - General Family Medicine 08/16/14 Ban Luo, JACQUARD TWINE POLISHER OPERATOR.INSURANCE BILLER [address] [place] [address] Hull Molder [facility] 03/18/24 RoselineKacey, JACQUARD TWINE POLISHER OPERATOR.INSURANCE BILLER [address] [place] [address] Hull Molder Family [facility] 03/18/24 Medical Psychotherapist Relationship Specialty Start Date End Date Sam Gomez DO [address] [place] [address] PCP - General Family Medicine 08/16/14 Ban Luo, JACQUARD TWINE POLISHER OPERATOR.INSURANCE BILLER [address] [place] [address] [facility] 03/[facility]/24 RoselineKacey, JACQUARD TWINE POLISHER OPERATOR.INSURANCE BILLER [address] [place] [address] [facility] 03/18/24 Medical Psychotherapist Relationship Specialty Start Date End Date Sam Gomez DO [address] [place] [address] PCP - General Family Medicine 08/16/14 Ban Luo, JACQUARD TWINE POLISHER OPERATOR.INSURANCE BILLER [address] [place] [address] [facility] 03/18/24 RoselineKacey, JACQUARD TWINE POLISHER OPERATOR.INSURANCE BILLER [address] [place] [address] Hull Molder [facility] 03/18/24 Medical Psychotherapist Relationship Specialty Start Date End Date Sam Gomez DO [address] [place] [address] PCP - General Family Medicine 08/16/14 Ban Luo JACQUARD TWINE POLISHER OPERATOR.INSURANCE BILLER [address] [place] [address] [facility] 03/18/24 RoselineKacey, JACQUARD TWINE POLISHER OPERATOR.INSURANCE BILLER [address] [place] [address] Hull Molder Family [facility] 03/18/24 Medical Psychotherapist Relationship Specialty Start Date End Date Sam Gomez DO [address] [place] [address] PCP - General Family Medicine 08/16/14 RoselineKacey, JACQUARD TWINE POLISHER OPERATOR.INSURANCE BILLER [address] [place] [address] Hull Molder Family [facility] 03/18/24 Medical Psychotherapist Relationship Specialty Start Date End Date Sam Gomez DO [address] [place] [address] PCP - General Family Medicine 08/16/14 RoselineKacey, JACQUARD TWINE POLISHER OPERATOR.INSURANCE BILLER [address] [place] [address] [facility] 03/18/24 Medical Psychotherapist Relationship Specialty Start Date End Date Sam Gomez DO [address] [facility] [place] [address] PCP - General Family Medicine 08/16/14 Kacey Dukes, JACQUARD TWINE POLISHER OPERATOR.INSURANCE BILLER [address] [place] [address] Hull Molder [facility] 03/18/24 Medical Psychotherapist Relationship Specialty Start Date End Date Sam Gomez DO [address] [place] [address] PCP - General Family Medicine 08/16/14 RoselineKacey, JACQUARD TWINE POLISHER OPERATOR.INSURANCE BILLER [address] [place] [address] Hull Molder Family [facility] 03/18/24 Medical Psychotherapist Relationship Specialty Start Date End Date Sam Gomez DO [address] [place] [address] PCP - General Family Medicine 08/16/14 RoselineKacey, JACQUARD TWINE POLISHER OPERATOR.INSURANCE BILLER [address] [place] [address] [facility] 03/18/24 Lanette Londono, JACQUARD TWINE POLISHER OPERATOR.INSURANCE BILLER [address] [place] [address] Hull Molder [facility] 09/24/24 Medical Psychotherapist Relationship Specialty Start Date End Date Sam Gomez DO [address] [place] [address] PCP - General Family Medicine 08/16/14 RoselineKacey, JACQUARD TWINE POLISHER OPERATOR.INSURANCE BILLER [address] [place] [address] [facility] 03/18/24 Lanette Londono, JACQUARD TWINE POLISHER OPERATOR.INSURANCE BILLER [address] [place] [address] [facility] 09/24/24 Medical Psychotherapist Relationship Specialty Start Date End Date Sam Gomez DO [address] [place], [place] [address] PCP - General Family Medicine 08/16/14 Kacey Dukes APRN.INSURANCE BILLER [address] [place], [place] [id number] [facility] 03/18/24 Lanette Londono APRN.INSURANCE BILLER [address] [place] [address] [facility] 09/24/24 FOR RECORDS PERTAINING TO PATIENTS WHO ARE OR HAVE BEEN ENROLLED IN A CHEMICAL DEPENDENCY/SUBSTANCEABUSE PROGRAM, SOME INFORMATION MAY BE OMITTED. This clinical summary was aggregated from multiple sources. Caution should be exercised in using it in the provision of clinical care. This summary normalizes information from multiple sources, and as a consequence, information in this document may materially change the coding, format and clinical context of patient data. In addition, data may be omitted in some cases. CLINICAL DECISIONS SHOULD BE BASED ON THE PRIMARY CLINICAL RECORDS. [facility]. provides no warranty or guarantee of the accuracy or completeness of information in this document.
[2024-12-10 19:58] VITALS: BP 118/85; PULSE 80; RESP 16; TEMP 36.1; O2SAT 97
== END 2024-12-10 19:59 | disposition home or self-care (01) ==
PROVIDERS: Emergency Provider Emergency Medicine; PCP Student in an Organized Health Care Education/Training Program; Visit Provider Emergency Medicine
DX: S62.617A Displaced fracture of proximal phalanx of left little finger, initial encounter for closed fracture (principal); W10.9XXA Fall (on) (from) unspecified stairs and steps, initial encounter
CPT/HCPCS: 73130; 99283; A4216